=== PATIENT | female | born 1955 | race Caucasian/White ===

== ENCOUNTER → 2018-03-27 | Outpatient (CLI) | payer OTHER, BC ==
[~2018-03-27] MED LIST: EPGI2M; FERROUS SULFATE PO; FLUO20CA20 PO; FLUT0.15 INTNAS; IMD/2 PO; INSU70IN2 SC; LABE100T3 PO; PANT40TA PO; PRAV20TA PO; PREG1CAP70 PO; TORS20TA2 PO; WARF5TAB90 PO
--- NOTE | 2018-03-27 16:41 | DIAGNOSTIC IMAGING REPORT ---
L FOOT MIN 3 VIEWS ROUTINE CLINICAL HISTORY: 62 years-old Female presenting with NON HEALING DIABETIC WOUND. TECHNIQUE: Frontal, oblique, and lateral views of the left foot were obtained. COMPARISON: 08/29/2014. FINDINGS: The site of the reported nonhealing wound is not immediately apparent. Furthermore, osteopenia limits evaluation for osseous erosion or periosteal reaction. Chronic fracture of the base of the second metatarsal with lateral subluxation of the second through fifth metatarsals relative to the first metatarsal. This is consistent with the chronic Lisfranc fracture dislocation. The degree of osteopenia makes assessment for acute fracture difficult. Allowing for this, no gross evidence of acute osseous injury or acute malalignment. Intramedullary nail and interlocking screw fixation across the tibiotalar articulation consistent with arthrodesis. 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 Loss of height of the longitudinal arch as on prior exam. Prominent enthesophyte at the origin of the plantar fascia. Atherosclerosis. IMPRESSION: 1. Allowing for the degree of osteopenia, no radiographic evidence of osteomyelitis. The site of the reported wound is not identified. 2. Interval arthrodesis of the tibiotalar articulation with internal fixation hardware. 3. No displaced fracture allowing for osteopenia. 4. Chronic Lisfranc injury with divergent dislocation. 5. Chronic Charcot foot and pes planus. Electronically signed by: Norris Curtis M.D. 03/27/2018 4:40 PM Dictated Date/Time: 03/27/2018 4:35 PM
== END | disposition home or self-care (01) ==
LOC: C.RAD 16:07
PROVIDERS: ATTEND Emergency Medicine
DX: S91.302A Unspecified open wound, left foot, initial encounter (principal); E11.9 Type 2 diabetes mellitus without complications; X58.XXXA Exposure to other specified factors, initial encounter; M85.80 Other specified disorders of bone density and structure, unspecified site; Z98.1 Arthrodesis status; S93.326A Dislocation of tarsometatarsal joint of unspecified foot, initial encounter; A52.16 Charcot's arthropathy (tabetic)

== ENCOUNTER 2019-05-19 15:35 | Inpatient (IN) ==
[2019-05-19] MEDS ORDERED: LEVOFLOXACIN/D5W 750 MG/150 ML BAG IV STA (16:04)
[2019-05-19] MEDS ORDERED: SODIUM CHLORIDE 0.9% 1000ML 1,000 ML IV ONE (16:04)
[2019-05-19] MEDS ORDERED: PIPERACILL/TAZOBAC CONSULT ACTIVE PRN ×2 (16:04→21:00)
[2019-05-19] MEDS ORDERED: PIPERACILLIN/TAZOBACTAM 4.5 GM/120 ML BAG IV ONE (16:04)
[2019-05-19 16:55] LABS: Basophils # (auto) 0.02 K/uL (0-0.2); Basophils % (auto) 0.2 %; Eosinophils # (auto) 0.09 K/uL (0-0.5); Eosinophils % (auto) 0.7 %; Hematocrit (blood only) 29.3 % (37-47); Hemoglobin 9.1 g/dL (12.0-16.0); Immature Granulocytes # (auto) 0.19 K/uL (0.00-0.02); Immature Granulocytes % (auto) 1.5 %; Lymphocytes # (auto) 1.34 K/uL (1.2-3.4); Lymphocytes % (auto) 10.6 %; Mean Corpuscular Hemoglobin 30.7 pg (25-34); Mean Corpuscular Hgb Conc 31.1 g/dL (32-36); Mean Platelet Volume 10.7 fL (7.4-10.4); Monocytes # (auto) 1.24 K/uL (0.11-0.59); Monocytes % (auto) 9.8 %; Neutrophils # (auto) 9.78 K/uL (1.4-6.5); Neutrophils % (auto) 77.2 %; Nucleated RBC # (auto) 0.03 K/uL (0-0); Nucleated RBC % (auto) 0.2 %; Platelet Count 269 K/uL (130-400); RDW Coefficient of Variation 16.3 % (11.5-14.5); RDW Standard Deviation 57.4 fL (36.4-46.3); Red Blood Count 2.96 M/uL (4.2-5.4); White Blood Count 12.66 K/uL (4.8-10.8)
[2019-05-19] MEDS ORDERED: INSULIN HUMAN REGULAR PER UNIT 10 UNITS in SYRINGE 0 ML IV STA (16:55)
[2019-05-19] MEDS ORDERED: POTASSIUM CHLORIDE 10 MEQ TABCR PO STA (17:06)
[2019-05-19] MEDS ORDERED: NovoLIN-R INSULIN PER UNIT CHARGE ONE (17:12)
[2019-05-19 17:14] LABS: iSTAT Creatinine 6.1 mg/dl (0.6-1.3); iSTAT Hemoglobin 8.5 g/dl (12.0-16.0); iSTAT Ionized Calcium 1.08 mmol/l (1.12-1.32); iSTAT Potassium 3.1 mEq/L (3.3-5.0)
[2019-05-19] MEDS ORDERED: INSULIN REGULAR 250 UNITS in SODIUM CHLORIDE 0.9% 247.5 ML IV SCH (17:15)
[2019-05-19 17:32] LABS: Albumin Globulin Ratio 0.5 (0.9-2); Albumin Level 2.3 gm/dl (3.4-5.0); BUN Creatinine Ratio 4.2 (10-20); Bilirubin,Total 0.2 mg/dl (0.2-1); Creatinine Clr Calc Pharmacy 13.8 ml/min; Est GFR (African American) 8.8; Est GFR (Non-African American) 7.6; Globulin 4.4 gm/dl (2.5-4.0); Total Protein 6.7 gm/dl (6.4-8.2)
[2019-05-19 17:49] LABS: Beta-Hydroxybutyrate 0.67 mg/dl (0.2-2.81)
[2019-05-19 17:54] LABS: Prothrombin Time 37.1 Seconds (9.0-12.0)
[2019-05-19] MEDS ORDERED: POTASSIUM CHLORIDE 20 MEQ TABCR PO STA ×2 (18:21→22:01)
--- NOTE | 2019-05-19 20:41 | History & Physical Report ---
Date of Service May 19, 2019 Assessment & Plan (1) Diabetic foot ulcer associated with type 2 diabetes mellitus: This is a 63-year-old female with uncontrolled IDDM 2, ESRD on HD MWF, diabetic neuropathy, diabetic gastroparesis, Charcot foot secondary to DM, diabetic retinopathy, HTN, HLD, PAF, history of DVT on warfarin, hyperparathyroidism secondary to end-stage renal disease, anemia of chronic disease who presents to [facility] ED at the referral of wound clinic secondary to deterioration of right heel wound and hyperglycemia. Foul smelling R Heel ulceration with necrotic tissue Outpt xray unable to r/o osteomyelitis on 05/12 Deterioration of wound with increasing erythema to RLE Admit to PCU consult infectious disease Start IV Daptomycin and Zosyn wound culture consult wound care Obtain MRI to determine if underlying osteomyelitis- unable to obtain this evening due to patient unable to transfer/sob ESR/CRP in a.m. blood cultures pending (2) Diabetes mellitus, type 2: Uncontrolled type 2 diabetes mellitus with hyperglycemia Blood sugar 589 on admission Pt A&O x 3, corrected Na 138 K low at 3.0 - received 40mg KCL AG 12.0, beta hydroxybutyric acid WNL Initiated on insulin drip in ED Continue insulin drip and will consult glycemic pharmacist for further assistance repeat bmp - replace electrolytes accordingly A1C pending consult breastfeeding educator (3) Atrial fibrillation: Paroxysmal A. fib Rate and rhythm controlled on metoprolol On warfarin for thrombotic control (4) Hypertension: Blood pressure elevated in ED Possibly secondary to pain Patient currently not on any oral antihypertensives order hydralazine prn (5) Hyperlipidemia: Continue statin (6) ESRD (end stage renal disease): HD MWF consult nephrology continue phoslo renal diet, FR 1500ml (7) GERD (gastroesophageal reflux disease): continue PPI (8) Gastroparesis: prn zofran (9) Diabetic peripheral neuropathy: continue lyrica (10) Depression: continue prozac mood stable (11) DVT prophylaxis: on warfarin, currently on hold INR supratherapeutic at 4.0 Daily INR Disposition: Admit to PCU Follow-up: PCP Dr. Dixon upon discharge along with appropriate infectious disease and wound care follow-up Patient was seen and examined in collaboration with Dr. Tomas, please see addendum Starting 05/20/2019 patient will be under the care of Dr. Venegas (12) Anemia in ESRD (end-stage renal disease): History of Present Illness Chief Complaint: Referred to ED from wound clinic due to deterioration of right heel wound. Primary Care Provider: Issa Dixon MD This is a 63-year-old female with uncontrolled IDDM 2, ESRD on HD MWF, diabetic neuropathy, diabetic gastroparesis, Charcot foot secondary to DM, diabetic retinopathy, HTN, HLD, PAF, history of DVT on warfarin, hyperparathyroidism secondary to end-stage renal disease, anemia of chronic disease who presents to [facility] ED at the referral of wound clinic secondary to deterioration of right heel wound and hyperglycemia. is at bedside. She was seen in wound clinic today due to right diabetic foot ulceration. Previously she had been treating with Betadine daily. Recent outpatient x-ray was difficult to rule out early osteomyelitis. Right lower extremity more painful, wound with foul odor and redness extending proximally of the right lower extremity. She was further found to have blood sugar in the 500s. She was referred to ED. She states that she has had wound for approximately 6 weeks and has been worsening. Has been taking ciprofloxacin and clindamycin without for 2 weeks without improvement. Approximately 2 to 4 months ago she had left foot ulceration, but this has since healed. She overall complains of chronic dyspnea on exertion, fatigue, nausea secondary to gastroparesis. Denies fever, chills, sweats, lightheadedness, dizziness, syncope, chest pain, palpitations, emesis, abdominal pain. She produces minimal urine. She is incontinent of stool and has been for years. Over the past month it has been, "oozing out." Appetite has been good. Complains of 2 pound weight gain. Has been compliant with dialysis. Allergies Allergy/AdvReac Type Severity Reaction Status Date / Time Bactrim Allergy Severe ANAPHYLAXIS Verified 06/11/16 08:40 sulfamethoxazole Allergy Severe Anaphylaxis Verified 05/19/19 16:49 trimethoprim Allergy Severe Anaphylaxis Verified 05/19/19 16:49 metformin AdvReac Intermediate Gastrointestinal Verified 05/19/19 16:49 Upset Home Medications Home Medications Medication Instructions Recorded Confirmed Type fluoxetine 20 mg capsule 20 mg PO QAM cap 04/08/18 05/19/19 History fluticasone propionate 50 2 sprays INTNAS QPM gm 04/08/18 05/19/19 History mcg/actuation nasal spray,suspension loperamide 2 mg capsule 4 mg PO DIRECTED PRN cap 04/08/18 05/19/19 History pantoprazole 40 mg tablet,delayed 40 mg PO QAM 04/08/18 05/19/19 History release pravastatin 20 mg tablet 20 mg PO QAM tab 04/08/18 05/19/19 History pregabalin 150 mg capsule 150 mg PO BID 04/08/18 05/19/19 History warfarin 5 mg tablet 2.5 mg PO WK 04/08/18 05/19/19 History calcium acetate 667 mg capsule 1,334 mg PO TIDM cap 05/27/18 05/19/19 History clindamycin HCl 300 mg capsule 300 mg PO TID #90 cap 05/12/19 05/19/19 Rx B complex-vitamin C-folic acid 1 tab PO HS 05/19/19 05/19/19 History [Nephro-Lexa] calcium acetate 667 mg PO DIRECTED 05/19/19 05/19/19 History ciprofloxacin HCl [Cipro] 500 mg PO QAM 05/19/19 05/19/19 History ergocalciferol (vitamin D2) 50,000 unit PO WK 05/19/19 05/19/19 History hydrocodone-acetaminophen 1 tab PO Q6H PRN 05/19/19 05/19/19 History insulin NPH and regular human 26 unit SUBCUT QAM 05/19/19 05/19/19 History [Humulin 70/30 U-100 Insulin] insulin NPH and regular human 36 unit SUBCUT HS 05/19/19 05/19/19 History [Humulin 70/30 U-100 Insulin] metoclopramide HCl 5 mg PO QID PRN 05/19/19 05/19/19 History ondansetron HCl 4 mg PO QID PRN 05/19/19 05/19/19 History warfarin 5 mg PO 6XWK 05/19/19 05/19/19 History Past Med/Surg History Medical History DVT (deep venous thrombosis) (Chronic) x 2. LUE & LLE (both dx years ago - treated - LUE post surgery, reason for DVT in LLE unk) Diverticulosis (Chronic) Diabetic peripheral neuropathy (Acute) Hyperlipidemia Hypertension (Acute) Congestive heart failure Follows w/ dr. Perez Atrial fibrillation dx 2 years ago - on warfarin - follows w/ dr. Perez Neuropathy Depression Glaucoma Diabetes mellitus, type 2 IDDM GERD (gastroesophageal reflux disease) Gastroparesis ESRD (end stage renal disease) (Acute) 2/2 DM; FOLLOWS W/ [facility] Dialysis patient (Acute) M, W, F AV fistula LUE Wound infection (Acute) ACTIVE INFECTION TO LEFT THUMB WOUND; ON ABX; [facility] Charcot's joint of left foot (Acute) Diabetes mellitus with diabetic polyneuropathy (Acute) Charcot's joint of foot in type 2 diabetes mellitus (Chronic) Acquired claw toe of right foot (Acute) Neuropathic ulcer of left heel (Resolved) Acquired claw toe of left foot (Acute) Left midfoot ulcer (Acute) Surgical History H/O carpal tunnel repair (Chronic) History of cholecystectomy (Chronic) H/O hernia repair (Chronic) Hx of appendectomy (Chronic) History of ankle surgery (Acute) History of colonoscopy History of esophagogastroduodenoscopy (EGD) History of bilateral knee replacement S/P arteriovenous (AV) fistula creation History of cervical spinal surgery ROM WNL History of cataract surgery LEFT Family History Other No significant family history Social History Preferred Language: Thai Communication Ability: Effective Cardiovascular Invasive Specialist Required: No Beliefs That Will Affect Care: None Current Living Situation: Spouse Other Information That Helps Us Care for You: No Feels Safe at Home: Yes Safety Concerns: Feels Safe At This Time Smoking Status: Never smoker Second Hand Exposure: No ; Hx Alcohol Use: No Hx Substance Use: No Review of Systems Review of Systems: All systems reviewed & are unremarkable except as noted in HPI & below Physical Exam Physical Exam: Constitutional: Morbidly obese, female, vitals as above, NAD, sitting up in bed, pleasant, conversing easily Head: Normocephalic, Atraumatic Eyes: PERRL, conjunctivae normal, anicteric sclerae ENMT: external ear and nose normal, oropharynx dry mucous membrane Neck: trachea midline, no thyromegaly normal visual inspection Respiratory: normal respiratory effort, lungs clear to auscultation, no wheeze, rales, rhonchi. Normal insp/exp effort, no accessory muscle use Cardiovascular: RRR, no murmur, bilateral lower extremity nonpitting edema right greater than left. Right lower extremity with erythema starting distally to pedal aspect of foot extending proximally to mid pretibial surface. Area warm. Vessels: no JVD or carotid bruit Chest: normal inspection of chest Abdomen: Obese and protuberant abdomen, normal bowel sounds, soft, nontender, no hepatosplenomegaly Musculoskeletal: no cyanosis or clubbing, foul-smelling wound overlying right Achilles with necrotic tissue 7 x 8 cm in size Skin: warm and dry normal turgor Neurologic: PERRL, EOMI, accommodation nl, no face palsy, no dysarthria CN's II-XI intact bilaterally and moves all extremities Psychiatric: A+Ox3, euthymic affect Lymphatic: no cervical or axillary lymphadenopathy : deferred Results & Data Vital Signs (Past 12 Hours) Vital Signs Temp Pulse Pulse Resp BP BP Pulse Ox 05/19/19 18:01 78 13 97 05/19/19 17:59 80 16 184/46 H 96 05/19/19 17:57 86 30 H 93 05/19/19 17:46 70 12 150/54 H 94 05/19/19 17:30 68 15 05/19/19 17:27 69 13 150/54 H 05/19/19 17:15 70 10 L 05/19/19 17:00 70 16 05/19/19 16:45 71 15 05/19/19 16:42 70 24 181/60 H 05/19/19 16:30 70 16 05/19/19 16:28 72 25 H 05/19/19 15:45 36.5 C 73 20 133/51 L 96 Laboratory Results Short CBC 05/19/19 Range/Units 16:40 WBC 12.66 H (4.8-10.8) K/uL Hgb 9.1 L (12.0-16.0) g/dL Hct 29.3 L (37-47) % Plt Count 269 (130-400) K/uL BMP 05/19/19 16:40 Sodium 127 L Potassium 3.0 L Chloride 88 L Carbon Dioxide 27 BUN 23 H Creatinine 5.56 H* Glucose 589 H* Calcium 9.0 Liver Function 05/19/19 Range/Units 16:40 Total Bilirubin 0.2 (0.2-1) mg/dl AST 18 (15-37) U/L ALT 28 (12-78) U/L Alkaline Phosphatase 117 (45-117) U/L Albumin 2.3 L (3.4-5.0) gm/dl Diagnostic Findings outpt xray R foot/ankle 05/12/19 IMPRESSION Vague increased lucency involving the anterior aspect of the Achilles insertion. There appears to be a soft tissue defect overlying this area. It would be difficult to entirely exclude early osteomyelitis here. RLE VDS: IMPRESSION: No sonographic evidence of deep venous thrombosis. Medications Administered Insulin Human Regular 250 (units/ Sodium Chloride) 250 mls @ 4.9 mls/hr IV .Q24H RAMYA; Protocol Stop: 06/18/19 17:14 Last Titration: 05/19/19 20:01 Dose: 5.9 units/hr, 5.9 mls/hr Documented by: [id number] Cosigned by: [id number] Admin: 05/19/19 18:49 Dose: 4.9 units/hr, 4.9 mls/hr Documented by: [id number] Cosigned by: [id number] Discontinued Medications Levofloxacin/Dextrose (Levaquin/D5w) 750 mg in 150 mls @ 100 mls/hr IV NOW STA Stop: 05/19/19 17:33 Last Admin: 05/19/19 18:18 Dose: 100 mls/hr Documented by: [id number] Sodium Chloride (Nss 1000ml) 1,000 mls @ 999 mls/hr IV .Q1H1M ONE Stop: 05/19/19 17:04 Last Admin: 05/19/19 16:53 Dose: 999 mls/hr Documented by: [id number] Piperacillin Sod/Tazobactam Sod (Zosyn) 4.5 gm in 120 mls @ 240 mls/hr IV NOW ONE Stop: 05/19/19 16:33 Last Admin: 05/19/19 17:32 Dose: 240 mls/hr Documented by: [id number] Insulin Human Regular 10 units (/ Syringe) 0.1 mls @ 0 mls/hr IV ONE STA Stop: 05/19/19 16:56 Last Admin: 05/19/19 19:16 Dose: Not Given Documented by: [id number] Insulin Human Regular (Novolin R U-100 Per Unit) Confirm Administered Dose 10 units .ROUTE .STK-MED ONE Stop: 05/19/19 17:13 Last Admin: 05/19/19 17:31 Dose: 10 units Documented by: [id number] Cosigned by: [id number] Potassium Chloride (Klor-Con M10) 40 meq PO NOW STA Stop: 05/19/19 17:07 Last Admin: 05/19/19 17:31 Dose: 40 meq Documented by: [id number] Potassium Chloride (Klor-Con M20) 40 meq PO NOW STA Stop: 05/19/19 18:22 Last Admin: 05/19/19 19:44 Dose: 40 meq Documented by: [id number] Code Status & VTE Plan Code Status Full Code VTE Prophylaxis Plan VTE Prophylaxis will be ordered: Yes Supervising Physician Co-Signing Physician Notes HISTORY: Record reviewed. Patient interviewed and examined. Care coordinated with India Mendez PA-C. Please refer to her documentation for patient's history. Briefly, 63-year-old female with history of atrial fibrillation, CHF, diabetes mellitus, CKD stage V on hemodialysis, and other problems. Recent ulcer involving posterior aspect of right foot/ankle followed by wound clinic. Referred for hospitalization because of worsening wound infection and concern for possible osteomyelitis. EXAM: General- no distress Lungs- clear to auscultation; no respiratory distress Cardiovascular- RRR; no murmur; no gallop; 1+ pretibial edema Abdomen- + bowel sounds, soft, nontender Extremities- no cyanosis; no calf tenderness: Charcot deformity left foot Neuro- alert, oriented Skin- warm & dry; large ulcer right posterior foot / ankle with foul-smelling odor suggestive of Pseudomonas DATA: Hemoglobin 9.1, white count 12,660, platelet count 269,000. INR 4.0. Serum sodium 127, potassium 3.0, chloride 88, CO2 27, anion gap 12, BUN 23, creatinine 5.56, random glucose 589. Other lab studies as noted. ASSESSMENT AND PLAN: Wound involving right posterior foot/ankle with concerns for underlying osteomyelitis. Check blood and wound cultures. IV antibiotic therapy with daptomycin and piperacillin/tazobactam. Consult ID and Wound Care. Hyperglycemia with blood sugars in the 500s. Insulin infusion per protocol. Check hemoglobin A1c. Ongoing diabetes education/support. CKD stage V on hemodialysis. Management per Nephrology. On warfarin for chronic atrial fibrillation and history of VTE. INR = 4.0. Hold warfarin, monitor INR, titrate therapy. Please refer to JOHN Mendez's documentation for discussion of other issues. (1) Diabetic foot ulcer associated with type 2 diabetes mellitus Diabetic foot ulcer location: heel Laterality: left Non-pressure ulcer stage: limited to breakdown of skin Qualified Code(s): E11.621 - Type 2 diabetes mellitus with foot ulcer; L97.421 - Non-pressure chronic ulcer of left heel and midfoot limited to breakdown of skin
--- NOTE | 2019-05-19 20:51 | Ultrasound Report ---
US venous doppler LE RT HISTORY: 63 years-old Female RLE edema acute pain and swelling of the right lower extremity COMPARISON: None available TECHNIQUE: Multiple real-time sonographic images of the right lower extremity deep venous structures were obtained assessing grayscale appearance, color and spectral flow FINDINGS: Normal flow, compressibility, phasicity and augmentation of the right lower extremity deep venous str uctures. Mild subcutaneous edema. IMPRESSION: No sonographic evidence of deep venous thrombosis. The above report was generated using voice recognition software. It may contain grammatical, syntax o r spelling errors. Electronically signed by: Dm Wilkins M.D. 05/19/2019 8:49 PM
[2019-05-19] MEDS ORDERED: ONDANSETRON 4 MG TAB PO PRN (20:53)
[2019-05-19] MEDS ORDERED: ACETAMINOPHEN 325 MG TAB PO PRN (20:53)
[2019-05-19] MEDS ORDERED: CALCIUM ACETATE 667 MG CAP PO PRN (20:53)
[2019-05-19] MEDS ORDERED: HydrALAZINE HCL 20 MG/ML VIAL IV PRN (20:53)
[2019-05-19] MEDS ORDERED: DEXTROSE 50% 50 ML SYRINGE IV PRN (20:53)
[2019-05-19] MEDS ORDERED: GLUCOSE 10 TABS/TUBE PO PRN (20:53)
[2019-05-19] MEDS ORDERED: CONSULT PHARMACY STA (20:53)
[2019-05-19] MEDS ORDERED: GLUCAGON FOR INJ 1 MG VIAL SQ PRN (20:53)
[2019-05-19] MEDS ORDERED: GLUCOSE 40% GEL 15 GM TUBE PO PRN (20:53)
[2019-05-19] MEDS ORDERED: CARBOHYDRATES FOR HYPOGLYCEMIA PO PRN (20:53)
[2019-05-19] MEDS ORDERED: POLYETHYLENE (MIRALAX) 17 GM PACK PO PRN (20:53)
[2019-05-19] MEDS ORDERED: ONDANSETRON INJ 2 MG/ML 2 ML VIAL IV PRN (20:53)
[2019-05-19] MEDS ORDERED: INSULIN ASPART 100 UNITS/ML 3 ML PEN SC SCH (21:00)
[2019-05-19] MEDS ORDERED: PHARMACY GLYCEMIC MGMT CONSULT PRN (21:30)
[2019-05-19] MEDS ORDERED: DAPTOMYCIN CONSULT ACTIVE PRN (21:39)
[2019-05-19] MEDS ORDERED: CALCIUM CARBONATE 500 MG CHEWABLE TAB PO PRN (21:49)
[2019-05-19] MEDS: FLUTICASONE PROPIONATE NA SPR 16 GM BTL SCH (21:54)
[2019-05-19] MEDS: PREGABALIN 150 MG CAP PO SCH (21:54)
[2019-05-19 21:58] LABS: BUN Creatinine Ratio 4.8 (10-20); Calcium 8.9 mg/dl (8.5-10.1); Creatinine Clr Calc Pharmacy 13.6 ml/min; Est GFR (African American) 8.9; Est GFR (Non-African American) 7.7; Magnesium 1.8 mg/dl (1.8-2.4); Potassium 3.3 mmol/L (3.5-5.1)
[2019-05-19 22:16] LABS: Beta-Hydroxybutyrate 0.53 mg/dl (0.2-2.81)
[2019-05-19] MEDS: DAPTOmycin 500 MG in SYRINGE 0 ML IV SCH (22:41)
[2019-05-19] MEDS: INSULIN HUMAN NPH SC SCH (22:43)
--- NOTE | 2019-05-19 23:23 | Emergency Department Note ---
Entered by Yeimy Velasquez acting as a scribe for History of Present Illness General Chief complaint: Hyperglycemia Stated complaint: HYPERGLYCEMIA,OPEN NON HEALING WOUND Time Seen by Provider: 05/19/19 15:54 Source: patient History of Present Illness Onset (ago): hour(s) (this afternoon) Location: head Pain Consistency: + other (episode) Maximum Pain Intensity: 6 Quality: + other (hyperglycemia) Associated symptoms: + other (right heel wound) The patient is a 63 year old female with a history of diabetes that is presenting to the Emergency Room with complaints of an episode of hyperglycemia that occurred this afternoon while the patient was at the wound clinic. The patient reports that she was at the wound clinic for a persistent wound on her right heel when she was found to have a blood glucose of 539 mg/dL. She reports that she is currently taking insulin. She denies taking any Prednisone currently. She notes that she is currently on antibiotics for her wound but denies knowing the names of the medications. The patient reports that the wound clinic would like to schedule an MRI for the wound as the X-ray results were not encouraging. She states that she sprained her right ankle around 1 week ago but denies receiving any treatment for the injury. She notes that she has not had an x-ray of the ankle. The patient reports that she has a healing wound on her left foot. Home Medications Home Medications Medication Instructions Recorded Confirmed Type fluoxetine 20 mg capsule 20 mg PO QAM cap 04/08/18 05/19/19 History fluticasone propionate 50 2 sprays INTNAS QPM gm 04/08/18 05/19/19 History mcg/actuation nasal spray,suspension loperamide 2 mg capsule 4 mg PO DIRECTED PRN cap 04/08/18 05/19/19 History pantoprazole 40 mg tablet,delayed 40 mg PO QAM 04/08/18 05/19/19 History release pravastatin 20 mg tablet 20 mg PO QAM tab 04/08/18 05/19/19 History pregabalin 150 mg capsule 150 mg PO BID 04/08/18 05/19/19 History warfarin 5 mg tablet 2.5 mg PO WK 04/08/18 05/19/19 History calcium acetate 667 mg capsule 1,334 mg PO TIDM cap 05/27/18 05/19/19 History clindamycin HCl 300 mg capsule 300 mg PO TID #90 cap 05/12/19 05/19/19 Rx B complex-vitamin C-folic acid 1 tab PO HS 05/19/19 05/19/19 History [Nephro-Lexa] calcium acetate 667 mg PO DIRECTED 05/19/19 05/19/19 History ciprofloxacin HCl [Cipro] 500 mg PO QAM 05/19/19 05/19/19 History ergocalciferol (vitamin D2) 50,000 unit PO WK 05/19/19 05/19/19 History hydrocodone-acetaminophen 1 tab PO Q6H PRN 05/19/19 05/19/19 History insulin NPH and regular human 26 unit SUBCUT QAM 05/19/19 05/19/19 History [Humulin 70/30 U-100 Insulin] insulin NPH and regular human 36 unit SUBCUT HS 05/19/19 05/19/19 History [Humulin 70/30 U-100 Insulin] metoclopramide HCl 5 mg PO QID PRN 05/19/19 05/19/19 History ondansetron HCl 4 mg PO QID PRN 05/19/19 05/19/19 History warfarin 5 mg PO [id number] 05/19/19 05/19/19 History Allergies Allergy/AdvReac Type Severity Reaction Status Date / Time Bactrim Allergy Severe ANAPHYLAXIS Verified 06/11/16 08:40 sulfamethoxazole Allergy Severe Anaphylaxis Verified 05/19/19 16:49 trimethoprim Allergy Severe Anaphylaxis Verified 05/19/19 16:49 metformin AdvReac Intermediate Gastrointestinal Verified 05/19/19 16:49 Upset Past Med/Surg History Medical History DVT (deep venous thrombosis) (Chronic) x 2. LUE & LLE (both dx years ago - treated - LUE post surgery, reason for DVT in LLE unk) Diverticulosis (Chronic) Diabetic peripheral neuropathy (Acute) Hyperlipidemia Hypertension (Acute) Congestive heart failure Follows w/ dr. Perez Atrial fibrillation dx 2 years ago - on warfarin - follows w/ dr. Perez Neuropathy Depression Glaucoma Diabetes mellitus, type 2 IDDM GERD (gastroesophageal reflux disease) Gastroparesis ESRD (end stage renal disease) (Acute) 2/2 DM; FOLLOWS W/ [facility] Dialysis patient (Acute) M, W, F AV fistula LUE Wound infection (Acute) ACTIVE INFECTION TO LEFT THUMB WOUND; ON ABX; [facility] Charcot's joint of left foot (Acute) Diabetes mellitus with diabetic polyneuropathy (Acute) Charcot's joint of foot in type 2 diabetes mellitus (Chronic) Acquired claw toe of right foot (Acute) Neuropathic ulcer of left heel (Resolved) Acquired claw toe of left foot (Acute) Left midfoot ulcer (Acute) Surgical History H/O carpal tunnel repair (Chronic) History of cholecystectomy (Chronic) H/O hernia repair (Chronic) Hx of appendectomy (Chronic) History of ankle surgery (Acute) History of colonoscopy History of esophagogastroduodenoscopy (EGD) History of bilateral knee replacement S/P arteriovenous (AV) fistula creation History of cervical spinal surgery ROM WNL History of cataract surgery LEFT Family History Other No significant family history Social History Preferred Language: British Communication Ability: Effective Sr Account Executive Required: No Beliefs That Will Affect Care: None Current Living Situation: Spouse Other Information That Helps Us Care for You: No Feels Safe at Home: Yes Safety Concerns: Feels Safe At This Time Smoking Status: Never smoker Second Hand Exposure: No ; Hx Alcohol Use: No Hx Substance Use: No Review of Systems See HPI for pertinent positives & negatives. and A total of 10 systems reviewed and were otherwise negative Physical Exam Vital Signs Vital Signs - 24 hr 05/19/19 15:45 05/19/19 16:01 05/19/19 16:28 Temperature 36.5 C Temperature Source Oral Sepsis Recent Fever Within 48 Hours No Sepsis New/Unexplained Change in Mental Status No Sepsis Action Taken by Nursing No Action Required Pulse Rate 73 72 Pulse Rate [Right Finger] Pulse Rate from SpO2 Sensor Pulse Rhythm Regular Pulse Strength Normal Respiratory Rate 20 25 H Respiratory Effort / Characteristics Non-Labored Spontaneous Respiratory Depth Normal Respiratory Pattern Regular Blood Pressure 133/51 L Blood Pressure [Right Arm] Blood Pressure Mean 78 Blood Pressure Mean [Right Arm] Pulse Oximetry 96 Oxygen Delivery Method Room Air Room Air 05/19/19 16:30 05/19/19 16:42 05/19/19 16:45 Temperature Temperature Source Sepsis Recent Fever Within 48 Hours Sepsis New/Unexplained Change in Mental Status Sepsis Action Taken by Nursing Pulse Rate 70 70 71 Pulse Rate [Right Finger] Pulse Rate from SpO2 Sensor Pulse Rhythm Pulse Strength Respiratory Rate 16 24 15 Respiratory Effort / Characteristics Respiratory Depth Respiratory Pattern Blood Pressure 181/60 H Blood Pressure [Right Arm] Blood Pressure Mean 100 Blood Pressure Mean [Right Arm] Pulse Oximetry Oxygen Delivery Method 05/19/19 17:00 05/19/19 17:15 05/19/19 17:27 Temperature Temperature Source Sepsis Recent Fever Within 48 Hours Sepsis New/Unexplained Change in Mental Status Sepsis Action Taken by Nursing Pulse Rate 70 70 69 Pulse Rate [Right Finger] Pulse Rate from SpO2 Sensor Pulse Rhythm Pulse Strength Respiratory Rate 16 10 L 13 Respiratory Effort / Characteristics Respiratory Depth Respiratory Pattern Blood Pressure 150/54 H Blood Pressure [Right Arm] Blood Pressure Mean 86 Blood Pressure Mean [Right Arm] Pulse Oximetry Oxygen Delivery Method 05/19/19 17:30 05/19/19 17:46 05/19/19 17:57 Temperature Temperature Source Sepsis Recent Fever Within 48 Hours Sepsis New/Unexplained Change in Mental Status Sepsis Action Taken by Nursing Pulse Rate 68 86 Pulse Rate [Right Finger] 70 Pulse Rate from SpO2 Sensor 86 Pulse Rhythm Pulse Strength Respiratory Rate 15 12 30 H Respiratory Effort / Characteristics Respiratory Depth Respiratory Pattern Blood Pressure Blood Pressure [Right Arm] 150/54 H Blood Pressure Mean Blood Pressure Mean [Right Arm] 86 Pulse Oximetry 94 93 Oxygen Delivery Method Room Air 05/19/19 17:59 05/19/19 18:01 Temperature Temperature Source Sepsis Recent Fever Within 48 Hours Sepsis New/Unexplained Change in Mental Status Sepsis Action Taken by Nursing Pulse Rate 80 78 Pulse Rate [Right Finger] Pulse Rate from SpO2 Sensor 81 78 Pulse Rhythm Pulse Strength Respiratory Rate 16 13 Respiratory Effort / Characteristics Respiratory Depth Respiratory Pattern Blood Pressure 184/46 H Blood Pressure [Right Arm] Blood Pressure Mean 92 Blood Pressure Mean [Right Arm] Pulse Oximetry 96 97 Oxygen Delivery Method GENERAL: Awake, alert, well-appearing, in no acute distress HENT: Normocephalic, atraumatic. Oropharynx unremarkable. EYES: Normal conjunctiva. Sclera non-icteric. NECK: Supple. No nuchal rigidity. FROM. No JVD. RESPIRATORY: Clear to auscultation. CARDIAC: Regular rate, normal rhythm. Extremities warm and well perfused. Pulses equal. ABDOMEN: Soft, non-distended. No tenderness to palpation. No rebound or guarding. No masses. RECTAL: Deferred. MUSCULOSKELETAL: Chest examination reveals no tenderness. The back is symmetrical on inspection without obvious abnormality. There is no CVA tenderness to palpation. No joint edema. LOWER EXTREMITIES: Calves are equal size bilaterally and non-tender. Wound to right heel. Walking boot on left foot. NEURO: Normal sensorium. No sensory or motor deficits noted. SKIN: No rash or jaundice noted. Course 1556:The patient was evaluated in room A11B. A complete history and physical examination was performed. 1713: I reevaluated the patient at this time. She informed me that she undergoes dialysis Thursday, Thursday, and Thursday in [place]. She notes that she went to her appointment as scheduled yesterday. 1752: I discussed the patient's case with LILIAN Stovall, who will evaluate the patient for further management and care with Dr. Tomas as the attending physician. 1800: Upon reevaluation, the patient is resting comfortably. I discussed laboratory and radiographic results with the patient. She verbalized agreement of the treatment plan. The patient will be evaluated for further management and care. Consultations Consultation #1: I discussed the patient's case with LILIAN Stovall, who will evaluate the patient for further management and care with Dr. Tomas as the attending physician. Time: 17:52 Administered Medications Calcium Carbonate (Tums) 500 mg PO Q4H PRN PRN Reason: Indigestion Stop: 06/18/19 21:48 Last Admin: 05/19/19 22:41 Dose: 500 mg Documented by: [id number] Fluticasone Propionate (Flonase) 2 sprays NA QPM RAMYA Stop: 06/18/19 20:59 Last Admin: 05/19/19 21:54 Dose: 2 sprays Documented by: [id number] Insulin Human Regular 250 (units/ Sodium Chloride) 250 mls @ 4.9 mls/hr IV .Q24H RAMYA; Protocol Stop: 06/18/19 17:14 Last Titration: 05/19/19 22:51 Dose: 3.8 units/hr, 3.8 mls/hr Documented by: [id number] Cosigned by: [id number] Titration: 05/19/19 21:57 Dose: 4.7 units/hr, 4.7 mls/hr Documented by: [id number] Cosigned by: [id number] Titration: 05/19/19 21:01 Dose: 4.7 units/hr, 4.7 mls/hr Documented by: [id number] Cosigned by: [id number] Titration: 05/19/19 20:01 Dose: 5.9 units/hr, 5.9 mls/hr Documented by: [id number] Cosigned by: [id number] Admin: 05/19/19 18:49 Dose: 4.9 units/hr, 4.9 mls/hr Documented by: [id number] Cosigned by: [id number] Daptomycin 500 mg/ Syringe 10 mls @ 0 mls/min IV Q48H [facility]; Protocol Stop: 05/29/19 21:59 Last Admin: 05/19/19 22:41 Dose: 5 mls/min Documented by: [id number] Insulin Human NPH (Novolin N Nph) 20 units SC BIDM [facility]; Protocol Stop: 06/18/19 22:29 Last Admin: 05/19/19 22:43 Dose: Not Given Documented by: [id number] Pregabalin (Lyrica) 150 mg PO BID [facility] Stop: 06/18/19 20:59 Last Admin: 05/19/19 21:54 Dose: 150 mg Documented by: [id number] Discontinued Medications Levofloxacin/Dextrose (Levaquin/D5w) 750 mg in 150 mls @ 100 mls/hr IV NOW STA Stop: 05/19/19 17:33 Last Infusion: 05/19/19 22:31 Dose: 0 mls/hr Documented by: [id number] Admin: 05/19/19 18:18 Dose: 100 mls/hr Documented by: [id number] Sodium Chloride (Nss 1000ml) 1,000 mls @ 999 mls/hr IV .Q1H1M ONE Stop: 05/19/19 17:04 Last Infusion: 05/19/19 22:31 Dose: 0 mls/hr Documented by: [id number] Admin: 05/19/19 16:53 Dose: 999 mls/hr Documented by: [id number] Piperacillin Sod/Tazobactam Sod (Zosyn) 4.5 gm in 120 mls @ 240 mls/hr IV NOW ONE Stop: 05/19/19 16:33 Last Infusion: 05/19/19 22:31 Dose: 0 mls/hr Documented by: [id number] Admin: 05/19/19 17:32 Dose: 240 mls/hr Documented by: [id number] Insulin Human Regular 10 units (/ Syringe) 0.1 mls @ 0 mls/hr IV ONE STA Stop: 05/19/19 16:56 Last Admin: 05/19/19 19:16 Dose: Not Given Documented by: [id number] Insulin Aspart (Novolog Flexpen) 0 units SC ACHS RAMYA Stop: 06/18/19 20:59 Last Admin: 05/19/19 21:50 Dose: Not Given Documented by: [id number] Insulin Human Regular (Novolin R U-100 Per Unit) Confirm Administered Dose 10 units .ROUTE .STK-MED ONE Stop: 05/19/19 17:13 Last Admin: 05/19/19 17:31 Dose: 10 units Documented by: [id number] Cosigned by: [id number] Potassium Chloride (Klor-Con M10) 40 meq PO NOW STA Stop: 05/19/19 17:07 Last Admin: 05/19/19 17:31 Dose: 40 meq Documented by: [id number] Potassium Chloride (Klor-Con M20) 40 meq PO NOW STA Stop: 05/19/19 18:22 Last Admin: 05/19/19 19:44 Dose: 40 meq Documented by: [id number] Potassium Chloride (Klor-Con M20) 20 meq PO NOW STA Stop: 05/19/19 22:02 Last Admin: 05/19/19 22:43 Dose: 20 meq Documented by: [id number] Medical Decision Making Differential Diagnosis Differential diagnosis: Etiologies such as cellulitis, abscess, MRSA infection, DVT, necrotizing fasciitis, dermatitis, drug eruption, as well as others were entertained. Medical Records Attestation: I reviewed the patient's medical records. Home Medications Current Medication List: was personally reviewed by me Laboratory Data Attestation: I reviewed the patient's lab results. Result diagrams: 05/19/19 16:40 05/19/19 21:14 Lab Results 05/19/19 05/19/19 05/19/19 Range/Units 15:48 16:40 16:40 WBC 12.66 H (4.8-10.8) K/uL RBC 2.96 L (4.2-5.4) M/uL Hgb 9.1 L (12.0-16.0) g/dL POC Hgb (12.0-16.0) g/dl Hct 29.3 L (37-47) % POC Hct (37-47) % MCV 99.0 (80-100) fL MCH 30.7 (25-34) pg MCHC 31.1 L (32-36) g/dL RDW Std Deviation 57.4 H (36.4-46.3) fL RDW Coeff of Dean 16.3 H (11.5-14.5) % Plt Count 269 (130-400) K/uL MPV 10.7 H (7.4-10.4) fL Immature Gran % (Auto) 1.5 % Neut % (Auto) 77.2 % Lymph % (Auto) 10.6 % [place] % (Auto) 9.8 % Eos % (Auto) 0.7 % Baso % (Auto) 0.2 % Immature Gran # (Auto) 0.19 H (0.00-0.02) K/uL Neut # (Auto) 9.78 H (1.4-6.5) K/uL Lymph # (Auto) 1.34 (1.2-3.4) K/uL [place] # (Auto) 1.24 H (0.11-0.59) K/uL Eos # (Auto) 0.09 (0-0.5) K/uL Baso # (Auto) 0.02 (0-0.2) K/uL Absolute Nucleated RBC 0.03 H (0-0) K/uL Nucleated RBC % (auto) 0.2 % PT (9.0-12.0) Seconds INR (0.9-1.1) POC Sodium (135-144) mEq/L Sodium 127 L (136-145) mmol/L POC Potassium (3.3-5.0) mEq/L Potassium 3.0 L (3.5-5.1) mmol/L POC Chloride (101-112) mEq/L Chloride 88 L (98-107) mmol/L Carbon Dioxide 27 (21-32) mmol/L POC Total CO2 (24-31) mEq/l Anion Gap 12.0 H (3-11) POC Anion Gap (16-25) mmol/L POC BUN (7-18) mg/dl BUN 23 H (7-18) mg/dl Creatinine 5.56 H* (0.6-1.2) mg/dl POC Creatinine (0.6-1.3) mg/dl Est Cr Clr Drug Dosing 13.8 ml/min Est GFR ( Amer) 8.8 Est GFR (Non-Af Amer) 7.6 BUN/Creatinine Ratio 4.2 L (10-20) Glucose 589 H* (70-99) mg/dl POC Glucose 539 H* (70-99) POC Glucose (other) (70-99) mg/dl Calcium 9.0 (8.5-10.1) mg/dl POC Ioniz Calcium Tip (1.12-1.32) mmol/l Total Bilirubin 0.2 (0.2-1) mg/dl AST 18 (15-37) U/L ALT 28 (12-78) U/L Alkaline Phosphatase 117 (45-117) U/L Total Protein 6.7 (6.4-8.2) gm/dl Albumin 2.3 L (3.4-5.0) gm/dl Globulin 4.4 H (2.5-4.0) gm/dl Albumin/Globulin Ratio 0.5 L (0.9-2) Lipase 185 (73-393) U/L Beta-Hydroxybutyric Acd 0.67 (0.2-2.81) mg/dl 05/19/19 05/19/19 05/19/19 Range/Units 16:41 16:59 18:00 WBC (4.8-10.8) K/uL RBC (4.2-5.4) M/uL Hgb (12.0-16.0) g/dL POC Hgb 8.5 L (12.0-16.0) g/dl Hct (37-47) % POC Hct 25 L (37-47) % MCV (80-100) fL MCH (25-34) pg MCHC (32-36) g/dL RDW Std Deviation (36.4-46.3) fL RDW Coeff of Dean (11.5-14.5) % Plt Count (130-400) K/uL MPV (7.4-10.4) fL Immature Gran % (Auto) % Neut % (Auto) % Lymph % (Auto) % [place] % (Auto) % Eos % (Auto) % Baso % (Auto) % Immature Gran # (Auto) (0.00-0.02) K/uL Neut # (Auto) (1.4-6.5) K/uL Lymph # (Auto) (1.2-3.4) K/uL [place] # (Auto) (0.11-0.59) K/uL Eos # (Auto) (0-0.5) K/uL Baso # (Auto) (0-0.2) K/uL Absolute Nucleated RBC (0-0) K/uL Nucleated RBC % (auto) % PT 37.1 H (9.0-12.0) Seconds INR 4.0 H (0.9-1.1) POC Sodium 126 L (135-144) mEq/L Sodium (136-145) mmol/L POC Potassium 3.1 L (3.3-5.0) mEq/L Potassium (3.5-5.1) mmol/L POC Chloride 86 L (101-112) mEq/L Chloride (98-107) mmol/L Carbon Dioxide (21-32) mmol/L POC Total CO2 29 (24-31) mEq/l Anion Gap (3-11) POC Anion Gap 15.0 L (16-25) mmol/L POC BUN 25 H (7-18) mg/dl BUN (7-18) mg/dl Creatinine (0.6-1.2) mg/dl POC Creatinine 6.1 H* (0.6-1.3) mg/dl Est Cr Clr Drug Dosing ml/min Est GFR ( Amer) Est GFR (Non-Af Amer) BUN/Creatinine Ratio (10-20) Glucose (70-99) mg/dl POC Glucose 529 H* (70-99) POC Glucose (other) 604 H* (70-99) mg/dl Calcium (8.5-10.1) mg/dl POC Ioniz Calcium Tip 1.08 L (1.12-1.32) mmol/l Total Bilirubin (0.2-1) mg/dl AST (15-37) U/L ALT (12-78) U/L Alkaline Phosphatase (45-117) U/L Total Protein (6.4-8.2) gm/dl Albumin (3.4-5.0) gm/dl Globulin (2.5-4.0) gm/dl Albumin/Globulin Ratio (0.9-2) Lipase (73-393) U/L Beta-Hydroxybutyric Acd (0.2-2.81) mg/dl 05/19/19 Range/Units 18:03 WBC (4.8-10.8) K/uL RBC (4.2-5.4) M/uL Hgb (12.0-16.0) g/dL POC Hgb (12.0-16.0) g/dl Hct (37-47) % POC Hct (37-47) % MCV (80-100) fL MCH (25-34) pg MCHC (32-36) g/dL RDW Std Deviation (36.4-46.3) fL RDW Coeff of Dean (11.5-14.5) % Plt Count (130-400) K/uL MPV (7.4-10.4) fL Immature Gran % (Auto) % Neut % (Auto) % Lymph % (Auto) % [place] % (Auto) % Eos % (Auto) % Baso % (Auto) % Immature Gran # (Auto) (0.00-0.02) K/uL Neut # (Auto) (1.4-6.5) K/uL Lymph # (Auto) (1.2-3.4) K/uL [place] # (Auto) (0.11-0.59) K/uL Eos # (Auto) (0-0.5) K/uL Baso # (Auto) (0-0.2) K/uL Absolute Nucleated RBC (0-0) K/uL Nucleated RBC % (auto) % PT (9.0-12.0) Seconds INR (0.9-1.1) POC Sodium (135-144) mEq/L Sodium (136-145) mmol/L POC Potassium (3.3-5.0) mEq/L Potassium (3.5-5.1) mmol/L POC Chloride (101-112) mEq/L Chloride (98-107) mmol/L Carbon Dioxide (21-32) mmol/L POC Total CO2 (24-31) mEq/l Anion Gap (3-11) POC Anion Gap (16-25) mmol/L POC BUN (7-18) mg/dl BUN (7-18) mg/dl Creatinine (0.6-1.2) mg/dl POC Creatinine (0.6-1.3) mg/dl Est Cr Clr Drug Dosing ml/min Est GFR ( Amer) Est GFR (Non-Af Amer) BUN/Creatinine Ratio (10-20) Glucose (70-99) mg/dl POC Glucose 547 H* (70-99) POC Glucose (other) (70-99) mg/dl Calcium (8.5-10.1) mg/dl POC Ioniz Calcium Tip (1.12-1.32) mmol/l Total Bilirubin (0.2-1) mg/dl AST (15-37) U/L ALT (12-78) U/L Alkaline Phosphatase (45-117) U/L Total Protein (6.4-8.2) gm/dl Albumin (3.4-5.0) gm/dl Globulin (2.5-4.0) gm/dl Albumin/Globulin Ratio (0.9-2) Lipase (73-393) U/L Beta-Hydroxybutyric Acd (0.2-2.81) mg/dl Blood Pressure Blood Pressure Findings: Low blood pressure MDM Narrative This is a 63-year-old female who presents emergency department with a wound to the back of her leg. Patient was sent in by wound clinic. I am concerned that the patient has an elevation in her white blood cell count despite being on antibiotics. In addition patient's blood sugar is grossly elevated. I did place the patient on insulin drip and her potassium was repleted x2 in the emergency department. I did discuss the case with the hospitalist service who agreed to admit the patient. Patient was pancultured and started on antibiotics including Zosyn Levaquin and vancomycin. I did discuss the case with the h ospitalist service who agreed to admit the patient. Impression & Plan Acute hyperglycemia, Pressure ulcer, Hypertension, ESRD (end stage renal disease), Dialysis patient, Wound infection, Cellulitis Critical Care Time I have personally spent greater than 30 minutes of critical care time in the direct management of this patient. This includes bedside care, interpretation of diagnostic studies, and testing, discussion with consultants, patient, and family members, and other required patient management activities. This 30 minutes is in excess of all separately billable procedures. Discharge Plan Visit Data *Final* Discharge Date/Time: 05/19/19 20:12 Chief Complaint: Hyperglycemia Stated Complaint: HYPERGLYCEMIA,OPEN NON HEALING WOUND ED Provider: Shahriar Shin Discharge Problem: Acute hyperglycemia, Pressure ulcer, Hypertension, ESRD (end stage renal disease), Dialysis patient, Wound infection, Cellulitis Patient Disposition: Admitted As Inpatient Discharge Instructions Interventions: ED Discharge Assessment Last Done: 05/19/19 20:12 Discharge Problem: Pressure ulcer Qualifiers: Pressure injury location: unspecified location Pressure injury stage: unspecif ied pressure injury stage Qualified Code(s): L89.90 - Pressure ulcer of uns pecified site, unspecified stage Hypertension Qualifiers: Hypertension type: unspecified Qualified Code(s): I10 - Essential (primary) hypertension Cellulitis Qualifiers: Site of cellulitis: extremity Site of cellulitis of extremity: lower extremity Laterality: right Qualified Code(s): L03.115 - Cellulitis of right lower limb The scribe's documentation has been prepared under my direction and personally reviewed by me in its entirety. I confirm that the note above accurately reflects all work, treatment, procedures, and medical decision making performed by me.
[2019-05-20] MEDS: NEPHROCAPS PO SCH ×2 (01:27→21:06)
[2019-05-20] MEDS: PIPERACILLIN/TAZOBACTAM 4.5 GM in DEXTROSE 5% 100 ML IV SCH ×2 (01:27→14:39)
[2019-05-20 01:50] LABS: BUN Creatinine Ratio 4.8 (10-20); Calcium 8.5 mg/dl (8.5-10.1); Creatinine Clr Calc Pharmacy 12.9 ml/min; Est GFR (African American) 8.4; Est GFR (Non-African American) 7.2; Magnesium 1.8 mg/dl (1.8-2.4); Potassium 3.7 mmol/L (3.5-5.1)
[2019-05-20 06:15] LABS: INR 3.9 (0.9-1.1); Prothrombin Time 36.7 Seconds (9.0-12.0)
[2019-05-20 06:19] LABS: Estimated Average Glucose 255 mg/dl; Hemoglobin A1C 10.5 % (4.5-5.6)
[2019-05-20 06:39] LABS: BUN Creatinine Ratio 4.7 (10-20); C Reactive Protein 15.1 mg/dl (0-0.29); Calcium 8.6 mg/dl (8.5-10.1); Creatinine Clr Calc Pharmacy 12.6 ml/min; Est GFR (African American) 8.1; Magnesium 1.8 mg/dl (1.8-2.4); Potassium 3.7 mmol/L (3.5-5.1)
[2019-05-20] MEDS: INSULIN HUMAN REGULAR SC SCH ×5 (08:17→21:07)
[2019-05-20] MEDS: CALCIUM ACETATE 667 MG CAP PO SCH ×3 (08:17→19:25)
[2019-05-20] MEDS: FLUOXETINE HCL 20 MG CAP PO SCH (08:18)
[2019-05-20] MEDS: PANTOprazole 40 MG TAB PO SCH (08:19)
[2019-05-20] MEDS: PREGABALIN 150 MG CAP PO SCH ×2 (08:28→21:06)
[2019-05-20] MEDS ORDERED: INSULIN HUMAN NPH SC SCH ×2 (08:30→08:45)
[2019-05-20] MEDS ORDERED: LOPERAMIDE HCL 2 MG CAP PO PRN (08:49)
[2019-05-20] MEDS ORDERED: PRAVASTATIN SOD 20 MG TAB PO SCH (09:00)
--- NOTE | 2019-05-20 09:15 | Infectious Disease Consult ---
Date of Consultation May 20, 2019 Assessment & Plan (1) Diabetic foot infection: pt will continue on emperic abx. await culture data, imaging, may need additional debridement. History of Present Illness Attending Physician: Suhail Venegas MD pt admitted from wound center for worsening wound infection and necrosis. Is being followed by Dr. Srivastava, saw yesterday in wound center, sent to ER for IV abx. was previously on clinda and cipro. now on Dapto and Zosyn. afebrile. denies f/c. Doppler negative, MRI pending. wbc 12.6. ESR 86 and CRP 15. Blood cultures pending. Previous culture as outpt 04/28 grew Serritia I to rocephin only and bahena sensitive GBS. She currently denies pain but states she has neurophathy, no f/c. no abd pain, no n/v/d. no cp, sob, cough, gross. Allergies Allergy/AdvReac Type Severity Reaction Status Date / Time Bactrim Allergy Severe ANAPHYLAXIS Verified 06/11/16 08:40 sulfamethoxazole Allergy Severe Anaphylaxis Verified 05/19/19 16:49 trimethoprim Allergy Severe Anaphylaxis Verified 05/19/19 16:49 metformin AdvReac Intermediate Gastrointestinal Verified 05/19/19 16:49 Upset Home Medications Home Medications Medication Instructions Recorded Confirmed Type fluoxetine 20 mg capsule 20 mg PO QAM cap 04/08/18 05/19/19 History fluticasone propionate 50 2 sprays INTNAS QPM gm 04/08/18 05/19/19 History mcg/actuation nasal spray,suspension loperamide 2 mg capsule 4 mg PO DIRECTED PRN cap 04/08/18 05/19/19 History pantoprazole 40 mg tablet,delayed 40 mg PO QAM 04/08/18 05/19/19 History release pravastatin 20 mg tablet 20 mg PO QAM tab 04/08/18 05/19/19 History pregabalin 150 mg capsule 150 mg PO BID 04/08/18 05/19/19 History warfarin 5 mg tablet 2.5 mg PO WK 04/08/18 05/19/19 History calcium acetate 667 mg capsule 1,334 mg PO TIDM cap 05/27/18 05/19/19 History clindamycin HCl 300 mg capsule 300 mg PO TID #90 cap 05/12/19 05/19/19 Rx B complex-vitamin C-folic acid 1 tab PO HS 05/19/19 05/19/19 History [Nephro-Lexa] calcium acetate 667 mg PO DIRECTED 05/19/19 05/19/19 History ciprofloxacin HCl [Cipro] 500 mg PO QAM 05/19/19 05/19/19 History ergocalciferol (vitamin D2) 50,000 unit PO WK 05/19/19 05/19/19 History hydrocodone-acetaminophen 1 tab PO Q6H PRN 05/19/19 05/19/19 History insulin NPH and regular human 26 unit SUBCUT QAM 05/19/19 05/19/19 History [Humulin 70/30 U-100 Insulin] insulin NPH and regular human 36 unit SUBCUT HS 05/19/19 05/19/19 History [Humulin 70/30 U-100 Insulin] metoclopramide HCl 5 mg PO QID PRN 05/19/19 05/19/19 History ondansetron HCl 4 mg PO QID PRN 05/19/19 05/19/19 History warfarin 5 mg PO 6XWK 05/19/19 05/19/19 History Patient History Medical History DVT (deep venous thrombosis) (Chronic) x 2. LUE & LLE (both dx years ago - treated - LUE post surgery, reason for DVT in LLE unk) Diverticulosis (Chronic) Diabetic peripheral neuropathy (Acute) Hyperlipidemia Hypertension (Acute) Congestive heart failure Follows w/ dr. Perez Atrial fibrillation dx 2 years ago - on warfarin - follows w/ dr. Perez Neuropathy Depression Glaucoma Diabetes mellitus, type 2 IDDM GERD (gastroesophageal reflux disease) Gastroparesis ESRD (end stage renal disease) (Acute) 2/2 DM; FOLLOWS W/ [facility] Dialysis patient (Acute) M, W, F AV fistula LUE Wound infection (Acute) ACTIVE INFECTION TO LEFT THUMB WOUND; ON ABX; [facility] Charcot's joint of left foot (Acute) Diabetes mellitus with diabetic polyneuropathy (Acute) Charcot's joint of foot in type 2 diabetes mellitus (Chronic) Acquired claw toe of right foot (Acute) Neuropathic ulcer of left heel (Resolved) Acquired claw toe of left foot (Acute) Left midfoot ulcer (Acute) Surgical History H/O carpal tunnel repair (Chronic) History of cholecystectomy (Chronic) H/O hernia repair (Chronic) Hx of appendectomy (Chronic) History of ankle surgery (Acute) History of colonoscopy History of esophagogastroduodenoscopy (EGD) History of bilateral knee replacement S/P arteriovenous (AV) fistula creation History of cervical spinal surgery ROM WNL History of cataract surgery LEFT Family History Other No significant family history Social History Preferred Language: Haitian Communication Ability: Effective Optometric Technologist Required: No Beliefs That Will Affect Care: None Current Living Situation: Spouse Other Information That Helps Us Care for You: No Feels Safe at Home: Yes Safety Concerns: Feels Safe At This Time Smoking Status: Never smoker Second Hand Exposure: No ; Hx Alcohol Use: No Hx Substance Use: No Review of Systems Review of Systems: All systems reviewed & are unremarkable except as noted in HPI & below Physical Exam Constitutional: WD/WN, vitals as above Eyes: PERRL, conjunctivae normal, anicteric sclerae ENMT: external ear and nose normal, oropharynx normal Neck: normal visual inspection Respiratory: normal respiratory effort, lungs clear to auscultation Cardiovascular: RRR, no murmur, no edema Gastrointestinal (Abdomen): normal bowel sounds, soft, nontender, no hepatosplenomegaly Musculoskeletal: no cyanosis or clubbing, extremities motor strength 5/5 Skin: no rashes, warm and dry + wound (dressing intact, neuropathic, non tender, necrotic) Psychiatric: A+Ox3, euthymic affect Results & Data Vital Signs (Past 12 Hours) Vital Signs Temp Pulse Resp BP Pulse Ox 05/20/19 07:26 37 C 70 16 159/41 H 97 05/20/19 02:49 37.2 C 68 22 133/56 L 91 05/19/19 23:05 37.2 C 71 20 132/50 L 97 PG Care Time/CCT Total # of Minutes Spent Total Time Spent with Patient: Total time spent is greater than 50% in coordination of care (as documented) at patient's floor/unit and/or counseling patient:
[2019-05-20] MEDS ORDERED: HEPARIN SOD (PORCINE) 1000 UNIT/ML 10 ML VIAL IV ONE (09:34)
[2019-05-20] MEDS ORDERED: SODIUM CHLORIDE 0.9% 1000ML 1,000 ML IV PRN (09:34)
[2019-05-20] MEDS ORDERED: EPOETIN ALFA 10,000 UNITS/ML VIAL IV SCH (10:00)
[2019-05-20 11:00] LABS: Creatinine Clr Calc Pharmacy 12.7 ml/min; Est GFR (African American) 8.2; Est GFR (Non-African American) 7.1; Magnesium 1.8 mg/dl (1.8-2.4); Potassium 3.8 mmol/L (3.5-5.1)
--- NOTE | 2019-05-20 11:20 | Pharmacy Report ---
Glycemic Control Consultation - Date of Service May 20, 2019 - Scope Scope: Glycemic Pharmacist consulted by India Mendez on 05/19 for glycemic control and to write orders per [facility] inpatient glycemic control protocol - Objective Weight: 124 kg Accuchecks BSG (last 24hrs): Laboratory Data (last 24hrs): 05/19/19 05/19/19 05/20/19 16:40 21:14 01:06 Potassium 3.0 L 3.3 L 3.7 Carbon Dioxide 27 28 30 Anion Gap 12.0 H 10.0 7.0 Creatinine 5.56 H* 5.50 H* 5.78 H* Est Cr Clr Drug Dosing 13.8 13.6 12.9 Beta-Hydroxybutyric Acd 0.67 0.53 05/20/19 05/20/19 05:48 10:15 Potassium 3.7 3.8 Carbon Dioxide 28 23 Anion Gap 9.0 11.0 Creatinine 5.92 H* 5.88 H* Est Cr Clr Drug Dosing 12.6 12.7 Beta-Hydroxybutyric Acd HbA1c: Hemoglobin A1c 10.5 % (4.5-5.6) H 05/19/19 16:40 - Recent Pertinent Medications Outpatient Anti-diabetic Regimen: * 70/30 inulin 26 units in AM and 36 units HS * A1c = 10.5 % 05/19/19 Risk Factors for Insulin Resistance: * Infection: heal infection * Diet: - Assessment & Plan Assessment & Plan: ASSESSMENT: * 63 year old female with uncontrolled type 2 diabetes, diabetic gastroparesis and retinopathy, htn, hld, PAF, hyperparathyroidism secondary to ESRD on HD, anemia presenting with right heel infection and hyperglycemia * Started insulin drip last evening and continued this AM, overlapped with Lantus this morning will continue to trend BSGs * Insulin drip rate ~1 unit/hr - BSGs <180 x 2 , therefore will transition off drip at this time. Communicated with nurse to cover lunch time BSGs with ACHS order * Will add scale for basal insulin with dinner PLAN FOR INPATIENT GLYCEMIC CONTROL: * Insulin drip - transitioned off 05/20 at lunchtime * Basal insulin * Lantus BID with scale to start with dinner 15 units for BSG less than 110 mg/dl 20 units for BSG 110 or greater * Bolus insulin * NovoLog per scale ACHS or Q6hrs while NPO * Goal Range: Low 110 mg/dL - High 140 mg/dL * Correction Factor: 20 mg/dL/unit * Nutritional / Prandial insulin per carb ratio of 1 unit per 7 grams CHO consumed * Please note that the plan above was derived based on current level of insulin resistance and hospital stress. These recommendations are appropriate for inpatient admission only. Plan of care upon discharge will need to be reassessed to avoid potential outpatient hypo/hyperglycemia. Thank you.
[2019-05-20] MEDS ORDERED: LACTOBACILLUS ACIDOPHILUS (FLORANEX) TAB PO SCH (12:00)
[2019-05-20 13:12] LABS: Hepatitis B Surface Ab Quant 51.57 mIU/mL (>or=10mIU/mL Immune); Hepatitis B Surface Antibody Immune
[2019-05-20 13:23] LABS: Hepatitis B Surface Antigen Neg (Neg)
--- NOTE | 2019-05-20 13:26 | Magnetic Resonance Report ---
MR ankle RT wo con CLINICAL HISTORY: 63 years-old Female presenting with right ankle pain for one month, history of spra in, infected wound on the heel, concern for osteomyelitis. TECHNIQUE: Multisequence, multiplanar MR imaging of the right ankle was performed without the use of intravenous contrast. IV contrast: None. COMPARISON: None. FINDINGS: Localizer images: Unremarkable. Bone marrow: Cystic bone marrow changes in the cuboid at the articulation with the base of the fourth and fifth metatarsals. A lesser degree of cystic change is evident in the cuneiform bones as well as the bases of the first through third metatarsals. Heterogeneity of bone marrow signal along the post erior calcaneus with suspected small osseous erosions. No confluent T1 hypointensity of the bone rajesh ow in the calcaneus to suggest a marrow replacement process. Articular cartilage: Mild diffuse articular cartilage thinning. Syndesmotic ligament: Anterior-inferior and posterior-inferior tibiofibular ligaments intact. Interos seous membrane intact. Lateral ligament complex: Suspected tear of the anterior talofibular ligament. Posterior talofibular ligament intact. Calcaneofibular ligament also intact. Deltoid ligament complex: Ossicle within the deltoid ligament consistent with old avulsion injury. Pr ior tear also suggested by loss of normal striations. Chopart joints: Medial column ligaments intact, including the dorsal talonavicular ligament and sprin g ligament complex (inferior plantar longitudinal band, medial plantar oblique band, and superomedial band). Possible tear of the dorsal calcaneocuboid ligament. Remainder of the lateral column ligament s intact, including the short and long plantar ligaments and bifurcate ligament. Anterior tendons: Tibialis anterior, extensor hallucis longus and extensor digitorum longus tendons i ntact. Lateral tendons: Peroneus longus and brevis tendons intact, however, fluid is noted within the tendon sheaths more so involving the peroneus longus. Medial tendons: Posterior tibialis, flexor digitorum longus and flexor hallucis longus tendons intact . Plantar fascia: Prominent enthesophyte at the origin of the plantar fascia, which demonstrates signif icant thickening more so in the medial bundle. Trace associated bony edema. Achilles tendon: Complete tear of the Achilles tendon. Retracted tendon. Numerous foci of susceptibil ity artifact concerning for gas within the posterior soft tissues extending from the calcaneal wound. Sinus tarsi: Normal signal intensity within the sinus tarsi. Joint effusion: Moderate ankle joint effusion. Muscle: Diffuse muscle edema. Superficial soft tissue: Severe subcutaneous edema diffusely. IMPRESSION: 1. Susceptibility artifact concerning for gas along the posterior soft tissues extending from the ca lcaneal wound and tracking superiorly along the completely torn and retracted Achilles tendon. This i s highly concerning, and necrotizing fasciitis should be excluded clinically. 2. Wound along the posterior calcaneus. Minimal osseous erosion of the subjacent calcaneus without c onvincing evidence of osteomyelitis at this time. 3. Moderate ankle joint effusion. 4. Degenerative changes at the tarsometatarsal articulations. 5. Plantar fasciitis. 6. Additional findings as above. The report will be called/faxed according to standard departmental protocol for a critical finding. Electronically signed by: Norris Curtis M.D. 05/20/2019 1:25 PM
--- NOTE | 2019-05-20 14:52 | Nephrology Consultation ---
Date of Consultation May 20, 2019 Assessment & Plan (1) ESRD (end stage renal disease): Patient is normally dialysed on a MWF schedule. Last HD was Thursday. She is normally a big weight jaison. Will dialyse her today for 4hrs and target UF of 3.5 litres. Daily BMP for electrolyte monitoring. (2) Diabetic foot infection: Patient with chronic wounds but now infected. She is Daptomycin and Zosyn per iD. Renally dose antibiotics for GFR less 25ml/min while on HD (3) Anemia in ESRD (end-stage renal disease): Patient with anemia of renal disease. Will give epogen 10,000 units with HD. (4) Secondary hyperparathyroidism (of renal origin): Patient should be encouraged to take Phoslo 2 tabs tid with meals. Check Phos atleast once weekly. History of Present Illness Reason for Consultation: ESRD and foot infection Requesting Physician: Theo Jang MD Attending Physician: Suhail Venegas MD History of Present Illness This is a 63-year-old female with uncontrolled IDDM 2, ESRD on HD MWF, diabetic neuropathy, diabetic gastroparesis, Charcot foot secondary to DM, diabetic retinopathy, HTN, HLD, PAF, history of DVT on warfarin, hyperparathyroidism secondary to end-stage renal disease, anemia of chronic disease who was admitted on 05/19 from wound clinic with infection in right foot and hyperglycemia. I am seeing her for dialysis support. Last HD was Thursday which was uneventful. She has a left UA AVF. She feels a little better this morning. Leg pain is less. No SOB. She is usually a big fluid jaison and often requires extra HD session. She is Dapto and Zosyn. Allergies Allergy/AdvReac Type Severity Reaction Status Date / Time Bactrim Allergy Severe ANAPHYLAXIS Verified 06/11/16 08:40 sulfamethoxazole Allergy Severe Anaphylaxis Verified 05/19/19 16:49 trimethoprim Allergy Severe Anaphylaxis Verified 05/19/19 16:49 metformin AdvReac Intermediate Gastrointestinal Verified 05/19/19 16:49 Upset Home Medications Home Medications Medication Instructions Recorded Confirmed Type fluoxetine 20 mg capsule 20 mg PO QAM cap 04/08/18 05/19/19 History fluticasone propionate 50 2 sprays INTNAS QPM gm 04/08/18 05/19/19 History mcg/actuation nasal spray,suspension loperamide 2 mg capsule 4 mg PO DIRECTED PRN cap 04/08/18 05/19/19 History pantoprazole 40 mg tablet,delayed 40 mg PO QAM 04/08/18 05/19/19 History release pravastatin 20 mg tablet 20 mg PO QAM tab 04/08/18 05/19/19 History pregabalin 150 mg capsule 150 mg PO BID 04/08/18 05/19/19 History warfarin 5 mg tablet 2.5 mg PO WK 04/08/18 05/19/19 History calcium acetate 667 mg capsule 1,334 mg PO TIDM cap 05/27/18 05/19/19 History clindamycin HCl 300 mg capsule 300 mg PO TID #90 cap 05/12/19 05/19/19 Rx B complex-vitamin C-folic acid 1 tab PO HS 05/19/19 05/19/19 History [Nephro-Lexa] calcium acetate 667 mg PO DIRECTED 05/19/19 05/19/19 History ciprofloxacin HCl [Cipro] 500 mg PO QAM 05/19/19 05/19/19 History ergocalciferol (vitamin D2) 50,000 unit PO WK 05/19/19 05/19/19 History hydrocodone-acetaminophen 1 tab PO Q6H PRN 05/19/19 05/19/19 History insulin NPH and regular human 26 unit SUBCUT QAM 05/19/19 05/19/19 History [Humulin 70/30 U-100 Insulin] insulin NPH and regular human 36 unit SUBCUT HS 05/19/19 05/19/19 History [Humulin 70/30 U-100 Insulin] metoclopramide HCl 5 mg PO QID PRN 05/19/19 05/19/19 History ondansetron HCl 4 mg PO QID PRN 05/19/19 05/19/19 History warfarin 5 mg PO [id number] 05/19/19 05/19/19 History Patient History Medical History DVT (deep venous thrombosis) (Chronic) x 2. LUE & LLE (both dx years ago - treated - LUE post surgery, reason for DVT in LLE unk) Diverticulosis (Chronic) Diabetic peripheral neuropathy (Acute) Hyperlipidemia Hypertension (Acute) Congestive heart failure Follows w/ dr. Perez Atrial fibrillation dx 2 years ago - on warfarin - follows w/ dr. Perez Neuropathy Depression Glaucoma Diabetes mellitus, type 2 IDDM GERD (gastroesophageal reflux disease) Gastroparesis ESRD (end stage renal disease) (Acute) 2/2 DM; FOLLOWS W/ [facility] Dialysis patient (Acute) M, W, F AV fistula LUE Wound infection (Acute) ACTIVE INFECTION TO LEFT THUMB WOUND; ON ABX; [facility] Charcot's joint of left foot (Acute) Diabetes mellitus with diabetic polyneuropathy (Acute) Charcot's joint of foot in type 2 diabetes mellitus (Chronic) Acquired claw toe of right foot (Acute) Neuropathic ulcer of left heel (Resolved) Acquired claw toe of left foot (Acute) Left midfoot ulcer (Acute) Surgical History H/O carpal tunnel repair (Chronic) History of cholecystectomy (Chronic) H/O hernia repair (Chronic) Hx of appendectomy (Chronic) History of ankle surgery (Acute) History of colonoscopy History of esophagogastroduodenoscopy (EGD) History of bilateral knee replacement S/P arteriovenous (AV) fistula creation History of cervical spinal surgery ROM WNL History of cataract surgery LEFT Family History Other No significant family history Social History Preferred Language: Tu[place] Communication Ability: Effective Materials Mgmt Tech Required: No Beliefs That Will Affect Care: None Current Living Situation: Spouse Other Information That Helps Us Care for You: No Feels Safe at Home: Yes Safety Concerns: Feels Safe At This Time Smoking Status: Never smoker Second Hand Exposure: No ; Hx Alcohol Use: No Hx Substance Use: No Review of Systems Review of Systems: All systems reviewed & are unremarkable except as noted in HPI & below Physical Exam Physical Exam: General exam: Appears comfortable, no acute distress HEENT: Pupils are equal and reactive to light Neck: No JVD, neck is supple trachea is midline Respiratory system: Clear breath sounds bilaterally. Gastrointestinal: Abdomen is soft, non distended, non tender, bowel sounds are present CVS: Regular rate and rhythm. No murmurs, rubs or gallops Musculoskeletal: No joint or muscle tenderness Extremities: Right foot and leg with multiple infected wounds. Neuro: Oriented, no tremors, no focal neurological deficits Skin: No rashes Access: Left UA AVF with good bruit Results & Data Vital Signs (Past 12 Hours) Vital Signs Temp Pulse Resp BP Pulse Ox 05/20/19 11:05 36.9 C 67 20 150/54 H 92 05/20/19 07:26 37 C 70 16 159/41 H 97 Laboratory Results Laboratory Results - last 24 hr 05/19/19 05/19/19 05/19/19 15:48 16:40 16:40 WBC 12.66 H RBC 2.96 L Hgb 9.1 L POC Hgb Hct 29.3 L POC Hct MCV 99.0 MCH 30.7 MCHC 31.1 L RDW Std Deviation 57.4 H RDW Coeff of Dean 16.3 H Plt Count 269 MPV 10.7 H Immature Gran % (Auto) 1.5 Neut % (Auto) 77.2 Lymph % (Auto) 10.6 [place] % (Auto) 9.8 Eos % (Auto) 0.7 Baso % (Auto) 0.2 Immature Gran # (Auto) 0.19 H Neut # (Auto) 9.78 H Lymph # (Auto) 1.34 [place] # (Auto) 1.24 H Eos # (Auto) 0.09 Baso # (Auto) 0.02 Absolute Nucleated RBC 0.03 H Nucleated RBC % (auto) 0.2 ESR PT INR VBG pH POC Sodium Sodium 127 L POC Potassium Potassium 3.0 L POC Chloride Chloride 88 L Carbon Dioxide 27 POC Total CO2 Anion Gap 12.0 H POC Anion Gap POC BUN BUN 23 H Creatinine 5.56 H* POC Creatinine Est Cr Clr Drug Dosing 13.8 Est GFR ( Amer) 8.8 Est GFR (Non-Af Amer) 7.6 BUN/Creatinine Ratio 4.2 L Glucose 589 H* POC Glucose 539 H* POC Glucose (other) Estimat Average Glucose Hemoglobin A1c Calcium 9.0 POC Ioniz Calcium Tip Phosphorus Magnesium Total Bilirubin 0.2 AST 18 ALT 28 Alkaline Phosphatase 117 Total Creatine Kinase C-Reactive Protein Total Protein 6.7 Albumin 2.3 L Globulin 4.4 H Albumin/Globulin Ratio 0.5 L Lipase 185 Beta-Hydroxybutyric Acd 0.67 Nasal Screen MRSA (PCR) Hep Bs Antigen Hep Bs Antibody Hep Bs Antibody, Quant Hepatitis C Ab Screen 05/19/19 05/19/19 05/19/19 16:40 16:41 16:59 WBC RBC Hgb POC Hgb 8.5 L Hct POC Hct 25 L MCV MCH MCHC RDW Std Deviation RDW Coeff of Dean Plt Count MPV Immature Gran % (Auto) Neut % (Auto) Lymph % (Auto) [place] % (Auto) Eos % (Auto) Baso % (Auto) Immature Gran # (Auto) Neut # (Auto) Lymph # (Auto) [place] # (Auto) Eos # (Auto) Baso # (Auto) Absolute Nucleated RBC Nucleated RBC % (auto) ESR PT 37.1 H INR 4.0 H VBG pH POC Sodium 126 L Sodium POC Potassium 3.1 L Potassium POC Chloride 86 L Chloride Carbon Dioxide POC Total CO2 29 Anion Gap POC Anion Gap 15.0 L POC BUN 25 H BUN Creatinine POC Creatinine 6.1 H* Est Cr Clr Drug Dosing Est GFR ( Amer) Est GFR (Non-Af Amer) BUN/Creatinine Ratio Glucose POC Glucose POC Glucose (other) 604 H* Estimat Average Glucose 255 Hemoglobin A1c 10.5 H Calcium POC Ioniz Calcium Tip 1.08 L Phosphorus Magnesium Total Bilirubin AST ALT Alkaline Phosphatase Total Creatine Kinase C-Reactive Protein Total Protein Albumin Globulin Albumin/Globulin Ratio Lipase Beta-Hydroxybutyric Acd Nasal Screen MRSA (PCR) Hep Bs Antigen Hep Bs Antibody Hep Bs Antibody, Quant Hepatitis C Ab Screen 05/19/19 05/19/19 05/19/19 18:00 18:03 19:53 WBC RBC Hgb POC Hgb Hct POC Hct MCV MCH MCHC RDW Std Deviation RDW Coeff of Dean Plt Count MPV Immature Gran % (Auto) Neut % (Auto) Lymph % (Auto) [place] % (Auto) Eos % (Auto) Baso % (Auto) Immature Gran # (Auto) Neut # (Auto) Lymph # (Auto) [place] # (Auto) Eos # (Auto) Baso # (Auto) Absolute Nucleated RBC Nucleated RBC % (auto) ESR PT INR VBG pH POC Sodium Sodium POC Potassium Potassium POC Chloride Chloride Carbon Dioxide POC Total CO2 Anion Gap POC Anion Gap POC BUN BUN Creatinine POC Creatinine Est Cr Clr Drug Dosing Est GFR ( Amer) Est GFR (Non-Af Amer) BUN/Creatinine Ratio Glucose POC Glucose 529 H* 547 H* 450 H* POC Glucose (other) Estimat Average Glucose Hemoglobin A1c Calcium POC Ioniz Calcium Tip Phosphorus Magnesium Total Bilirubin AST ALT Alkaline Phosphatase Total Creatine Kinase C-Reactive Protein Total Protein Albumin Globulin Albumin/Globulin Ratio Lipase Beta-Hydroxybutyric Acd Nasal Screen MRSA (PCR) Hep Bs Antigen Hep Bs Antibody Hep Bs Antibody, Quant Hepatitis C Ab Screen 05/19/19 05/19/19 05/19/19 20:50 21:14 21:14 WBC RBC Hgb POC Hgb Hct POC Hct MCV MCH MCHC RDW Std Deviation RDW Coeff of Dean Plt Count MPV Immature Gran % (Auto) Neut % (Auto) Lymph % (Auto) [place] % (Auto) Eos % (Auto) Baso % (Auto) Immature Gran # (Auto) Neut # (Auto) Lymph # (Auto) [place] # (Auto) Eos # (Auto) Baso # (Auto) Absolute Nucleated RBC Nucleated RBC % (auto) ESR PT INR VBG pH 7.33 L POC Sodium Sodium 130 L POC Potassium Potassium 3.3 L POC Chloride Chloride 92 L Carbon Dioxide 28 POC Total CO2 Anion Gap 10.0 POC Anion Gap POC BUN BUN 27 H Creatinine 5.50 H* POC Creatinine Est Cr Clr Drug Dosing 13.6 Est GFR ( Amer) 8.9 Est GFR (Non-Af Amer) 7.7 BUN/Creatinine Ratio 4.8 L Glucose 304 H* POC Glucose 341 H* POC Glucose (other) Estimat Average Glucose Hemoglobin A1c Calcium 8.9 POC Ioniz Calcium Tip Phosphorus Cancelled Magnesium 1.8 Total Bilirubin AST ALT Alkaline Phosphatase Total Creatine Kinase C-Reactive Protein Total Protein Albumin Globulin Albumin/Globulin Ratio Lipase Beta-Hydroxybutyric Acd 0.53 Nasal Screen MRSA (PCR) Hep Bs Antigen Hep Bs Antibody Hep Bs Antibody, Quant Hepatitis C Ab Screen 05/19/19 05/19/19 05/19/19 21:45 22:45 23:55 WBC RBC Hgb POC Hgb Hct POC Hct MCV MCH MCHC RDW Std Deviation RDW Coeff of Dean Plt Count MPV Immature Gran % (Auto) Neut % (Auto) Lymph % (Auto) [place] % (Auto) Eos % (Auto) Baso % (Auto) Immature Gran # (Auto) Neut # (Auto) Lymph # (Auto) [place] # (Auto) Eos # (Auto) Baso # (Auto) Absolute Nucleated RBC Nucleated RBC % (auto) ESR PT INR VBG pH POC Sodium Sodium POC Potassium Potassium POC Chloride Chloride Carbon Dioxide POC Total CO2 Anion Gap POC Anion Gap POC BUN BUN Creatinine POC Creatinine Est Cr Clr Drug Dosing Est GFR ( Amer) Est GFR (Non-Af Amer) BUN/Creatinine Ratio Glucose POC Glucose 315 H* 250 H 226 H POC Glucose (other) Estimat Average Glucose Hemoglobin A1c Calcium POC Ioniz Calcium Tip Phosphorus Magnesium Total Bilirubin AST ALT Alkaline Phosphatase Total Creatine Kinase C-Reactive Protein Total Protein Albumin Globulin Albumin/Globulin Ratio Lipase Beta-Hydroxybutyric Acd Nasal Screen MRSA (PCR) Hep Bs Antigen Hep Bs Antibody Hep Bs Antibody, Quant Hepatitis C Ab Screen 05/20/19 05/20/19 05/20/19 00:48 01:06 01:06 WBC RBC Hgb POC Hgb Hct POC Hct MCV MCH MCHC RDW Std Deviation RDW Coeff of Dean Plt Count MPV Immature Gran % (Auto) Neut % (Auto) Lymph % (Auto) [place] % (Auto) Eos % (Auto) Baso % (Auto) Immature Gran # (Auto) Neut # (Auto) Lymph # (Auto) [place] # (Auto) Eos # (Auto) Baso # (Auto) Absolute Nucleated RBC Nucleated RBC % (auto) ESR PT INR VBG pH 7.35 L POC Sodium Sodium 131 L POC Potassium Potassium 3.7 POC Chloride Chloride 94 L Carbon Dioxide 30 POC Total CO2 Anion Gap 7.0 POC Anion Gap POC BUN BUN 28 H Creatinine 5.78 H* POC Creatinine Est Cr Clr Drug Dosing 12.9 Est GFR ( Amer) 8.4 Est GFR (Non-Af Amer) 7.2 BUN/Creatinine Ratio 4.8 L Glucose 166 H POC Glucose 207 H POC Glucose (other) Estimat Average Glucose Hemoglobin A1c Calcium 8.5 POC Ioniz Calcium Tip Phosphorus Magnesium 1.8 Total Bilirubin AST ALT Alkaline Phosphatase Total Creatine Kinase C-Reactive Protein Total Protein Albumin Globulin Albumin/Globulin Ratio Lipase Beta-Hydroxybutyric Acd Nasal Screen MRSA (PCR) Hep Bs Antigen Hep Bs Antibody Hep Bs Antibody, Quant Hepatitis C Ab Screen 05/20/19 05/20/19 05/20/19 01:45 02:47 03:45 WBC RBC Hgb POC Hgb Hct POC Hct MCV MCH MCHC RDW Std Deviation RDW Coeff of Dean Plt Count MPV Immature Gran % (Auto) Neut % (Auto) Lymph % (Auto) [place] % (Auto) Eos % (Auto) Baso % (Auto) Immature Gran # (Auto) Neut # (Auto) Lymph # (Auto) [place] # (Auto) Eos # (Auto) Baso # (Auto) Absolute Nucleated RBC Nucleated RBC % (auto) ESR PT INR VBG pH POC Sodium Sodium POC Potassium Potassium POC Chloride Chloride Carbon Dioxide POC Total CO2 Anion Gap POC Anion Gap POC BUN BUN Creatinine POC Creatinine Est Cr Clr Drug Dosing Est GFR ( Amer) Est GFR (Non-Af Amer) BUN/Creatinine Ratio Glucose POC Glucose 157 H 146 H 134 H POC Glucose (other) Estimat Average Glucose Hemoglobin A1c Calcium POC Ioniz Calcium Tip Phosphorus Magnesium Total Bilirubin AST ALT Alkaline Phosphatase Total Creatine Kinase C-Reactive Protein Total Protein Albumin Globulin Albumin/Globulin Ratio Lipase Beta-Hydroxybutyric Acd Nasal Screen MRSA (PCR) Hep Bs Antigen Hep Bs Antibody Hep Bs Antibody, Quant Hepatitis C Ab Screen 05/20/19 05/20/19 05/20/19 04:44 05:48 05:48 WBC RBC Hgb POC Hgb Hct POC Hct MCV MCH MCHC RDW Std Deviation RDW Coeff of Dean Plt Count MPV Immature Gran % (Auto) Neut % (Auto) Lymph % (Auto) [place] % (Auto) Eos % (Auto) Baso % (Auto) Immature Gran # (Auto) Neut # (Auto) Lymph # (Auto) [place] # (Auto) Eos # (Auto) Baso # (Auto) Absolute Nucleated RBC Nucleated RBC % (auto) ESR PT 36.7 H INR 3.9 H VBG pH POC Sodium Sodium 132 L POC Potassium Potassium 3.7 POC Chloride Chloride 95 L Carbon Dioxide 28 POC Total CO2 Anion Gap 9.0 POC Anion Gap POC BUN BUN 28 H Creatinine 5.92 H* POC Creatinine Est Cr Clr Drug Dosing 12.6 Est GFR ( Amer) 8.1 Est GFR (Non-Af Amer) 7.0 BUN/Creatinine Ratio 4.7 L Glucose 134 H POC Glucose 139 H POC Glucose (other) Estimat Average Glucose Hemoglobin A1c Calcium 8.6 POC Ioniz Calcium Tip Phosphorus Magnesium 1.8 Total Bilirubin AST ALT Alkaline Phosphatase Total Creatine Kinase 44 C-Reactive Protein 15.10 H Total Protein Albumin Globulin Albumin/Globulin Ratio Lipase Beta-Hydroxybutyric Acd Nasal Screen MRSA (PCR) Hep Bs Antigen Hep Bs Antibody Hep Bs Antibody, Quant Hepatitis C Ab Screen 05/20/19 05/20/19 05/20/19 05:48 05:48 05:48 WBC RBC Hgb POC Hgb Hct POC Hct MCV MCH MCHC RDW Std Deviation RDW Coeff of Dean Plt Count MPV Immature Gran % (Auto) Neut % (Auto) Lymph % (Auto) [place] % (Auto) Eos % (Auto) Baso % (Auto) Immature Gran # (Auto) Neut # (Auto) Lymph # (Auto) [place] # (Auto) Eos # (Auto) Baso # (Auto) Absolute Nucleated RBC Nucleated RBC % (auto) ESR 86 H PT INR VBG pH 7.35 L POC Sodium Sodium POC Potassium Potassium POC Chloride Chloride Carbon Dioxide POC Total CO2 Anion Gap POC Anion Gap POC BUN BUN Creatinine POC Creatinine Est Cr Clr Drug Dosing Est GFR ( Amer) Est GFR (Non-Af Amer) BUN/Creatinine Ratio Glucose POC Glucose POC Glucose (other) Estimat Average Glucose Hemoglobin A1c Calcium POC Ioniz Calcium Tip Phosphorus Magnesium Total Bilirubin AST ALT Alkaline Phosphatase Total Creatine Kinase C-Reactive Protein Total Protein Albumin Globulin Albumin/Globulin Ratio Lipase Beta-Hydroxybutyric Acd Nasal Screen MRSA (PCR) Hep Bs Antigen Hep Bs Antibody Hep Bs Antibody, Quant Hepatitis C Ab Screen Neg 05/20/19 05/20/19 05/20/19 05:48 06:10 06:17 WBC RBC Hgb POC Hgb Hct POC Hct MCV MCH MCHC RDW Std Deviation RDW Coeff of Dean Plt Count MPV Immature Gran % (Auto) Neut % (Auto) Lymph % (Auto) [place] % (Auto) Eos % (Auto) Baso % (Auto) Immature Gran # (Auto) Neut # (Auto) Lymph # (Auto) [place] # (Auto) Eos # (Auto) Baso # (Auto) Absolute Nucleated RBC Nucleated RBC % (auto) ESR PT INR VBG pH POC Sodium Sodium POC Potassium Potassium POC Chloride Chloride Carbon Dioxide POC Total CO2 Anion Gap POC Anion Gap POC BUN BUN Creatinine POC Creatinine Est Cr Clr Drug Dosing Est GFR ( Amer) Est GFR (Non-Af Amer) BUN/Creatinine Ratio Glucose POC Glucose 134 H POC Glucose (other) Estimat Average Glucose Hemoglobin A1c Calcium POC Ioniz Calcium Tip Phosphorus Magnesium Total Bilirubin AST ALT Alkaline Phosphatase Total Creatine Kinase C-Reactive Protein Total Protein Albumin Globulin Albumin/Globulin Ratio Lipase Beta-Hydroxybutyric Acd Nasal Screen MRSA (PCR) Negative Hep Bs Antigen Neg Hep Bs Antibody Immune Hep Bs Antibody, Quant 51.57 Hepatitis C Ab Screen 05/20/19 05/20/19 05/20/19 06:54 07:50 09:07 WBC RBC Hgb POC Hgb Hct POC Hct MCV MCH MCHC RDW Std Deviation RDW Coeff of Dean Plt Count MPV Immature Gran % (Auto) Neut % (Auto) Lymph % (Auto) [place] % (Auto) Eos % (Auto) Baso % (Auto) Immature Gran # (Auto) Neut # (Auto) Lymph # (Auto) [place] # (Auto) Eos # (Auto) Baso # (Auto) Absolute Nucleated RBC Nucleated RBC % (auto) ESR PT INR VBG pH POC Sodium Sodium POC Potassium Potassium POC Chloride Chloride Carbon Dioxide POC Total CO2 Anion Gap POC Anion Gap POC BUN BUN Creatinine POC Creatinine Est Cr Clr Drug Dosing Est GFR ( Amer) Est GFR (Non-Af Amer) BUN/Creatinine Ratio Glucose POC Glucose 127 H 126 H 134 H POC Glucose (other) Estimat Average Glucose Hemoglobin A1c Calcium POC Ioniz Calcium Tip Phosphorus Magnesium Total Bilirubin AST ALT Alkaline Phosphatase Total Creatine Kinase C-Reactive Protein Total Protein Albumin Globulin Albumin/Globulin Ratio Lipase Beta-Hydroxybutyric Acd Nasal Screen MRSA (PCR) Hep Bs Antigen Hep Bs Antibody Hep Bs Antibody, Quant Hepatitis C Ab Screen 05/20/19 05/20/19 05/20/19 10:09 10:13 10:15 WBC RBC Hgb POC Hgb Hct POC Hct MCV MCH MCHC RDW Std Deviation RDW Coeff of Dean Plt Count MPV Immature Gran % (Auto) Neut % (Auto) Lymph % (Auto) [place] % (Auto) Eos % (Auto) Baso % (Auto) Immature Gran # (Auto) Neut # (Auto) Lymph # (Auto) [place] # (Auto) Eos # (Auto) Baso # (Auto) Absolute Nucleated RBC Nucleated RBC % (auto) ESR PT INR VBG pH 7.40 POC Sodium Sodium 130 L POC Potassium Potassium 3.8 POC Chloride Chloride 96 L Carbon Dioxide 23 POC Total CO2 Anion Gap 11.0 POC Anion Gap POC BUN BUN 29 H Creatinine 5.88 H* POC Creatinine Est Cr Clr Drug Dosing 12.7 Est GFR ( Amer) 8.2 Est GFR (Non-Af Amer) 7.1 BUN/Creatinine Ratio 5.0 L Glucose 160 H POC Glucose 170 H POC Glucose (other) Estimat Average Glucose Hemoglobin A1c Calcium 9.0 POC Ioniz Calcium Tip Phosphorus Magnesium 1.8 Total Bilirubin AST ALT Alkaline Phosphatase Total Creatine Kinase C-Reactive Protein Total Protein Albumin Globulin Albumin/Globulin Ratio Lipase Beta-Hydroxybutyric Acd Nasal Screen MRSA (PCR) Hep Bs Antigen Hep Bs Antibody Hep Bs Antibody, Quant Hepatitis C Ab Screen 05/20/19 05/20/19 05/20/19 11:06 12:12 13:50 WBC RBC Hgb POC Hgb Hct POC Hct MCV MCH MCHC RDW Std Deviation RDW Coeff of Dean Plt Count MPV Immature Gran % (Auto) Neut % (Auto) Lymph % (Auto) [place] % (Auto) Eos % (Auto) Baso % (Auto) Immature Gran # (Auto) Neut # (Auto) Lymph # (Auto) [place] # (Auto) Eos # (Auto) Baso # (Auto) Absolute Nucleated RBC Nucleated RBC % (auto) ESR PT INR VBG pH POC Sodium Sodium 131 L POC Potassium Potassium 3.9 POC Chloride Chloride 95 L Carbon Dioxide 28 POC Total CO2 Anion Gap 8.0 POC Anion Gap POC BUN BUN 31 H Creatinine 6.58 H* D POC Creatinine Est Cr Clr Drug Dosing 11.3 Est GFR ( Amer) 7.2 Est GFR (Non-Af Amer) 6.2 BUN/Creatinine Ratio 4.7 L Glucose 167 H POC Glucose 165 H 161 H POC Glucose (other) Estimat Average Glucose Hemoglobin A1c Calcium 8.9 POC Ioniz Calcium Tip Phosphorus Magnesium 1.8 Total Bilirubin AST ALT Alkaline Phosphatase Total Creatine Kinase C-Reactive Protein Total Protein Albumin Globulin Albumin/Globulin Ratio Lipase Beta-Hydroxybutyric Acd Nasal Screen MRSA (PCR) Hep Bs Antigen Hep Bs Antibody Hep Bs Antibody, Quant Hepatitis C Ab Screen 05/20/19 13:50 WBC RBC Hgb POC Hgb Hct POC Hct MCV MCH MCHC RDW Std Deviation RDW Coeff of Dean Plt Count MPV Immature Gran % (Auto) Neut % (Auto) Lymph % (Auto) [place] % (Auto) Eos % (Auto) Baso % (Auto) Immature Gran # (Auto) Neut # (Auto) Lymph # (Auto) [place] # (Auto) Eos # (Auto) Baso # (Auto) Absolute Nucleated RBC Nucleated RBC % (auto) ESR PT INR VBG pH 7.37 POC Sodium Sodium POC Potassium Potassium POC Chloride Chloride Carbon Dioxide POC Total CO2 Anion Gap POC Anion Gap POC BUN BUN Creatinine POC Creatinine Est Cr Clr Drug Dosing Est GFR ( Amer) Est GFR (Non-Af Amer) BUN/Creatinine Ratio Glucose POC Glucose POC Glucose (other) Estimat Average Glucose Hemoglobin A1c Calcium POC Ioniz Calcium Tip Phosphorus Magnesium Total Bilirubin AST ALT Alkaline Phosphatase Total Creatine Kinase C-Reactive Protein Total Protein Albumin Globulin Albumin/Globulin Ratio Lipase Beta-Hydroxybutyric Acd Nasal Screen MRSA (PCR) Hep Bs Antigen Hep Bs Antibody Hep Bs Antibody, Quant Hepatitis C Ab Screen
[2019-05-20 14:54] LABS: BUN Creatinine Ratio 4.7 (10-20); Calcium 8.9 mg/dl (8.5-10.1); Creatinine Clr Calc Pharmacy 11.3 ml/min; Est GFR (African American) 7.2; Est GFR (Non-African American) 6.2; Magnesium 1.8 mg/dl (1.8-2.4); Potassium 3.9 mmol/L (3.5-5.1)
[2019-05-20] MEDS: INSULIN HUMAN NPH SC SCH ×2 (15:15→21:04)
[2019-05-20] MEDS ORDERED: INSULIN HUMAN REGULAR SC SCH (16:30)
--- NOTE | 2019-05-20 16:49 | Hospitalist Progress Note ---
Date of Service May 20, 2019 Assessment & Plan (1) Diabetic foot ulcer associated with type 2 diabetes mellitus: Patient is a 63 yr female with H/O uncontrolled DM 2, ESRD on HD MWF, diabetic neuropathy, diabetic gastroparesis, Charcot foot secondary to DM, diabetic retinopathy, HTN, HLD, PAF, history of DVT on warfarin, hyperparathyroidism secondary to end-stage renal disease, anemia of chronic disease who presents to [facility] on referral from wound clinic secondary to deterioration of right heel wound and hyperglycemia. Right diabetic foot infection/Ulceration with Necrosis --Ankle MRI:Susceptibility artifact concerning for gas along the posterior soft tissues extending from the calcaneal wound and tracking superiorly along the completely torn and retracted Achilles tendon. This is highly concerning, and necrotizing fasciitis should be excluded clinically. Wound along the posterior calcaneus. Minimal osseous erosion of the subjacent calcaneus without convincing evidence of osteomyelitis at this time. Moderate ankle joint effusion. Degenerative changes at the tarsometatarsal articulations. Plantar fasciitis. --Venous Doppler:No sonographic evidence of deep venous thrombosis. --Blood Cx:pending --Continue Zosyn, daptomycin Day #2 --Needs debridement --Consulted Orthopedics --Continue wound Care --Appreciate ID Input --Repeat CRP in AM (2) Diabetes mellitus, type 2: Uncontrolled type 2 diabetes mellitus with hyperglycemia Hypokalemia Hb A1C:10.5 IV insulin drip >>> transition to SQ Appreciate glycemic pharmacist recommendations tobacco prevention health educator Monitor BGs (3) Atrial fibrillation: H/O Paroxysmal A. fib Currently in sinus Not on any rate/Rhythm control meds INR supratherapeutic Hold warfarin for now (4) Hypertension: BP relatively low Initially elevated on presentation Patient currently not on any oral antihypertensives Hydralazine prn (5) Hyperlipidemia: Hold statin while on Daptomycin (6) ESRD (end stage renal disease): HD MWF Appreciate Nephrology help continue phoslo renal diet, FR 1500ml (7) GERD (gastroesophageal reflux disease): continue PPI (8) Gastroparesis: zofran PRN (9) Diabetic peripheral neuropathy: continue lyrica (10) Depression: continue prozac mood stable (11) DVT prophylaxis: INR Supratherapeutic Hold warfarin for now Disposition: To be determined Follow-up: PCP Dr. Dixon upon discharge along with appropriate infectious disease and wound care follow-up (12) Anemia in ESRD (end-stage renal disease): Subjective Patient is seen and examined at bedside Reports chronic diarrhea, nausea which she attributes to gastroparesis Denies any right leg wound pain Also denies any chest pain, shortness of breath, dizziness, abdominal pain Offers no other complaints Review of Systems Review of Systems: All systems reviewed & are unremarkable except as noted in HPI & below Physical Exam Physical Exam: Physical Exam: Vitals signs as noted above General Appearance:Obese, no apparent distress Head: normocephalic, Atraumatic Eyes: normal inspection, EOMI Neck: supple, Trachea midline Respiratory/Chest: Normal breath sounds, CTA Cardiovascular: S1, S2, No murmur Abdomen/GI:Soft, Non tender, Bowel sounds present Extremities/Musculoskelatal:normal inspection, Pretibial edema, left Charcot foot, right ankle, foot ulcer-necrosis, foul-smelling Neurologic/Psych:AAOX3, grossly no focal neurological deficits Skin: normal color, warm Results & Data Vital Signs (Past 12 Hours) Vital Signs Temp Pulse Pulse Pulse Resp BP BP 05/20/19 16:00 78 86/36 L 05/20/19 15:40 71 107/76 05/20/19 15:20 72 165/52 H 05/20/19 15:09 36.6 C 71 05/20/19 11:05 36.9 C 67 20 150/54 H 05/20/19 07:26 37 C 70 16 159/41 H Pulse Ox 05/20/19 16:00 05/20/19 15:40 05/20/19 15:20 05/20/19 15:09 05/20/19 11:05 92 05/20/19 07:26 97 Laboratory Results Short CBC 05/19/19 Range/Units 16:40 WBC 12.66 H (4.8-10.8) K/uL Hgb 9.1 L (12.0-16.0) g/dL Hct 29.3 L (37-47) % Plt Count 269 (130-400) K/uL BMP 05/19/19 05/19/19 05/20/19 16:40 21:14 01:06 Sodium 127 L 130 L 131 L Potassium 3.0 L 3.3 L 3.7 Chloride 88 L 92 L 94 L Carbon Dioxide 27 28 30 BUN 23 H 27 H 28 H Creatinine 5.56 H* 5.50 H* 5.78 H* Glucose 589 H* 304 H* 166 H Calcium 9.0 8.9 8.5 05/20/19 05/20/19 05/20/19 05:48 10:15 13:50 Sodium 132 L 130 L 131 L Potassium 3.7 3.8 3.9 Chloride 95 L 96 L 95 L Carbon Dioxide 28 23 28 BUN 28 H 29 H 31 H Creatinine 5.92 H* 5.88 H* 6.58 H* D Glucose 134 H 160 H 167 H Calcium 8.6 9.0 8.9 Cardiac Enzymes 05/20/19 Range/Units 05:48 Total Creatine Kinase 44 (26-192) U/L Liver Function 05/19/19 Range/Units 16:40 Total Bilirubin 0.2 (0.2-1) mg/dl AST 18 (15-37) U/L ALT 28 (12-78) U/L Alkaline Phosphatase 117 (45-117) U/L Albumin 2.3 L (3.4-5.0) gm/dl (1) Diabetic foot ulcer associated with type 2 diabetes mellitus Diabetic foot ulcer location: heel Laterality: left Non-pressure ulcer stage: limited to breakdown of skin Qualified Code(s): E11.621 - Type 2 diabetes mellitus with foot ulcer; L97.421 - Non-pressure chronic ulcer of left heel and midfoot limited to breakdown of skin (2) Hypertension Hypertension type: unspecified Qualified Code(s): I10 - Essential (primary) hypertension
[2019-05-20] MEDS: HEPARIN SOD (PORCINE) 1000 UNIT/ML 10 ML VIAL IV SCH (17:25)
[2019-05-20 20:52] LABS: BUN Creatinine Ratio 3.8 (10-20); Calcium 9.6 mg/dl (8.5-10.1); Est GFR (African American) 16.2; Est GFR (Non-African American) 13.9; Magnesium 1.9 mg/dl (1.8-2.4); Potassium 4.1 mmol/L (3.5-5.1)
[2019-05-20] MEDS: HYDROCODONE/ACETAMOPHEN 5/325MG TAB PO PRN (21:05)
[2019-05-20] MEDS: FLUTICASONE PROPIONATE NA SPR 16 GM BTL SCH (21:05)
[2019-05-20] MEDS: LOPERAMIDE HCL 2 MG CAP PO PRN (21:06)
[2019-05-21] MEDS: INSULIN HUMAN REGULAR SC SCH ×6 (00:39→20:37)
[2019-05-21] MEDS: PIPERACILLIN/TAZOBACTAM 4.5 GM in DEXTROSE 5% 100 ML IV SCH ×2 (00:40→13:02)
[2019-05-21 07:31] LABS: Hematocrit (blood only) 29.9 % (37-47); Hemoglobin 9.7 g/dL (12.0-16.0); Mean Corpuscular Volume 97.7 fL (80-100); Red Blood Count 3.06 M/uL (4.2-5.4); White Blood Count 12.34 K/uL (4.8-10.8)
[2019-05-21 07:32] LABS: Mean Corpuscular Hemoglobin 31.7 pg (25-34); Mean Corpuscular Hgb Conc 32.4 g/dL (32-36); Mean Platelet Volume 10.3 fL (7.4-10.4); Nucleated RBC # (auto) 0.06 K/uL (0-0); Nucleated RBC % (auto) 0.4 %; Platelet Count 258 K/uL (130-400); RDW Coefficient of Variation 16.2 % (11.5-14.5); RDW Standard Deviation 56.6 fL (36.4-46.3)
[2019-05-21 07:45] LABS: INR 2.7 (0.9-1.1); Prothrombin Time 25.6 Seconds (9.0-12.0)
[2019-05-21 08:23] LABS: C Reactive Protein 17.8 mg/dl (0-0.29); Creatinine Clr Calc Pharmacy 16.2 ml/min; Est GFR (African American) 11.3; Est GFR (Non-African American) 9.7
[2019-05-21] MEDS: PANTOprazole 40 MG TAB PO SCH (08:48)
[2019-05-21] MEDS: CALCIUM ACETATE 667 MG CAP PO SCH ×3 (08:48→17:36)
[2019-05-21] MEDS: PREGABALIN 150 MG CAP PO SCH ×2 (08:49→20:34)
[2019-05-21] MEDS: FLUOXETINE HCL 20 MG CAP PO SCH (08:49)
[2019-05-21] MEDS: HYDROCODONE/ACETAMOPHEN 5/325MG TAB PO PRN ×2 (08:49→14:27)
[2019-05-21] MEDS: LOPERAMIDE HCL 2 MG CAP PO PRN (08:49)
[2019-05-21] MEDS: INSULIN HUMAN NPH SC SCH ×2 (08:50→17:37)
--- NOTE | 2019-05-21 08:51 | History and Physical Report ---
DATE OF ADMISSION: 05/19/2019 REASON FOR CONSULTATION: Achilles tendon rupture and diabetic foot ulcer. HISTORY OF PRESENT ILLNESS: I am meeting Melita for the first time here in the hospital setting. She is up in room 211. She is a diabetic. She is morbidly obese. She has significant neuropathy, Charcot disease and retinopathy. Evidently a few days ago, she was up walking and without feeling anything, had ruptured her Achilles tendon. In the interim, she has a complete skin breakdown on the posterior aspect of her Achilles tendon that spans from her os calcis almost up to the tendon-muscle junction. The skin is completely eroded and moderately infected. PAST MEDICAL HISTORY: Has been described above including some other issues of heart disease, end-stage renal disease, Charcot disease of her feet leading to a significant deterioration and deformity. LISTED ALLERGIES: SEVERAL, TO BACTRIM, SULFA AND METFORMIN. MEDICATIONS: On her chart. I held off on dictating these, it is listed more than 20 medications. PAST SURGICAL HISTORY: Includes carpal tunnel surgery, cholecystectomy, hernia repair, appendectomy, ankle surgery, bilateral knee replacements, cervical spine surgery, cataract surgery. PHYSICAL EXAMINATION: GENERAL: She is alert, oriented. VITAL SIGNS: She is afebrile. PSYCHIATRIC: She is depressed appropriately so. HEENT: Examination is essentially normal. RESPIRATORY: She has no respiratory effort in her breathing. She seems to breathe appropriately. CARDIAC: Normal rate and rhythm. ABDOMEN: Soft, nontender. MUSCULOSKELETAL: She has Charcot disease on her left foot with severe diabetic foot ulcerations and evidence of poor circulation and poor pulses. Same is on the right foot with asensate extremity from the knee down, large skin slough, large ulceration open to air. IMPRESSION: A 63-year-old female with severe impairment and multiple medical problems. Specific to my consultation, she has severe Charcot disease, skin ulcerations, torn Achilles tendon, asensate foot, peripheral neuropathy and vascular ischemia. PLAN: We will do all we can for dressing changes to her lower extremities to keep pressure off the wounds. Antibiotics are certainly appropriate, although I do not know if she is getting much delivery locally to the area. Out of completeness, I put a consult in for Dr. Stanley. I do not know if she will be a good candidate for any type of vascular graft procedures, probably not, but I did put in a consult for that. Nothing heroically needs to be done over the weekend. I also informed the patient that if she needs an amputation, which is possible, that will be done probably early next week maybe during this hospital stay. I will continue to follow. As far as the Achilles tendon repair, that is not even an issue at this point in time. It is a nonsurgical problem and would be treated nonsurgically. The wound is a top priority and again she may go on to an amputation.
[2019-05-21] MEDS ORDERED: ARTIFICIAL TEARS OP PRN ×2 (08:54→09:01)
[2019-05-21] MEDS ORDERED: MoRPHine SULFATE 2 MG/ML CARP IV PRN (13:24)
--- NOTE | 2019-05-21 14:20 | Hospitalist Progress Note ---
Date of Service May 21, 2019 Assessment & Plan (1) Diabetic foot ulcer associated with type 2 diabetes mellitus: Patient is a 63 yr female with H/O uncontrolled DM 2, ESRD on HD MWF, diabetic neuropathy, diabetic gastroparesis, Charcot foot secondary to DM, diabetic retinopathy, HTN, HLD, PAF, history of DVT on warfarin, hyperparathyroidism secondary to end-stage renal disease, anemia of chronic disease who presents to [facility] on referral from wound clinic secondary to deterioration of right heel wound and hyperglycemia. Right diabetic foot infection/Ulceration with Necrosis --Ankle MRI:Susceptibility artifact concerning for gas along the posterior soft tissues extending from the calcaneal wound and tracking superiorly along the completely torn and retracted Achilles tendon. This is highly concerning, and necrotizing fasciitis should be excluded clinically. Wound along the posterior calcaneus. Minimal osseous erosion of the subjacent calcaneus without convincing evidence of osteomyelitis at this time. Moderate ankle joint effusion. Degenerative changes at the tarsometatarsal articulations. Plantar fasciitis. --Venous Doppler:No sonographic evidence of deep venous thrombosis. --Blood Cx: No growth to date --Continue Zosyn, daptomycin Day #3 --Needs amputation/debridement --Appreciate Orthopedics Input --Vascular surgery, plastic surgery consulted --Continue wound Care --Appreciate ID Input --Pain control --Persistent leukocytosis, elevated CRP (2) Diabetes mellitus, type 2: Uncontrolled type 2 diabetes mellitus with hyperglycemia Hypokalemia Hb A1C:10.5 IV insulin drip >>> transitioned to SQ Appreciate glycemic pharmacist recommendations informatics educator Monitor BGs (3) Atrial fibrillation: H/O Paroxysmal A. fib Currently in sinus Not on any rate/Rhythm control meds INR supratherapeutic >> now therapeutic Hold warfarin for now as planned for surgery (4) Hypertension: BP stable Patient currently not on any oral antihypertensives Hydralazine prn (5) Hyperlipidemia: Hold statin while on Daptomycin (6) ESRD (end stage renal disease): HD MWF Appreciate Nephrology help continue phoslo renal diet, FR 1500ml (7) GERD (gastroesophageal reflux disease): continue PPI (8) Gastroparesis: zofran PRN (9) Diabetic peripheral neuropathy: continue lyrica (10) Depression: continue prozac mood stable (11) DVT prophylaxis: INR therapeutic Hold warfarin for now as planned for surgery Disposition: To be determined Follow-up: PCP Dr. Dixon upon discharge along with appropriate infectious disease and wound care follow-up (12) Anemia in ESRD (end-stage renal disease): Subjective Patient is seen and examined at bedside Complains of right foot pain Chronic diarrhea, nausea unchanged Denies any chest pain, shortness of breath, dizziness, abdominal pain Offers no other complaints Review of Systems Review of Systems: All systems reviewed & are unremarkable except as noted in HPI & below Physical Exam Physical Exam: Physical Exam: Vitals signs as noted above General Appearance:Obese, no apparent distress Head: normocephalic, Atraumatic Eyes: normal inspection, EOMI Neck: supple, Trachea midline Respiratory/Chest: Normal breath sounds, CTA Cardiovascular: S1, S2, No murmur Abdomen/GI:Soft, Non tender, Bowel sounds present Extremities/Musculoskelatal:normal inspection, Pretibial edema, left Charcot foot, right ankle, foot ulcer-necrosis, foul-smelling Neurologic/Psych:AAOX3, grossly no focal neurological deficits Skin: normal color, warm Results & Data Vital Signs (Past 12 Hours) Vital Signs Temp Pulse Resp BP Pulse Ox 05/21/19 11:05 37.2 C 70 8 L 138/56 L 95 05/21/19 07:45 36.8 C 70 14 126/44 L 95 05/21/19 03:21 37.4 C 79 18 131/50 L 95 Laboratory Results Short CBC 05/21/19 Range/Units 07:10 WBC 12.34 H (4.8-10.8) K/uL Hgb 9.7 L (12.0-16.0) g/dL Hct 29.9 L (37-47) % Plt Count 258 (130-400) K/uL BMP 05/20/19 05/20/19 05/21/19 13:50 19:50 07:10 Sodium 131 L 131 L Potassium 3.9 4.1 Chloride 95 L 92 L Carbon Dioxide 28 31 BUN 31 H 13 D Creatinine 6.58 H* D 3.36 H D 4.52 H* D Glucose 167 H 151 H Calcium 8.9 9.6 (1) Diabetic foot ulcer associated with type 2 diabetes mellitus Diabetic foot ulcer location: heel Laterality: left Non-pressure ulcer stage: limited to breakdown of skin Qualified Code(s): E11.621 - Type 2 diab etes mellitus with foot ulcer; L97.421 - Non-pressure chronic ulcer of left heel and midfoot limited to breakdown of skin (2) Hypertension Hypertension type: unspecified Qualified Code(s): I10 - Essential (primary) hypertension
[2019-05-21] MEDS: OXYCODONE HCL 10 MG TABCR (OXYCONTIN) PO SCH ×2 (15:24→20:34)
--- NOTE | 2019-05-21 16:49 | Surgery Consultation ---
Date of Consultation May 21, 2019 Assessment & Plan (1) Pressure ulcer: Findings reviewed with the patient. With her permission, I performed sharp debridement of the eschar, nonviable soft tissue and tendon of the right heel using a scissor and forceps. We discussed the finding of tendon exposure and rupture, exposed bone, uncontrolled diabetes, peripheral neuropathy and her other health conditions. Options include BKA, which would provide quickest recovery, or attempts at salvage including washout, VAC placement and likely referral for free flap coverage. Given lack of any viable tissue and exposure of bone and tendon, uncontrolled diabetes and poor nutritional status she would not be a candidate for VAC/skin grafting. Due to diabetic changes in the foot and her chronic medical conditions she would most likely not be a candidate for a free flap. She will consider over the weekend but feels she will proceed with BKA. Present on Admission?: Yes (2) Charcot's joint of foot in type 2 diabetes mellitus: (3) Diabetes mellitus with diabetic polyneuropathy: (4) ESRD (end stage renal disease): (5) Dialysis patient: (6) Atrial fibrillation: (7) Congestive heart failure: (8) Cellulitis: (9) Diabetic foot infection: History of Present Illness Attending Physician: Suhail Venegas MD History of Present Illness 63-year-old female with uncontrolled IDDM 2, ESRD on HD MWF, diabetic neuropathy, diabetic gastroparesis, Charcot foot secondary to DM, diabetic retinopathy, HTN, HLD, PAF, history of DVT on warfarin, hyperparathyroidism secondary to end-stage renal disease HD MWF, anemia of chronic disease who presents to [facility] ED at the referral of wound clinic secondary to deterioration of right heel wound and hyperglycemia. Patient states she was sitting in a desk chair a few weeks ago when it gave out under her and she fell to the hardwood floor, striking her heel and unable to rise until her returned home to help. She reports a one week history of a "sprain" of the foot after feeling a pop in her heel while walking. She has been followed by the wound care center as an outpatient regarding a left lower extremity wound which has healed, and has been followed at the [facility] regarding the right heel for about 3-4 weeks. Eschar is being treated with betadine, but has deteriorated recently, and MRI showed findings concerning for necrotizing faciitis so she was referred for admission. Seen by Dr. Reynoso earlier today who feels she may need an amputation and would like my input on wound care/reconstruction vs amputation. Patient states she knew as soon as the injury occurred "she was in trouble". Minimal to no plantar surface sensation per patient report. Allergies Allergy/AdvReac Type Severity Reaction Status Date / Time Bactrim Allergy Severe ANAPHYLAXIS Verified 06/11/16 08:40 sulfamethoxazole Allergy Severe Anaphylaxis Verified 05/19/19 16:49 trimethoprim Allergy Severe Anaphylaxis Verified 05/19/19 16:49 metformin AdvReac Intermediate Gastrointestinal Verified 05/19/19 16:49 Upset Home Medications Home Medications Medication Instructions Recorded Confirmed Type fluoxetine 20 mg capsule 20 mg PO QAM cap 04/08/18 05/19/19 History fluticasone propionate 50 2 sprays INTNAS QPM gm 04/08/18 05/19/19 History mcg/actuation nasal spray,suspension loperamide 2 mg capsule 4 mg PO DIRECTED PRN cap 04/08/18 05/19/19 History pantoprazole 40 mg tablet,delayed 40 mg PO QAM 04/08/18 05/19/19 History release pravastatin 20 mg tablet 20 mg PO QAM tab 04/08/18 05/19/19 History pregabalin 150 mg capsule 150 mg PO BID 04/08/18 05/19/19 History warfarin 5 mg tablet 2.5 mg PO WK 04/08/18 05/19/19 History calcium acetate 667 mg capsule 1,334 mg PO TIDM cap 05/27/18 05/19/19 History clindamycin HCl 300 mg capsule 300 mg PO TID #90 cap 05/12/19 05/19/19 Rx B complex-vitamin C-folic acid 1 tab PO HS 05/19/19 05/19/19 History [Nephro-Lexa] calcium acetate 667 mg PO DIRECTED 05/19/19 05/19/19 History ciprofloxacin HCl [Cipro] 500 mg PO QAM 05/19/19 05/19/19 History ergocalciferol (vitamin D2) 50,000 unit PO WK 05/19/19 05/19/19 History hydrocodone-acetaminophen 1 tab PO Q6H PRN 05/19/19 05/19/19 History insulin NPH and regular human 26 unit SUBCUT QAM 05/19/19 05/19/19 History [Humulin 70/30 U-100 Insulin] insulin NPH and regular human 36 unit SUBCUT HS 05/19/19 05/19/19 History [Humulin 70/30 U-100 Insulin] metoclopramide HCl 5 mg PO QID PRN 05/19/19 05/19/19 History ondansetron HCl 4 mg PO QID PRN 05/19/19 05/19/19 History warfarin 5 mg PO 6XWK 05/19/19 05/19/19 History Patient History Medical History DVT (deep venous thrombosis) (Chronic) x 2. LUE & LLE (both dx years ago - treated - LUE post surgery, reason for DVT in LLE unk) Diverticulosis (Chronic) Diabetic peripheral neuropathy (Acute) Hyperlipidemia Hypertension (Acute) Congestive heart failure Follows w/ dr. Perez Atrial fibrillation dx 2 years ago - on warfarin - follows w/ dr. Perez Neuropathy Depression Glaucoma Diabetes mellitus, type 2 IDDM GERD (gastroesophageal reflux disease) Gastroparesis ESRD (end stage renal disease) (Acute) 2/2 DM; FOLLOWS W/ [facility] Dialysis patient (Acute) M, W, F AV fistula LUE Wound infection (Acute) ACTIVE INFECTION TO LEFT THUMB WOUND; ON ABX; [facility] Charcot's joint of left foot (Acute) Diabetes mellitus with diabetic polyneuropathy (Acute) Charcot's joint of foot in type 2 diabetes mellitus (Chronic) Acquired claw toe of right foot (Acute) Neuropathic ulcer of left heel (Resolved) Acquired claw toe of left foot (Acute) Left midfoot ulcer (Acute) Surgical History H/O carpal tunnel repair (Chronic) History of cholecystectomy (Chronic) H/O hernia repair (Chronic) Hx of appendectomy (Chronic) History of ankle surgery (Acute) History of colonoscopy History of esophagogastroduodenoscopy (EGD) History of bilateral knee replacement S/P arteriovenous (AV) fistula creation History of cervical spinal surgery ROM WNL History of cataract surgery LEFT Family History Other No significant family history Social History Preferred Language: Upper Sorbian Communication Ability: Effective 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 Required: No Beliefs That Will Affect Care: None Current Living Situation: Spouse Other Information That Helps Us Care for You: No Feels Safe at Home: Yes Safety Concerns: Feels Safe At This Time Smoking Status: Never smoker Second Hand Exposure: No ; Hx Alcohol Use: No Hx Substance Use: No Review of Systems Constitutional: as per Subjective / HPI Integumentary: as per Subjective / HPI Physical Exam Constitutional: WD/WN, vitals as above Cardiovascular: Vessels: normal peripheral pulses (palpable dp pulse) Skin: no rashes, warm and dry + wound (right posterior lower leg, right anterior ankle) right posterior ankle wound about 10x8 cm extending from os calcis proximal to mid posterior calf with thick black eschar, surrounding erythema. Achilles tendon completely detached and retracted, bone visible in wound bed. No apparent viable soft tissue after wound debrided at bedside. Tissue is necrotic and malodorous. anterior right ankle wound about 2x2 cm, with surrounding violaceous tissue Psychiatric: Orientation: alert and oriented x 3 Mood: + depressed mood Results & Data Vital Signs (Past 12 Hours) Vital Signs Temp Pulse Resp BP Pulse Ox 05/21/19 15:52 99.0 F 68 16 165/68 H 96 05/21/19 11:05 99.0 F 70 8 L 138/56 L 95 05/21/19 07:45 98.2 F 70 14 126/44 L 95 Laboratory Results Laboratory Tests 05/19/19 05/20/19 05/21/19 16:40 05:48 07:10 WBC Hgb Plt Count ESR 86 H INR 2.7 H Hemoglobin A1c 10.5 H 05/21/19 07:10 WBC 12.34 H Hgb 9.7 L Plt Count 258 ESR INR Hemoglobin A1c Albumin 2.3 Surface Wound Culture Final 05/01/19-956 Organism 1 Serratia marcescens Quantity Many Sens Sensitivities to Follow Organism 2 Group B Beta Strep Quantity Many Sens Sensitivities to Follow S marcesc Grp.B Strp RX M.I.C. RX M.I.C. --- --------- --- --------- Amikacin S <=16 Ampicillin S 0.12 Azithromycin S <=0.25 Cefepime S <=4 S <=0.25 Cefotaxime S <=2 S <=0.25 Ceftriaxone I 2 S <=0.25 Chloramphenicol S 2 Ciprofloxacin S <=1 Clindamycin S <=0.06 Ertapenem S <=1 Erythromycin S <=0.06 Gentamicin S <=4 Imipenem S <=1 Levofloxacin S <=2 Penicillin S 0.06 Tobramycin S <=4 Trimeth/Sulfa S <=2/38 Pip/Tazo S <=16 Vancomycin S 0.5 Diagnostic Findings CLINICAL HISTORY: 63 years-old Female presenting with right ankle pain for one month, history of sprain, infected wound on the heel, concern for osteomyelitis. TECHNIQUE: Multisequence, multiplanar MR imaging of the right ankle was performed without the use of intravenous contrast. IV contrast: None. COMPARISON: None. FINDINGS: Localizer images: Unremarkable. Bone marrow: Cystic bone marrow changes in the cuboid at the articulation with the base of the fourth and fifth metatarsals. A lesser degree of cystic change is evident in the cuneiform bones as well as the bases of the first through third metatarsals. Heterogeneity of bone marrow signal along the posterior calcaneus with suspected small osseous erosions. No confluent T1 hypointensity of the bone marrow in the calcaneus to suggest a marrow replacement process. Articular cartilage: Mild diffuse articular cartilage thinning. Syndesmotic ligament: Anterior-inferior and posterior-inferior tibiofibular ligaments intact. Interosseous membrane intact. Lateral ligament complex: Suspected tear of the anterior talofibular ligament. Posterior talofibular ligament intact. Calcaneofibular ligament also intact. Deltoid ligament complex: Ossicle within the deltoid ligament consistent with old avulsion injury. Prior tear also suggested by loss of normal striations. Chopart joints: Medial column ligaments intact, including the dorsal talonavic ular ligament and spring ligament complex (inferior plantar longitudinal band, medial plantar oblique band, and superomedial band). Possible tear of the dorsal calcaneocuboid ligament. Remainder of the lateral column ligaments intact, including the short and long plantar ligaments and bifurcate ligament. Anterior tendons: Tibialis anterior, extensor hallucis longus and extensor digitorum longus tendons intact. Lateral tendons: Peroneus longus and brevis tendons intact, however, fluid is noted within the tendon sheaths more so involving the peroneus longus. Medial tendons: Posterior tibialis, flexor digitorum longus and flexor hallucis longus tendons intact. Plantar fascia: Prominent enthesophyte at the origin of the plantar fascia, which demonstrates significant thickening more so in the medial bundle. Trace associated bony edema. Achilles tendon: Complete tear of the Achilles tendon. Retracted tendon. Numerous foci of susceptibility artifact concerning for gas within the posterior soft tissues extending from the calcaneal wound. Sinus tarsi: Normal signal intensity within the sinus tarsi. Joint effusion: Moderate ankle joint effusion. Muscle: Diffuse muscle edema. Superficial soft tissue: Severe subcutaneous edema diffusely. IMPRESSION: 1. Susceptibility artifact concerning for gas along the posterior soft tissues extending from the calcaneal wound and tracking superiorly along the completely torn and retracted Achilles tendon. This is highly concerning, and necrotizing fasciitis should be excluded clinically. 2. Wound along the posterior calcaneus. Minimal osseous erosion of the subjacent calcaneus without convincing evidence of osteomyelitis at this time. 3. Moderate ankle joint effusion. 4. Degenerative changes at the tarsometatarsal articulations. 5. Plantar fasciitis. 6. Additional findings as above. PG Care Time/CCT Total # of Minutes Spent Total Time Spent with Patient: Total time spent is greater than 50% in coordination of care (as documented) at patient's floor/unit and/or counseling patient: (1) Pressure ulcer Pressure injury location: heel Pressure injury stage: unspecified pressure injury stage (2) Cellulitis Laterality: right Site of cellulitis: extremity Site of cellulitis of extremity: lower extremity Qualified Code(s): L03.115 - Cellulitis of right lower limb
[2019-05-21] MEDS: NEPHROCAPS PO SCH (20:34)
[2019-05-21] MEDS: FLUTICASONE PROPIONATE NA SPR 16 GM BTL SCH (20:34)
[2019-05-21] MEDS: DAPTOmycin 500 MG in SYRINGE 0 ML IV SCH (20:35)
[2019-05-22] MEDS: PIPERACILLIN/TAZOBACTAM 4.5 GM in DEXTROSE 5% 100 ML IV SCH ×2 (00:11→13:19)
[2019-05-22] MEDS: HYDROCODONE/ACETAMOPHEN 5/325MG TAB PO PRN ×3 (00:12→17:57)
[2019-05-22 06:30] LABS: Hematocrit (blood only) 29.5 % (37-47); Hemoglobin 9.3 g/dL (12.0-16.0); Mean Corpuscular Hemoglobin 30.9 pg (25-34); Mean Corpuscular Hgb Conc 31.5 g/dL (32-36); Mean Platelet Volume 10.1 fL (7.4-10.4); Platelet Count 276 K/uL (130-400); RDW Coefficient of Variation 16.2 % (11.5-14.5); RDW Standard Deviation 57.1 fL (36.4-46.3); Red Blood Count 3.01 M/uL (4.2-5.4); White Blood Count 14.46 K/uL (4.8-10.8)
[2019-05-22 06:47] LABS: INR 2.3 (0.9-1.1)
[2019-05-22 07:29] LABS: BUN Creatinine Ratio 5.4 (10-20); Calcium 9.2 mg/dl (8.5-10.1); Creatinine Clr Calc Pharmacy 11.4 ml/min; Est GFR (African American) 7.3; Est GFR (Non-African American) 6.3; Potassium 3.7 mmol/L (3.5-5.1)
[2019-05-22] MEDS: OXYCODONE HCL 10 MG TABCR (OXYCONTIN) PO SCH ×2 (08:10→21:24)
[2019-05-22] MEDS: CALCIUM ACETATE 667 MG CAP PO SCH ×3 (08:11→18:02)
[2019-05-22] MEDS: PANTOprazole 40 MG TAB PO SCH (08:11)
[2019-05-22] MEDS: INSULIN HUMAN NPH SC SCH ×2 (08:11→17:57)
[2019-05-22] MEDS: FLUOXETINE HCL 20 MG CAP PO SCH (08:11)
[2019-05-22] MEDS: INSULIN HUMAN REGULAR SC SCH ×5 (08:15→21:27)
[2019-05-22] MEDS: PREGABALIN 150 MG CAP PO SCH ×2 (08:30→21:24)
--- NOTE | 2019-05-22 09:48 | Pharmacy Report ---
Pharmacy Glycemic Short Note 2 - Date of Service May 22, 2019 - Glycemic Short BSG Results (Last 24 hours): 05/21/19 05/21/19 05/21/19 11:12 16:07 20:11 Glucose POC Glucose 220 H 245 H 255 H 05/22/19 05/22/19 06:10 07:36 Glucose 220 H POC Glucose 231 H ASSESSMENT: 05/22 * Patient received 75 units of insulin yesterday, of which 40 were basal insulin * Fasting BSG still elevated at 220 mg/dL - will increase basal ~25% today with 25 BIDM * Will tighten CF/CR this AM 05/21 * 63 year old female with uncontrolled type 2 diabetes, diabetic gastroparesis and retinopathy, htn, hld, PAF, hyperparathyroidism secondary to ESRD on HD, anemia presenting with right heel infection and hyperglycemia * Started insulin drip last evening and continued this AM, overlapped with Lantus this morning will continue to trend BSGs * Insulin drip rate ~1 unit/hr - BSGs <180 x 2 , therefore will transition off drip at this time. Communicated with nurse to cover lunch time BSGs with ACHS order * Will add scale for basal insulin with dinner PLAN FOR INPATIENT GLYCEMIC CONTROL: * Insulin drip - transitioned off 05/20 at lunchtime * Basal insulin * Lantus BID with scale 20 units for BSG less than 110 mg/dl 25 units for BSG 110 or greater * Bolus insulin - tighten * NovoLog per scale ACHS or Q6hrs while NPO * Goal Range: Low 110 mg/dL - High 140 mg/dL * Correction Factor: 12 mg/dL/unit * Nutritional / Prandial insulin per carb ratio of 1 unit per 5 grams CHO consumed * Please note that the plan above was derived based on current level of insulin resistance and hospital stress. These recommendations are appropriate for inpatient admission only. Plan of care upon discharge will need to be reassessed to avoid potential outpatient hypo/hyperglycemia.
--- NOTE | 2019-05-22 10:10 | CT Scan Report ---
CT head/brain wo con CLINICAL HISTORY: Bilateral hand numbness. Patient on Coumadin. COMPARISON STUDY: No previous studies for comparison. TECHNIQUE: Axial CT of the brain is performed from the vertex to the skull base. IV contrast was not administered for this examination. A dose lowering technique was utilized adhering to the principles of ALARA. CT DOSE: FINDINGS: No intra or extra-axial mass lesions are visualized. There is no CT evidence of acute cortical infarc tion. There is no evidence of midline shift. There is no acute hemorrhage. No calvarial fractures ar e visualized. There are minor white matter hypodensities likely on a small vessel basis. There is no evidence of pathologic ventricular dilatation. There is no evidence of acute sinusitis IMPRESSION: No acute intracranial findings Electronically signed by: Maxime Carr M.D. 05/22/2019 10:09 AM
--- NOTE | 2019-05-22 10:13 | CT Scan Report ---
CT soft tissue neck wo con CT DOSE: 1384.04 mGy.cm CLINICAL HISTORY: Neck swelling. Patient on Coumadin. And numbness. TECHNIQUE: Helical images were acquired in transverse plane. No intravenous contrast was administered . A dose lowering technique was utilized adhering to the principles of ALARA. COMPARISON STUDY: None. FINDINGS: The visualized portions lung apices reveal mild atelectatic changes. No thyroid abnormalities are visualized. No salivary masses are visualized on this noncontrast examination. No mucosal space masses are visualized on this noncontrast study. There is no pathologic adenopathy. There are no findings to indicate soft tissue hemorrhage. There are no fluid collections to indicate an abscess. There is no evidence of airway compromise. The epiglottis appears normal. The retropharyngeal soft ti ssues are unremarkable. There are postsurgical changes present within the cervical spine at the C5-7 level. IMPRESSION: 1. Examination limited by the lack of intravenous contrast 2. No pathologic masses identified 3. No evidence of hemorrhage 4. No evidence of pathologic adenopathy 5. Postsurgical changes within the cervical spine. Electronically signed by: Maxime Carr M.D. 05/22/2019 10:12 AM
--- NOTE | 2019-05-22 13:18 | Hospitalist Progress Note ---
Date of Service May 22, 2019 Assessment & Plan (1) Diabetic foot ulcer associated with type 2 diabetes mellitus: Patient is a 63 yr female with H/O uncontrolled DM 2, ESRD on HD MWF, diabetic neuropathy, diabetic gastroparesis, Charcot foot secondary to DM, diabetic retinopathy, HTN, HLD, PAF, history of DVT on warfarin, hyperparathyroidism secondary to end-stage renal disease, anemia of chronic disease who presents to [facility] on referral from wound clinic secondary to deterioration of right heel wound and hyperglycemia. Right diabetic foot infection/Ulceration with Necrosis --Ankle MRI:Susceptibility artifact concerning for gas along the posterior soft tissues extending from the calcaneal wound and tracking superiorly along the completely torn and retracted Achilles tendon. This is highly concerning, and necrotizing fasciitis should be excluded clinically. Wound along the posterior calcaneus. Minimal osseous erosion of the subjacent calcaneus without convincing evidence of osteomyelitis at this time. Moderate ankle joint effusion. Degenerative changes at the tarsometatarsal articulations. Plantar fasciitis. --Venous Doppler:No sonographic evidence of deep venous thrombosis. --Blood Cx: No growth to date --S/P Debridement on 05/21/19 --Continue Zosyn, daptomycin Day #4 --Needs amputation R BKA --Appreciate Orthopedics, Plastic Surgery Input --Vascular surgery consulted as well --Continue wound Care --Appreciate ID Input --Pain control --Persistent leukocytosis --Continue current medications Chronic hyponatremia Hypochloremia Likely dilutional Fluid restriction to 1200 mL/day Monitor electrolytes (2) Diabetes mellitus, type 2: Uncontrolled type 2 diabetes mellitus with hyperglycemia Hypokalemia Hb A1C:10.5 IV insulin drip >>> transitioned to SQ Appreciate glycemic pharmacist recommendations clinical systems educator Monitor BGs (3) Atrial fibrillation: H/O Paroxysmal A. fib Currently in sinus Not on any rate/Rhythm control meds INR supratherapeutic >> now therapeutic Hold warfarin for now as planned for surgery INR:2.3 today (4) Hypertension: BP slightly elevated today Likely secondary to pain Patient currently not on any oral antihypertensives Hydralazine PRN (5) Hyperlipidemia: Hold statin while on Daptomycin (6) ESRD (end stage renal disease): HD MWF ans Sat per Patient Appreciate Nephrology help continue phoslo Renal diet, FR 1200ml Dialysis as per Nephrology (7) GERD (gastroesophageal reflux disease): continue PPI (8) Gastroparesis: zofran PRN (9) Diabetic peripheral neuropathy: continue lyrica (10) Depression: continue prozac mood stable (11) DVT prophylaxis: INR therapeutic Hold warfarin for now as planned for surgery Disposition: To be determined Follow-up: PCP Dr. Dixon upon discharge along with appropriate infectious disease and wound care follow-up (12) Anemia in ESRD (end-stage renal disease): Subjective Patient is seen and examined at bedside Patient complains of bilateral hand numbness, tingling Also complains of right foot pain Office no other complaints Has Chronic diarrhea, nausea Denies any chest pain, shortness of breath, dizziness, abdominal pain Discussed with nephrology for possible dialysis today Review of Systems Review of Systems: All systems reviewed & are unremarkable except as noted in HPI & below Physical Exam Physical Exam: Physical Exam: Vitals signs as noted above General Appearance:Obese, no apparent distress Head: normocephalic, Atraumatic Eyes: normal inspection, EOMI Neck: supple, Trachea midline Respiratory/Chest: Normal breath sounds, CTA Cardiovascular: S1, S2, No murmur Abdomen/GI:Soft, Non tender, Bowel sounds present Extremities/Musculoskelatal:normal inspection, Pretibial edema, left Charcot foot, R LE in dressing Neurologic/Psych:AAOX3, grossly no focal neurological deficits Skin: normal color, warm Results & Data Vital Signs (Past 12 Hours) Vital Signs Temp Pulse Pulse Pulse Resp BP Pulse Ox 05/22/19 11:23 37.4 C 67 67 18 156/68 H 95 05/22/19 07:06 36.8 C 74 18 120/43 L 93 05/22/19 04:00 37.2 C 69 18 131/48 L 93 Laboratory Results Short CBC 05/22/19 Range/Units 06:10 WBC 14.46 H (4.8-10.8) K/uL Hgb 9.3 L (12.0-16.0) g/dL Hct 29.5 L (37-47) % Plt Count 276 (130-400) K/uL BMP 05/22/19 06:10 Sodium 128 L Potassium 3.7 Chloride 90 L Carbon Dioxide 28 BUN 35 H D Creatinine 6.47 H* D Glucose 220 H Calcium 9.2 (1) Diabetic foot ulcer associated with type 2 diabetes mellitus Diabetic foot ulcer location: heel Laterality: left Non-pressure ulcer stage: limited to breakdown of skin Qualified Code(s): E11.621 - Type 2 diabetes mellitus with foot ulcer; L97.421 - Non-pressure chronic ulcer of left heel and midfoot limited to breakdown of skin (2) Hypertension Hypertension type: unspecified Qualified Code(s): I10 - Essential (primary) hypertension
[2019-05-22] MEDS: NEPHROCAPS PO SCH (21:24)
[2019-05-22] MEDS: FLUTICASONE PROPIONATE NA SPR 16 GM BTL SCH (21:24)
[2019-05-23] MEDS: PIPERACILLIN/TAZOBACTAM 4.5 GM in DEXTROSE 5% 100 ML IV SCH ×3 (00:28→18:53)
[2019-05-23] MEDS: HYDROCODONE/ACETAMOPHEN 5/325MG TAB PO PRN ×3 (00:28→18:53)
[2019-05-23] MEDS: INSULIN HUMAN REGULAR SC SCH ×6 (00:31→21:34)
[2019-05-23] MEDS: FLUOXETINE HCL 20 MG CAP PO SCH (08:18)
[2019-05-23] MEDS: PREGABALIN 150 MG CAP PO SCH ×2 (08:18→20:34)
[2019-05-23] MEDS: OXYCODONE HCL 10 MG TABCR (OXYCONTIN) PO SCH ×2 (08:18→20:34)
[2019-05-23] MEDS: PANTOprazole 40 MG TAB PO SCH (08:19)
[2019-05-23] MEDS: CALCIUM ACETATE 667 MG CAP PO SCH ×3 (08:19→18:49)
[2019-05-23 08:21] LABS: Basophils # (auto) 0.02 K/uL (0-0.2); Basophils % (auto) 0.1 %; Eosinophils # (auto) 0.15 K/uL (0-0.5); Eosinophils % (auto) 1.1 %; Hematocrit (blood only) 29.4 % (37-47); Hemoglobin 9.4 g/dL (12.0-16.0); Immature Granulocytes # (auto) 0.19 K/uL (0.00-0.02); Immature Granulocytes % (auto) 1.4 %; Lymphocytes % (auto) 11.7 %; Mean Corpuscular Hemoglobin 31.1 pg (25-34); Mean Corpuscular Volume 97.4 fL (80-100); Mean Platelet Volume 10.4 fL (7.4-10.4); Monocytes # (auto) 1.18 K/uL (0.11-0.59); Monocytes % (auto) 8.6 %; Neutrophils # (auto) 10.56 K/uL (1.4-6.5); Neutrophils % (auto) 77.1 %; Platelet Count 277 K/uL (130-400); RDW Coefficient of Variation 16.3 % (11.5-14.5); Red Blood Count 3.02 M/uL (4.2-5.4)
[2019-05-23] MEDS: INSULIN HUMAN NPH SC SCH (08:23)
[2019-05-23 08:31] LABS: INR 2.1 (0.9-1.1); Prothrombin Time 20.7 Seconds (9.0-12.0)
[2019-05-23 09:02] LABS: BUN Creatinine Ratio 5.8 (10-20); Calcium 9.3 mg/dl (8.5-10.1); Creatinine Clr Calc Pharmacy 8.8 ml/min; Est GFR (African American) 5.4; Est GFR (Non-African American) 4.6; Magnesium 2.1 mg/dl (1.8-2.4); Phosphorus 4.6 mg/dl (2.5-4.9); Potassium 3.6 mmol/L (3.5-5.1)
[2019-05-23] MEDS ORDERED: SODIUM CHLORIDE 0.9% 1000ML 1,000 ML IV PRN (09:04)
--- NOTE | 2019-05-23 09:21 | Surgery Progress Note ---
Date of Service May 23, 2019 Assessment & Plan (1) Diabetic foot infection: Right posterior foot with gangrenous changes, requiring at least debridement and likely amputation. Wound cultures pending. Will discuss with orthopedics. (2) Diabetic peripheral neuropathy: (3) Diabetes mellitus, type 2: (4) ESRD (end stage renal disease): Subjective Melita is seen today in follow-up. Reports pain in the right foot, otherwise feeling okay. Review of Systems Integumentary: as per Subjective / HPI Physical Exam Constitutional: WD/WN, vitals as above Cardiovascular: Vessels: normal peripheral pulses (palpable dp pulse) Skin: no rashes, warm and dry + wound (right posterior lower leg, right anterior ankle) right posterior ankle wound about 10x8 cm extending from os calcis proximal to mid posterior calf with thick black eschar, surrounding erythema. Achilles tendon completely detached and retracted, bone visible in wound bed. Extensive soft tissue necrosis with surrounding cellulitis. No crepitus, no lymphatic streaking. anterior right ankle wound about 2x2 cm, with surrounding violaceous tissue Psychiatric: Orientation: alert and oriented x 3 Mood: + depressed mood Results & Data Vital Signs (Past 12 Hours) Vital Signs Temp Pulse Pulse Resp BP Pulse Ox 05/23/19 07:25 98.2 F 67 12 139/78 96 05/23/19 03:18 98.1 F 57 L 17 95/43 L 98 05/23/19 00:00 84 05/22/19 23:21 98.2 F 64 18 137/54 L 97 Laboratory Tests 05/19/19 05/22/19 05/23/19 16:40 06:10 08:05 WBC Hgb INR 2.1 H Albumin 2.3 L Prealbumin 13.8 L 05/23/19 08:05 WBC 13.70 H Hgb 9.4 L INR Albumin Prealbumin Gram Stain Final 05/22/19-1823 Gram Stain Result Rare WBCs Seen Rare Gram Positive Bacilli PG Care Time/CCT Total # of Minutes Spent Total Time Spent with Patient: Total time spent is greater than 50% in coordination of care (as documented) at patient's floor/unit and/or counseling patient:
[2019-05-23] MEDS ORDERED: HEPARIN SOD (PORCINE) 1000 UNIT/ML 10 ML VIAL IV SCH (10:00)
[2019-05-23] MEDS ORDERED: EPOETIN ALFA 10,000 UNITS/ML VIAL IV SCH (10:00)
--- NOTE | 2019-05-23 10:13 | Infectious Disease Progress Nt ---
Date of Service May 23, 2019 Assessment & Plan (1) Diabetic foot infection: pt will continue on emperic abx. await culture data. considering bka, this would be curative. will await decision. Subjective pt remains afebrile. on dapto and zosyn, tolerating well. wbc 14. pt had imaging of foot, noted gas in tissue and concern for necrotizing fasciitis. had plastics eval and debridement, wound culture pending. blood cultures negative to date. surgery discussed with patient, suggested BKA, she is considering this. Results & Data Vital Signs (Past 12 Hours) Vital Signs Temp Pulse Pulse Resp BP Pulse Ox 05/23/19 07:25 36.8 C 67 12 139/78 96 05/23/19 03:18 36.7 C 57 L 17 95/43 L 98 05/23/19 00:00 84 05/22/19 23:21 36.8 C 64 18 137/54 L 97 Laboratory Results Microbiology 05/22/19 11:41 Foot Gram Stain - Final 05/19/19 16:40 Blood Aerobic Blood Culture - Preliminary No growth in Aerobic bottle after 48 hours. 05/19/19 16:40 Blood Anaerobic Blood Culture - Final 05/19/19 16:25 Blood Aerobic Blood Culture - Preliminary No growth in Aerobic bottle after 48 hours. 05/19/19 16:25 Blood Anaerobic Blood Culture - Preliminary No growth in Anaerobic bottle after 48 hours. PG Care Time/CCT Total # of Minutes Spent Total Time Spent with Patient: Total time spent is greater than 50% in coordination of care (as documented) at patient's floor/unit and/or counseling patient:
--- NOTE | 2019-05-23 11:57 | Vascular Medicine Consultation ---
Date of Consultation May 23, 2019 Assessment & Plan (1) Diabetic foot infection: 2. Type 2 DM 3. Peripheral neuropathy 4. Charcot arthropathy 5. PAD 6. End-stage renal disease on dialysis 7. Paroxysmal atrial fibrillation on anticoagulation 8. History of VTE 9. Chronic diastolic heart failure Patient with extensive heel/ankle wound/infection extending to bone with tendon exposure and rupture. Reviewed prior vascular imaging which showed only modest tibial disease with normal toe pressures on the right. Has repeat arterial duplex pending. At this point though low suspicion for high-grade arterial disease for which revascularization would significantly change prognosis/m anagement. No indication for further invasive testing at this time. Arterial perfusion adequate for BKA wound healing. Thank you for allowing us to participate in the care of this patient. Please contact with any questions. History of Present Illness Attending Physician: Suhail Venegas MD History of Present Illness Ms. Shoemaker is a 63 year-old female seen today in the setting of right lower extremity wound and suspected PAD. Patient previously seen by me at the wound care center in the setting of left lower extremity ulceration. Prior medical history remarkable for long-standing insulin dependent diabetes complicated by peripheral neuropathy, and ESRD on HD via LUE fistua, Charcot arthropathy. She also has atrial fibrillation and prior VTE on coumadin, chronic diastolic heart failure, hypertension and hyperlipidemia followed by [facility] in [place]. Non- smoker. No other significant vascular disease history. Patient has had multiple prior ulcerations of her left lower extremity requiring various off-loading strategies. She returned to the wound clinic on 01/11/2019 in the setting of LT heel ulceration present for approximately 2 weeks. Post standard wound care, Jahaira and antibiotics for MSSA and group B strep with wound improvement and eventual healing. In April patient had a fall while she was sitting in a chair and developed a right heel ulceration. Wound has continued to progress despite wound care. Was referred to [facility] on 05/19 with foul-smelling wound, hyperglycemia. Now on broad-spectrum empiric antibiotics. Has been evaluated by orthopedics and plastic surgery. Has necrotic wound with visible ruptured tendon, bone and BKA being considered. Recent vascular testing: LE arterial duplex 01/2019: RT MEENA 1.28, LT 1.0; TBI RT 0.6, LT 0.39. ~50% stenosis in dist RT CYNDI otherwise <49% disease. Allergies Allergy/AdvReac Type Severity Reaction Status Date / Time Bactrim Allergy Severe ANAPHYLAXIS Verified 06/11/16 08:40 sulfamethoxazole Allergy Severe Anaphylaxis Verified 05/19/19 16:49 trimethoprim Allergy Severe Anaphylaxis Verified 05/19/19 16:49 metformin AdvReac Intermediate Gastrointestinal Verified 05/19/19 16:49 Upset Home Medications Home Medications Medication Instructions Recorded Confirmed Type fluoxetine 20 mg capsule 20 mg PO QAM cap 04/08/18 05/19/19 History fluticasone propionate 50 2 sprays INTNAS QPM gm 04/08/18 05/19/19 History mcg/actuation nasal spray,suspension loperamide 2 mg capsule 4 mg PO DIRECTED PRN cap 04/08/18 05/19/19 History pantoprazole 40 mg tablet,delayed 40 mg PO QAM 04/08/18 05/19/19 History release pravastatin 20 mg tablet 20 mg PO QAM tab 04/08/18 05/19/19 History pregabalin 150 mg capsule 150 mg PO BID 04/08/18 05/19/19 History warfarin 5 mg tablet 2.5 mg PO WK 04/08/18 05/19/19 History calcium acetate 667 mg capsule 1,334 mg PO TIDM cap 05/27/18 05/19/19 History clindamycin HCl 300 mg capsule 300 mg PO TID #90 cap 05/12/19 05/19/19 Rx B complex-vitamin C-folic acid 1 tab PO HS 05/19/19 05/19/19 History [Nephro-Lexa] calcium acetate 667 mg PO DIRECTED 05/19/19 05/19/19 History ciprofloxacin HCl [Cipro] 500 mg PO QAM 05/19/19 05/19/19 History ergocalciferol (vitamin D2) 50,000 unit PO WK 05/19/19 05/19/19 History hydrocodone-acetaminophen 1 tab PO Q6H PRN 05/19/19 05/19/19 History insulin NPH and regular human 26 unit SUBCUT QAM 05/19/19 05/19/19 History [Humulin 70/30 U-100 Insulin] insulin NPH and regular human 36 unit SUBCUT HS 05/19/19 05/19/19 History [Humulin 70/30 U-100 Insulin] metoclopramide HCl 5 mg PO QID PRN 05/19/19 05/19/19 History ondansetron HCl 4 mg PO QID PRN 05/19/19 05/19/19 History warfarin 5 mg PO [id number] 05/19/19 05/19/19 History Patient History Medical History DVT (deep venous thrombosis) (Chronic) x 2. LUE & LLE (both dx years ago - treated - LUE post surgery, reason for DVT in LLE unk) Diverticulosis (Chronic) Diabetic peripheral neuropathy (Acute) Hyperlipidemia Hypertension (Acute) Congestive heart failure Follows w/ dr. Perez Atrial fibrillation dx 2 years ago - on warfarin - follows w/ dr. Perez Neuropathy Depression Glaucoma Diabetes mellitus, type 2 IDDM GERD (gastroesophageal reflux disease) Gastroparesis ESRD (end stage renal disease) (Acute) 2/2 DM; FOLLOWS W/ [facility] Dialysis patient (Acute) M, W, F AV fistula LUE Wound infection (Acute) ACTIVE INFECTION TO LEFT THUMB WOUND; ON ABX; [facility] Charcot's joint of left foot (Acute) Diabetes mellitus with diabetic polyneuropathy (Acute) Charcot's joint of foot in type 2 diabetes mellitus (Chronic) Acquired claw toe of right foot (Acute) Neuropathic ulcer of left heel (Resolved) Acquired claw toe of left foot (Acute) Left midfoot ulcer (Acute) Surgical History H/O carpal tunnel repair (Chronic) History of cholecystectomy (Chronic) H/O hernia repair (Chronic) Hx of appendectomy (Chronic) History of ankle surgery (Acute) History of colonoscopy History of esophagogastroduodenoscopy (EGD) History of bilateral knee replacement S/P arteriovenous (AV) fistula creation History of cervical spinal surgery ROM WNL History of cataract surgery LEFT Family History Other No significant family history Social History Preferred Language: Lao Communication Ability: Effective Outbound Telemarketing Representative Required: No Beliefs That Will Affect Care: None Current Living Situation: Spouse Other Information That Helps Us Care for You: No Feels Safe at Home: Yes Safety Concerns: Feels Safe At This Time Smoking Status: Never smoker Second Hand Exposure: No ; Hx Alcohol Use: No Hx Substance Use: No Review of Systems Review of Systems: All systems reviewed & are unremarkable except as noted in HPI & below Physical Exam Physical Exam: General: Comfortable, no acute distress Eyes: Sclerae anicteric, extraocular movements intact HENT: Oropharynx clear mucous membranes moist Neck: Normal carotid upstrokes, no bruits. No JVD. Lungs: Clear to auscultation bilaterally, no rhonchi or wheezes Cardiac: Regular rate and rhythm, no murmurs, rubs or gallops. Abdomen: Soft, nontender, nondistended, positive bowel sounds. Neuro: Nonfocal Psych: Alert orient x3, normal affect and mood Extremities/Vascular: -- 2+ radial bilaterally -- 2+ femoral bilaterally -- 1+ popliteal bilaterally -- diminished DP/PT pulses bilaterally, sluggish cap refill -- RT ulcer dressed - wound images reviewed - black eschar/necrotic tissue involving plantar aspect of foot > 6 cm. Skin breakdown necrosis on anterior aspect of ankle Results & Data Vital Signs (Past 12 Hours) Vital Signs Temp Pulse Pulse Resp BP Pulse Ox 05/23/19 11:10 98.1 F 69 16 138/43 L 95 05/23/19 07:25 98.2 F 67 12 139/78 96 05/23/19 03:18 98.1 F 57 L 17 95/43 L 98 05/23/19 00:00 84 Diagnostic Findings Ankle MRI- 1. Susceptibility artifact concerning for gas along the posterior soft tissues extending from the calcaneal wound and tracking superiorly along the completely torn and retracted Achilles tendon. This is highly concerning, and necrotizing fasciitis should be excluded clinically. 2. Wound along the posterior calcaneus. Minimal osseous erosion of the subjacent calcaneus without convincing evidence of osteomyelitis at this time. 3. Moderate ankle joint effusion. 4. Degenerative changes at the tarsometatarsal articulations. PG Care Time/CCT Total # of Minutes Spent Total Time Spent with Patient: Total time spent is greater than 50% in coordination of care (as documented) at patient's floor/unit and/or counseling patient:
[2019-05-23] MEDS: HEPARIN SOD (PORCINE) 1000 UNIT/ML 10 ML VIAL IV SCH (13:41)
--- NOTE | 2019-05-23 15:02 | Pharmacy Report ---
Pharmacy Glycemic Short Note 2 - Date of Service May 23, 2019 - Glycemic Short BSG Results (Last 24 hours): 05/22/19 05/22/19 05/23/19 16:06 20:08 00:25 Glucose POC Glucose 230 H 254 H 207 H 05/23/19 05/23/19 05/23/19 04:41 07:24 08:05 Glucose 139 H POC Glucose 153 H 124 H 05/23/19 11:12 Glucose POC Glucose 145 H ASSESSMENT: 05/23 * Patient received 114 units of insulin yesterday, of which 50 were basal insulin * Fasting BSG this AM w/in range at 139 mg/dL - will continue with Lantus 25 this am and adjust scale for tonight * Continue same CF/CR * Patient to get HD today 05/22 * Patient received 75 units of insulin yesterday, of which 40 were basal insulin * Fasting BSG still elevated at 220 mg/dL - will increase basal ~25% today with 25 BIDM * Will tighten CF/CR this AM 05/21 * 63 year old female with uncontrolled type 2 diabetes, diabetic gastroparesis and retinopathy, htn, hld, PAF, hyperparathyroidism secondary to ESRD on HD, anemia presenting with right heel infection and hyperglycemia * Started insulin drip last evening and continued this AM, overlapped with Lantus this morning will continue to trend BSGs * Insulin drip rate ~1 unit/hr - BSGs <180 x 2 , therefore will transition off drip at this time. Communicated with nurse to cover lunch time BSGs with ACHS order * Will add scale for basal insulin with dinner PLAN FOR INPATIENT GLYCEMIC CONTROL: * Insulin drip - transitioned off 05/20 at lunchtime * Basal insulin * Lantus BID with scale 20 units for BSG less than 160 mg/dl 25 units for BSG 160 or greater * Bolus insulin - tighten * NovoLog per scale ACHS or Q6hrs while NPO * Goal Range: Low 110 mg/dL - High 140 mg/dL * Correction Factor: 10 mg/dL/unit * Nutritional / Prandial insulin per carb ratio of 1 unit per 4 grams CHO consumed * Please note that the plan above was derived based on current level of insulin resistance and hospital stress. These recommendations are appropriate for inpatient admission only. Plan of care upon discharge will need to be reassessed to avoid potential outpatient hypo/hyperglycemia.
--- NOTE | 2019-05-23 18:13 | Nephrology Progress Note ---
Date of Service May 23, 2019 Assessment & Plan (1) ESRD (end stage renal disease): Patient is normally dialysed on a MWF schedule. Last HD was Thursday. She is normally a big weight jaison. Will dialyse her today for 4hrs and target UF of 4 litres. Daily BMP for electrolyte monitoring. (2) Diabetic foot infection: Patient with chronic wounds but now infected. She is Daptomycin and Zosyn per iD. Renally dose antibiotics for GFR less 25ml/min while on HD (3) Anemia in ESRD (end-stage renal disease): Patient with anemia of renal disease. Will give epogen 10,000 units with HD. (4) Secondary hyperparathyroidism (of renal origin): Patient should be encouraged to take Phoslo 2 tabs tid with meals. Check Phos atleast once weekly. Subjective ESRD patient seen in f/u during morning rounds. No SOB. Has chronic wounds in the feet. She is a big jaison Review of Systems Review of Systems: All systems reviewed & are unremarkable except as noted in HPI & below Physical Exam Physical Exam: General exam: Appears comfortable, no acute distress HEENT: Pupils are equal and reactive to light Neck: No JVD, neck is supple trachea is midline Respiratory system: Clear breath sounds bilaterally. Gastrointestinal: Abdomen is soft, non distended, non tender, bowel sounds are present CVS: Regular rate and rhythm. No murmurs, rubs or gallops Musculoskeletal: No joint or muscle tenderness Extremities: Dong wounds on the feet Neuro: Oriented, no tremors, no focal neurological deficits Skin: No rashes Access: AVF Results & Data Vital Signs (Past 12 Hours) Vital Signs Temp Pulse Pulse Pulse Pulse Resp BP 05/23/19 17:15 36.9 C 87 05/23/19 16:20 85 106/66 05/23/19 16:00 86 130/64 05/23/19 15:39 83 98/83 L 05/23/19 15:22 36.6 C 78 78 12 122/60 05/23/19 15:00 78 108/60 05/23/19 14:40 81 94/59 L 05/23/19 14:20 75 107/61 05/23/19 14:12 69 105/57 L 05/23/19 13:58 76 127/55 L 05/23/19 13:43 75 86/47 L 05/23/19 13:20 76 118/58 L 05/23/19 13:12 109 H 206/187 H 05/23/19 13:00 75 204/165 H 05/23/19 12:42 68 178/54 H 05/23/19 12:15 36.8 C 70 05/23/19 11:10 36.7 C 69 16 05/23/19 07:25 36.8 C 67 12 BP Pulse Ox 05/23/19 17:15 124/70 05/23/19 16:20 05/23/19 16:00 05/23/19 15:39 05/23/19 15:22 122/60 95 05/23/19 15:00 05/23/19 14:40 05/23/19 14:20 05/23/19 14:12 05/23/19 13:58 05/23/19 13:43 05/23/19 13:20 05/23/19 13:12 05/23/19 13:00 05/23/19 12:42 05/23/19 12:15 05/23/19 11:10 138/43 L 95 05/23/19 07:25 139/78 96 Laboratory Results Laboratory Results - last 24 hr 05/22/19 05/23/19 05/23/19 20:08 00:25 04:41 WBC RBC Hgb Hct MCV MCH MCHC RDW Std Deviation RDW Coeff of Dean Plt Count MPV Immature Gran % (Auto) Neut % (Auto) Lymph % (Auto) Willacy % (Auto) Eos % (Auto) Baso % (Auto) Immature Gran # (Auto) Neut # (Auto) Lymph # (Auto) Willacy # (Auto) Eos # (Auto) Baso # (Auto) PT INR Sodium Potassium Chloride Carbon Dioxide Anion Gap BUN Creatinine Est Cr Clr Drug Dosing Est GFR ( Amer) Est GFR (Non-Af Amer) BUN/Creatinine Ratio Glucose POC Glucose 254 H 207 H 153 H Calcium Phosphorus Magnesium 05/23/19 05/23/19 05/23/19 07:24 08:05 08:05 WBC RBC Hgb Hct MCV MCH MCHC RDW Std Deviation RDW Coeff of Dean Plt Count MPV Immature Gran % (Auto) Neut % (Auto) Lymph % (Auto) Willacy % (Auto) Eos % (Auto) Baso % (Auto) Immature Gran # (Auto) Neut # (Auto) Lymph # (Auto) Willacy # (Auto) Eos # (Auto) Baso # (Auto) PT 20.7 H INR 2.1 H Sodium 129 L Potassium 3.6 Chloride 92 L Carbon Dioxide 27 Anion Gap 10.0 BUN 49 H Creatinine 8.34 H* D Est Cr Clr Drug Dosing 8.8 Est GFR ( Amer) 5.4 Est GFR (Non-Af Amer) 4.6 BUN/Creatinine Ratio 5.8 L Glucose 139 H POC Glucose 124 H Calcium 9.3 Phosphorus 4.6 Magnesium 2.1 05/23/19 05/23/19 05/23/19 08:05 11:12 16:25 WBC 13.70 H RBC 3.02 L Hgb 9.4 L Hct 29.4 L MCV 97.4 MCH 31.1 MCHC 32.0 RDW Std Deviation 57.0 H RDW Coeff of Dean 16.3 H Plt Count 277 MPV 10.4 Immature Gran % (Auto) 1.4 Neut % (Auto) 77.1 Lymph % (Auto) 11.7 Willacy % (Auto) 8.6 Eos % (Auto) 1.1 Baso % (Auto) 0.1 Immature Gran # (Auto) 0.19 H Neut # (Auto) 10.56 H Lymph # (Auto) 1.60 Willacy # (Auto) 1.18 H Eos # (Auto) 0.15 Baso # (Auto) 0.02 PT INR Sodium Potassium Chloride Carbon Dioxide Anion Gap BUN Creatinine Est Cr Clr Drug Dosing Est GFR ( Amer) Est GFR (Non-Af Amer) BUN/Creatinine Ratio Glucose POC Glucose 145 H 112 H Calcium Phosphorus Magnesium
--- NOTE | 2019-05-23 18:20 | Ultrasound Report ---
US arterial duplex LE RT CLINICAL HISTORY: 63 years-old Female presenting with nonhealing right lower extremity wound. TECHNIQUE: Real-time grayscale and color and spectral Doppler ultrasound imaging of the right lower e xtremity arteries was performed. Measurements calculated based on NASCET criteria. COMPARISON: None. FINDINGS: RIGHT: Common femoral artery: Patent. Triphasic waveforms. Peak systolic velocity (PSV) 127 cm/s. Deep femoral artery: Patent. Triphasic waveforms. PSV 103 cm/s. Superficial femoral artery: Patent. Triphasic waveforms. PSV 98-119 cm/s. Popliteal artery: Patent. Triphasic waveforms. PSV 87-109 cm/s. Anterior tibial artery: Atherosclerosis. Triphasic waveforms. PSV 52-91 cm/s. Posterior tibial artery: Atherosclerosis. Triphasic waveforms. PSV 119 cm/s. Peroneal artery: Atherosclerosis. Triphasic waveforms. PSV 70-74 cm/s. Dorsalis pedis: Patent. Triphasic waveforms. PSV 41 cm/s. ANKLE/BRACHIAL INDEX (MEENA): Not performed due to limited restriction Brachial: Right: mmHg. Left: mmHg. Ankle (posterior tibial): Right: mmHg. Left: mmHg. Ankle (dorsalis pedis): Right: mmHg. Left: mmHg. Ankle/brachial index: Right: , Left: . Reference ranges: Normal Ankle/Brachial Index (MEENA) 1.0-1.4; 0.91-0.99 borderline; < or = 0.9 abnormal (0.7-0.89 mild, 0.51-0.69 moderate, < or = 0.5 severe peripheral arterial disease). Normal Toe/Brachial Index (TBI) > or = 0.6; < 0.6 abnormal (0.34-0.59 mild, 0.12-0.34 moderate, < or = 0.11 severe peripheral arterial disease). IMPRESSION: 1. No hemodynamically significant stenosis in the right lower extremity. 2. Ankle-brachial indices not performed. Electronically signed by: Norris Curtis M.D. 05/23/2019 6:18 PM
[2019-05-23] MEDS ORDERED: INSULIN HUMAN NPH SC ONE (18:45)
--- NOTE | 2019-05-23 20:03 | Hospitalist Progress Note ---
Date of Service May 23, 2019 Assessment & Plan (1) Diabetic foot ulcer associated with type 2 diabetes mellitus: Patient is a 63 yr female with H/O uncontrolled DM 2, ESRD on HD MWF, diabetic neuropathy, diabetic gastroparesis, Charcot foot secondary to DM, diabetic retinopathy, HTN, HLD, PAF, history of DVT on warfarin, hyperparathyroidism secondary to end-stage renal disease, anemia of chronic disease who presents to [facility] on referral from wound clinic secondary to deterioration of right heel wound and hyperglycemia. Right diabetic foot infection/Ulceration with Necrosis --Ankle MRI:Susceptibility artifact concerning for gas along the posterior soft tissues extending from the calcaneal wound and tracking superiorly along the completely torn and retracted Achilles tendon. This is highly concerning, and necrotizing fasciitis should be excluded clinically. Wound along the posterior calcaneus. Minimal osseous erosion of the subjacent calcaneus without convincing evidence of osteomyelitis at this time. Moderate ankle joint effusion. Degenerative changes at the tarsometatarsal articulations. Plantar fasciitis. --Venous Doppler:No sonographic evidence of deep venous thrombosis. --Arterial Dopplers: No hemodynamically significant stenosis in the right lower extremity. Ankle brachial indicis not performed. --Blood Cx: No growth to date --Wound Cx: Coagulase negative staph --S/P Debridement on 05/21/19 --Continue Zosyn, daptomycin Day #5 --Needs amputation R BKA --Appreciate Orthopedics, Plastic Surgery, ID and Vacular Surgery Input --Continue wound Care --Pain control --Surgery as per Ortho Chronic hyponatremia Hypochloremia Likely dilutional Fluid restriction to 1200 mL/day Monitor electrolytes (2) Diabetes mellitus, type 2: Uncontrolled type 2 diabetes mellitus with hyperglycemia Hypokalemia Hb A1C:10.5 IV insulin drip >>> transitioned to SQ Appreciate glycemic pharmacist recommendations clinical nurse educator Monitor BGs (3) Atrial fibrillation: H/O Paroxysmal A. fib Currently in sinus Not on any rate/Rhythm control meds INR supratherapeutic >> now therapeutic Hold warfarin for now as planned for surgery INR:2.1 today (4) Hypertension: BP improved after dialysis Patient currently not on any oral antihypertensives Hydralazine PRN (5) Hyperlipidemia: Hold statin while on Daptomycin (6) ESRD (end stage renal disease): HD MWF ans Sat per Patient Appreciate Nephrology help continue phoslo Renal diet, FR 1200ml Dialysis as per Nephrology (7) GERD (gastroesophageal reflux disease): continue PPI (8) Gastroparesis: zofran PRN (9) Diabetic peripheral neuropathy: continue lyrica (10) Depression: continue prozac mood stable (11) DVT prophylaxis: INR therapeutic Hold warfarin for now as planned for surgery Disposition: To be determined Follow-up: PCP Dr. Dixon upon discharge along with appropriate infectious disease and wound care follow-up (12) Anemia in ESRD (end-stage renal disease): Subjective Patient is seen and examined at bedside Persistent B/L hand numbness Had dialysis today Has right foot pain Office no other complaints Has Chronic diarrhea, nausea Denies any chest pain, shortness of breath, dizziness, abdominal pain Review of Systems Review of Systems: All systems reviewed & are unremarkable except as noted in HPI & below Physical Exam Physical Exam: Physical Exam: Vitals signs as noted above General Appearance:Obese, no apparent distress Head: normocephalic, Atraumatic Eyes: normal inspection, EOMI Neck: supple, Trachea midline Respiratory/Chest: Normal breath sounds, CTA Cardiovascular: S1, S2, No murmur Abdomen/GI:Soft, Non tender, Bowel sounds present Extremities/Musculoskelatal:normal inspection, Pretibial edema, left Charcot foot, R LE in dressing Neurologic/Psych:AAOX3, grossly no focal neurological deficits Skin: normal color, warm Results & Data Vital Signs (Past 12 Hours) Vital Signs Temp Pulse Pulse Pulse Pulse Resp BP 05/23/19 19:19 37.8 C H 85 12 05/23/19 17:15 36.9 C 87 05/23/19 16:20 85 106/66 05/23/19 16:00 86 130/64 05/23/19 15:39 83 98/83 L 05/23/19 15:22 36.6 C 78 78 12 122/60 05/23/19 15:00 78 108/60 05/23/19 14:40 81 94/59 L 05/23/19 14:20 75 107/61 05/23/19 14:12 69 105/57 L 05/23/19 13:58 76 127/55 L 05/23/19 13:43 75 86/47 L 05/23/19 13:20 76 118/58 L 05/23/19 13:12 109 H 206/187 H 05/23/19 13:00 75 204/165 H 05/23/19 12:42 68 178/54 H 05/23/19 12:15 36.8 C 70 05/23/19 11:10 36.7 C 69 16 BP Pulse Ox 05/23/19 19:19 132/53 L 92 05/23/19 17:15 124/70 05/23/19 16:20 05/23/19 16:00 05/23/19 15:39 05/23/19 15:22 122/60 95 05/23/19 15:00 05/23/19 14:40 05/23/19 14:20 05/23/19 14:12 05/23/19 13:58 05/23/19 13:43 05/23/19 13:20 05/23/19 13:12 05/23/19 13:00 05/23/19 12:42 05/23/19 12:15 05/23/19 11:10 138/43 L 95 Laboratory Results Short CBC 05/23/19 Range/Units 08:05 WBC 13.70 H (4.8-10.8) K/uL Hgb 9.4 L (12.0-16.0) g/dL Hct 29.4 L (37-47) % Plt Count 277 (130-400) K/uL BMP 05/23/19 08:05 Sodium 129 L Potassium 3.6 Chloride 92 L Carbon Dioxide 27 BUN 49 H Creatinine 8.34 H* D Glucose 139 H Calcium 9.3 (1) Diabetic foot ulcer associated with type 2 diabetes mellitus Diabetic foot ulcer location: heel Laterality: left Non-pressure ulcer stage: limited to breakdown of skin Qualified Code(s): E11.621 - Type 2 diabetes mellitus with foot ulcer; L97.421 - Non-pressure chronic ulcer of left heel and midfoot limited to breakdown of skin (2) Hypertension Hypertension type: unspecified Qualified Code(s): I10 - Essential (primary) hypertension
[2019-05-23] MEDS: LOPERAMIDE HCL 2 MG CAP PO PRN (20:33)
[2019-05-23] MEDS: NEPHROCAPS PO SCH (20:34)
[2019-05-23] MEDS: DAPTOmycin 500 MG in SYRINGE 0 ML IV SCH (20:34)
[2019-05-23] MEDS: FLUTICASONE PROPIONATE NA SPR 16 GM BTL SCH (20:35)
[2019-05-24] MEDS: PIPERACILLIN/TAZOBACTAM 4.5 GM in DEXTROSE 5% 100 ML IV SCH ×2 (01:25→13:06)
[2019-05-24] MEDS ORDERED: INSULIN HUMAN REGULAR SC SCH (02:00)
[2019-05-24 07:02] LABS: Hematocrit (blood only) 29.1 % (37-47); Hemoglobin 9.1 g/dL (12.0-16.0); Mean Corpuscular Hemoglobin 30.8 pg (25-34); Mean Corpuscular Hgb Conc 31.3 g/dL (32-36); Mean Corpuscular Volume 98.6 fL (80-100); Mean Platelet Volume 10.4 fL (7.4-10.4); Nucleated RBC # (auto) 0.08 K/uL (0-0); Nucleated RBC % (auto) 0.6 %; Platelet Count 298 K/uL (130-400); RDW Coefficient of Variation 16.4 % (11.5-14.5); RDW Standard Deviation 58.1 fL (36.4-46.3); Red Blood Count 2.95 M/uL (4.2-5.4); White Blood Count 12.36 K/uL (4.8-10.8)
[2019-05-24 07:21] LABS: INR 1.9 (0.9-1.1); Prothrombin Time 18.7 Seconds (9.0-12.0)
[2019-05-24] MEDS: CALCIUM ACETATE 667 MG CAP PO SCH ×3 (07:43→17:10)
[2019-05-24] MEDS: INSULIN HUMAN REGULAR SC SCH ×4 (07:46→20:52)
[2019-05-24 07:47] LABS: BUN Creatinine Ratio 4.7 (10-20); Calcium 9.1 mg/dl (8.5-10.1); Creatinine Clr Calc Pharmacy 13.5 ml/min; Est GFR (African American) 9.2; Est GFR (Non-African American) 7.9; Potassium 3.8 mmol/L (3.5-5.1)
[2019-05-24] MEDS: OXYCODONE HCL 10 MG TABCR (OXYCONTIN) PO SCH ×2 (08:02→20:51)
[2019-05-24] MEDS: PANTOprazole 40 MG TAB PO SCH (08:02)
[2019-05-24] MEDS: FLUOXETINE HCL 20 MG CAP PO SCH (08:02)
[2019-05-24] MEDS: PREGABALIN 150 MG CAP PO SCH ×2 (08:02→20:51)
[2019-05-24] MEDS: INSULIN HUMAN NPH SC SCH ×3 (08:41→20:00)
--- NOTE | 2019-05-24 09:50 | Nephrology Progress Note ---
Date of Service May 24, 2019 Assessment & Plan (1) ESRD (end stage renal disease): Patient is normally dialysed on a MWF schedule. She tolerated dialysis well yesterday for 4 hours and net UF of 4 L. Electrolytes are stable with no signs of volume overload. Next dialysis will be tomorrow for 4 hours to get UF 4 L. (2) Diabetic foot infection: Patient with necrotic right heel. Right below-knee amputation has been suggested. Patient is agreeable to BKA but is not yet in agreement. would like to meet with the infectious disease doctor. She is Daptomycin and Zosyn per iD. Renally dose antibiotics for GFR less 25ml/min while on HD (3) Anemia in ESRD (end-stage renal disease): Patient with anemia of renal disease. Will continue Epogen 10,000 units with HD. (4) Secondary hyperparathyroidism (of renal origin): Patient should be encouraged to take Phoslo 2 tabs tid with meals. Check Phos atleast once weekly. Subjective ESRD patient seen in follow-up. She had dialysis yesterday with net UF of 4 L. She tolerated dialysis well. No shortness of breath this morning. She complains of pain in the right heel. She continues antibiotics. She is agreeable to below-knee amputation of the right leg but waiting for her to consent. would like to meet with the infectious disease doctor or surgeon. Review of Systems Review of Systems: All systems reviewed & are unremarkable except as noted in HPI & below Physical Exam Physical Exam: General exam: Appears comfortable, no acute distress HEENT: Pupils are equal and reactive to light Neck: No JVD, neck is supple trachea is midline Respiratory system: Clear breath sounds bilaterally. Gastrointestinal: Abdomen is soft, non distended, non tender, bowel sounds are present CVS: Regular rate and rhythm. No murmurs, rubs or gallops Musculoskeletal: No joint or muscle tenderness Extremities: Right heel is necrotic and tender Neuro: Oriented, no tremors, no focal neurological deficits Skin: No rashes Access: Left upper arm AV fistula with good bruit Results & Data Vital Signs (Past 12 Hours) Vital Signs Temp Pulse Resp BP Pulse Ox 05/24/19 07:19 37.1 C 56 L 14 102/34 L 98 05/24/19 04:00 36.8 C 67 18 118/40 L 100 05/24/19 00:00 37.1 C 70 18 138/58 L 97 Laboratory Results Laboratory Results - last 24 hr 05/23/19 05/23/19 05/23/19 11:12 16:25 20:55 WBC RBC Hgb Hct MCV MCH MCHC RDW Std Deviation RDW Coeff of Dean Plt Count MPV Absolute Nucleated RBC Nucleated RBC % (auto) PT INR Sodium Potassium Chloride Carbon Dioxide Anion Gap BUN Creatinine Est Cr Clr Drug Dosing Est GFR ( Amer) Est GFR (Non-Af Amer) BUN/Creatinine Ratio Glucose POC Glucose 145 H 112 H 166 H Calcium Blood Type Antibody Screen 05/24/19 05/24/19 05/24/19 01:06 06:49 06:49 WBC RBC Hgb Hct MCV MCH MCHC RDW Std Deviation RDW Coeff of Dean Plt Count MPV Absolute Nucleated RBC Nucleated RBC % (auto) PT 18.7 H INR 1.9 H Sodium 133 L Potassium 3.8 Chloride 95 L Carbon Dioxide 28 Anion Gap 10.0 BUN 25 H Creatinine 5.37 H* D Est Cr Clr Drug Dosing 13.5 Est GFR ( Amer) 9.2 Est GFR (Non-Af Amer) 7.9 BUN/Creatinine Ratio 4.7 L Glucose 149 H POC Glucose 154 H Calcium 9.1 Blood Type Antibody Screen 05/24/19 05/24/19 05/24/19 06:49 07:17 08:59 WBC 12.36 H RBC 2.95 L Hgb 9.1 L Hct 29.1 L MCV 98.6 MCH 30.8 MCHC 31.3 L RDW Std Deviation 58.1 H RDW Coeff of Dean 16.4 H Plt Count 298 MPV 10.4 Absolute Nucleated RBC 0.08 H Nucleated RBC % (auto) 0.6 PT INR Sodium Potassium Chloride Carbon Dioxide Anion Gap BUN Creatinine Est Cr Clr Drug Dosing Est GFR ( Amer) Est GFR (Non-Af Amer) BUN/Creatinine Ratio Glucose POC Glucose 140 H Calcium Blood Type Pending Antibody Screen Pending
[2019-05-24] MEDS ORDERED: PHYTONADIONE 5 MG TAB PO STA (11:53)
[2019-05-24] MEDS: HYDROCODONE/ACETAMOPHEN 5/325MG TAB PO PRN (12:16)
[2019-05-24] MEDS: HEPARIN SOD 5,000 UNIT/0.5 ML VIAL SQ SCH ×2 (14:02→20:51)
[2019-05-24] MEDS: LOPERAMIDE HCL 2 MG CAP PO PRN (14:06)
--- NOTE | 2019-05-24 14:11 | Consultation Report ---
DATE OF CONSULTATION: 05/24/2019 CHIEF COMPLAINT: Followup of right heel wound. HISTORY OF PRESENT ILLNESS: The patient is a 63-year-old female, long-term diabetic with multiple medical comorbidities who is well known to me from previous bilateral knee replacements 13 years ago. Her knees have done pretty well. Despite this, her diabetic disease has progressed along with multiple other medical issues. She did have a left ankle fusion done by Dr. Mcgee for Charcot arthropathy 4 years ago and had some problems with wound healing but just recently healed up. Over the past several weeks she has developed a rupture of Achilles tendon with a full thickness soft tissue skin loss dorsal over the Achilles. She was admitted with a foul smelling wound. She has been on antibiotics and wound care. We are consulted for evaluation. She saw Dr. Reynoso earlier over the weekend and then is referred to me for definitive treatment. She has been seen by the plastic surgeon as well as vascular surgeons, which have recommended below knee amputation. She has had trouble dealing with this a bit, both her and more specifically her in accepting this. OBJECTIVE: VITAL SIGNS: Temperature is 36.9. Vital signs stable. GENERAL: Shows a pleasant, middle-aged female. She looks to be in relatively good health in appearance considering her multiple comorbidities. EXTREMITIES: Examination of the right foot and ankle reveal a very large full thickness wound over her Achilles tendon with exposed tendon which is necrotic and torn. There is some mild surrounding cellulitis, but no signs of ascending disease. She can slightly flex and extend her toes. She does have a full thickness skin wound over the anterior aspect of her ankle as well. She has decreased sensation throughout. She does have a fairly brisk refill. LABORATORY DATA: Hemoglobin today is 9.1. Hematocrit 29.1. White cell count 12.36. Recent sed rate was 86. ASSESSMENT: A 63-year-old female with multiple medical comorbidities most related to her diabetes and end-stage renal disease with a right full thickness Achilles wound with a ruptured Achilles tendon with some surrounding cellulitis and obvious purulence and foul smelling wound. This is something that is not going to ever heal. Definitive treatment is below knee amputation. Certainly it can be just with chronic wound care and suppressive antibiotics, but will never heal. The concern is that with an infection in his leg it could travel to her knee which could result in a knee infection which would create even bigger problems. Clear by recommendation would be a below knee amputation. PLAN: I had a long discussion with the patient today. We actually talked to her by phone as well. He is having trouble accepting this. I did tell him with confidence that she will never heal this wound and putting any further surgery off is just really not a good use of her time but certainly that is up to them. We are going to plan on doing a below knee amputation tomorrow if they consent. If not, we will just continue routine wound care and suppressive antibiotics. The risks and benefits of the amputation were explained to the patient and include but not limited to DVT, PE, , infection, neurological injury, vascular injury, bleeding problems, failure of the wound to heal, persistent pain, etc. The patient understands. We will wait for the final decision, but informed consent was obtained assuming that they will proceed with above. We will keep her n.p.o. We will type and screen her. It is very possible she might need some blood.
--- NOTE | 2019-05-24 14:25 | Anesthesiology Consultation ---
Date of Service May 24, 2019 Assessment & Plan Chart Review Chart Review: Acceptable Risk for Surgery Consults Requested none History Surgery Operation Date: 05/25/19 10:15 Proposed Procedures p Right Below Knee Amputation - Blake Medina MD Height/Weight Height: 5 ft 3 in Weight: 118.9 kg Allergies Allergy/AdvReac Type Severity Reaction Status Date / Time Bactrim Allergy Severe ANAPHYLAXIS Verified 06/11/16 08:40 sulfamethoxazole Allergy Severe Anaphylaxis Verified 05/19/19 16:49 trimethoprim Allergy Severe Anaphylaxis Verified 05/19/19 16:49 metformin AdvReac Intermediate Gastrointestinal Verified 05/19/19 16:49 Upset Medications Home Medications Medication Instructions Recorded Confirmed Last Taken fluoxetine 20 mg capsule 20 mg PO QAM cap 04/08/18 05/19/19 05/19/19 fluticasone propionate 50 2 sprays INTNAS QPM gm 04/08/18 05/19/19 05/18/19 mcg/actuation nasal spray,suspension loperamide 2 mg capsule 4 mg PO DIRECTED PRN cap 04/08/18 05/19/19 12/28/18 pantoprazole 40 mg tablet,delayed 40 mg PO QAM 04/08/18 05/19/19 05/19/19 release pravastatin 20 mg tablet 20 mg PO QAM tab 04/08/18 05/19/19 05/19/19 pregabalin 150 mg capsule 150 mg PO BID 04/08/18 05/19/19 05/19/19 AM DOSE warfarin 5 mg tablet 2.5 mg PO WK 04/08/18 05/19/19 05/15/19 calcium acetate 667 mg capsule 1,334 mg PO TIDM cap 05/27/18 05/19/19 05/19/19 06:00 clindamycin HCl 300 mg capsule 300 mg PO TID #90 cap 05/12/19 05/19/19 05/19/19 06:00 B complex-vitamin C-folic acid 1 tab PO HS 05/19/19 05/19/19 Unknown [Nephro-Lexa] calcium acetate 667 mg PO DIRECTED 05/19/19 05/19/19 Unknown ciprofloxacin HCl [Cipro] 500 mg PO QAM 05/19/19 05/19/19 05/19/19 06:00 ergocalciferol (vitamin D2) 50,000 unit PO WK 05/19/19 05/19/19 Unknown hydrocodone-acetaminophen 1 tab PO Q6H PRN 05/19/19 05/19/19 Unknown insulin NPH and regular human 26 unit SUBCUT QAM 05/19/19 05/19/19 05/19/19 [Humulin 70/30 U-100 Insulin] insulin NPH and regular human 36 unit SUBCUT HS 05/19/19 05/19/19 05/18/19 [Humulin 70/30 U-100 Insulin] metoclopramide HCl 5 mg PO QID PRN 05/19/19 05/19/19 Unknown ondansetron HCl 4 mg PO QID PRN 05/19/19 05/19/19 Unknown warfarin 5 mg PO [id number] 05/19/19 05/19/19 05/18/19 Active Medications Generic Name Dose Route Start Last Admin Trade Name Freq PRN Reason Stop Dose Admin Hydrocodone Bitart/Acetaminophen 1 tab 05/19/19 21:40 05/24/19 12:16 [place] 5/325 PO 06/02/19 21:39 1 tab Q6H PRN Administration Pain Calcium Acetate 1,334 mg 05/20/19 08:00 05/24/19 12:16 Phoslo PO 06/19/19 07:59 1,334 mg TIDM RAMYA Administration Calcium Carbonate 500 mg 05/19/19 21:49 05/19/19 22:41 Tums PO 06/18/19 21:48 500 mg Q4H PRN Administration Indigestion Fluoxetine HCl 20 mg 05/20/19 09:00 05/24/19 08:02 Prozac PO 06/19/19 08:59 20 mg QAM RAMYA Administration Fluticasone Propionate 2 sprays 05/19/19 21:00 05/23/19 20:35 Flonase NA 06/18/19 20:59 2 sprays QPM RAMYA Administration Heparin Sodium (Porcine) 5,000 units 05/24/19 14:00 05/24/19 14:02 Heparin Sodium (Porcine) SQ 06/23/19 13:59 5,000 units Q8 RAMYA Administration Daptomycin 500 mg/ Syringe 10 mls @ 0 mls/min 05/19/19 22:00 05/23/19 20:34 IV 05/29/19 21:59 1 mls/min Q48H RAMYA Administration Protocol Piperacillin Sod/Tazobactam 120 mls @ 30 mls/hr 05/20/19 01:00 05/24/19 13:06 Sod 4.5 gm/ Dextrose IV 05/30/19 00:59 30 mls/hr Q12H RAMYA Administration Protocol Insulin Human NPH 20 units 05/24/19 08:00 05/24/19 08:41 Novolin N Nph SC 06/23/19 07:59 20 units BIDM RAMYA Administration Protocol Insulin Human Regular 0 units 05/20/19 12:30 05/24/19 12:21 Novolin R SC 06/19/19 12:29 18 units ACHS RAMYA Administration Protocol Loperamide HCl 8 mg 05/20/19 11:25 05/24/19 14:06 Imodium PO 06/19/19 11:24 8 mg BID PRN Administration chronic diarrhea Ondansetron HCl 4 mg 05/19/19 20:53 05/20/19 08:18 Zofran Tab PO 06/18/19 20:52 4 mg QID PRN Administration Nausea Oxycodone HCl 10 mg 05/21/19 14:05 05/24/19 08:02 Oxycontin PO 06/04/19 14:04 10 mg BID RAMYA Administration Pantoprazole Sodium 40 mg 05/20/19 09:00 05/24/19 08:02 Protonix PO 06/19/19 08:59 40 mg QAM RAMYA Administration Polyethylene Glycol 17 gm 05/19/19 20:53 05/22/19 18:00 Miralax Powder Packet PO 06/18/19 20:52 17 gm DAILY PRN Administration Constipation Pravastatin Sodium 20 mg 05/20/19 09:00 05/20/19 08:19 Pravachol PO 06/19/19 08:59 20 mg QAM RAMYA Administration Pregabalin 150 mg 05/19/19 21:00 05/24/19 08:02 Lyrica PO 06/18/19 20:59 150 mg BID RAMYA Administration Vitamin B Complex/Folic Acid 1 cap 05/19/19 21:30 05/23/19 20:34 Nephrocaps PO 06/18/19 21:29 1 cap HS RAMYA Administration Past Medical History Medical History DVT (deep venous thrombosis) (Chronic) x 2. LUE & LLE (both dx years ago - treated - LUE post surgery, reason for DVT in LLE unk) Diverticulosis (Chronic) Diabetic peripheral neuropathy (Acute) Hyperlipidemia Hypertension (Acute) Congestive heart failure Follows w/ dr. Perez Atrial fibrillation dx 2 years ago - on warfarin - follows w/ dr. Perez Neuropathy Depression Glaucoma Diabetes mellitus, type 2 IDDM GERD (gastroesophageal reflux disease) Gastroparesis ESRD (end stage renal disease) (Acute) 2/2 DM; FOLLOWS W/ [facility] Dialysis patient (Acute) M, W, F AV fistula LUE Wound infection (Acute) ACTIVE INFECTION TO LEFT THUMB WOUND; ON ABX; [facility] Charcot's joint of left foot (Acute) Diabetes mellitus with diabetic polyneuropathy (Acute) Charcot's joint of foot in type 2 diabetes mellitus (Chronic) Acquired claw toe of left foot (Acute) Acquired claw toe of right foot (Acute) Left midfoot ulcer (Acute) Neuropathic ulcer of left heel (Resolved) Past Family History Family History Other No significant family history Past Surgical History Surgical History H/O carpal tunnel repair (Chronic) History of cholecystectomy (Chronic) H/O hernia repair (Chronic) Hx of appendectomy (Chronic) History of ankle surgery (Acute) History of colonoscopy History of esophagogastroduodenoscopy (EGD) History of bilateral knee replacement S/P arteriovenous (AV) fistula creation History of cervical spinal surgery ROM WNL History of cataract surgery LEFT Social History Smoking Status: Never smoker Hx Alcohol Use: No Hx Substance Use: No substance use type: does not use Physical Exam Vital Signs Last Vital Signs Temp 36.9 C 05/24/19 11:16 Pulse 63 05/24/19 11:16 Resp 12 05/24/19 11:16 BP 127/40 L 05/24/19 11:16 Pulse Ox 94 05/24/19 11:16 Testing Laboratory Results 05/24/19 06:49 05/24/19 06:49 PT 18.7 Seconds (9.0-12.0) H 05/24/19 06:49 INR 1.9 (0.9-1.1) H 05/24/19 06:49 Hemoglobin A1c 10.5 % (4.5-5.6) H 05/19/19 16:40 Blood Type A Positive 05/24/19 08:59 Antibody Screen NEGATIVE 05/24/19 08:59 05/22/19 11:41 Gram Stain - Final Foot Wound Culture - Final Coag negative Staphylococcus 05/19/19 16:40 Aerobic Blood Culture - Preliminary Blood No growth in Aerobic bottle after 48 hours. Anaerobic Blood Culture - Final 05/19/19 16:25 Aerobic Blood Culture - Preliminary Blood No growth in Aerobic bottle after 48 hours. Anaerobic Blood Culture - Preliminary No growth in Anaerobic bottle after 48 hours. 05/24/19 05/24/19 11:11 07:17 POC Glucose 201 H 140 H
--- NOTE | 2019-05-24 16:22 | Hospitalist Progress Note ---
Date of Service May 24, 2019 Assessment & Plan (1) Diabetic foot ulcer associated with type 2 diabetes mellitus: Patient is a 63 yr female with H/O uncontrolled DM 2, ESRD on HD MWF, diabetic neuropathy, diabetic gastroparesis, Charcot foot secondary to DM, diabetic retinopathy, HTN, HLD, PAF, history of DVT on warfarin, hyperparathyroidism secondary to end-stage renal disease, anemia of chronic disease who presents to [facility] on referral from wound clinic secondary to deterioration of right heel wound and hyperglycemia. Right diabetic foot infection/Ulceration with Necrosis --Ankle MRI:Susceptibility artifact concerning for gas along the posterior soft tissues extending from the calcaneal wound and tracking superiorly along the completely torn and retracted Achilles tendon. This is highly concerning, and necrotizing fasciitis should be excluded clinically. Wound along the posterior calcaneus. Minimal osseous erosion of the subjacent calcaneus without convincing evidence of osteomyelitis at this time. Moderate ankle joint effusion. Degenerative changes at the tarsometatarsal articulations. Plantar fasciitis. --Venous Doppler:No sonographic evidence of deep venous thrombosis. --Arterial Dopplers: No hemodynamically significant stenosis in the right lower extremity. Ankle brachial indicis not performed. --Blood Cx: No growth to date --Wound Cx: Coagulase negative staph --S/P Debridement on 05/21/19 --Continue Zosyn, daptomycin Day #6 --Needs amputation R BKA --Appreciate Orthopedics, Plastic Surgery, ID and Vacular Surgery Input --Continue wound Care --Pain control --Surgery as per Ortho if patient agrees to proceed with BKA --Patient plans to discuss with her prior to making decision regarding BKA Chronic hyponatremia Hypochloremia Likely dilutional Fluid restriction to 1200 mL/day Monitor electrolytes Sodium levels 133 today (2) Diabetes mellitus, type 2: Uncontrolled type 2 diabetes mellitus with hyperglycemia Hypokalemia Hb A1C:10.5 IV insulin drip >>> transitioned to SQ Appreciate glycemic pharmacist recommendations paraeducator Monitor BGs (3) Atrial fibrillation: H/O Paroxysmal A. fib Currently in sinus Not on any rate/Rhythm control meds INR supratherapeutic on presentation Hold warfarin for now as planned for surgery INR:1.9 today Heparin SQ for now while holding off coumadin (4) Hypertension: BP improved after dialysis Patient currently not on any oral antihypertensives Hydralazine PRN (5) Hyperlipidemia: Hold statin while on Daptomycin (6) ESRD (end stage renal disease): HD MWF ans Sat per Patient Appreciate Nephrology help continue phoslo Renal diet, FR 1200ml Dialysis as per Nephrology (7) GERD (gastroesophageal reflux disease): continue PPI (8) Gastroparesis: zofran PRN (9) Diabetic peripheral neuropathy: continue lyrica (10) Depression: continue prozac mood stable (11) DVT prophylaxis: Heparin SQ for now Hold warfarin for now as planned for surgery Disposition: To be determined Follow-up: PCP Dr. Dixon upon discharge along with appropriate infectious disease and wound care follow-up (12) Anemia in ESRD (end-stage renal disease): Subjective Patient is seen and examined at bedside States B/L hand numbness/Tingling improved today Volume status improved after dialysis yesterday Patient yet to make decision regarding BKA Right foot pain is controlled Offers no other complaints Has Chronic diarrhea, nausea--unchanged Denies any chest pain, shortness of breath, dizziness, abdominal pain Review of Systems Review of Systems: All systems reviewed & are unremarkable except as noted in HPI & below Physical Exam Physical Exam: Physical Exam: Vitals signs as noted above General Appearance:Obese, no apparent distress Head: normocephalic, Atraumatic Eyes: normal inspection, EOMI Neck: supple, Trachea midline Respiratory/Chest: Normal breath sounds, CTA Cardiovascular: S1, S2, No murmur Abdomen/GI:Soft, Non tender, Bowel sounds present Extremities/Musculoskelatal:normal inspection, Pretibial edema, left Charcot foot, R LE in dressing Neurologic/Psych:AAOX3, grossly no focal neurological deficits Skin: normal color, warm Results & Data Vital Signs (Past 12 Hours) Vital Signs Temp Pulse Pulse Resp BP Pulse Ox 05/24/19 15:03 36.8 C 65 15 129/24 L 98 05/24/19 14:49 62 05/24/19 11:16 36.9 C 63 12 127/40 L 94 05/24/19 07:19 37.1 C 56 L 14 102/34 L 98 Laboratory Results Short CBC 05/24/19 Range/Units 06:49 WBC 12.36 H (4.8-10.8) K/uL Hgb 9.1 L (12.0-16.0) g/dL Hct 29.1 L (37-47) % Plt Count 298 (130-400) K/uL BMP 05/24/19 06:49 Sodium 133 L Potassium 3.8 Chloride 95 L Carbon Dioxide 28 BUN 25 H Creatinine 5.37 H* D Glucose 149 H Calcium 9.1 (1) Diabetic foot ulcer associated with type 2 diabetes mellitus Diabetic foot ulcer location: heel Laterality: left Non-pressure ulcer stage: limited to breakdown of skin Qualified Code(s): E11.621 - Type 2 diabetes mellitus with foot ulcer; L97.421 - Non-pressure chronic ulcer of left heel and midfoot limited to breakdown of skin (2) Hypertension Hypertension type: unspecified Qualified Code(s): I10 - Essential (primary) hypertension
[2019-05-24] MEDS: FLUTICASONE PROPIONATE NA SPR 16 GM BTL SCH (20:51)
[2019-05-24] MEDS: NEPHROCAPS PO SCH (20:51)
[2019-05-24 21:21] LABS: INR 1.5 (0.9-1.1); Prothrombin Time 14.5 Seconds (9.0-12.0)
[2019-05-25] MEDS: PIPERACILLIN/TAZOBACTAM 4.5 GM in DEXTROSE 5% 100 ML IV SCH ×2 (00:27→13:42)
[2019-05-25] MEDS: HYDROCODONE/ACETAMOPHEN 5/325MG TAB PO PRN (00:37)
[2019-05-25 06:09] LABS: Hematocrit (blood only) 29.1 % (37-47); Hemoglobin 9.1 g/dL (12.0-16.0); Mean Corpuscular Hemoglobin 30.5 pg (25-34); Mean Corpuscular Hgb Conc 31.3 g/dL (32-36); Mean Corpuscular Volume 97.7 fL (80-100); Mean Platelet Volume 9.9 fL (7.4-10.4); Nucleated RBC # (auto) 0.05 K/uL (0-0); Nucleated RBC % (auto) 0.4 %; Platelet Count 275 K/uL (130-400); RDW Coefficient of Variation 16.5 % (11.5-14.5); RDW Standard Deviation 57.9 fL (36.4-46.3); Red Blood Count 2.98 M/uL (4.2-5.4); White Blood Count 10.54 K/uL (4.8-10.8)
[2019-05-25] MEDS ORDERED: Nursing to Pharmacy Communication ONE (06:21)
[2019-05-25 06:25] LABS: INR 1.3 (0.9-1.1)
[2019-05-25] MEDS: INSULIN HUMAN REGULAR SC SCH ×4 (06:27→20:54)
[2019-05-25 06:53] LABS: BUN Creatinine Ratio 5.3 (10-20); Calcium 9.3 mg/dl (8.5-10.1); Est GFR (African American) 6.3; Est GFR (Non-African American) 5.4; Potassium 3.4 mmol/L (3.5-5.1)
[2019-05-25] MEDS ORDERED: SODIUM CHLORIDE 0.9% 1000ML 1,000 ML IV PRN (07:00)
[2019-05-25] MEDS ORDERED: EPOETIN ALFA 10,000 UNITS/ML VIAL IV SCH (07:00)
[2019-05-25] MEDS ORDERED: HEPARIN SOD (PORCINE) 1000 UNIT/ML 10 ML VIAL IV SCH (07:00)
[2019-05-25] MEDS ORDERED: HEPARIN SOD (PORCINE) 1000 UNIT/ML 10 ML VIAL IV ONE (07:00)
[2019-05-25] MEDS ORDERED: INSULIN HUMAN NPH SC SCH ×2 (08:00)
[2019-05-25] MEDS ORDERED: ACETAMINOPHEN 325 MG TAB PO PRN (08:18)
--- NOTE | 2019-05-25 09:00 | Hospitalist Progress Note ---
Date of Service May 25, 2019 Assessment & Plan (1) Diabetic foot ulcer associated with type 2 diabetes mellitus: Patient is a 63 yr female with H/O uncontrolled DM 2, ESRD on HD MWF, diabetic neuropathy, diabetic gastroparesis, Charcot foot secondary to DM, diabetic retinopathy, HTN, HLD, PAF, history of DVT on warfarin, hyperparathyroidism secondary to end-stage renal disease, anemia of chronic disease who presents to [facility] on referral from wound clinic secondary to deterioration of right heel wound and hyperglycemia. Right diabetic foot infection/Ulceration with Necrosis -Ankle MRI:Susceptibility artifact concerning for gas along the posterior soft tissues extending from the calcaneal wound and tracking superiorly along the completely torn and retracted Achilles tendon. Wound along the posterior calcaneus. Minimal osseous erosion of the subjacent calcaneus without convincing evidence of osteomyelitis at this time. Moderate ankle joint effusion. Degenerative changes at the tarsometatarsal articulations. Plantar fasciitis. -Venous Doppler:No sonographic evidence of deep venous thrombosis. -Arterial Dopplers: No hemodynamically significant stenosis in the right lower extremity -Blood Cx: No growth to date -Wound Cx: Coagulase negative staph -S/P Debridement on 05/21/19 -Continue Zosyn, daptomycin -awaiting Right Below Knee Amputation -Continue wound Care -Pain control Diarrhea -05/24/19 negative C.difficile test -monitor (2) Diabetes mellitus, type 2: -Uncontrolled type 2 diabetes mellitus with hyperglycemia -HbA1c 10.5 -was on IV insulin drip on earlier on this admission -currently on subcutaneous insulin (3) Atrial fibrillation: -history of Paroxysmal Atrial fibrillation -Currently in sinus and rate is controlled -off coumadin while awaiting right below knee amputation -Heparin SQ for now while holding off coumadin (4) Hypertension: -blood pressure improved with dialysis on this hospitalization -Hydralazine PRN (5) Hyperlipidemia: -Hold statin while on Daptomycin (6) ESRD (end stage renal disease): -ESRD with dependence on hemodialysis -dialysis schedule is very Thursday/Thursday/Thursday -will need dialysis on 05/25/19 -on Renal diet, Fluid restriction to 1200ml (7) Anemia in ESRD (end-stage renal disease): -hemoglobin is stable above 9 Chronic hyponatremia Hypochloremia -partly due to dialysis fluid shifts -Sodium levels 133 and serum chloride 95 today -on fluid restriction (8) Diabetic peripheral neuropathy: -continue lyrica (9) Gastroparesis: -zofran PRN (10) GERD (gastroesophageal reflux disease): -continue PPI (11) Depression: -continue prozac (12) DVT prophylaxis: -Heparin SQ for now Hold warfarin for now as planned for surgery Patient's Primary Care Provider as outpatient is Dr. Dixon Subjective Patient seen and examined at the bedside. She is currently NPO while awaiting orthopedics for right below knee amputation. Patient denies chest pain. No shortness of breath. breathing on room air. Feet are in waffle boots with right foot in dressing. no headache. no dizziness. no vomiting. when asked about bowel movements, she reports she has had issues with diarrhea Physical Exam Constitutional: comfortable Eyes: PERRL, conjunctivae normal, anicteric sclerae EOM intact bilaterally ENMT: external ear and nose normal, oropharynx normal Neck: normal visual inspection Respiratory: normal respiratory effort, lungs clear to auscultation Cardiovascular: Rate/Rhythm: regular rhythm and + bradycardic Gastrointestinal (Abdomen): normal bowel sounds, soft, nontender, no hepatosplenomegaly Musculoskeletal: Head/Neck/Chest: normocephalic and head atraumatic Feet are in waffle boots with right foot in dressing Neurologic: PERRL, EOMI, accommodation nl, no face palsy, no dysarthria Psychiatric: A+Ox3, euthymic affect Results & Data Vital Signs (Past 12 Hours) Vital Signs Temp Pulse Pulse Pulse Resp BP Pulse Ox 05/25/19 07:04 37.1 C 62 26 H 127/31 L 94 05/25/19 04:49 36.9 C 63 21 114/36 L 93 05/25/19 04:02 60 05/25/19 00:23 37.2 C 64 18 121/39 L 92 (1) Diabetic foot ulcer associated with type 2 diabetes mellitus Diabetic foot ulcer location: heel Laterality: left Non-pressure ulcer stage: limited to breakdown of skin Qualified Code(s): E11.621 - Type 2 diabetes mellitus with foot ulcer; L97.421 - Non-pressure chronic ulcer of left heel and midfoot limited to breakdown of skin (2) Hypertension Hypertension type: unspecified Qualified Code(s): I10 - Essential (primary) hypertension
[2019-05-25] MEDS: CALCIUM ACETATE 667 MG CAP PO SCH ×3 (09:02→17:48)
[2019-05-25] MEDS: PANTOprazole 40 MG TAB PO SCH (09:02)
[2019-05-25] MEDS: FLUOXETINE HCL 20 MG CAP PO SCH (09:02)
[2019-05-25] MEDS: OXYCODONE HCL 10 MG TABCR (OXYCONTIN) PO SCH ×2 (09:02→20:51)
[2019-05-25] MEDS: PREGABALIN 150 MG CAP PO SCH ×2 (09:02→20:51)
[2019-05-25] MEDS ORDERED: MIDAZOLAM HCL 1 MG/ML 2ML VIAL ONE (10:00)
[2019-05-25] MEDS ORDERED: fentaNYL citrate 100 MCG/2 ML VIAL ONE (10:00)
[2019-05-25] MEDS ORDERED: PROPOFOL IV EMULSION 10 MG/ML 20 ML VIAL IV ONE (10:02)
[2019-05-25] MEDS ORDERED: ONDANSETRON INJ 2 MG/ML 2 ML VIAL ONE (10:02)
[2019-05-25] MEDS ORDERED: LIDOCAINE HCL 2% 2 ML VIAL/AMP(20MG/ML) INFIL ONE (10:02)
[2019-05-25] MEDS ORDERED: ATROPINE SULFATE 0.1 MG/ML 10ML SYR IV PRN (10:19)
[2019-05-25] MEDS ORDERED: HYDROmorphone INJ 2 MG/ML SYR/VIAL IV PRN (10:19)
[2019-05-25] MEDS ORDERED: METOCLOPRAMIDE HCL INJ 5 MG/ML 2 ML VIAL IV PRN ×2 (10:19→13:29)
[2019-05-25] MEDS ORDERED: PROMETHAZINE HCL 12.5 MG in SODIUM CHLORIDE 0.9% 50 ML IV PRN (10:19)
[2019-05-25] MEDS ORDERED: ePHEDrine sulfate 50 MG/ML AMP IV PRN (10:19)
[2019-05-25] MEDS ORDERED: ONDANSETRON INJ 2 MG/ML 2 ML VIAL IV PRN (10:19)
[2019-05-25] MEDS ORDERED: fentaNYL citrate 100 MCG/2 ML VIAL IV PRN (10:19)
--- NOTE | 2019-05-25 10:22 | History & Physical Bridge Note ---
Date of Service May 25, 2019 History & Physical Bridge Note I have examined the patient, reviewed the History & Physical and in the interval since the performance of the History & Physical I have noted the following changes of clinical significance: no changes noted
[2019-05-25] MEDS ORDERED: BUPIVACAINE/EPINEPHRINE 0.5% MPF 1:200,000 30 ML VIAL ONE (10:27)
[2019-05-25] MEDS ORDERED: CEFAZOLIN 250 MG/ML 1 GM VIAL ONE (10:56)
[2019-05-25] MEDS ORDERED: CISATRACURIUM BESYLATE IV SOLN 2 MG/ML 10 ML VIAL IV ONE (10:56)
[2019-05-25] MEDS ORDERED: BACITRACIN INJ 50,000 UNIT VIAL ONE (10:59)
--- NOTE | 2019-05-25 11:00 | Progress Note ---
DATE: 05/25/2019 SUBJECTIVE: A 63-year-old female diabetic with multiple medical comorbidities with a right infected open ankle wound and Achilles tendon rupture. She has decided to proceed with a below knee amputation. No new complaints. Pain is reasonably well controlled currently. She gets pretty significant neuropathy. OBJECTIVE: VITAL SIGNS: Temperature 36.7. Vital signs stable. EXTREMITIES: Physical examination of right leg reveals very foul smelling odor and wound to the posterior aspect of her leg and Achilles. There is some mild surrounding cellulitis. There is gross purulence in the wound. Decreased sensation. She seems to have pretty good blood flow distally. LABORATORY DATA: Her INR this morning is 1.3. Hemoglobin is 9.1. ASSESSMENT: A 63-year-old female with end-stage renal disease, severe diabetic neuropathy and long-term diabetes with a right lower extremity wound infected, likely polymicrobial with uncovered Achilles tendon and necrotic Achilles. The likelihood of this wound healing is essentially nonexistent. I am concerned with her underlying knee replacement allowing a persistent open wound which is infected and may lead to progression of infection of her leg. PLAN: We discussed treatment once again. She has decided to proceed with below knee amputation. The risks and benefits of this procedure were explained. We will proceed with that today.
[2019-05-25] MEDS ORDERED: CEFAZOLIN 2000MG 2,000 MG/15 ML SYR IV ONE (11:23)
[2019-05-25] MEDS ORDERED: ePHEDrine sulfate 50 MG/ML SYR ONE (11:23)
--- NOTE | 2019-05-25 12:13 | Post Operative Brief Note ---
PG Immediate Post Op with CF Date of Surgery May 25, 2019 Pre & Post Diagnosis Operation Date: 05/25/19 10:15 Pre-Op Diagnosis: Right Infected open heel wound + Achilles rupture Post-Op Diagnosis: Right Infection open heel wound + Achilles rupture I identified the patient and participated in the time-out.: Yes Procedure Operation Date: 05/25/19 10:15 Actual Procedures p Right Below Knee Amputation(Right) - Blake Medina MD Surgeon Blake Medina MD Piecer Up Súal, [facility] Estimated Blood Loss 50 Findings Consistent with Post-Op Diagnosis Fluids 200 cc Specimens Specimen Description: A. Right foot. Anesthesia Type General Complications none Disposition Accompanied Patient To Recovery: No Disposition: Recovery Room
--- NOTE | 2019-05-25 12:40 | Operative Report ---
Post Operative Report Pre & Post Diagnosis Operation Date: 05/25/19 10:15 Pre-Op Diagnosis: Right infected open heel wound with Achilles tendon rupture Post-Op Diagnosis: Right invected open heel wound with Achilles tendon rupture. I identified the patient and participated in the time-out.: Yes Procedure Operation Date: 05/25/19 10:15 Actual Procedures p Right Below Knee Amputation(Right) - Blake Medina MD Surgeon Blake Medina MD Manager Orange Saúl, [place] Estimated Blood Loss 50 Findings Consistent with Post-Op Diagnosis Large open posterior Achilles tendon wound with exposure of the Achilles tendon, gross purulent infection, with a chronic Achilles tendon rupture. Surrounding cellulitis. Fluids 200 cc Specimens Right leg sent for pathology. Drains None Complications none Disposition Accompanied Patient To Recovery: No Disposition: Recovery Room Indications 63-year-old female with a long-term diabetes poorly controlled with end-stage renal disease along with many other multiple comorbidities who has had a right heel wound for several weeks. She was treated wound clinic but that things continue to progress. She had a Exposed Achilles tendon with a chronic Achilles tendon rupture beneath this. The tendon was obviously thoroughly infected and she had a foul-smelling purulent wound. The treatment option were explained and the patient elected proceed with a below-knee amputation which was suggested. Description of Procedure Patient was taken to the operating room identified and placed on the operating table supine position. All contact areas were appropriately padded. A general anesthetic was employed by anesthesia team. IV antibiotics were provided.She was getting preoperative scheduled antibiotics and we did give her an additional 2 g of Ancef preoperatively. A right thigh tourniquet was then placed. The right lower extremity was then scrubbed with Hibiclens and then prepped with ChloraPrep and draped in the usual sterile fashion. The right leg was elevated and exsanguinated use of an Esmarch. The tourniquet was placed at 350 mmHg. A fishmouth incision was made over the mid aspect of the leg. This was made such that the bone cut was 14 cm below the medial tibial plateau. I developed anterior and posterior flaps of about 7 cm in length. Sharp dissection was carried through subcutaneous tissue directly down to the bone and the muscle compartments. I elevated the full-thickness flap off the anterior aspect of the tibia anteriorly. The posterior will be cut through the deep posterior compartment. I then resected the anterior compartment musculature about 1/2 cm distal to the proposed tibial cut. I exposed the fibula. I then transected the tibia and the fibula was then transected about a centimeter and half more proximally. I did identify the anterior tibial artery and vein and suture ligated this x3. The deep peroneal nerve was identified, traction was applied, it was cut and allowed to retract. I then cut the posterior compartment musculature about a centimeter distal to the saw cut and allowed to muscle to retract. The posterior tibial artery and vein were suture ligated and then, cauterized. The tibial nerve was identified, traction was applied, and was cut sharply and allowed to retract. I then cut the remainder of the posterior compartment distally and remove the leg and this was sent for pathology. The wound was then irrigated extensively. Coagulation and a suture ligation was used to address any bleeding points. The tourniquet was then let down for tourniquet time 30 minutes. Hemostasis assured with electrocautery. I then used the amputation knife to thin out the superficial posterior compartment to allow closure. Once this was complete closure was begun. The fascia posteriorly was then sewn to the anterior fascia with 0 Vicryl suture in a [id number] fashion. The skin was then closed with a combination of 2- 0 and 3-0 nylon suture in simple fashion. Leg was then cleaned and dried a sterile dressing with Xeroform 4 x 4's ABD pad, Kerlix wrap, sterile cast padding, Jimmy bandage were applied. The patient was then brought out of general anesthesia and transferred to the recovery room in stable condition. Patient tolerated procedure well and there were no complications. I attest to the content of the Intraoperative Record and any orders documented therein. Any exceptions are noted below.
--- NOTE | 2019-05-25 12:47 | Anesthesiology Progress Note ---
Date of Service May 25, 2019 Anesthesia Post Procedure Vital Signs Vital Signs: Temp Pulse Pulse Pulse Pulse Resp BP 05/25/19 12:45 71 16 132/56 L 05/25/19 12:35 72 16 137/56 L 05/25/19 12:25 76 16 121/61 05/25/19 12:16 36.7 C 75 16 147/54 H 05/25/19 10:10 36.7 C 67 18 188/48 H 05/25/19 09:00 62 05/25/19 07:04 37.1 C 62 26 H 127/31 L 05/25/19 04:49 36.9 C 63 21 114/36 L 05/25/19 04:02 60 05/25/19 00:23 37.2 C 64 18 121/39 L 05/24/19 20:15 36.9 C 61 16 117/55 L 05/24/19 19:16 70 05/24/19 15:03 36.8 C 65 15 129/24 L 05/24/19 14:49 62 Pulse Ox 05/25/19 12:45 100 05/25/19 12:35 100 05/25/19 12:25 100 05/25/19 12:16 100 05/25/19 10:10 05/25/19 09:00 05/25/19 07:04 94 05/25/19 04:49 93 05/25/19 04:02 05/25/19 00:23 92 05/24/19 20:15 96 05/24/19 19:16 05/24/19 15:03 98 05/24/19 14:49 Pain Intensity Right Posterior Foot: Pain Intensity: 6 Transfer of Care Handoff Completed per policy Notes Mental Status: alert / awake / arousable and participated in evaluation Patient Amnestic to Procedure: Yes Nausea / Vomiting: adequately controlled Pain: adequately controlled Airway Patency, RR, SpO2: stable & adequate BP & HR: stable & adequate Hydration State: stable & adequate Anesthetic Complications: no major complications apparent
[2019-05-25] MEDS ORDERED: PHARMACY GLYCEMIC MGMT CONSULT STA (13:29)
[2019-05-25] MEDS ORDERED: NALOXONE HCL 0.4 MG/1 ML VIAL/CARP IV PRN (13:29)
[2019-05-25] MEDS ORDERED: MAGNESIUM HYDROXIDE SUSP 30 ML UDC PO PRN (13:29)
[2019-05-25] MEDS ORDERED: bisacodyL 10 MG SUPP PR PRN (13:29)
[2019-05-25] MEDS: HYDROmorphone INJ 0.5 MG/0.5 ML SYR IV PRN (13:42)
[2019-05-25] MEDS: SODIUM CHLORIDE 0.9% 1000ML 1,000 ML IV SCH ×2 (13:42→21:48)
--- NOTE | 2019-05-25 14:02 | Infectious Disease Progress Nt ---
Date of Service May 25, 2019 Assessment & Plan (1) Diabetic foot infection: pt will continue on emperic abx. for bka, this will be curative. can stop abx 24 hours post op. Subjective pt for bka, remains on abx. afebrile. wbc 10, blood cultures negative and final. wound culture DIRECTOR SURGICAL only. Results & Data Vital Signs (Past 12 Hours) Vital Signs Temp Pulse Pulse Pulse Pulse Resp BP 05/25/19 13:55 36.8 C 68 20 104/61 05/25/19 12:53 36.5 C 05/25/19 12:45 71 16 132/56 L 05/25/19 12:35 72 16 137/56 L 05/25/19 12:25 76 16 121/61 05/25/19 12:16 36.7 C 75 16 147/54 H 05/25/19 10:10 36.7 C 67 18 188/48 H 05/25/19 09:00 62 05/25/19 07:04 37.1 C 62 26 H 127/31 L 05/25/19 04:49 36.9 C 63 21 114/36 L 05/25/19 04:02 60 Pulse Ox 05/25/19 13:55 2 L 05/25/19 12:53 05/25/19 12:45 100 05/25/19 12:35 100 05/25/19 12:25 100 05/25/19 12:16 100 05/25/19 10:10 05/25/19 09:00 05/25/19 07:04 94 05/25/19 04:49 93 05/25/19 04:02 Laboratory Results Microbiology 05/19/19 16:25 Blood Aerobic Blood Culture - Final No growth in Aerobic bottle after 5 days. 05/19/19 16:25 Blood Anaerobic Blood Culture - Final No growth in Anaerobic bottle after 5 days. 05/19/19 16:40 Blood Aerobic Blood Culture - Final No growth in Aerobic bottle after 5 days. 05/19/19 16:40 Blood Anaerobic Blood Culture - Final 05/22/19 11:41 Foot Gram Stain - Final 05/22/19 11:41 Foot Wound Culture - Final Coag negative Staphylococcus PG Care Time/CCT Total # of Minutes Spent Total Time Spent with Patient: Total time spent is greater than 50% in coordination of care (as documented) at patient's floor/unit and/or counseling patient:
--- NOTE | 2019-05-25 14:31 | Pharmacy Report ---
Pharmacy Glycemic Short Note 2 - Date of Service May 25, 2019 - Glycemic Short BSG Results (Last 24 hours): 05/24/19 05/24/19 05/25/19 16:27 20:22 05:43 Glucose 123 H POC Glucose 259 H 219 H 05/25/19 05/25/19 06:15 12:22 Glucose POC Glucose 120 H 159 H ASSESSMENT: 05/25 * Patient received 102 units of insulin yesterd, 40 of which were basl insulin * Fasting this morning within goal range, NPH was split evenly BIDM, NPH dose this morning was decreased for NPO status as patient went to OR for BKA today, diet reordered with lunch * Yesterday prandial BSGs were elevated in the 200s- slightly tightened carb ratio this morning, also will increase scale for PM NPH dose 05/23 * Patient received 114 units of insulin yesterday, of which 50 were basal insulin * Fasting BSG this AM w/in range at 139 mg/dL - will continue with Lantus 25 this am and adjust scale for tonight * Continue same CF/CR * Patient to get HD today 05/22 * Patient received 75 units of insulin yesterday, of which 40 were basal insulin * Fasting BSG still elevated at 220 mg/dL - will increase basal ~25% today with 25 BIDM * Will tighten CF/CR this AM 05/21 * 63 year old female with uncontrolled type 2 diabetes, diabetic gastroparesis and retinopathy, htn, hld, PAF, hyperparathyroidism secondary to ESRD on HD, anemia presenting with right heel infection and hyperglycemia * Started insulin drip last evening and continued this AM, overlapped with Lantu s this morning will continue to trend BSGs * Insulin drip rate ~1 unit/hr - BSGs <180 x 2 , therefore will transition off drip at this time. Communicated with nurse to cover lunch time BSGs with ACHS order * Will add scale for basal insulin with dinner PLAN FOR INPATIENT GLYCEMIC CONTROL: * Insulin drip - transitioned off 05/20 at lunchtime * Basal insulin * Lantus BID with scale 20 units for BSG less than 200 mg/dl 25 units for BSG 200 or greater * Bolus insulin - tighten * NovoLog per scale ACHS or Q6hrs while NPO * Goal Range: Low 110 mg/dL - High 140 mg/dL * Correction Factor: 10 mg/dL/unit * Nutritional / Prandial insulin per carb ratio of 1 unit per 3.5 grams CHO consumed * Please note that the plan above was derived based on current level of insulin resistance and hospital stress. These recommendations are appropriate for inpatient admission only. Plan of care upon discharge will need to be reassessed to avoid potential outpatient hypo/hyperglycemia.
[2019-05-25] MEDS ORDERED: WARFARIN SOD 10 MG TAB PO ONE (16:00)
[2019-05-25] MEDS: FERROUS GLUCONATE 324 MG TAB PO SCH (17:46)
[2019-05-25] MEDS: INSULIN HUMAN NPH SC SCH (17:47)
[2019-05-25] MEDS: ASCORBIC ACID 500 MG TAB PO SCH (17:48)
--- NOTE | 2019-05-25 18:29 | Nephrology Progress Note ---
Date of Service May 25, 2019 Assessment & Plan (1) ESRD (end stage renal disease): Patient is normally dialysed on a MWF schedule. She is tolerating dialysis well today target UF of 2 L. Electrolytes are stable with no signs of volume overload. Next dialysis will be thursday. (2) Diabetic foot infection: Patient s/p BKA today (3) Anemia in ESRD (end-stage renal disease): Patient with anemia of renal disease. Will continue Epogen 10,000 units with HD. (4) Secondary hyperparathyroidism (of renal origin): Patient should be encouraged to take Phoslo 2 tabs tid with meals. Check Phos atleast once weekly. Subjective Patient seen and examined on dialysis. She has no SOB. She had right BKA this morning. Her pain is controlled. Review of Systems Review of Systems: All systems reviewed & are unremarkable except as noted in HPI & below Physical Exam Physical Exam: General exam: Appears comfortable, no acute distress HEENT: Pupils are equal and reactive to light Neck: No JVD, neck is supple trachea is midline Respiratory system: Clear breath sounds bilaterally. Gastrointestinal: Abdomen is soft, non distended, non tender, bowel sounds are present CVS: Regular rate and rhythm. No murmurs, rubs or gallops Musculoskeletal: No joint or muscle tenderness Extremities: right BKA Neuro: Oriented, no tremors, no focal neurological deficits Skin: No rashes Access: AVF Results & Data Vital Signs (Past 12 Hours) Vital Signs Temp Pulse Pulse Pulse Pulse Resp BP 05/25/19 16:05 36.7 C 69 18 110/40 L 05/25/19 14:30 36.7 C 68 05/25/19 13:55 36.8 C 68 20 104/61 05/25/19 12:53 36.5 C 05/25/19 12:45 71 16 132/56 L 05/25/19 12:35 72 16 137/56 L 05/25/19 12:25 76 16 121/61 05/25/19 12:16 36.7 C 75 16 147/54 H 05/25/19 10:10 36.7 C 67 18 188/48 H 05/25/19 09:00 62 05/25/19 07:04 37.1 C 62 26 H 127/31 L Pulse Ox 05/25/19 16:05 96 05/25/19 14:30 05/25/19 13:55 2 L 05/25/19 12:53 05/25/19 12:45 100 05/25/19 12:35 100 05/25/19 12:25 100 05/25/19 12:16 100 05/25/19 10:10 05/25/19 09:00 05/25/19 07:04 94 Laboratory Results Laboratory Results - last 24 hr 05/24/19 05/24/19 05/25/19 20:22 20:58 05:43 WBC RBC Hgb Hct MCV MCH MCHC RDW Std Deviation RDW Coeff of Dean Plt Count MPV Absolute Nucleated RBC Nucleated RBC % (auto) PT 14.5 H 13.0 H INR 1.5 H 1.3 H Sodium Potassium Chloride Carbon Dioxide Anion Gap BUN Creatinine Est Cr Clr Drug Dosing Est GFR ( Amer) Est GFR (Non-Af Amer) BUN/Creatinine Ratio Glucose POC Glucose 219 H Calcium Total Creatine Kinase 05/25/19 05/25/19 05/25/19 05:43 05:43 05:43 WBC 10.54 RBC 2.98 L Hgb 9.1 L Hct 29.1 L MCV 97.7 MCH 30.5 MCHC 31.3 L RDW Std Deviation 57.9 H RDW Coeff of Dean 16.5 H Plt Count 275 MPV 9.9 Absolute Nucleated RBC 0.05 H Nucleated RBC % (auto) 0.4 PT INR Sodium 133 L Potassium 3.4 L Chloride 95 L Carbon Dioxide 27 Anion Gap 11.0 BUN 39 H D Creatinine 7.33 H* D Est Cr Clr Drug Dosing 10.0 Est GFR ( Amer) 6.3 Est GFR (Non-Af Amer) 5.4 BUN/Creatinine Ratio 5.3 L Glucose 123 H POC Glucose Calcium 9.3 Total Creatine Kinase 48 05/25/19 05/25/19 05/25/19 06:15 12:22 16:25 WBC RBC Hgb Hct MCV MCH MCHC RDW Std Deviation RDW Coeff of Dean Plt Count MPV Absolute Nucleated RBC Nucleated RBC % (auto) PT INR Sodium Potassium Chloride Carbon Dioxide Anion Gap BUN Creatinine Est Cr Clr Drug Dosing Est GFR ( Amer) Est GFR (Non-Af Amer) BUN/Creatinine Ratio Glucose POC Glucose 120 H 159 H 174 H Calcium Total Creatine Kinase
[2019-05-25] MEDS: FLUTICASONE PROPIONATE NA SPR 16 GM BTL SCH (20:51)
[2019-05-25] MEDS: DOCUSATE SODIUM 100 MG CAP PO SCH (20:52)
[2019-05-25] MEDS: SENNA 8.6 MG TAB PO SCH (20:52)
[2019-05-25] MEDS: NEPHROCAPS PO SCH (20:52)
[2019-05-25] MEDS: DAPTOmycin 500 MG in SYRINGE 0 ML IV SCH (21:47)
[2019-05-26] MEDS: HYDROCODONE/ACETAMOPHEN 5/325MG TAB PO PRN (01:06)
[2019-05-26] MEDS: HYDROmorphone INJ 0.5 MG/0.5 ML SYR IV PRN ×3 (04:21→17:26)
[2019-05-26 06:29] LABS: INR 1.1 (0.9-1.1); Prothrombin Time 11.5 Seconds (9.0-12.0)
[2019-05-26] MEDS: DOCUSATE SODIUM 100 MG CAP PO SCH ×2 (07:32→20:17)
--- NOTE | 2019-05-26 07:39 | Progress Note ---
DATE: 05/26/2019 SUBJECTIVE: A 63-year-old female diabetic postop day 1 from a right below-knee amputation for severe lower extremity infection. She is doing pretty well. She reports some "twinges" of pain and that is about it. No chest pain or shortness of breath. Not feeling dizzy or lightheaded. OBJECTIVE: VITAL SIGNS: Temperature 37.7. Vital signs stable. GENERAL: Physical examination shows a pleasant, middle-aged female. She is lying in bed, looks pretty comfortable. EXTREMITIES: Examination of the right leg reveals the dressing to be clean, dry and intact. No signs of problems. LABORATORY DATA: Labs are pending. INR is 1.1 this morning. ASSESSMENT: A 63-year-old female postop day 1 from a right below-knee amputation for chronic open wound and infection. She is doing pretty well. Her pain seems to be controlled. Labs are still pending. INR is 1.1. PLAN: 1. DVT prophylaxis including thigh-high TEDs, SCDs, and she can be back on her Coumadin. We will allow the medicine service to manage this. She can be gradually increased back on her anticoagulation. She can be started on some subQ heparin if necessary 24 hours postoperative until her INR is more therapeutic. I would recommend low doses of heparin and nothing therapeutic for risk of bleeding. 2. PT/OT. Mobilize as tolerated. 3. Wound care. We are going to leave this bandage on for 2 weeks. 4. Antibiotic management. She just needs 24 hours of postoperative antibiotic management from the orthopedic standpoint and then her antibiotics can be discontinued. Any further antibiotics are as per the medicine service. 5. Disposition: She is orthopedically okay for discharge any time medically stable. I need to see her back 2 weeks out from surgery date. Any questions can be directed to me at [phone].
[2019-05-26 07:41] LABS: Basophils # (auto) 0.05 K/uL (0-0.2); Basophils % (auto) 0.4 %; Eosinophils % (auto) 0.9 %; Hematocrit (blood only) 26.2 % (37-47); Hemoglobin 8.2 g/dL (12.0-16.0); Immature Granulocytes # (auto) 0.23 K/uL (0.00-0.02); Lymphocytes # (auto) 1.51 K/uL (1.2-3.4); Lymphocytes % (auto) 13.2 %; Mean Corpuscular Hemoglobin 30.7 pg (25-34); Mean Corpuscular Volume 98.1 fL (80-100); Mean Platelet Volume 10.1 fL (7.4-10.4); Monocytes # (auto) 1.37 K/uL (0.11-0.59); Neutrophils # (auto) 8.18 K/uL (1.4-6.5); Neutrophils % (auto) 71.5 %; Nucleated RBC # (auto) 0.04 K/uL (0-0); Nucleated RBC % (auto) 0.3 %; Platelet Count 267 K/uL (130-400); RDW Coefficient of Variation 16.4 % (11.5-14.5); RDW Standard Deviation 56.9 fL (36.4-46.3); Red Blood Count 2.67 M/uL (4.2-5.4); White Blood Count 11.44 K/uL (4.8-10.8)
[2019-05-26 07:45] LABS: Mean Corpuscular Hgb Conc 31.3 g/dL (32-36)
[2019-05-26 08:09] LABS: BUN Creatinine Ratio 5.1 (10-20); Calcium 8.2 mg/dl (8.5-10.1); Creatinine Clr Calc Pharmacy 11.7 ml/min; Est GFR (African American) 7.6; Est GFR (Non-African American) 6.6; Potassium 3.9 mmol/L (3.5-5.1)
--- NOTE | 2019-05-26 08:21 | Anesthesiology Progress Note ---
Date of Service May 26, 2019 Anesthesia Post Procedure Vital Signs Vital Signs: Temp Pulse Pulse Pulse Pulse Resp BP 05/26/19 04:00 37.7 C H 73 22 05/26/19 01:20 75 05/25/19 23:31 38 C H 79 20 05/25/19 20:12 36.9 C 60 05/25/19 19:53 36.9 C 78 20 05/25/19 17:50 72 90/40 L 05/25/19 17:40 72 76/37 L 05/25/19 17:20 60 99/48 L 05/25/19 17:00 66 107/37 L 05/25/19 16:40 72 109/45 L 05/25/19 16:20 70 110/42 L 05/25/19 16:05 36.7 C 69 18 05/25/19 16:00 78 113/52 L 05/25/19 15:40 68 110/40 L 05/25/19 15:20 68 106/36 L 05/25/19 15:00 72 124/38 L 05/25/19 14:37 68 124/40 L 05/25/19 14:30 36.7 C 68 05/25/19 13:55 36.8 C 68 20 05/25/19 12:53 36.5 C 05/25/19 12:45 71 16 05/25/19 12:35 72 16 05/25/19 12:25 76 16 05/25/19 12:16 36.7 C 75 16 05/25/19 10:10 36.7 C 67 18 05/25/19 09:00 62 BP Pulse Ox 05/26/19 04:00 116/39 L 99 05/26/19 01:20 05/25/19 23:31 118/37 L 100 05/25/19 20:12 146/58 H 05/25/19 19:53 149/65 H 96 05/25/19 17:50 05/25/19 17:40 05/25/19 17:20 05/25/19 17:00 05/25/19 16:40 05/25/19 16:20 05/25/19 16:05 110/40 L 96 05/25/19 16:00 05/25/19 15:40 05/25/19 15:20 05/25/19 15:00 05/25/19 14:37 05/25/19 14:30 05/25/19 13:55 104/61 2 L 05/25/19 12:53 05/25/19 12:45 132/56 L 100 05/25/19 12:35 137/56 L 100 05/25/19 12:25 121/61 100 05/25/19 12:16 147/54 H 100 05/25/19 10:10 188/48 H 05/25/19 09:00 Pain Intensity Right Posterior Foot: Pain Intensity: 8 Notes Mental Status: alert / awake / arousable and participated in evaluation Patient Amnestic to Procedure: Yes Nausea / Vomiting: adequately controlled Pain: adequately controlled Airway Patency, RR, SpO2: stable & adequate BP & HR: stable & adequate Hydration State: stable & adequate Anesthetic Complications: no major complications apparent and Pt Satisfied with anesthetic care
[2019-05-26] MEDS: INSULIN HUMAN REGULAR SC SCH ×4 (09:20→21:40)
[2019-05-26] MEDS: CALCIUM ACETATE 667 MG CAP PO SCH ×3 (09:26→17:17)
[2019-05-26] MEDS: FERROUS GLUCONATE 324 MG TAB PO SCH ×2 (09:27→17:17)
[2019-05-26] MEDS: ASCORBIC ACID 500 MG TAB PO SCH ×2 (09:27→17:18)
[2019-05-26] MEDS: MULTIVITAMIN TAB PO SCH (09:28)
[2019-05-26] MEDS: PREGABALIN 150 MG CAP PO SCH ×2 (09:29→20:16)
[2019-05-26] MEDS: OXYCODONE HCL 10 MG TABCR (OXYCONTIN) PO SCH ×2 (09:29→20:16)
[2019-05-26] MEDS: FLUOXETINE HCL 20 MG CAP PO SCH (09:29)
[2019-05-26] MEDS: PANTOprazole 40 MG TAB PO SCH (09:30)
[2019-05-26] MEDS: PIPERACILLIN/TAZOBACTAM 4.5 GM in DEXTROSE 5% 100 ML IV SCH ×2 (09:31→21:45)
[2019-05-26] MEDS: INSULIN HUMAN NPH SC SCH ×2 (09:33→17:20)
--- NOTE | 2019-05-26 10:52 | Nephrology Progress Note ---
Date of Service May 26, 2019 Assessment & Plan (1) ESRD (end stage renal disease): Patient is normally dialysed on a MWF schedule. She tolerated dialysis well yesterday. Electrolytes are stable with no signs of volume overload. Next dialysis will be Thursday. (2) Diabetic foot infection: Patient s/p BKA 05/25. Pain control per primary team. (3) Anemia in ESRD (end-stage renal disease): Patient with anemia of renal disease. Will continue Epogen 10,000 units with HD. (4) Secondary hyperparathyroidism (of renal origin): Patient should be encouraged to take Phoslo 2 tabs tid with meals. Check Phos atleast once weekly. Subjective Seen in f/u for ESRD. S/p right BKA on 05/25. Tolerated HD well yesterday. No SOB today. She has pain in the right stump Review of Systems Review of Systems: All systems reviewed & are unremarkable except as noted in HPI & below Physical Exam Physical Exam: General exam: Appears comfortable, no acute distress HEENT: Pupils are equal and reactive to light Neck: No JVD, neck is supple trachea is midline Respiratory system: Clear breath sounds bilaterally. Gastrointestinal: Abdomen is soft, non distended, non tender, bowel sounds are present CVS: Regular rate and rhythm. No murmurs, rubs or gallops Musculoskeletal: No joint or muscle tenderness Extremities: right BKA. Neuro: Oriented, no tremors, no focal neurological deficits Skin: No rashes Access: AVF Results & Data Vital Signs (Past 12 Hours) Vital Signs Temp Pulse Pulse Resp BP Pulse Ox 05/26/19 04:00 37.7 C H 73 22 116/39 L 99 05/26/19 01:20 75 05/25/19 23:31 38 C H 79 20 118/37 L 100 Laboratory Results Laboratory Results - last 24 hr 05/25/19 05/25/19 05/25/19 12:22 16:25 20:16 WBC RBC Hgb Hct MCV MCH MCHC RDW Std Deviation RDW Coeff of Dean Plt Count MPV Immature Gran % (Auto) Neut % (Auto) Lymph % (Auto) [place] % (Auto) Eos % (Auto) Baso % (Auto) Immature Gran # (Auto) Neut # (Auto) Lymph # (Auto) [place] # (Auto) Eos # (Auto) Baso # (Auto) Absolute Nucleated RBC Nucleated RBC % (auto) PT INR Sodium Potassium Chloride Carbon Dioxide Anion Gap BUN Creatinine Est Cr Clr Drug Dosing Est GFR ( Amer) Est GFR (Non-Af Amer) BUN/Creatinine Ratio Glucose POC Glucose 159 H 174 H 161 H Calcium 05/26/19 05/26/19 05/26/19 06:09 06:09 06:09 WBC 11.44 H RBC 2.67 L Hgb 8.2 L Hct 26.2 L MCV 98.1 MCH 30.7 MCHC 31.3 L RDW Std Deviation 56.9 H RDW Coeff of Dean 16.4 H Plt Count 267 MPV 10.1 Immature Gran % (Auto) 2.0 Neut % (Auto) 71.5 Lymph % (Auto) 13.2 [place] % (Auto) 12.0 Eos % (Auto) 0.9 Baso % (Auto) 0.4 Immature Gran # (Auto) 0.23 H Neut # (Auto) 8.18 H Lymph # (Auto) 1.51 [place] # (Auto) 1.37 H Eos # (Auto) 0.10 Baso # (Auto) 0.05 Absolute Nucleated RBC 0.04 H Nucleated RBC % (auto) 0.3 PT 11.5 INR 1.1 Sodium 130 L Potassium 3.9 Chloride 96 L Carbon Dioxide 24 Anion Gap 10.0 BUN 32 H Creatinine 6.27 H* D Est Cr Clr Drug Dosing 11.7 Est GFR ( Amer) 7.6 Est GFR (Non-Af Amer) 6.6 BUN/Creatinine Ratio 5.1 L Glucose 216 H POC Glucose Calcium 8.2 L 05/26/19 07:33 WBC RBC Hgb Hct MCV MCH MCHC RDW Std Deviation RDW Coeff of Dean Plt Count MPV Immature Gran % (Auto) Neut % (Auto) Lymph % (Auto) [place] % (Auto) Eos % (Auto) Baso % (Auto) Immature Gran # (Auto) Neut # (Auto) Lymph # (Auto) [place] # (Auto) Eos # (Auto) Baso # (Auto) Absolute Nucleated RBC Nucleated RBC % (auto) PT INR Sodium Potassium Chloride Carbon Dioxide Anion Gap BUN Creatinine Est Cr Clr Drug Dosing Est GFR ( Amer) Est GFR (Non-Af Amer) BUN/Creatinine Ratio Glucose POC Glucose 223 H Calcium
--- NOTE | 2019-05-26 10:56 | Pharmacy Report ---
Pharmacy Glycemic Short Note 2 - Date of Service May 26, 2019 - Glycemic Short BSG Results (Last 24 hours): 05/25/19 05/25/19 05/25/19 12:22 16:25 20:16 Glucose POC Glucose 159 H 174 H 161 H 05/26/19 05/26/19 06:09 07:33 Glucose 216 H POC Glucose 223 H ASSESSMENT: 05/25 * Patient received 41 units of insulin yesterday - decreased TDD d/t NPO status. Pt typically requires 60-100 units/day when full PO * AM fasting BSG slightly high this morning d/t reduced insulin doses given yesterday for NPO. No changes needed to regimen since insulin should re- equilibrate with repeated dosing. PLAN FOR INPATIENT GLYCEMIC CONTROL: No changes needed at this time * Basal insulin * NPH BID with scale 20 units for BSG less than 200 mg/dl 25 units for BSG 200 or greater * Bolus insulin - * NovoLog per scale ACHS or Q6hrs while NPO * Goal Range: Low 110 mg/dL - High 140 mg/dL * Correction Factor: 10 mg/dL/unit * Nutritional / Prandial insulin per carb ratio of 1 unit per 3.5 grams CHO consumed * Please note that the plan above was derived based on current level of insulin resistance and hospital stress. These recommendations are appropriate for inpatient admission only. Plan of care upon discharge will need to be reassessed to avoid potential outpatient hypo/hyperglycemia.
[2019-05-26] MEDS: ONDANSETRON INJ 2 MG/ML 2 ML VIAL IV PRN (11:01)
--- NOTE | 2019-05-26 11:48 | Hospitalist Progress Note ---
Date of Service May 26, 2019 Assessment & Plan (1) Diabetic foot ulcer associated with type 2 diabetes mellitus: Patient is a 63 yr female with H/O uncontrolled DM 2, ESRD on HD MWF, diabetic neuropathy, diabetic gastroparesis, Charcot foot secondary to DM, diabetic retinopathy, HTN, HLD, PAF, history of DVT on warfarin, hyperparathyroidism secondary to end-stage renal disease, anemia of chronic disease who presents to [facility] on referral from wound clinic secondary to deterioration of right heel wound and hyperglycemia. Right diabetic foot infection/Ulceration with Necrosis -Ankle MRI:Susceptibility artifact concerning for gas along the posterior soft tissues extending from the calcaneal wound and tracking superiorly along the completely torn and retracted Achilles tendon. Wound along the posterior calcaneus. Minimal osseous erosion of the subjacent calcaneus without convincing evidence of osteomyelitis at this time. Moderate ankle joint effusion. Degenerative changes at the tarsometatarsal articulations. Plantar fasciitis. -Venous Doppler:No sonographic evidence of deep venous thrombosis. -Arterial Dopplers: No hemodynamically significant stenosis in the right lower extremity -Blood Cx: No growth to date -Wound Cx: Coagulase negative staph -S/P Debridement on 05/21/19 -has been on Zosyn and daptomycin on this admission -Continue wound Care -Pain control -s/p right below knee amputation on 05/25/19; T max 38 F post-op on 05/25/19 have reviewed surgical recommendations but given that there is still serosanguineous drainage from surgical incision sites to the dressings, would continue broad spectrum IV antibiotics for now of Zosyn and Daptomycin Diarrhea -05/24/19 negative C.difficile test -can give loperamide prn for diarrhea (2) Diabetes mellitus, type 2: -Uncontrolled type 2 diabetes mellitus with hyperglycemia -HbA1c 10.5 -was on IV insulin drip on earlier on this admission -currently on subcutaneous insulin (3) Atrial fibrillation: -history of Paroxysmal Atrial fibrillation -Currently in sinus and rate is controlled -patient off coumadin prior to right below knee amputation on 05/25/19 -patient received 10 mg coumadin on 05/25/19 after surgery -daily coumadin to be resumed on 05/26/19 -can be started on some subcutanous by late evening of 05/26/19 which would be around 24 hours postoperative verusis 05/27/19 day time until her INR is therapeutic from coumadin (4) Hypertension: -blood pressure improved with dialysis on this hospitalization -Hydralazine PRN (5) Hyperlipidemia: -Hold statin while on Daptomycin (6) ESRD (end stage renal disease): -ESRD with dependence on hemodialysis -dialysis schedule is every Thursday/Thursday/Thursday -next dialysis session 05/27/19 -on Renal diet, Fluid restriction to 1200ml (7) Anemia in ESRD (end-stage renal disease): -hemoglobin is stable above 9 Chronic hyponatremia Hypochloremia -partly due to dialysis fluid shifts -Sodium levels 130 and serum chloride 96 today -on fluid restriction (8) Diabetic peripheral neuropathy: -continue lyrica (9) Gastroparesis: -zofran PRN (10) GERD (gastroesophageal reflux disease): -continue PPI (11) Depression: -continue prozac (12) DVT prophylaxis: -patient received 10 mg coumadin on 05/25/19 after surgery -daily coumadin to be resumed on 05/26/19 -can be started on some subcutanous by late evening of 05/26/19 which would be around 24 hours postoperative verusis 05/27/19 day time until her INR is therapeutic from coumadin Patient's Primary Care Provider as outpatient is Dr. Dixon Subjective s/ p right below knee amputation on 05/25/19; T max 38 F post-op on 05/25/19 patient received 10 mg coumadin on 05/25/19 and informed that daily coumadin being resumed no chest pain. breathing on room air. generally comfortable while sitting in the wheelchair. reports diarrhea that is chronic. she soiled some of the top part of the right knee wound dressing have reviewed surgical recommendations but given that there is still serosanguineous drainage from surgical incision sites to the dressings, would continue broad spectrum IV antibiotics for now of Zosyn and Daptomycin patient agrees for further antibiotics. patient agrees to be transferred of telemetry Physical Exam Constitutional: comfortable Eyes: PERRL, conjunctivae normal, anicteric sclerae EOM intact bilaterally ENMT: external ear and nose normal, oropharynx normal Neck: normal visual inspection Respiratory: normal respiratory effort, lungs clear to auscultation Cardiovascular: Rate/Rhythm: regular rhythm and + bradycardic Gastrointestinal (Abdomen): normal bowel sounds, soft, nontender, no hepatosplenomegaly Musculoskeletal: Head/Neck/Chest: normocephalic and head atraumatic Knee: + knee abnormal to inspection (right below knee amputation) there is still serosanguineous drainage from surgical incision sites to the dressings of the right below knee amputation Neurologic: PERRL, EOMI, accommodation nl, no face palsy, no dysarthria Psychiatric: A+Ox3, euthymic affect Results & Data Vital Signs (Past 12 Hours) Vital Signs Temp Pulse Pulse Pulse Resp BP Pulse Ox 05/26/19 11:16 37.6 C H 83 18 128/44 L 91 05/26/19 04:00 37.7 C H 73 22 116/39 L 99 05/26/19 01:20 75 (1) Diabetic foot ulcer associated with type 2 diabetes mellitus Diabetic foot ulcer location: heel Laterality: left Non-pressure ulcer stage: limited to breakdown of skin Qualified Code(s): E11.621 - Type 2 diabetes mellitus with foot ulcer; L97.421 - Non-pressure chronic ulcer of left heel and midfoot limited to breakdown of skin (2) Hypertension Hypertension type: unspecified Qualified Code(s): I10 - Essential (primary) hypertension
[2019-05-26] MEDS ORDERED: LOPERAMIDE HCL 2 MG CAP PO STA (13:10)
[2019-05-26] MEDS: WARFARIN SOD 5 MG TAB PO SCH (17:16)
[2019-05-26] MEDS: LOPERAMIDE HCL 2 MG CAP PO PRN (17:18)
[2019-05-26] MEDS: NEPHROCAPS PO SCH (20:16)
[2019-05-26] MEDS: SENNA 8.6 MG TAB PO SCH (20:17)
[2019-05-26] MEDS: FLUTICASONE PROPIONATE NA SPR 16 GM BTL SCH (21:38)
[2019-05-27] MEDS: LOPERAMIDE HCL 2 MG CAP PO PRN ×2 (06:26→17:32)
[2019-05-27] MEDS: HYDROmorphone INJ 0.5 MG/0.5 ML SYR IV PRN ×4 (07:30→23:47)
--- NOTE | 2019-05-27 08:17 | Hospitalist Progress Note ---
Date of Service May 27, 2019 Assessment & Plan (1) Diabetic foot ulcer associated with type 2 diabetes mellitus: Patient is a 63 yr female with H/O uncontrolled DM 2, ESRD on HD MWF, diabetic neuropathy, diabetic gastroparesis, Charcot foot secondary to DM, diabetic retinopathy, HTN, HLD, PAF, history of DVT on warfarin, hyperparathyroidism secondary to end-stage renal disease, anemia of chronic disease who presents to [facility] on referral from wound clinic secondary to deterioration of right heel wound and hyperglycemia. Right diabetic foot infection/Ulceration with Necrosis s/p right below knee amputation on this admission -Ankle MRI:Susceptibility artifact concerning for gas along the posterior soft tissues extending from the calcaneal wound and tracking superiorly along the completely torn and retracted Achilles tendon. Wound along the posterior calcaneus. Minimal osseous erosion of the subjacent calcaneus without convincing evidence of osteomyelitis at this time. Moderate ankle joint effusion. Degenerative changes at the tarsometatarsal articulations. Plantar fasciitis. -Venous Doppler:No sonographic evidence of deep venous thrombosis. -Arterial Dopplers: No hemodynamically significant stenosis in the right lower extremity -Blood Cx: No growth to date -Wound Cx: Coagulase negative staph -S/P Debridement on 05/21/19 -has been on Zosyn and daptomycin on this admission -Continue wound Care -Pain control medications -s/p right below knee amputation on 05/25/19; T max 38 F post-op on 05/25/19; reviewed surgical recommendations but given that there is still serosanguineous drainage from surgical incision sites to the dressings, was continued broad spectrum IV antibiotics for now of Zosyn and Daptomycin -05/26/19 recent normal body temperatures. continue Zosyn for now and stop the daptomycin Diarrhea, chronic -05/24/19 negative C.difficile test -loperamide prn for diarrhea -stop the fluid restriction (2) Diabetes mellitus, type 2: -Uncontrolled type 2 diabetes mellitus with hyperglycemia -HbA1c 10.5 -was on IV insulin drip on earlier on this admission -currently on subcutaneous insulin (3) Atrial fibrillation: -history of Paroxysmal Atrial fibrillation -Currently in sinus and rate is controlled -patient off coumadin prior to right below knee amputation on 05/25/19 -patient received 10 mg coumadin on 05/25/19 after surgery -daily coumadin resumed on 05/26/19 -started subcutaneous heparin on 05/27/19 day time until INR is therapeutic from coumadin (4) Hypertension: -blood pressure improved with dialysis on this hospitalization (5) Hyperlipidemia: -Hold statin while on Daptomycin (6) ESRD (end stage renal disease): -ESRD with dependence on hemodialysis -dialysis schedule is every Thursday/Thursday/Thursday -next dialysis session 05/27/19 -on Renal diet (7) Anemia in ESRD (end-stage renal disease): -hemoglobin is stable above 9 Chronic hyponatremia Hypochloremia -partly due to dialysis fluid shifts and chronic diarrhea -Sodium levels 130 and serum chloride 96 on most recent previous day labs (8) Diabetic peripheral neuropathy: -continue lyrica (9) Gastroparesis: -zofran PRN (10) GERD (gastroesophageal reflux disease): -continue PPI (11) Depression: -continue prozac (12) DVT prophylaxis: -patient received 10 mg coumadin on 05/25/19 after surgery -daily coumadin resumed on 05/26/19 -start subcutaneous heparin on 05/27/19 day time until INR is therapeutic from coumadin Patient's Primary Care Provider as outpatient is Dr. Dixon Subjective Patient seen and examined this AM. She is awaiting to go to dialysis. She reported making diarrhea bowel movement during physical exam by physician. Patient denies abdominal pain. No chest pain. No shortness of breath. breathing on room air. she reports some discomfort of shooting pains of below knee amputation but appears to be tolerating the discomfort. She is not in acute distress Physical Exam Constitutional: comfortable Eyes: PERRL, conjunctivae normal, anicteric sclerae EOM intact bilaterally ENMT: external ear and nose normal, oropharynx normal Neck: normal visual inspection Respiratory: normal respiratory effort, lungs clear to auscultation Cardiovascular: Rate/Rhythm: regular rhythm and + bradycardic Gastrointestinal (Abdomen): normal bowel sounds, soft, nontender, no hepatosplenomegaly Musculoskeletal: Head/Neck/Chest: normocephalic and head atraumatic Knee: + knee abnormal to inspection (right below knee amputation) right below knee amputation in dressing Neurologic: PERRL, EOMI, accommodation nl, no face palsy, no dysarthria Psychiatric: A+Ox3, euthymic affect Results & Data Vital Signs (Past 12 Hours) Vital Signs Temp Pulse Resp BP Pulse Ox 05/27/19 07:24 37.1 C 70 18 124/68 90 05/26/19 23:08 37.1 C 70 18 111/64 90 (1) Diabetic foot ulcer associated with type 2 diabetes mellitus Diabetic foot ulcer location: heel Laterality: left Non-pressure ulcer stage: limited to breakdown of skin Qualified Code(s): E11.621 - Type 2 diabetes mellitus with foot ulcer; L97.421 - Non-pressure chronic ulcer of left heel and midfoot limited to breakdown of skin (2) Hypertension Hypertension type: unspecified Qualified Code(s): I10 - Essential (primary) hypertension
--- NOTE | 2019-05-27 08:38 | Pharmacy Report ---
Pharmacy Glycemic Short Note 2 - Date of Service May 27, 2019 - Glycemic Short BSG Results (Last 24 hours): 05/26/19 05/26/19 05/26/19 11:14 17:10 20:38 POC Glucose 250 H 263 H 249 H 05/27/19 08:18 POC Glucose 181 H ASSESSMENT: 05/27 * Blood sugars above goal over last 24 hours, despite increase in NPH with full PO intake. * Blood sugars ranging from 181-263mg/dl, fasting 181mg/dl. * CF and CR already at tight parameters, will try increasing NPH at this time, given with meals, for better glycemic control. 05/26 * Patient received 41 units of insulin yesterday - decreased TDD d/t NPO status. Pt typically requires 60-100 units/day when full PO * AM fasting BSG slightly high this morning d/t reduced insulin doses given yesterday for NPO. No changes needed to regimen since insulin should re-equilibrate with repeated dosing. PLAN FOR INPATIENT GLYCEMIC CONTROL: * Basal insulin - INCREASE * NPH BID with meals with scale 25 units for BSG less than 180 mg/dl 30 units for BSG 180 or greater * Bolus insulin - no change * NovoLog per scale ACHS or Q6hrs while NPO * Goal Range: Low 110 mg/dL - High 140 mg/dL * Correction Factor: 10 mg/dL/unit * Nutritional / Prandial insulin per carb ratio of 1 unit per 3.5 grams CHO consumed * Please note that the plan above was derived based on current level of insulin resistance and hospital stress. These recommendations are appropriate for inpatient admission only. Plan of care upon discharge will need to be reassessed to avoid potential outpatient hypo/hyperglycemia.
[2019-05-27] MEDS: INSULIN HUMAN REGULAR SC SCH ×4 (08:59→21:49)
[2019-05-27] MEDS: INSULIN HUMAN NPH SC SCH ×2 (09:00→17:22)
[2019-05-27] MEDS: PREGABALIN 150 MG CAP PO SCH ×2 (09:05→21:58)
[2019-05-27] MEDS: OXYCODONE HCL 10 MG TABCR (OXYCONTIN) PO SCH ×2 (09:05→21:58)
[2019-05-27] MEDS: PANTOprazole 40 MG TAB PO SCH (09:05)
[2019-05-27] MEDS: FERROUS GLUCONATE 324 MG TAB PO SCH ×2 (09:05→17:25)
[2019-05-27] MEDS: MULTIVITAMIN TAB PO SCH (09:05)
[2019-05-27] MEDS: CALCIUM ACETATE 667 MG CAP PO SCH ×3 (09:05→17:25)
[2019-05-27] MEDS: ASCORBIC ACID 500 MG TAB PO SCH ×2 (09:06→17:25)
[2019-05-27] MEDS: FLUOXETINE HCL 20 MG CAP PO SCH (09:06)
[2019-05-27] MEDS: DOCUSATE SODIUM 100 MG CAP PO SCH ×2 (09:07→21:52)
[2019-05-27] MEDS ORDERED: HEPARIN SOD (PORCINE) 1000 UNIT/ML 10 ML VIAL IV ONE (09:10)
[2019-05-27] MEDS ORDERED: IRON SUCROSE 200 MG in SYRINGE 0 ML IV ONE (09:10)
[2019-05-27] MEDS ORDERED: SODIUM CHLORIDE 0.9% 1000ML 1,000 ML IV PRN (09:10)
[2019-05-27] MEDS ORDERED: EPOETIN ALFA 10,000 UNITS/ML VIAL IV ONE (09:10)
[2019-05-27] MEDS: HEPARIN SOD 5,000 UNIT/0.5 ML VIAL SQ SCH ×2 (09:43→21:50)
[2019-05-27] MEDS: PIPERACILLIN/TAZOBACTAM 4.5 GM in DEXTROSE 5% 100 ML IV SCH ×2 (09:43→21:58)
[2019-05-27 14:59] LABS: Basophils # (auto) 0.06 K/uL (0-0.2); Basophils % (auto) 0.3 %; Eosinophils # (auto) 0.11 K/uL (0-0.5); Eosinophils % (auto) 0.6 %; Hematocrit (blood only) 27.6 % (37-47); Hemoglobin 9.1 g/dL (12.0-16.0); Immature Granulocytes # (auto) 0.62 K/uL (0.00-0.02); Immature Granulocytes % (auto) 3.5 %; Lymphocytes # (auto) 2.05 K/uL (1.2-3.4); Lymphocytes % (auto) 11.4 %; Mean Corpuscular Hemoglobin 31.6 pg (25-34); Mean Corpuscular Volume 95.8 fL (80-100); Mean Platelet Volume 9.5 fL (7.4-10.4); Monocytes # (auto) 1.78 K/uL (0.11-0.59); Monocytes % (auto) 9.9 %; Neutrophils % (auto) 74.3 %; Platelet Count 322 K/uL (130-400); RDW Coefficient of Variation 16.7 % (11.5-14.5); RDW Standard Deviation 57.5 fL (36.4-46.3); Red Blood Count 2.88 M/uL (4.2-5.4); White Blood Count 17.92 K/uL (4.8-10.8)
[2019-05-27 15:11] LABS: INR 1.1 (0.9-1.1); Prothrombin Time 11.4 Seconds (9.0-12.0)
[2019-05-27 15:26] LABS: Albumin Globulin Ratio 0.4 (0.9-2); Albumin Level 2.1 gm/dl (3.4-5.0); Bilirubin,Total 0.3 mg/dl (0.2-1); Calcium 9.1 mg/dl (8.5-10.1); Creatinine Clr Calc Pharmacy 29.1 ml/min; Est GFR (African American) 22.8; Est GFR (Non-African American) 19.6; Globulin 5.6 gm/dl (2.5-4.0); Potassium 3.3 mmol/L (3.5-5.1); Total Protein 7.7 gm/dl (6.4-8.2)
[2019-05-27] MEDS: WARFARIN SOD 5 MG TAB PO SCH (17:26)
--- NOTE | 2019-05-27 17:47 | Nephrology Progress Note ---
Date of Service May 27, 2019 Assessment & Plan (1) ESRD (end stage renal disease): Patient is normally dialysed on a MWF schedule. She tolerated dialysis well today. Next dialysis will be Thursday. (2) Diabetic foot infection: Patient s/p BKA 05/25. Pain control per primary team. (3) Anemia in ESRD (end-stage renal disease): Patient with anemia of renal disease. Will continue Epogen 10,000 units with HD. (4) Secondary hyperparathyroidism (of renal origin): Patient should be encouraged to take Phoslo 2 tabs tid with meals. Check Phos atleast once weekly. Subjective ESRD patient seen and examined while on dialysis. No SOB. Has bahena in the right stump. Review of Systems Review of Systems: All systems reviewed & are unremarkable except as noted in HPI & below Physical Exam Physical Exam: General exam: Appears comfortable, no acute distress HEENT: Pupils are equal and reactive to light Neck: No JVD, neck is supple trachea is midline Respiratory system: Clear breath sounds bilaterally. Gastrointestinal: Abdomen is soft, non distended, non tender, bowel sounds are present CVS: Regular rate and rhythm. No murmurs, rubs or gallops Musculoskeletal: No joint or muscle tenderness Extremities: right BKA Neuro: Oriented, no tremors, no focal neurological deficits Skin: No rashes AVF: good bruit Results & Data Vital Signs (Past 12 Hours) Vital Signs Temp Pulse Pulse Resp BP BP Pulse Ox 05/27/19 15:28 37.0 C 70 16 115/59 L 90 05/27/19 14:20 89 131/61 05/27/19 14:00 87 121/64 05/27/19 13:40 87 130/61 05/27/19 13:20 84 116/61 05/27/19 13:00 83 126/60 05/27/19 12:40 83 132/50 L 05/27/19 12:20 81 113/55 L 05/27/19 12:00 69 117/56 L 05/27/19 11:40 79 122/56 L 05/27/19 11:20 82 127/53 L 05/27/19 11:00 75 118/50 L 05/27/19 10:40 37.1 C 05/27/19 07:24 37.1 C 70 18 124/68 90 Laboratory Results Laboratory Results - last 24 hr 05/26/19 05/27/19 05/27/19 20:38 08:18 14:50 WBC RBC Hgb Hct MCV MCH MCHC RDW Std Deviation RDW Coeff of Dean Plt Count MPV Immature Gran % (Auto) Neut % (Auto) Lymph % (Auto) [place] % (Auto) Eos % (Auto) Baso % (Auto) Immature Gran # (Auto) Neut # (Auto) Lymph # (Auto) [place] # (Auto) Eos # (Auto) Baso # (Auto) PT INR Sodium 132 L Potassium 3.3 L D Chloride 99 Carbon Dioxide 27 Anion Gap 6.0 BUN 10 D Creatinine 2.53 H D Est Cr Clr Drug Dosing 29.1 Est GFR ( Amer) 22.8 Est GFR (Non-Af Amer) 19.6 BUN/Creatinine Ratio 4.0 L Glucose 113 H POC Glucose 249 H 181 H Calcium 9.1 Total Bilirubin 0.3 AST 44 H ALT 18 Alkaline Phosphatase 99 Total Creatine Kinase 330 H Total Protein 7.7 Albumin 2.1 L Globulin 5.6 H Albumin/Globulin Ratio 0.4 L 05/27/19 05/27/19 05/27/19 14:50 14:50 15:07 WBC 17.92 H RBC 2.88 L Hgb 9.1 L Hct 27.6 L MCV 95.8 MCH 31.6 MCHC 33.0 RDW Std Deviation 57.5 H RDW Coeff of Dean 16.7 H Plt Count 322 MPV 9.5 Immature Gran % (Auto) 3.5 Neut % (Auto) 74.3 Lymph % (Auto) 11.4 [place] % (Auto) 9.9 Eos % (Auto) 0.6 Baso % (Auto) 0.3 Immature Gran # (Auto) 0.62 H Neut # (Auto) 13.30 H Lymph # (Auto) 2.05 [place] # (Auto) 1.78 H Eos # (Auto) 0.11 Baso # (Auto) 0.06 PT 11.4 INR 1.1 Sodium Potassium Chloride Carbon Dioxide Anion Gap BUN Creatinine Est Cr Clr Drug Dosing Est GFR ( Amer) Est GFR (Non-Af Amer) BUN/Creatinine Ratio Glucose POC Glucose 110 H Calcium Total Bilirubin AST ALT Alkaline Phosphatase Total Creatine Kinase Total Protein Albumin Globulin Albumin/Globulin Ratio
[2019-05-27] MEDS: FLUTICASONE PROPIONATE NA SPR 16 GM BTL SCH (21:52)
[2019-05-27] MEDS: SENNA 8.6 MG TAB PO SCH (21:52)
[2019-05-27] MEDS: NEPHROCAPS PO SCH (21:54)
[2019-05-28] MEDS ORDERED: INSULIN HUMAN REGULAR SC SCH
[2019-05-28] MEDS: HYDROmorphone INJ 0.5 MG/0.5 ML SYR IV PRN (06:02)
[2019-05-28] MEDS: PREGABALIN 150 MG CAP PO SCH ×2 (09:13→20:21)
[2019-05-28] MEDS: OXYCODONE HCL 10 MG TABCR (OXYCONTIN) PO SCH ×2 (09:13→20:07)
[2019-05-28] MEDS: FLUOXETINE HCL 20 MG CAP PO SCH (09:14)
[2019-05-28] MEDS: CALCIUM ACETATE 667 MG CAP PO SCH ×3 (09:14→18:26)
[2019-05-28] MEDS: PANTOprazole 40 MG TAB PO SCH (09:15)
[2019-05-28] MEDS: MULTIVITAMIN TAB PO SCH (09:15)
[2019-05-28] MEDS: FERROUS GLUCONATE 324 MG TAB PO SCH ×2 (09:16→18:26)
[2019-05-28] MEDS: ASCORBIC ACID 500 MG TAB PO SCH ×2 (09:16→18:27)
[2019-05-28] MEDS: DOCUSATE SODIUM 100 MG CAP PO SCH ×2 (09:17→20:07)
[2019-05-28] MEDS: HEPARIN SOD 5,000 UNIT/0.5 ML VIAL SQ SCH ×2 (09:23→20:13)
[2019-05-28] MEDS: INSULIN HUMAN NPH SC SCH ×2 (09:24→18:31)
[2019-05-28] MEDS: INSULIN HUMAN REGULAR SC SCH ×4 (09:25→20:13)
[2019-05-28] MEDS: LOPERAMIDE HCL 2 MG CAP PO PRN ×2 (09:32→18:40)
--- NOTE | 2019-05-28 10:07 | Progress Note ---
DATE: 05/28/2019 SUBJECTIVE: A 63-year-old female diabetic with multiple medical comorbidities postop day #3 from right below knee amputation for infection and osteomyelitis. She is doing okay. She says her pain is controlled except for some occasional twinges here and there. No other complaints. OBJECTIVE: VITAL SIGNS: Temperature 37.1. Vital signs stable. GENERAL: Reveals a pleasant, middle-aged female. She is sitting up in bed and just about ready to eat breakfast. EXTREMITIES: Examination of the right leg reveals the wound to be well approximated. Some moderate swelling. No real significant drainage today. Just diffuse tenderness to palpation. LABORATORY DATA: Pending. ASSESSMENT: A 63-year-old female postop day #3 from a right below knee amputation for infection. Orthopedically, she is doing well. Wound looks to be stable. She does not need antibiotics from the orthopedic standpoint. PLAN: 1. DVT prophylaxis including thigh-high TEDs, SCDs, and she is back on her anticoagulation. 2. PT/OT. Just needs instructions on mobilization. 3. Medical management as per the medicine service. 4. Antibiotic management. From the orthopedic standpoint, she does not need further antibiotics at this time. 5. Wound care. We will just continue just routine wound care once a day. We will get a Tubigrip/stockinette over her stump and then wrap with an Jimmy bandage. 6. Followup visits. I need to see her back 2 weeks out from her surgery date. Any orthopedic questions can be directed to me at [phone].
[2019-05-28] MEDS: PIPERACILLIN/TAZOBACTAM 4.5 GM in DEXTROSE 5% 100 ML IV SCH (10:23)
--- NOTE | 2019-05-28 11:05 | Hospitalist Progress Note ---
Date of Service May 28, 2019 Assessment & Plan (1) Diabetic foot ulcer associated with type 2 diabetes mellitus: Patient is a 63 yr female with H/O uncontrolled DM 2, ESRD on HD MWF, diabetic neuropathy, diabetic gastroparesis, Charcot foot secondary to DM, diabetic retinopathy, HTN, HLD, PAF, history of DVT on warfarin, hyperparathyroidism secondary to end-stage renal disease, anemia of chronic disease who presents to [facility] on referral from wound clinic secondary to deterioration of right heel wound and hyperglycemia. Right diabetic foot infection/Ulceration with Necrosis s/p right below knee amputation on this admission -Ankle MRI:Susceptibility artifact concerning for gas along the posterior soft tissues extending from the calcaneal wound and tracking superiorly along the completely torn and retracted Achilles tendon. Wound along the posterior calcaneus. Minimal osseous erosion of the subjacent calcaneus without convincing evidence of osteomyelitis at this time. Moderate ankle joint effusion. Degenerative changes at the tarsometatarsal articulations. Plantar fasciitis. -Venous Doppler:No sonographic evidence of deep venous thrombosis. -Arterial Dopplers: No hemodynamically significant stenosis in the right lower extremity -Blood Cx: No growth to date -Wound Cx: Coagulase negative staph -S/P Debridement on 05/21/19 -had been on Zosyn and daptomycin on this admission -Continue wound Care -Pain control medications -s/p right below knee amputation on 05/25/19; T max 38 F post-op on 05/25/19; reviewed surgical recommendations but given that there is still serosanguineous drainage from surgical incision sites to the dressings, was continued broad spectrum IV antibiotics for now of Zosyn and Daptomycin -05/26/19 recent normal body temperatures. continue Zosyn for now and stopped the daptomycin -05/27/19 to 05/28/19: have been on Zosyn. orthopedics recommend to stop Zosyn. Zosyn stopped on 05/28/19 and to monitor off antibiotics Diarrhea, chronic -05/24/19 negative C.difficile test -loperamide prn for diarrhea -stop the fluid restriction -repeat C.difficile test on 05/28/19 with stool culture (2) Diabetes mellitus, type 2: -Uncontrolled type 2 diabetes mellitus with hyperglycemia -HbA1c 10.5 -was on IV insulin drip on earlier on this admission -currently on subcutaneous insulin and managed by pharmacy glycemic consult (3) Atrial fibrillation: -history of Paroxysmal Atrial fibrillation -Currently in sinus and rate is controlled -patient off coumadin prior to right below knee amputation on 05/25/19 -patient received 10 mg coumadin on 05/25/19 after surgery -daily coumadin resumed on 05/26/19 -started subcutaneous heparin on 05/27/19 day time until INR is therapeutic from coumadin, trend INR levels (4) Hypertension: -blood pressure improved with dialysis on this hospitalization (5) Hyperlipidemia: -Hold statin while on Daptomycin (6) ESRD (end stage renal disease): -ESRD with dependence on hemodialysis -dialysis schedule is every Thursday/Thursday/Thursday -on Renal diet (7) Anemia in ESRD (end-stage renal disease): -hemoglobin is stable above 9 Chronic hyponatremia Hypochloremia -partly due to dialysis fluid shifts and chronic diarrhea -Sodium levels 132 and serum chloride 99 on most recent 05/27/19 labs (8) Diabetic peripheral neuropathy: -continue lyrica (9) Gastroparesis: -zofran PRN (10) GERD (gastroesophageal reflux disease): -continue PPI (11) Depression: -continue prozac (12) DVT prophylaxis: -patient received 10 mg coumadin on 05/25/19 after surgery -daily coumadin resumed on 05/26/19 -start subcutaneous heparin on 05/27/19 day time until INR is therapeutic from coumadin, trend INR levels Patient's Primary Care Provider as outpatient is Dr. Dixon Subjective Patient seen and examined at bedside. right below knee amputation in dressing. As per her nurse the wound healing is not completely healed. Patient denies acute pain. Breathing on room air. no distress. she had dialysis yesterday. no dizziness. no lightheadedness. no vomiting. no abdomen pain. loose stool sample to be sent for testing Physical Exam Constitutional: comfortable Eyes: PERRL, conjunctivae normal, anicteric sclerae EOM intact bilaterally ENMT: external ear and nose normal, oropharynx normal Neck: normal visual inspection Respiratory: normal respiratory effort, lungs clear to auscultation Cardiovascular: Rate/Rhythm: regular rate and regular rhythm Gastrointestinal (Abdomen): normal bowel sounds, soft, nontender, no hepatosplenomegaly Musculoskeletal: Head/Neck/Chest: normocephalic and head atraumatic Knee: + knee abnormal to inspection (right below knee amputation) Neurologic: PERRL, EOMI, accommodation nl, no face palsy, no dysarthria Psychiatric: A+Ox3, euthymic affect Results & Data Vital Signs (Past 12 Hours) Vital Signs Temp Pulse Resp BP Pulse Ox 05/28/19 07:51 37.1 C 78 22 118/67 90 05/27/19 23:44 37.2 C 78 18 146/70 H 90 (1) Diabetic foot ulcer associated with type 2 diabetes mellitus Diabetic foot ulcer location: heel Laterality: left Non-pressure ulcer stage: limited to breakdown of skin Qualified Code(s): E11.621 - Type 2 diabetes mellitus with foot ulcer; L97.421 - Non-pressure chronic ulcer of left heel and midfoot limited to breakdown of skin (2) Hypertension Hypertension type: unspecified Qualified Code(s): I10 - Essential (primary) hypertension
[2019-05-28 11:35] LABS: Basophils # (auto) 0.07 K/uL (0-0.2); Basophils % (auto) 0.5 %; Eosinophils # (auto) 0.19 K/uL (0-0.5); Eosinophils % (auto) 1.4 %; Hematocrit (blood only) 23.9 % (37-47); Hemoglobin 7.3 g/dL (12.0-16.0); Immature Granulocytes # (auto) 0.58 K/uL (0.00-0.02); Immature Granulocytes % (auto) 4.3 %; Lymphocytes # (auto) 1.74 K/uL (1.2-3.4); Lymphocytes % (auto) 12.8 %; Mean Corpuscular Hemoglobin 30.3 pg (25-34); Mean Corpuscular Volume 99.2 fL (80-100); Mean Platelet Volume 9.5 fL (7.4-10.4); Monocytes # (auto) 1.19 K/uL (0.11-0.59); Monocytes % (auto) 8.8 %; Neutrophils # (auto) 9.78 K/uL (1.4-6.5); Neutrophils % (auto) 72.2 %; Nucleated RBC # (auto) 0.05 K/uL (0-0); Nucleated RBC % (auto) 0.3 %; Platelet Count 260 K/uL (130-400); RDW Coefficient of Variation 17.1 % (11.5-14.5); Red Blood Count 2.41 M/uL (4.2-5.4); White Blood Count 13.55 K/uL (4.8-10.8)
[2019-05-28 11:37] LABS: Mean Corpuscular Hgb Conc 30.5 g/dL (32-36)
[2019-05-28 11:48] LABS: INR 1.3 (0.9-1.1); Prothrombin Time 13.1 Seconds (9.0-12.0)
[2019-05-28 12:47] LABS: Polychromasia 1+
[2019-05-28 13:07] LABS: Basophils # (auto) 0.05 K/uL (0-0.2); Basophils % (auto) 0.4 %; Eosinophils # (auto) 0.19 K/uL (0-0.5); Eosinophils % (auto) 1.4 %; Hematocrit (blood only) 24.6 % (37-47); Hemoglobin 7.7 g/dL (12.0-16.0); Immature Granulocytes % (auto) 4.3 %; Lymphocytes # (auto) 1.89 K/uL (1.2-3.4); Lymphocytes % (auto) 13.5 %; Mean Corpuscular Hemoglobin 30.9 pg (25-34); Mean Corpuscular Volume 98.8 fL (80-100); Mean Platelet Volume 9.6 fL (7.4-10.4); Monocytes # (auto) 1.18 K/uL (0.11-0.59); Monocytes % (auto) 8.5 %; Neutrophils # (auto) 10.04 K/uL (1.4-6.5); Neutrophils % (auto) 71.9 %; Nucleated RBC # (auto) 0.06 K/uL (0-0); Nucleated RBC % (auto) 0.4 %; Platelet Count 287 K/uL (130-400); RDW Coefficient of Variation 16.9 % (11.5-14.5); RDW Standard Deviation 59.9 fL (36.4-46.3); Red Blood Count 2.49 M/uL (4.2-5.4); White Blood Count 13.95 K/uL (4.8-10.8)
[2019-05-28 13:09] LABS: Mean Corpuscular Hgb Conc 31.3 g/dL (32-36)
[2019-05-28 13:31] LABS: Polychromasia 1+
[2019-05-28] MEDS: WARFARIN SOD 5 MG TAB PO SCH (18:25)
[2019-05-28] MEDS: FLUTICASONE PROPIONATE NA SPR 16 GM BTL SCH (20:07)
[2019-05-28] MEDS: SENNA 8.6 MG TAB PO SCH (20:07)
[2019-05-28] MEDS: NEPHROCAPS PO SCH (20:08)
[2019-05-29 06:31] LABS: INR 1.4 (0.9-1.1); Prothrombin Time 13.7 Seconds (9.0-12.0)
--- NOTE | 2019-05-29 09:08 | Progress Note ---
DATE: 05/29/2019 SUBJECTIVE: A 63-year-old female now postop day #4 from right leg below knee amputation for chronic infection and Achilles wound. She is doing pretty well. Pain seems to be getting a little bit better daily. No real complaints of pain today. No chest pain or shortness of breath. Not feeling dizzy or lightheaded. OBJECTIVE: VITAL SIGNS: Temperature is 37.0. Vital signs stable. GENERAL: Today shows a pleasant, middle-aged female. She is lying in bed, looks pretty comfortable. EXTREMITIES: Examination of the right leg reveals the dressing to be clean, dry and intact. No signs of any significant drainage. She is neurologically stable. LABORATORY DATA: Hemoglobin was 7.7, hematocrit 24.6. ASSESSMENT: A 63-year-old female postop day #4 from right leg below knee amputation for chronic infection and chronic wound. She seems to be doing pretty well. Medically she seems stable. Hemoglobin was a bit low, but asymptomatic. Her wound looks good. PLAN: At this point, we are just going to leave this bandage on for now. I will check her tomorrow. Continue pain control as per the primary care service. She is back on her normal anticoagulation. Any orthopedic questions can be directed to me at [phone]. She is okay for discharge any time medically stable.
[2019-05-29] MEDS: FERROUS GLUCONATE 324 MG TAB PO SCH ×2 (09:14→18:30)
[2019-05-29] MEDS: CALCIUM ACETATE 667 MG CAP PO SCH ×3 (09:15→18:30)
[2019-05-29] MEDS: PREGABALIN 150 MG CAP PO SCH ×2 (09:15→21:43)
[2019-05-29] MEDS: ASCORBIC ACID 500 MG TAB PO SCH ×2 (09:15→18:31)
[2019-05-29] MEDS: DOCUSATE SODIUM 100 MG CAP PO SCH ×2 (09:15→21:35)
[2019-05-29] MEDS: MULTIVITAMIN TAB PO SCH (09:16)
[2019-05-29] MEDS: PANTOprazole 40 MG TAB PO SCH (09:16)
[2019-05-29] MEDS: OXYCODONE HCL 10 MG TABCR (OXYCONTIN) PO SCH ×2 (09:16→21:43)
[2019-05-29] MEDS: FLUOXETINE HCL 20 MG CAP PO SCH (09:17)
[2019-05-29] MEDS: HEPARIN SOD 5,000 UNIT/0.5 ML VIAL SQ SCH ×2 (09:22→21:45)
[2019-05-29] MEDS: INSULIN HUMAN REGULAR SC SCH ×4 (09:24→21:44)
[2019-05-29] MEDS: INSULIN HUMAN NPH SC SCH ×2 (09:25→18:34)
[2019-05-29] MEDS: HYDROmorphone INJ 0.5 MG/0.5 ML SYR IV PRN ×2 (11:02→19:57)
[2019-05-29] MEDS: LOPERAMIDE HCL 2 MG CAP PO PRN (11:08)
[2019-05-29] MEDS ORDERED: SODIUM CHLORIDE 0.9% 250 ML IV PRN ×2 (13:08→13:10)
--- NOTE | 2019-05-29 13:33 | Hospitalist Progress Note ---
Date of Service May 29, 2019 Assessment & Plan (1) Diabetic foot ulcer associated with type 2 diabetes mellitus: Patient is a 63 yr female with H/O uncontrolled DM 2, ESRD on HD MWF, diabetic neuropathy, diabetic gastroparesis, Charcot foot secondary to DM, diabetic retinopathy, HTN, HLD, PAF, history of DVT on warfarin, hyperparathyroidism secondary to end-stage renal disease, anemia of chronic disease who presents to [facility] on referral from wound clinic secondary to deterioration of right heel wound and hyperglycemia. Right diabetic foot infection/Ulceration with Necrosis s/p right below knee amputation on this admission -Ankle MRI:Susceptibility artifact concerning for gas along the posterior soft tissues extending from the calcaneal wound and tracking superiorly along the completely torn and retracted Achilles tendon. Wound along the posterior calcaneus. Minimal osseous erosion of the subjacent calcaneus without convincing evidence of osteomyelitis at this time. Moderate ankle joint effusion. Degenerative changes at the tarsometatarsal articulations. Plantar fasciitis. -Venous Doppler:No sonographic evidence of deep venous thrombosis. -Arterial Dopplers: No hemodynamically significant stenosis in the right lower extremity -Blood Cx: No growth to date -Wound Cx: Coagulase negative staph -S/P Debridement on 05/21/19 -had been on Zosyn and daptomycin on this admission -Continue wound Care -Pain control medications -s/p right below knee amputation on 05/25/19; T max 38 F post-op on 05/25/19; reviewed surgical recommendations but given that there is still serosanguineous drainage from surgical incision sites to the dressings, was continued broad spectrum IV antibiotics on Zosyn and Daptomycin -05/26/19 recent normal body temperatures. continue Zosyn for now and stopped the daptomycin -05/27/19 to 05/28/19: have been on Zosyn. orthopedics recommend to stop Zosyn. Zosyn stopped on 05/28/19 and to monitor off antibiotics Diarrhea, chronic -05/24/19 negative C.difficile test -loperamide prn for diarrhea -stop the fluid restriction -repeat C.difficile test on 05/28/19 with stool culture are negative (2) Diabetes mellitus, type 2: -Uncontrolled type 2 diabetes mellitus with hyperglycemia -HbA1c 10.5 -was on IV insulin drip on earlier on this admission -currently on subcutaneous insulin and managed by pharmacy glycemic consult (3) Atrial fibrillation: -history of Paroxysmal Atrial fibrillation -Currently in sinus and rate is controlled -patient off coumadin prior to right below knee amputation on 05/25/19 -patient received 10 mg coumadin on 05/25/19 after surgery -daily coumadin resumed on 05/26/19 -started subcutaneous heparin on 05/27/19 day time until INR is therapeutic from coumadin, trend INR levels (4) Hypertension: -blood pressure improved with dialysis on this hospitalization (5) Hyperlipidemia: -Hold statin while on Daptomycin (6) ESRD (end stage renal disease): -ESRD with dependence on hemodialysis -dialysis schedule is every Thursday/Thursday/Thursday -on Renal diet (7) Anemia in ESRD (end-stage renal disease): -hemoglobin decreased to the 7s based on 05/28/19 labs -no acute need to transfuse immediately but given that patient's hemoglobin has been under 8 and patient will get dialysis on 05/30/19, patient agreed for 1 unit of PRBC with dialysis to raise blood counts Chronic hyponatremia Hypochloremia -partly due to dialysis fluid shifts and chronic diarrhea -Sodium levels 132 and serum chloride 99 on most recent 05/27/19 labs (8) Diabetic peripheral neuropathy: -continue lyrica (9) Gastroparesis: -zofran PRN (10) GERD (gastroesophageal reflux disease): -continue PPI (11) Depression: -continue prozac (12) DVT prophylaxis: -patient received 10 mg coumadin on 05/25/19 after surgery -daily coumadin resumed on 05/26/19 -start subcutaneous heparin on 05/27/19 day time until INR is therapeutic from coumadin, trend INR levels Patient's Primary Care Provider as outpatient is Dr. Dixon Subjective -hemoglobin decreased to the 7s based on 05/28/19 labs -no acute need to transfuse immediately but given that patient's hemoglobin has been under 8 and patient will get dialysis on 05/30/19, patient agreed for 1 unit of PRBC with dialysis to raise blood counts patient denies acute pain. breathing on room air. no chest pain. no abdominal pain. right knee amputation in dressing Physical Exam Constitutional: comfortable Eyes: PERRL, conjunctivae normal, anicteric sclerae EOM intact bilaterally ENMT: external ear and nose normal, oropharynx normal Neck: normal visual inspection Respiratory: normal respiratory effort, lungs clear to auscultation Cardiovascular: Rate/Rhythm: regular rate and regular rhythm Gastrointestinal (Abdomen): normal bowel sounds, soft, nontender, no hepatosplenomegaly Musculoskeletal: Head/Neck/Chest: normocephalic and head atraumatic Knee: + knee abnormal to inspection (right below knee amputation in dressing) Neurologic: PERRL, EOMI, accommodation nl, no face palsy, no dysarthria Psychiatric: A+Ox3, euthymic affect Results & Data Vital Signs (Past 12 Hours) Vital Signs Temp Pulse Resp BP Pulse Ox 05/29/19 07:36 37.0 C 73 16 102/61 92 (1) Diabetic foot ulcer associated with type 2 diabetes mellitus Diabetic foot ulcer location: heel Laterality: left Non-pressure ulcer stage: limited to breakdown of skin Qualified Code(s): E11.621 - Type 2 diabetes mellitus with foot ulcer; L97.421 - Non-pressure chronic ulcer of left heel and midfoot limited to breakdown of skin (2) Hypertension Hypertension type: unspecified Qualified Code(s): I10 - Essential (primary) hypertension
[2019-05-29] MEDS ORDERED: MICONAZOLE NITRATE POWDER 43 GM EXT PRN (15:02)
[2019-05-29] MEDS: WARFARIN SOD 5 MG TAB PO SCH (18:29)
[2019-05-29] MEDS: SENNA 8.6 MG TAB PO SCH (21:35)
[2019-05-29] MEDS: FLUTICASONE PROPIONATE NA SPR 16 GM BTL SCH (21:44)
[2019-05-29] MEDS: NEPHROCAPS PO SCH (21:47)
[2019-05-30 05:37] LABS: INR 1.4 (0.9-1.1); Prothrombin Time 14.2 Seconds (9.0-12.0)
[2019-05-30] MEDS: HYDROmorphone INJ 0.5 MG/0.5 ML SYR IV PRN (07:38)
[2019-05-30] MEDS: ONDANSETRON INJ 2 MG/ML 2 ML VIAL IV PRN ×2 (07:38→20:45)
--- NOTE | 2019-05-30 07:52 | Hospitalist Progress Note ---
Date of Service May 30, 2019 Assessment & Plan (1) Diabetic foot ulcer associated with type 2 diabetes mellitus: Patient is a 63 yr female with H/O uncontrolled DM 2, ESRD on HD MWF, diabetic neuropathy, diabetic gastroparesis, Charcot foot secondary to DM, diabetic retinopathy, HTN, HLD, PAF, history of DVT on warfarin, hyperparathyroidism secondary to end-stage renal disease, anemia of chronic disease who presents to [facility] on referral from wound clinic secondary to deterioration of right heel wound and hyperglycemia. Right diabetic foot infection/Ulceration with Necrosis s/p right below knee amputation on this admission -Ankle MRI:Susceptibility artifact concerning for gas along the posterior soft tissues extending from the calcaneal wound and tracking superiorly along the completely torn and retracted Achilles tendon. Wound along the posterior calcaneus. Minimal osseous erosion of the subjacent calcaneus without convincing evidence of osteomyelitis at this time. Moderate ankle joint effusion. Degenerative changes at the tarsometatarsal articulations. Plantar fasciitis. -Venous Doppler:No sonographic evidence of deep venous thrombosis. -Arterial Dopplers: No hemodynamically significant stenosis in the right lower extremity -Blood Cx: No growth to date -Wound Cx: Coagulase negative staph -S/P Debridement on 05/21/19 -had been on Zosyn and daptomycin on this admission -Continue wound Care -Pain control medications -s/p right below knee amputation on 05/25/19; T max 38 F post-op on 05/25/19; reviewed surgical recommendations but given that there is still serosanguineous drainage from surgical incision sites to the dressings, was continued broad spectrum IV antibiotics on Zosyn and Daptomycin -05/26/19 recent normal body temperatures. continue Zosyn for now and stopped the daptomycin -05/27/19 to 05/28/19: have been on Zosyn. orthopedics recommend to stop Zosyn. Zosyn stopped on 05/28/19 and monitor off antibiotics Diarrhea, chronic -05/24/19 negative C.difficile test -loperamide prn for diarrhea -stop the fluid restriction -repeat C.difficile test on 05/28/19 with stool culture are negative (2) Diabetes mellitus, type 2: -Uncontrolled type 2 diabetes mellitus with hyperglycemia -HbA1c 10.5 -was on IV insulin drip on earlier on this admission -currently on subcutaneous insulin and managed by pharmacy glycemic consult (3) Atrial fibrillation: -history of Paroxysmal Atrial fibrillation -Currently in sinus and rate is controlled -patient off coumadin prior to right below knee amputation on 05/25/19 -patient received 10 mg coumadin on 05/25/19 after surgery -daily coumadin resumed on 05/26/19 -started subcutaneous heparin on 05/27/19 day time until INR is therapeutic from coumadin daily -05/30/19: INR has remained subtherapeutic at 1.4 despite coumadin 5 mg daily, increase coumadin to 6 mg daily (4) Hypertension: -blood pressure improved with dialysis sessions on this hospitalization (5) Hyperlipidemia: -statin was stopped during this hospital stay because of daptomycin use -check creatinine kinase (6) ESRD (end stage renal disease): -ESRD with dependence on hemodialysis -dialysis schedule is every Thursday/Thursday/Thursday -on Renal diet (7) Anemia in ESRD (end-stage renal disease): -hemoglobin decreased to the 7s based on 05/28/19 labs -no acute need to transfuse immediately but given that patient's hemoglobin has been under 8 and patient will get dialysis on 05/30/19, patient agreed for 1 unit of PRBC with dialysis to raise blood counts Chronic hyponatremia Hypochloremia -partly due to dialysis fluid shifts and chronic diarrhea -Sodium levels 132 and serum chloride 99 on most recent 05/27/19 labs (8) Diabetic peripheral neuropathy: -continue lyrica (9) Gastroparesis: -zofran PRN (10) GERD (gastroesophageal reflux disease): -continue PPI (11) Depression: -continue prozac (12) DVT prophylaxis: -patient received 10 mg coumadin on 05/25/19 after surgery -daily coumadin resumed on 05/26/19 -start subcutaneous heparin on 05/27/19 day time until INR is therapeutic from coumadin, trend INR levels -05/30/19: INR has remained subtherapeutic at 1.4 despite coumadin 5 mg daily, increase coumadin to 6 mg daily Patient's Primary Care Provider as outpatient is Dr. Dixon Subjective No distress. No acute pain. Patient awaiting dialysis session during which patient will get 1 unit or PRBC. Patient agrees to the plans. no dizziness. no lightheadedness. no abdominal pain. no vomiting. no chest pain. breathing on room air Physical Exam Constitutional: comfortable Eyes: PERRL, conjunctivae normal, anicteric sclerae EOM intact bilaterally ENMT: external ear and nose normal, oropharynx normal Neck: normal visual inspection Respiratory: normal respiratory effort, lungs clear to auscultation Cardiovascular: Rate/Rhythm: regular rate and regular rhythm Gastrointestinal (Abdomen): normal bowel sounds, soft, nontender, no hepatosplenomegaly Musculoskeletal: Head/Neck/Chest: normocephalic and head atraumatic Knee: + knee abnormal to inspection (right below knee amputation in dressing) Neurologic: PERRL, EOMI, accommodation nl, no face palsy, no dysarthria Psychiatric: A+Ox3, euthymic affect Results & Data Vital Signs (Past 12 Hours) Vital Signs Temp Pulse Resp BP Pulse Ox 05/30/19 07:37 37.1 C 69 16 113/67 96 05/29/19 23:45 97 05/29/19 23:40 37.1 C 54 L 16 112/67 86 L (1) Diabetic foot ulcer associated with type 2 diabetes mellitus Diabetic foot ulcer location: heel Laterality: left Non-pressure ulcer st age: limited to breakdown of skin Qualified Code(s): E11.621 - Type 2 diabetes mellitus with foot ulcer; L97.421 - Non-pressure chronic ulcer of left heel and midfoot limited to breakdown of skin (2) Hypertension Hypertension type: unspecified Qualified Code(s): I10 - Essential (primary) hypertension
[2019-05-30] MEDS: OXYCODONE HCL 10 MG TABCR (OXYCONTIN) PO SCH ×2 (08:17→21:20)
[2019-05-30] MEDS: PREGABALIN 150 MG CAP PO SCH ×2 (08:17→21:20)
[2019-05-30] MEDS: ASCORBIC ACID 500 MG TAB PO SCH ×2 (08:18→17:04)
[2019-05-30] MEDS: CALCIUM ACETATE 667 MG CAP PO SCH ×3 (08:18→17:04)
[2019-05-30] MEDS: PANTOprazole 40 MG TAB PO SCH (08:18)
[2019-05-30] MEDS: MULTIVITAMIN TAB PO SCH (08:18)
[2019-05-30] MEDS: HEPARIN SOD 5,000 UNIT/0.5 ML VIAL SQ SCH ×2 (08:19→21:29)
[2019-05-30] MEDS: DOCUSATE SODIUM 100 MG CAP PO SCH ×2 (08:19→21:24)
[2019-05-30] MEDS: FERROUS GLUCONATE 324 MG TAB PO SCH ×2 (08:20→17:02)
[2019-05-30 08:26] LABS: Hematocrit (blood only) 23.9 % (37-47); Hemoglobin 7.4 g/dL (12.0-16.0); Mean Corpuscular Hemoglobin 30.5 pg (25-34); Mean Corpuscular Volume 98.4 fL (80-100); Mean Platelet Volume 10.2 fL (7.4-10.4); Nucleated RBC # (auto) 0.09 K/uL (0-0); Nucleated RBC % (auto) 0.7 %; Platelet Count 317 K/uL (130-400); RDW Coefficient of Variation 16.8 % (11.5-14.5); RDW Standard Deviation 58.6 fL (36.4-46.3); Red Blood Count 2.43 M/uL (4.2-5.4); White Blood Count 12.49 K/uL (4.8-10.8)
[2019-05-30] MEDS: INSULIN HUMAN NPH SC SCH ×2 (08:35→18:38)
[2019-05-30] MEDS: INSULIN HUMAN REGULAR SC SCH ×4 (08:37→21:28)
[2019-05-30 08:39] LABS: Albumin Globulin Ratio 0.4 (0.9-2); Albumin Level 1.7 gm/dl (3.4-5.0); BUN Creatinine Ratio 4.5 (10-20); Bilirubin,Total 0.3 mg/dl (0.2-1); Calcium 9.2 mg/dl (8.5-10.1); Creatinine Clr Calc Pharmacy 7.6 ml/min; Est GFR (African American) 4.6; Globulin 4.8 gm/dl (2.5-4.0); Potassium 3.4 mmol/L (3.5-5.1); Total Protein 6.5 gm/dl (6.4-8.2)
[2019-05-30] MEDS: FLUOXETINE HCL 20 MG CAP PO SCH (08:40)
[2019-05-30 09:01] LABS: Basophils # (auto) 0.09 K/uL (0-0.2); Basophils % (auto) 0.7 %; Eosinophils # (auto) 0.22 K/uL (0-0.5); Eosinophils % (auto) 1.8 %; Immature Granulocytes # (auto) 0.86 K/uL (0.00-0.02); Immature Granulocytes % (auto) 6.9 %; Lymphocytes # (auto) 2.02 K/uL (1.2-3.4); Lymphocytes % (auto) 16.2 %; Monocytes # (auto) 1.57 K/uL (0.11-0.59); Monocytes % (auto) 12.6 %; Neutrophils # (auto) 7.73 K/uL (1.4-6.5); Neutrophils % (auto) 61.8 %; Polychromasia 1+
--- NOTE | 2019-05-30 09:10 | Progress Note ---
DATE: 05/30/2019 SUBJECTIVE: A 63-year-old female postop day 5 from a right below-knee amputation for chronic infection. She seems to be doing well. Pain seems to be getting better. No complaints today. OBJECTIVE: VITAL SIGNS: Temperature 37.1. Vital signs stable. EXTREMITIES: Physical examination of the right leg reveals just a little bit of drainage in her dressing. I removed the dressing today and her wound is well approximated. There is just a little of darkish discoloration to the anterior flap edges, just at the very edges. Everything else looks good. No cellulitis. No significant drainage. ASSESSMENT: A 63-year-old female postoperative day 5 from a right below-knee amputation for infection. She seems to be doing better daily. Pain is controlled. Wound is stable. PLAN: I re-dressed her wound today. We will continue medical management. She is orthopedically okay for discharge at any time when medically stable. I need to see her back 2 weeks out from surgery date. Any orthopedic questions can be directed to me at [phone].
[2019-05-30] MEDS ORDERED: EPOETIN ALFA 20,000 UNITS in SYRINGE 0 ML IV SCH (09:30)
--- NOTE | 2019-05-30 09:54 | Pharmacy Report ---
Pharmacy Glycemic Short Note 2 - Date of Service May 30, 2019 - Glycemic Short BSG Results (Last 24 hours): 05/29/19 05/29/19 05/29/19 12:20 17:22 20:47 Glucose POC Glucose 169 H 156 H 181 H 05/30/19 05/30/19 04:43 08:20 Glucose 107 H POC Glucose 126 H ASSESSMENT: 05/30 * Melita's BSGs remain stable on NPH 25-30 units BID + Regular insulin with CF 10, CR 3.5. TDD ranging from 85-105 units. * She has received 55 units of basal for the past 3 days with fasting of 126 mg/dL this AM * She is scheduled for dialysis today PLAN FOR INPATIENT GLYCEMIC CONTROL: * Basal insulin - no change NPH BID with meals with scale 25 units for BSG less than 180 mg/dl 30 units for BSG 180 or greater * Bolus insulin - no change * NovoLog per scale ACHS or Q6hrs while NPO * Goal Range: Low 110 mg/dL - High 140 mg/dL * Correction Factor: 10 mg/dL/unit * Nutritional / Prandial insulin per carb ratio of 1 unit per 3.5 grams CHO consumed Discharge Recommendations: * Patient admits to missing insulin doses at home but inpatient requirements certainly warrant an increase in outpatient regimen * Est TDD at least 80 units/day * Recommend: * Increase Humulin 70/30 55 units with breakfast, 25 units with dinner * Continue outpatient f/u with [facility] in [place]
[2019-05-30] MEDS ORDERED: EPOETIN ALFA 20,000 UNITS/ML VIAL SQ SCH (10:00)
[2019-05-30] MEDS ORDERED: IRON SUCROSE 100 MG in SYRINGE 0 ML IV SCH ×2 (10:00→12:30)
[2019-05-30 14:36] LABS: Hematocrit (blood only) 29.2 % (37-47); Hemoglobin 9.3 g/dL (12.0-16.0); Mean Corpuscular Hemoglobin 30.7 pg (25-34); Mean Corpuscular Hgb Conc 31.8 g/dL (32-36); Mean Corpuscular Volume 96.4 fL (80-100); Mean Platelet Volume 9.7 fL (7.4-10.4); Nucleated RBC # (auto) 0.17 K/uL (0-0); Nucleated RBC % (auto) 1.4 %; Platelet Count 297 K/uL (130-400); RDW Coefficient of Variation 17.5 % (11.5-14.5); RDW Standard Deviation 59.7 fL (36.4-46.3); Red Blood Count 3.03 M/uL (4.2-5.4); White Blood Count 11.97 K/uL (4.8-10.8)
[2019-05-30 14:56] LABS: BUN Creatinine Ratio 3.6 (10-20); Calcium 9.2 mg/dl (8.5-10.1); Creatinine Clr Calc Pharmacy 19.6 ml/min; Est GFR (African American) 14.6; Est GFR (Non-African American) 12.6; Potassium 3.5 mmol/L (3.5-5.1)
[2019-05-30 15:01] LABS: Albumin Globulin Ratio 0.4 (0.9-2); Bilirubin,Total 0.5 mg/dl (0.2-1); Globulin 5.3 gm/dl (2.5-4.0); Total Protein 7.3 gm/dl (6.4-8.2)
[2019-05-30 15:10] LABS: Basophils # (auto) 0.08 K/uL (0-0.2); Basophils % (auto) 0.7 %; Eosinophils # (auto) 0.16 K/uL (0-0.5); Eosinophils % (auto) 1.3 %; Immature Granulocytes # (auto) 0.66 K/uL (0.00-0.02); Immature Granulocytes % (auto) 5.5 %; Lymphocytes # (auto) 1.24 K/uL (1.2-3.4); Lymphocytes % (auto) 10.4 %; Monocytes # (auto) 1.18 K/uL (0.11-0.59); Monocytes % (auto) 9.9 %; Neutrophils # (auto) 8.65 K/uL (1.4-6.5); Neutrophils % (auto) 72.2 %; Rouleaux 1+
[2019-05-30] MEDS: WARFARIN SOD 6 MG TAB PO SCH (17:03)
[2019-05-30] MEDS ORDERED: NALOXONE HCL 0.4 MG/1 ML VIAL/CARP IV STA ×2 (20:29→22:05)
--- NOTE | 2019-05-30 20:42 | Hospitalist Progress Note ---
Date of Service May 30, 2019 Subjective Made aware by RN of worsening lethargy/drowsiness. Mentation improved after Narcan administration as per RN. Fever spike. No cough symptoms. Usual diarrhea symptoms. AP Encephalopathy likely secondary to medications Appropriate to hold [id number] OxyContin, Lyrica for sedation/confusion Fever spike, persistent white count elevation, elevated procalcitonin Possible persistent sepsis Recent BKA for diabetic foot infection Rule out bacteremia Blood cultures, IV Daptomycin, Zosyn for now Update ID service of developments in a.m. Results & Data Vital Signs (Past 12 Hours) Vital Signs Temp Pulse Pulse Resp BP BP Pulse Ox 05/30/19 20:35 38.0 C H 75 16 127/72 92 05/30/19 15:53 36.5 C 78 18 123/69 97 05/30/19 13:53 36.9 C 80 150/60 H 05/30/19 13:20 79 130/72 05/30/19 13:00 75 106/65 05/30/19 12:40 75 144/66 H 05/30/19 12:20 65 145/65 H 05/30/19 12:00 69 133/61 05/30/19 11:40 68 120/62 05/30/19 11:35 36.6 C 68 16 128/90 05/30/19 11:20 63 148/98 H 05/30/19 11:10 36.6 C 68 16 121/50 L 05/30/19 11:00 61 135/54 L 05/30/19 10:53 36.6 C 63 16 103/42 L 05/30/19 10:40 67 124/53 L 05/30/19 10:22 36.1 C L 66 16 121/52 L 05/30/19 10:20 66 121/51 L 05/30/19 10:00 65 118/47 L 05/30/19 09:40 66 127/47 L 05/30/19 09:33 68 112/48 L 05/30/19 09:22 37.1 C 69
[2019-05-30] MEDS ORDERED: ACETAMINOPHEN 65 ML IV ONE (21:00)
[2019-05-30] MEDS: SENNA 8.6 MG TAB PO SCH (21:21)
[2019-05-30] MEDS: FLUTICASONE PROPIONATE NA SPR 16 GM BTL SCH (21:23)
[2019-05-30] MEDS: NEPHROCAPS PO SCH (21:25)
[2019-05-30 21:28] LABS: INR 1.5 (0.9-1.1); Prothrombin Time 15.4 Seconds (9.0-12.0)
[2019-05-30 21:52] LABS: BUN Creatinine Ratio 3.6 (10-20); Calcium 9.4 mg/dl (8.5-10.1); Creatinine Clr Calc Pharmacy 15.7 ml/min; Est GFR (African American) 11.1; Est GFR (Non-African American) 9.6; Potassium 3.3 mmol/L (3.5-5.1)
--- NOTE | 2019-05-30 22:01 | XRay Report ---
SINGLE VIEW CHEST CLINICAL HISTORY: Fever. FINDINGS: An AP, portable, upright chest radiograph is compared to study dated 05/06/2016. The examina tion is degraded by portable technique and patient rotation. The heart is top normal for projection . The pulmonary vasculature is noncongested. The mitral annulus is densely calcified. There are low l moa volumes with elevation right hemidiaphragm and bibasilar atelectasis. No airspace consolidation o r large pleural effusion is identified. No pneumothorax is seen. The skeletal structures are osteopen ic. The bony thorax is grossly intact. Arthritic change is noted in the shoulders. Fusion hardware is seen in the lower cervical spine. IMPRESSION: Low lung volumes with no acute cardiopulmonary abnormality identified. Electronically signed by: Emir Rosas M.D. 05/30/2019 10:00 PM
[2019-05-30] MEDS ORDERED: PIPERACILL/TAZOBAC CONSULT ACTIVE PRN (22:24)
[2019-05-30] MEDS ORDERED: SODIUM CHLORIDE 0.9% 500 ML IV ONE (22:26)
[2019-05-30] MEDS ORDERED: DAPTOmycin 475 MG in SYRINGE 0 ML IV SCH (23:00)
[2019-05-30] MEDS ORDERED: PIPERACILLIN/TAZOBACTAM 4.5 GM/120 ML BAG IV ONE (23:00)
[2019-05-30] MEDS: POTASSIUM CHLORIDE / WTR 10 MEQ/100 ML PLCT IV SCH (23:14)
--- NOTE | 2019-05-30 23:37 | Nephrology Progress Note ---
Date of Service May 30, 2019 Assessment & Plan (1) ESRD (end stage renal disease): Patient is normally dialysed on a MWF schedule. She tolerated dialysis well today. Next dialysis will be Thursday. ordered 1.5L FR for her given issues w/ vol OL (2) Diabetic foot infection: Patient s/p BKA 05/25. Pain control per primary team. (3) Anemia in ESRD (end-stage renal disease): Patient with anemia of renal disease. got pRBC today; before this brit iron studies >> getting venofer load adn upped epo to 20K units today (4) Secondary hyperparathyroidism (of renal origin): cont Phoslo 2 tabs tid with meals. Check Phos atleast once weekly> last phos 2.0 on 05/27 > will recheck level w/ labs in am Subjective seen on rounds this evening > no sob, edema controlled today; had uneventful dialysis today, anuric Review of Systems Review of Systems: All systems reviewed & are unremarkable except as noted in HPI & below Physical Exam Constitutional: well developed and well nourished on RA, NAD, obese Eyes: EOM intact bilaterally ENMT: Ears: no external ear abnormality Nose: no external nose abnormality Mouth: + dry oral mucous membranes Neck: no nuchal rigidity Respiratory: normal respiratory effort Auscultation: + diminished lung sounds Cardiovascular: RRR, no murmur, no edema Gastrointestinal (Abdomen): Inspection/Auscultation: normal bowel sounds Percussion/Palpation: abdomen soft; abdomen nontender Musculoskeletal: Extremities: strength 5/5 throughout s/p R BKA Skin: no rashes, warm and dry Neurologic: carballo, fluent speech, no tremor Results & Data Vital Signs (Past 12 Hours) Vital Signs Temp Pulse Pulse Resp BP BP Pulse Ox 05/30/19 20:35 38.0 C H 75 16 127/72 92 05/30/19 15:53 36.5 C 78 18 123/69 97 05/30/19 13:53 36.9 C 80 150/60 H 05/30/19 13:20 79 130/72 05/30/19 13:00 75 106/65 05/30/19 12:40 75 144/66 H 05/30/19 12:20 65 145/65 H 05/30/19 12:00 69 133/61 05/30/19 11:40 68 120/62 05/30/19 11:35 36.6 C 68 16 128/90 Laboratory Results 05/30/19 14:28 05/30/19 20:51
[2019-05-31] MEDS: POTASSIUM CHLORIDE / WTR 10 MEQ/100 ML PLCT IV SCH (00:16)
[2019-05-31] MEDS: ONDANSETRON INJ 2 MG/ML 2 ML VIAL IV PRN (04:29)
[2019-05-31 07:08] LABS: BUN Creatinine Ratio 4.1 (10-20); Calcium 8.8 mg/dl (8.5-10.1); Creatinine Clr Calc Pharmacy 14.1 ml/min; Est GFR (African American) 9.8; Est GFR (Non-African American) 8.4; Potassium 3.6 mmol/L (3.5-5.1)
[2019-05-31] MEDS: PIPERACILLIN/TAZOBACTAM 4.5 GM in DEXTROSE 5% 100 ML IV SCH ×2 (07:47→20:38)
[2019-05-31] MEDS: ASCORBIC ACID 500 MG TAB PO SCH ×2 (08:51→16:32)
[2019-05-31] MEDS: CALCIUM ACETATE 667 MG CAP PO SCH ×3 (08:52→16:28)
[2019-05-31] MEDS: PREGABALIN 150 MG CAP PO SCH ×2 (08:52→20:38)
[2019-05-31] MEDS: FERROUS GLUCONATE 324 MG TAB PO SCH ×2 (08:52→16:31)
[2019-05-31] MEDS: PANTOprazole 40 MG TAB PO SCH (08:53)
[2019-05-31] MEDS: MULTIVITAMIN TAB PO SCH (08:53)
[2019-05-31] MEDS: FLUOXETINE HCL 20 MG CAP PO SCH (08:54)
[2019-05-31] MEDS: DOCUSATE SODIUM 100 MG CAP PO SCH ×3 (08:55→20:41)
[2019-05-31] MEDS: INSULIN HUMAN REGULAR SC SCH ×4 (08:58→22:00)
[2019-05-31] MEDS ORDERED: DAPTOMYCIN CONSULT ACTIVE PRN (09:00)
[2019-05-31] MEDS: INSULIN HUMAN NPH SC SCH ×2 (09:01→18:22)
[2019-05-31] MEDS: HEPARIN SOD 5,000 UNIT/0.5 ML VIAL SQ SCH ×2 (09:03→21:59)
--- NOTE | 2019-05-31 10:33 | Pharmacy Report ---
Pharmacy Glycemic Short Note 2 - Date of Service May 31, 2019 - Glycemic Short BSG Results (Last 24 hours): 05/30/19 05/30/19 05/30/19 12:09 14:28 17:16 Glucose 170 H POC Glucose 125 H 239 H 05/30/19 05/30/19 05/31/19 20:51 21:09 05:10 Glucose 242 H 152 H POC Glucose 241 H Outpatient regimen: * Humulin 70/30 26 units qAM, 36 units qPM ASSESSMENT: 05/31 * Melita's BSGs spiked last evening, but I suspect this was due to PO intake during/after dialysis that was not covered and/or worsening infection. She spiked a fever and WBC was up so daptomycin and Zosyn were restarted. * She continues to require 55-60 units of basal insulin * Most postprandial BSGs have been stable 05/30 * Caity BSGs remain stable on NPH 25-30 units BID + Regular insulin with CF 10, CR 3.5. TDD ranging from 85-105 units. * She has received 55 units of basal for the past 3 days with fasting of 126 mg/dL this AM * She is scheduled for dialysis today PLAN FOR INPATIENT GLYCEMIC CONTROL: * Basal insulin - no change, continue with scaled dose to account for fluctuations in BSGs * NPH BID with meals per scale: 25 units for BSG less than 140 mg/dl 30 units for BSG 140 or greater * Bolus insulin - no change * NovoLog per scale ACHS or Q6hrs while NPO * Goal Range: Low 110 mg/dL - High 140 mg/dL * Correction Factor: 10 mg/dL/unit * Nutritional / Prandial insulin per carb ratio of 1 unit per 3.5 grams CHO consumed Discharge Recommendations: * Patient admits to missing insulin doses at home but inpatient requirements certainly warrant an increase in outpatient regimen * Est TDD at least 80 units/day * Recommend: * Increase Humulin 70/30 55 units with breakfast, 25 units with dinner * Continue outpatient f/u with [facility] clinic in [place]
--- NOTE | 2019-05-31 14:20 | Hospitalist Progress Note ---
Date of Service May 31, 2019 Assessment & Plan (1) Diabetic foot ulcer associated with type 2 diabetes mellitus: Patient is a 63 yr female with H/O uncontrolled DM 2, ESRD on HD MWF, diabetic neuropathy, diabetic gastroparesis, Charcot foot secondary to DM, diabetic retinopathy, HTN, HLD, PAF, history of DVT on warfarin, hyperparathyroidism secondary to end-stage renal disease, anemia of chronic disease who presents to [facility] on referral from wound clinic secondary to deterioration of right heel wound and hyperglycemia. Right diabetic foot infection/Ulceration with Necrosis s/p right below knee amputation on this admission -Ankle MRI:Susceptibility artifact concerning for gas along the posterior soft tissues extending from the calcaneal wound and tracking superiorly along the completely torn and retracted Achilles tendon. Wound along the posterior calcaneus. Minimal osseous erosion of the subjacent calcaneus without convincing evidence of osteomyelitis at this time. Moderate ankle joint effusion. Degenerative changes at the tarsometatarsal articulations. Plantar fasciitis. -Venous Doppler:No sonographic evidence of deep venous thrombosis. -Arterial Dopplers: No hemodynamically significant stenosis in the right lower extremity -Blood Cx: No growth to date -Wound Cx: Coagulase negative staph -S/P Debridement on 05/21/19 -had been on Zosyn and daptomycin on this admission -Continue wound Care -Pain control medications -s/p right below knee amputation on 05/25/19; T max 38 F post-op on 05/25/19; reviewed surgical recommendations but given that there is still serosanguineous drainage from surgical incision sites to the dressings, was continued broad spectrum IV antibiotics on Zosyn and Daptomycin -05/26/19 recent normal body temperatures. continue Zosyn for now and stopped the daptomycin -05/27/19 to 05/28/19: have been on Zosyn. orthopedics recommend to stop Zosyn. Zosyn stopped on 05/28/19 and monitor off antibiotics -After dialysis on 05/30/19, patient had lethargy/drowsiness. Night time hospitalist physician commented of fever spike but recorded temperature of mildly elevated body temperature of 38 degrees celsius (100.4F). Blood cultures were drawn and patient was restarted on broad spectrum antibiotics of Zosyn and daptomycin. Narcan was given which correlated with improved mentation and scheduled narcotic pain medications were stopped. -05/31/19, do not suspect that the 100.4 temperature suggestive of infection, but given that IV antibiotics were restarted and blood cultures from 05/30/19 would continue IV Zosyn only until blood cultures return. would hold off further daptomycin for now Diarrhea, chronic -05/24/19 negative C.difficile test -loperamide prn for diarrhea -stop the fluid restriction -repeat C.difficile test on 05/28/19 with stool culture are negative (2) Diabetes mellitus, type 2: -Uncontrolled type 2 diabetes mellitus with hyperglycemia -HbA1c 10.5 -was on IV insulin drip on earlier on this admission -currently on subcutaneous insulin and managed by pharmacy glycemic consult (3) Atrial fibrillation: -history of Paroxysmal Atrial fibrillation -Currently in sinus and rate is controlled -patient off coumadin prior to right below knee amputation on 05/25/19 -patient received 10 mg coumadin on 05/25/19 after surgery -daily coumadin resumed on 05/26/19 -started subcutaneous heparin on 05/27/19 day time until INR is therapeutic from coumadin daily -05/30/19: INR has remained subtherapeutic at 1.4 despite coumadin 5 mg daily, increase coumadin to 6 mg daily -check INR with dialysis session planned for Thursday06/01/19 (4) Hypertension: -blood pressure improved with dialysis sessions on this hospitalization (5) Hyperlipidemia: -statin was stopped during this hospital stay because of daptomycin use (6) ESRD (end stage renal disease): -ESRD with dependence on hemodialysis -dialysis schedule is every Thursday/Thursday/Thursday -on Renal diet -dialysis session planned for Thursday06/01/19 (7) Anemia in ESRD (end-stage renal disease): -hemoglobin decreased to the 7s based on 05/28/19 labs -1 unit PRBC given with dialysis on 05/30/19 and hemoglobin above 9 Chronic hyponatremia Hypochloremia -partly due to dialysis fluid shifts and chronic diarrhea -Sodium levels 133 and serum chloride 96 on most recent 05/30/19 labs (8) Diabetic peripheral neuropathy: -continue lyrica (9) Gastroparesis: -zofran PRN (10) GERD (gastroesophageal reflux disease): -continue PPI (11) Depression: -continue prozac (12) DVT prophylaxis: -patient received 10 mg coumadin on 05/25/19 after surgery -daily coumadin resumed on 05/26/19 -started subcutaneous heparin on 05/27/19 day time until INR is therapeutic from coumadin daily -05/30/19: INR has remained subtherapeutic at 1.4 despite coumadin 5 mg daily, increase coumadin to 6 mg daily -check INR with dialysis session planned for Thursday06/01/19 Patient's Primary Care Provider as outpatient is Dr. Dixon Subjective After dialysis on 05/30/19, patient had lethargy/drowsiness. Night time hospitalist physician commented of fever spike but recorded temperature of mildly elevated body temperature of 38 degrees celsius (100.4F). Blood cultures were drawn and patient was restarted on broad spectrum antibiotics of Zosyn and daptomycin. Narcan was given which correlated with improved mentation and scheduled narcotic pain medications were stopped. patient seen and examined today. she does not recall what happened yesterday evening during dialysis. current mental status is baseline. no chest pain. no abdominal pain. no acute discomforts. continues to have chronic diarrhea. Physical Exam Constitutional: comfortable Eyes: PERRL, conjunctivae normal, anicteric sclerae EOM intact bilaterally ENMT: external ear and nose normal, oropharynx normal Neck: normal visual inspection Respiratory: normal respiratory effort, lungs clear to auscultation Cardiovascular: Rate/Rhythm: regular rate and regular rhythm Gastrointestinal (Abdomen): normal bowel sounds, soft, nontender, no hepatosplenomegaly Musculoskeletal: Head/Neck/Chest: normocephalic and head atraumatic Knee: + knee abnormal to inspection (right below knee amputation in dressing) Neurologic: PERRL, EOMI, accommodation nl, no face palsy, no dysarthria Psychiatric: A+Ox3, euthymic affect Results & Data Vital Signs (Past 12 Hours) Vital Signs Temp Pulse Resp BP Pulse Ox 05/31/19 07:29 37.0 C 65 16 114/65 94 (1) Diabetic foot ulcer associated with type 2 diabetes mellitus Diabetic foot ulcer location: heel Laterality: left Non-pressure ulcer stage: limited to breakdown of skin Qualified Code(s): E11.621 - Type 2 diabetes mellitus with foot ulcer; L97.421 - Non-pressure chronic ulcer of left heel and midfoot limited to breakdown of skin (2) Hypertension Hypertension type: unspecified Qualified Code(s): I10 - Essential (primary) hypertension
[2019-05-31] MEDS: LOPERAMIDE HCL 2 MG CAP PO PRN (16:28)
[2019-05-31] MEDS: WARFARIN SOD 6 MG TAB PO SCH (16:30)
--- NOTE | 2019-05-31 20:14 | Progress Note ---
DATE: 05/31/2019 SUBJECTIVE: A 63-year-old female with multiple medical comorbidities, now 1 week out from a right below knee amputation for chronic infection and open wound. She is doing okay. Really does not have that much pain. She has been surprised by that. No chest pain or shortness of breath. Not feeling dizzy or lightheaded. OBJECTIVE: VITAL SIGNS: Temperature 36.9. Vital signs stable. GENERAL: This is a pleasant, middle-aged female. She is lying in bed, looks pretty comfortable. EXTREMITIES: Examination of the right leg reveals the wound to be well approximated. There is a little bit of venous congestion at the edges of the flap, particularly anterior. No signs of breakdown. Fairly minimal drainage. Fairly mild swelling. LABORATORY DATA: No new labs today. ASSESSMENT: A 63-year-old female with multiple comorbidities, now a week out from a right below knee amputation for chronic infection and open wound. She seems to be doing okay. The wound itself looks okay, but there are some areas that are bit concerning with his venous congestion and I do not think there is much we can do other than just observe this for now. PLAN: We will continue routine wound care. We will use compression wrap to try and limit swelling. I need to see her back somewhere between 2 and 3 weeks out from her surgery date. The patient is orthopedically okay for discharge any time. We can just leave her bandage in place for now. I will see her back in a week or two. Any orthopedic questions, can be directed to me at [phone].
[2019-05-31] MEDS: FLUTICASONE PROPIONATE NA SPR 16 GM BTL SCH (20:38)
[2019-05-31] MEDS: NEPHROCAPS PO SCH (20:39)
[2019-05-31] MEDS: SENNA 8.6 MG TAB PO SCH (20:41)
[2019-06-01] MEDS ORDERED: EPOETIN ALFA 10,000 UNITS/ML VIAL IV ONE (08:10)
[2019-06-01] MEDS ORDERED: IRON SUCROSE 50 MG in SYRINGE 0 ML IV ONE (08:10)
[2019-06-01] MEDS ORDERED: SODIUM CHLORIDE 0.9% 1000ML 1,000 ML IV PRN (08:10)
[2019-06-01] MEDS: FERROUS GLUCONATE 324 MG TAB PO SCH ×2 (08:29→18:09)
[2019-06-01] MEDS: CALCIUM ACETATE 667 MG CAP PO SCH ×3 (08:30→18:09)
[2019-06-01] MEDS: DOCUSATE SODIUM 100 MG CAP PO SCH ×2 (08:31→22:08)
[2019-06-01] MEDS: ASCORBIC ACID 500 MG TAB PO SCH ×2 (08:31→18:09)
[2019-06-01] MEDS: FLUOXETINE HCL 20 MG CAP PO SCH (08:32)
[2019-06-01] MEDS: MULTIVITAMIN TAB PO SCH (08:32)
[2019-06-01] MEDS: PANTOprazole 40 MG TAB PO SCH (08:32)
[2019-06-01] MEDS: INSULIN HUMAN REGULAR SC SCH ×4 (09:27→21:24)
[2019-06-01] MEDS: INSULIN HUMAN NPH SC SCH ×2 (09:28→18:09)
[2019-06-01] MEDS: HEPARIN SOD 5,000 UNIT/0.5 ML VIAL SQ SCH ×2 (09:29→21:23)
[2019-06-01] MEDS: EPOETIN ALFA 14,000 UNITS in SYRINGE 0 ML IV SCH ×2 (11:02→13:47)
--- NOTE | 2019-06-01 11:18 | Pharmacy Report ---
Pharmacy Glycemic Short Note 2 - Date of Service June 01, 2019 - Glycemic Short BSG Results (Last 24 hours): 05/31/19 05/31/19 05/31/19 08:15 12:09 17:10 POC Glucose 157 H 175 H 194 H 05/31/19 06/01/19 21:28 08:00 POC Glucose 231 H 148 H Outpatient regimen: * Humulin 70/30 26 units qAM, 36 units qPM ASSESSMENT: 06/01 * Pt has received 99 units of insulin over the past 24hrs * 60 units of basal * 39 units of bolus * BSGs ranging 157-231 mg/dl * ESRD/HD complicates glycemic control and contributes to glycemic variability. Acceptable BSGs over the past 24hrs based on co-morbidities. No changes needed at this time. 05/31 * Melita's BSGs spiked last evening, but I suspect this was due to PO intake during/after dialysis that was not covered and/or worsening infection. She spiked a fever and WBC was up so daptomycin and Zosyn were restarted. * She continues to require 55-60 units of basal insulin * Most postprandial BSGs have been stable 05/30 * Melita's BSGs remain stable on NPH 25-30 units BID + Regular insulin with CF 10, CR 3.5. TDD ranging from 85-105 units. * She has received 55 units of basal for the past 3 days with fasting of 126 mg/dL this AM * She is scheduled for dialysis today PLAN FOR INPATIENT GLYCEMIC CONTROL: * Basal insulin - no change, continue with scaled dose to account for fluctuations in BSGs * NPH BID with meals per scale: 25 units for BSG less than 140 mg/dl 30 units for BSG 140 or greater * Bolus insulin - no change * NovoLog per scale ACHS or Q6hrs while NPO * Goal Range: Low 110 mg/dL - High 140 mg/dL * Correction Factor: 10 mg/dL/unit * Nutritional / Prandial insulin per carb ratio of 1 unit per 3.5 grams CHO consumed Discharge Recommendations: * Patient admits to missing insulin doses at home but inpatient requirements certainly warrant an increase in outpatient regimen * Est TDD at least 80 units/day * Recommend: * Increase Humulin 70/30 55 units with breakfast, 25 units with dinner * Continue outpatient f/u with [facility] clinic in [place]
--- NOTE | 2019-06-01 12:07 | Progress Note ---
DATE: 06/01/2019 SUBJECTIVE: This is a 63-year-old female status post a right below knee amputation for a chronic open wound and chronic infection. She is doing okay. She is currently getting hemodialysis. She has had a little bit more leg pain today. No other complaints. OBJECTIVE: VITAL SIGNS: Temperature 37.2. Vital signs stable. GENERAL: Reveals a pleasant, middle-aged female. She is sitting up in bed, looks reasonably comfortable. She is currently undergoing dialysis. EXTREMITIES: Examination of the right leg reveals the dressing to be clean, dry and intact. No signs of drainage. Not much swelling. ASSESSMENT: A 63-year-old female postop day #7 from a right below knee amputation for chronic infection. She is doing pretty well. Seems to be stable. Wound seems stable. PLAN: 1. DVT prophylaxis including thigh-high TEDs, SCDs, and she is back on her Coumadin. 2. PT/OT. Just needs instructions and further assistance with mobilization and transfers. 3. Medical management as per the medicine physicians. 4. Disposition: She is orthopedically okay for discharge any time medically stable. I need to see her back some between a week and 2 weeks. Any orthopedic questions can be directed to me at [phone]. As long as her dressing is clean and dry, it can be left in place. If it gets soaked or wet, it should be changed.
[2019-06-01] MEDS: ONDANSETRON INJ 2 MG/ML 2 ML VIAL IV PRN ×2 (13:35→22:56)
[2019-06-01] MEDS: LOPERAMIDE HCL 2 MG CAP PO PRN ×2 (13:41→22:56)
[2019-06-01] MEDS: PIPERACILLIN/TAZOBACTAM 4.5 GM in DEXTROSE 5% 100 ML IV SCH ×2 (13:42→19:23)
[2019-06-01] MEDS ORDERED: DAPTOmycin 475 MG in SYRINGE 0 ML IV SCH (14:00)
[2019-06-01] MEDS: PREGABALIN 150 MG CAP PO SCH ×3 (14:12→21:20)
[2019-06-01 14:21] LABS: Hematocrit (blood only) 33.1 % (37-47); Hemoglobin 10.6 g/dL (12.0-16.0); Mean Corpuscular Volume 96.8 fL (80-100); Mean Platelet Volume 10.2 fL (7.4-10.4); Nucleated RBC # (auto) 0.13 K/uL (0-0); Nucleated RBC % (auto) 0.9 %; Platelet Count 377 K/uL (130-400); RDW Coefficient of Variation 17.6 % (11.5-14.5); RDW Standard Deviation 61.4 fL (36.4-46.3); Red Blood Count 3.42 M/uL (4.2-5.4); White Blood Count 14.04 K/uL (4.8-10.8)
[2019-06-01 14:50] LABS: Basophils # (auto) 0.08 K/uL (0-0.2); Basophils % (auto) 0.6 %; Eosinophils # (auto) 0.21 K/uL (0-0.5); Eosinophils % (auto) 1.5 %; Immature Granulocytes # (auto) 0.76 K/uL (0.00-0.02); Immature Granulocytes % (auto) 5.4 %; Lymphocytes # (auto) 1.59 K/uL (1.2-3.4); Lymphocytes % (auto) 11.3 %; Monocytes # (auto) 1.12 K/uL (0.11-0.59); Neutrophils # (auto) 10.28 K/uL (1.4-6.5); Neutrophils % (auto) 73.2 %; Polychromasia 1+; Rouleaux 1+
[2019-06-01 15:12] LABS: BUN Creatinine Ratio 4.1 (10-20); Bilirubin,Total 0.3 mg/dl (0.2-1); Creatinine Clr Calc Pharmacy 22.9 ml/min; Est GFR (African American) 17.5; Est GFR (Non-African American) 15.1; Potassium 3.6 mmol/L (3.5-5.1); Total Protein 8.7 gm/dl (6.4-8.2)
[2019-06-01 15:14] LABS: INR 2.1 (0.9-1.1); Prothrombin Time 20.6 Seconds (9.0-12.0)
[2019-06-01 15:36] LABS: Albumin Level 2.2 gm/dl (3.4-5.0)
[2019-06-01 15:37] LABS: Globulin 6.5 gm/dl (2.5-4.0)
[2019-06-01 15:38] LABS: Albumin Globulin Ratio 0.3 (0.9-2)
[2019-06-01] MEDS: WARFARIN SOD 6 MG TAB PO SCH (18:05)
--- NOTE | 2019-06-01 18:30 | Hospitalist Progress Note ---
Date of Service June 01, 2019 Assessment & Plan (1) Diabetic foot ulcer associated with type 2 diabetes mellitus: Patient is a 63 yr female with H/O uncontrolled DM 2, ESRD on HD MWF, diabetic neuropathy, diabetic gastroparesis, Charcot foot secondary to DM, diabetic retinopathy, HTN, HLD, PAF, history of DVT on warfarin, hyperparathyroidism secondary to end-stage renal disease, anemia of chronic disease who presents to [facility] on referral from wound clinic secondary to deterioration of right heel wound and hyperglycemia. Right diabetic foot infection/Ulceration with Necrosis S/P Right BKA -Ankle MRI:Susceptibility artifact concerning for gas along the posterior soft tissues extending from the calcaneal wound and tracking superiorly along the completely torn and retracted Achilles tendon. Wound along the posterior calcaneus. Minimal osseous erosion of the subjacent calcaneus without convincing evidence of osteomyelitis at this time. Moderate ankle joint effusion. Degenerative changes at the tarsometatarsal articulations. Plantar fasciitis. -Venous Doppler:No sonographic evidence of deep venous thrombosis. -Arterial Dopplers: No hemodynamically significant stenosis in the right lower extremity -Blood Cx: No growth to date -Wound Cx: Coagulase negative staph -S/P Debridement on 05/21/19 -S/P BKA on 05/25/19 -Was on Zosyn and daptomycin>>> Transitioned to Zosyn -Continue wound Care -Pain control -Appreciate Orthopedics Input -Repeat Blood Cx:Negative for 24 hrs -Ideally can discontinue antibiotics given source of infection addressed with amputation -Persistent leukocytosis -Recheck lactate, procalcitonin in AM Diarrhea, chronic 05/24/19 negative C.difficile test loperamide prn for diarrhea Repeat C.difficile test on 05/28/19 with stool culture are negative (2) Diabetes mellitus, type 2: Uncontrolled type 2 diabetes mellitus with hyperglycemia HbA1c 10.5 Was on IV insulin drip on earlier on this admission Continue SQ Insulin Appreciate pharmacy glycemic consult help (3) Atrial fibrillation: H/O Paroxysmal Atrial fibrillation Bradycardia intermittently In sinus, rate is controlled Continue Coumadin for anticoagulation Monitor INR:2.1 (4) Hypertension: Blood pressure stable Continue current medications (5) Hyperlipidemia: statin was held during this hospital stay because of daptomycin use (6) ESRD (end stage renal disease): -ESRD with dependence on hemodialysis -dialysis schedule is every Thursday/Thursday/Thursday -on Renal diet -Appreciate nephrology input (7) Anemia in ESRD (end-stage renal disease): Anemia of chronic kidney disease Postop anemia S/P 1 unit PRBCs Monitor CBC Chronic hyponatremia Hypochloremia Partly due to dialysis fluid shifts and chronic diarrhea Monitor electrolytes (8) Diabetic peripheral neuropathy: continue lyrica (9) Gastroparesis: zofran PRN (10) GERD (gastroesophageal reflux disease): continue PPI (11) Depression: continue prozac (12) DVT prophylaxis: On coumadin INR therapeutic Code Status Full Code Disposition Needs Rehab placement Patient's Primary Care Provider as outpatient is Dr. Dixon Subjective Patient is seen and examined at bedside Complains of right lower extremity pain at site of surgery Had hemodialysis today Denies any chest pain, shortness of breath, nausea, dizziness, abdominal pain Offers no other complaints Review of Systems Review of Systems: All systems reviewed & are unremarkable except as noted in HPI & below Physical Exam Physical Exam: Physical Exam: Vitals signs as noted above General Appearance:Obese, no apparent distress Head: normocephalic, Atraumatic Eyes: normal inspection, EOMI Neck: supple, Trachea midline Respiratory/Chest: Normal breath sounds, CTA Cardiovascular: S1, S2, No murmur Abdomen/GI:Soft, Non tender, Bowel sounds present Extremities/Musculoskelatal:normal inspection, Pretibial edema, left Charcot foot, RLE S/P BKA in dressing Neurologic/Psych:AAOX3, grossly no focal neurological deficits Skin: normal color, warm Results & Data Vital Signs (Past 12 Hours) Vital Signs Temp Pulse Pulse Resp BP BP Pulse Ox 06/01/19 15:10 37.2 C 68 17 141/75 H 94 06/01/19 13:19 36.9 C 81 81 163/72 H 163/72 H 06/01/19 13:00 50 L 147/59 H 06/01/19 12:40 50 L 124/90 06/01/19 12:20 71 113/66 06/01/19 12:00 69 109/57 L 06/01/19 11:40 70 117/63 06/01/19 11:20 54 L 92/65 L 06/01/19 11:00 61 112/58 L 06/01/19 10:40 50 L 105/43 L 06/01/19 10:20 60 119/50 L 06/01/19 10:00 87 100/57 L 06/01/19 09:40 87 101/60 06/01/19 09:20 84 99/58 L 06/01/19 09:11 37.2 C 87 87 121/59 L 06/01/19 07:17 36.8 C 66 18 112/65 94 Laboratory Results Short CBC 06/01/19 Range/Units 14:02 WBC 14.04 H (4.8-10.8) K/uL Hgb 10.6 L (12.0-16.0) g/dL Hct 33.1 L (37-47) % Plt Count 377 (130-400) K/uL BMP 06/01/19 14:02 Sodium 130 L Potassium 3.6 Chloride 94 L Carbon Dioxide 26 BUN 13 Creatinine 3.14 H D Glucose 133 H Calcium 10.0 Liver Function 06/01/19 Range/Units 14:02 Total Bilirubin 0.3 (0.2-1) mg/dl AST 27 (15-37) U/L ALT 14 (12-78) U/L Alkaline Phosphatase 112 (45-117) U/L Albumin 2.2 L (3.4-5.0) gm/dl (1) Diabetic foot ulcer associated with type 2 diabetes mellitus Diabetic foot ulcer location: heel Laterality: left Non-pressure ulcer stage: limited to breakdown of skin Qualified Code(s): E11.621 - Type 2 diabetes mellitus with foot ulcer; L97.421 - Non-pressure chronic ulcer of left heel and midfoot limited to breakdown of skin (2) Hypertension Hypertension type: unspecified Qualified Code(s): I10 - Essential (primary) hypertension
--- NOTE | 2019-06-01 19:23 | Dialysis Progress Note ---
Date of Service June 01, 2019 Assessment & Plan (1) ESRD (end stage renal disease): Patient is normally dialysed on a MWF schedule. She tolerated dialysis well today w/ 3,250 mL off. Next dialysis will be Thursday. ordered 1.5L FR for her given issues w/ vol OL (2) Diabetic foot infection: Patient s/p BKA 05/25. Pain control per primary team. (3) Anemia in ESRD (end-stage renal disease): Patient with anemia of renal disease. got pRBC 05/30; before this brit iron studies >> getting venofer load 50mg and epo 14K units today (4) Secondary hyperparathyroidism (of renal origin): cont Phoslo 2 tabs tid with meals. Check Phos atleast once weekly> last phos 3.0 on 05/31 ; slightly elevated Ca levels noted; may need to change binder but observe for now Subjective seen on HD on rounds today at 1020 approx; pt c/o pain R knee-stump; no rigors; no chills, not confused today; no sob, no palpitations; feels edema controlled; no n/v Review of Systems Review of Systems: All systems reviewed & are unremarkable except as noted in HPI & below Physical Exam Constitutional: well developed and well nourished on RA nad Eyes: EOM intact bilaterally ENMT: Ears: no external ear abnormality Nose: no external nose abnormality Mouth: + dry oral mucous membranes Neck: no nuchal rigidity Respiratory: normal respiratory effort Auscultation: + diminished lung sounds Cardiovascular: RRR, no murmur, no edema Gastrointestinal (Abdomen): Inspection/Auscultation: normal bowel sounds Percussion/Palpation: abdomen soft; abdomen nontender Musculoskeletal: Extremities: strength 5/5 throughout s/p R BKA Skin: no rashes, warm and dry Neurologic: carballo, fluent speech, no tremor Results & Data Vital Signs (Past 12 Hours) Vital Signs Temp Pulse Pulse Resp BP BP Pulse Ox 06/01/19 15:10 37.2 C 68 17 141/75 H 94 06/01/19 13:19 36.9 C 81 81 163/72 H 163/72 H 06/01/19 13:00 50 L 147/59 H 06/01/19 12:40 50 L 124/90 06/01/19 12:20 71 113/66 06/01/19 12:00 69 109/57 L 06/01/19 11:40 70 117/63 06/01/19 11:20 54 L 92/65 L 06/01/19 11:00 61 112/58 L 06/01/19 10:40 50 L 105/43 L 06/01/19 10:20 60 119/50 L 06/01/19 10:00 87 100/57 L 06/01/19 09:40 87 101/60 06/01/19 09:20 84 99/58 L 06/01/19 09:11 37.2 C 87 87 121/59 L Laboratory Results 06/01/19 14:02 06/01/19 14:02
[2019-06-01] MEDS: SENNA 8.6 MG TAB PO SCH (21:21)
[2019-06-01] MEDS: NEPHROCAPS PO SCH (21:21)
[2019-06-01] MEDS: FLUTICASONE PROPIONATE NA SPR 16 GM BTL SCH (21:30)
[2019-06-02] MEDS ORDERED: DAPTOmycin 475 MG in SYRINGE 0 ML IV SCH (01:00)
[2019-06-02 05:28] LABS: Hematocrit (blood only) 28.9 % (37-47); Hemoglobin 8.8 g/dL (12.0-16.0); Mean Corpuscular Hemoglobin 29.9 pg (25-34); Mean Corpuscular Hgb Conc 30.4 g/dL (32-36); Mean Corpuscular Volume 98.3 fL (80-100); Mean Platelet Volume 9.5 fL (7.4-10.4); Nucleated RBC # (auto) 0.28 K/uL (0-0); Platelet Count 306 K/uL (130-400); RDW Coefficient of Variation 17.6 % (11.5-14.5); RDW Standard Deviation 62.2 fL (36.4-46.3); Red Blood Count 2.94 M/uL (4.2-5.4); White Blood Count 13.91 K/uL (4.8-10.8)
[2019-06-02 05:59] LABS: INR 2.2 (0.9-1.1); Prothrombin Time 21.3 Seconds (9.0-12.0)
[2019-06-02 06:17] LABS: BUN Creatinine Ratio 4.6 (10-20); Calcium 9.3 mg/dl (8.5-10.1); Creatinine Clr Calc Pharmacy 15.5 ml/min; Est GFR (Non-African American) 9.5; Potassium 3.5 mmol/L (3.5-5.1)
[2019-06-02] MEDS: LOPERAMIDE HCL 2 MG CAP PO PRN ×2 (08:08→14:17)
[2019-06-02] MEDS: ONDANSETRON INJ 2 MG/ML 2 ML VIAL IV PRN (08:09)
[2019-06-02] MEDS: PIPERACILLIN/TAZOBACTAM 4.5 GM in DEXTROSE 5% 100 ML IV SCH (08:30)
[2019-06-02] MEDS: DOCUSATE SODIUM 100 MG CAP PO SCH (08:35)
[2019-06-02] MEDS: MULTIVITAMIN TAB PO SCH (08:36)
[2019-06-02] MEDS: FERROUS GLUCONATE 324 MG TAB PO SCH (08:36)
[2019-06-02] MEDS: CALCIUM ACETATE 667 MG CAP PO SCH ×2 (08:36→13:14)
[2019-06-02] MEDS: ASCORBIC ACID 500 MG TAB PO SCH (08:37)
[2019-06-02] MEDS: FLUOXETINE HCL 20 MG CAP PO SCH (08:37)
[2019-06-02] MEDS: PANTOprazole 40 MG TAB PO SCH (08:37)
[2019-06-02] MEDS: PREGABALIN 150 MG CAP PO SCH (08:44)
[2019-06-02] MEDS: HEPARIN SOD 5,000 UNIT/0.5 ML VIAL SQ SCH (09:23)
[2019-06-02] MEDS: INSULIN HUMAN NPH SC SCH (09:25)
[2019-06-02] MEDS: INSULIN HUMAN REGULAR SC SCH ×2 (09:27→13:13)
--- NOTE | 2019-06-02 13:38 | Hospitalist Progress Note ---
Date of Service June 02, 2019 Assessment & Plan (1) Diabetic foot ulcer associated with type 2 diabetes mellitus: Patient is a 63 yr female with H/O uncontrolled DM 2, ESRD on HD MWF, diabetic neuropathy, diabetic gastroparesis, Charcot foot secondary to DM, diabetic retinopathy, HTN, HLD, PAF, history of DVT on warfarin, hyperparathyroidism secondary to end-stage renal disease, anemia of chronic disease who presents to [facility] on referral from wound clinic secondary to deterioration of right heel wound and hyperglycemia. Right diabetic foot infection/Ulceration with Necrosis S/P Right BKA -Ankle MRI:Susceptibility artifact concerning for gas along the posterior soft tissues extending from the calcaneal wound and tracking superiorly along the completely torn and retracted Achilles tendon. Wound along the posterior calcaneus. Minimal osseous erosion of the subjacent calcaneus without convincing evidence of osteomyelitis at this time. Moderate ankle joint effusion. Degenerative changes at the tarsometatarsal articulations. Plantar fasciitis. -Venous Doppler:No sonographic evidence of deep venous thrombosis. -Arterial Dopplers: No hemodynamically significant stenosis in the right lower extremity -Blood Cx: No growth to date -Wound Cx: Coagulase negative staph -S/P Debridement on 05/21/19 -S/P BKA on 05/25/19 -Was on Zosyn and daptomycin>>> Transitioned to Zosyn Procalcitonin level still elevated, discussed with Dr. Conde today, plan to be transition to Augmentin upon discharge for 1 week duration -Continue wound Care -Pain control -Appreciate Orthopedics Input -Repeat Blood Cx:Negative for 48 hrs -leukocytosis trending down -Normal lactate levels -Patient currently not requiring any pain medications to control her pain. -Needs follow up with Surgery upon discharge Diarrhea, chronic 05/24/19 negative C.difficile test loperamide prn for diarrhea Repeat C.difficile test on 05/28/19 with stool culture are negative (2) Diabetes mellitus, type 2: Uncontrolled type 2 diabetes mellitus with hyperglycemia HbA1c 10.5 Was on IV insulin drip on earlier on this admission Continue SQ Insulin Appreciate pharmacy glycemic consult help (3) Atrial fibrillation: H/O Paroxysmal Atrial fibrillation Bradycardia intermittently In sinus, rate is controlled Continue Coumadin for anticoagulation Monitor INR:2.2 (4) Hypertension: Blood pressure stable Continue current medications (5) Hyperlipidemia: statin was held during this hospital stay because of daptomycin use (6) ESRD (end stage renal disease): -ESRD with dependence on hemodialysis -dialysis schedule is every Thursday/Thursday/Thursday -on Renal diet -Appreciate nephrology input (7) Anemia in ESRD (end-stage renal disease): Anemia of chronic kidney disease Postop anemia S/P 1 unit PRBCs Monitor CBC Chronic hyponatremia Hypochloremia Partly due to dialysis fluid shifts and chronic diarrhea Monitor electrolytes (8) Diabetic peripheral neuropathy: continue lyrica (9) Gastroparesis: zofran PRN (10) GERD (gastroesophageal reflux disease): continue PPI (11) Depression: continue prozac (12) DVT prophylaxis: On coumadin INR therapeutic Code Status Full Code Disposition Plan to discharge to Rehab facility today Patient's Primary Care Provider as outpatient is Dr. Dixon Subjective Patient is seen and examined at bedside Feels lot better today Minimal right lower extremity pain at site of surgery No new complaints Denies any chest pain, shortness of breath, nausea, dizziness, abdominal pain Plan to be discharged to Rehab facility today Review of Systems Review of Systems: All systems reviewed & are unremarkable except as noted in HPI & below Physical Exam Physical Exam: Physical Exam: Vitals signs as noted above General Appearance:Obese, no apparent distress Head: normocephalic, Atraumatic Eyes: normal inspection, EOMI Neck: supple, Trachea midline Respiratory/Chest: Normal breath sounds, CTA Cardiovascular: S1, S2, No murmur Abdomen/GI:Soft, Non tender, Bowel sounds present Extremities/Musculoskelatal:normal inspection, Pretibial edema, left Charcot foot, RLE S/P BKA in dressing Neurologic/Psych:AAOX3, grossly no focal neurological deficits Skin: normal color, warm Results & Data Vital Signs (Past 12 Hours) Vital Signs Temp Pulse Resp BP Pulse Ox 06/02/19 13:25 36.7 C 65 18 139/76 95 06/02/19 07:52 36.7 C 65 18 139/76 95 Laboratory Results Short CBC 06/01/19 06/02/19 Range/Units 14:02 05:17 WBC 14.04 H 13.91 H (4.8-10.8) K/uL Hgb 10.6 L 8.8 L (12.0-16.0) g/dL Hct 33.1 L 28.9 L (37-47) % Plt Count 377 306 (130-400) K/uL BMP 06/01/19 06/02/19 14:02 05:17 Sodium 130 L 132 L Potassium 3.6 3.5 Chloride 94 L 94 L Carbon Dioxide 26 28 BUN 13 22 H D Creatinine 3.14 H D 4.62 H* D Glucose 133 H 154 H Calcium 10.0 9.3 Liver Function 06/01/19 Range/Units 14:02 Total Bilirubin 0.3 (0.2-1) mg/dl AST 27 (15-37) U/L ALT 14 (12-78) U/L Alkaline Phosphatase 112 (45-117) U/L Albumin 2.2 L (3.4-5.0) gm/dl (1) Diabetic foot ulcer associated with type 2 diabetes mellitus Diabetic foot ulcer location: heel Laterality: left Non-pressure ulcer stage : limited to breakdown of skin Qualified Code(s): E11.621 - Type 2 diabetes mellitus with foot ulcer; L97.421 - Non-pressure chronic ulcer of left heel and midfoot limited to breakdown of skin (2) Hypertension Hypertension type: unspecified Qualified Code(s): I10 - Essential (primary) hypertension
--- NOTE | 2019-06-02 13:48 | Discharge Summary ---
Date of Service June 02, 2019 Admission HPI Per Admitting Provider This is a 63-year-old female with uncontrolled IDDM 2, ESRD on HD MWF, diabetic neuropathy, diabetic gastroparesis, Charcot foot secondary to DM, diabetic retinopathy, HTN, HLD, PAF, history of DVT on warfarin, hyperparathyroidism secondary to end-stage renal disease, anemia of chronic disease who presents to [facility] ED at the referral of wound clinic secondary to deterioration of right heel wound and hyperglycemia. is at bedside. She was seen in wound clinic today due to right diabetic foot ulceration. Previously she had been treating with Betadine daily. Recent outpatient x-ray was difficult to rule out early osteomyelitis. Right lower extremity more painful, wound with foul odor and redness extending proximally of the right lower extremity. She was further found to have blood sugar in the 500s. She was referred to ED. She states that she has had wound for approximately 6 weeks and has been worsening. Has been taking ciprofloxacin and clindamycin without for 2 weeks without improvement. Approximately 2 to 4 months ago she had left foot ulceration, but this has since healed. She overall complains of chronic dyspnea on exertion, fatigue, nausea secondary to gastroparesis. Denies fever, chills, sweats, lightheadedness, dizziness, syncope, chest pain, palpitations, emesis, abdominal pain. She produces minimal urine. She is incontinent of stool and has been for years. Over the past month it has been, "oozing out." Appetite has been good. Complains of 2 pound weight gain. Has been compliant with dialysis. Admission Exam Per Admitting Provider Constitutional: Morbidly obese, female, vitals as above, NAD, sitting up in bed, pleasant, conversing easily Head: Normocephalic, Atraumatic Eyes: PERRL, conjunctivae normal, anicteric sclerae ENMT: external ear and nose normal, oropharynx dry mucous membrane Neck: trachea midline, no thyromegaly normal visual inspection Respiratory: normal respiratory effort, lungs clear to auscultation, no wheeze, rales, rhonchi. Normal insp/exp effort, no accessory muscle use Cardiovascular: RRR, no murmur, bilateral lower extremity nonpitting edema right greater than left. Right lower extremity with erythema starting distally to pedal aspect of foot extending proximally to mid pretibial surface. Area warm. Vessels: no JVD or carotid bruit Chest: normal inspection of chest Abdomen: Obese and protuberant abdomen, normal bowel sounds, soft, nontender, no hepatosplenomegaly Musculoskeletal: no cyanosis or clubbing, foul-smelling wound overlying right Achilles with necrotic tissue 7 x 8 cm in size Skin: warm and dry normal turgor Neurologic: PERRL, EOMI, accommodation nl, no face palsy, no dysarthria CN's II-XI intact bilaterally and moves all extremities Psychiatric: A+Ox3, euthymic affect Lymphatic: no cervical or axillary lymphadenopathy : deferred Principal Diagnosis Right diabetic foot infection/Ulceration with Necrosis S/P Right BKA Chronic diarrhea ESRD with dependence on hemodialysis Chronic hyponatremia Paroxysmal Atrial fibrillation Discharge Data Allergies Allergy/AdvReac Type Severity Reaction Status Date / Time Bactrim Allergy Severe ANAPHYLAXIS Verified 06/11/16 08:40 sulfamethoxazole Allergy Severe Anaphylaxis Verified 05/19/19 16:49 trimethoprim Allergy Severe Anaphylaxis Verified 05/19/19 16:49 metformin AdvReac Intermediate Gastrointestinal Verified 05/19/19 16:49 Upset Consultations 05/19/19 17:52 ED Decision to Admit Stat 05/19/19 20:53 Consult Case Management - Discharge Planning Routine Consult Infectious Diseases Routine Consult Nephrology Routine 05/20/19 13:39 Consult Orthopedic Surgery Routine 05/21/19 08:31 Consult Plastic Surgery Routine 05/23/19 08:38 Consult Vascular Surgery Routine 05/25/19 13:29 Consult Case Management - Discharge Planning Routine Procedures Performed Operation Date: 05/25/19 10:15 Actual Procedures p Right Below Knee Amputation(Right) - Blake Medina MD Ankle MRI:Susceptibility artifact concerning for gas along the posterior soft tissues extending from the calcaneal wound and tracking superiorly along the completely torn and retracted Achilles tendon. Wound along the posterior calcaneus. Minimal osseous erosion of the subjacent calcaneus without convincing evidence of osteomyelitis at this time. Moderate ankle joint effusion. Degenerative changes at the tarsometatarsal articulations. Plantar fasciitis. -Venous Doppler:No sonographic evidence of deep venous thrombosis. -Arterial Dopplers: No hemodynamically significant stenosis in the right lower extremity CT head: No acute intracranial findings Neck CT: 1. Examination limited by the lack of intravenous contrast 2. No pathologic masses identified 3. No evidence of hemorrhage 4. No evidence of pathologic adenopathy 5. Postsurgical changes within the cervical spine. Ordered Studies 05/19/19 19:16 US venous doppler LE RT Urgent 05/20/19 22:48 MR ankle RT wo con Routine 05/22/19 09:17 CT head/brain wo con Routine CT soft tissue neck wo con Routine 05/23/19 11:13 US arterial duplex LE RT Urgent Hospital Course (1) Diabetic foot ulcer associated with type 2 diabetes mellitus: Patient is a 63 yr female with H/O uncontrolled DM 2, ESRD on HD MWF, diabetic neuropathy, diabetic gastroparesis, Charcot foot secondary to DM, diabetic retinopathy, HTN, HLD, PAF, history of DVT on warfarin, hyperparathyroidism secondary to end-stage renal disease, anemia of chronic disease who presents to [facility] on referral from wound clinic secondary to deterioration of right heel wound and hyperglycemia. Right diabetic foot infection/Ulceration with Necrosis S/P Right BKA -Ankle MRI:Susceptibility artifact concerning for gas along the posterior soft tissues extending from the calcaneal wound and tracking superiorly along the completely torn and retracted Achilles tendon. Wound along the posterior calcaneus. Minimal osseous erosion of the subjacent calcaneus without convincing evidence of osteomyelitis at this time. Moderate ankle joint effusion. Degenerative changes at the tarsometatarsal articulations. Plantar fasciitis. -Venous Doppler:No sonographic evidence of deep venous thrombosis. -Arterial Dopplers: No hemodynamically significant stenosis in the right lower extremity -Blood Cx: No growth to date -Wound Cx: Coagulase negative staph -S/P Debridement on 05/21/19 -S/P BKA on 05/25/19 -Was on Zosyn and daptomycin>>> Transitioned to Zosyn Procalcitonin level still elevated, discussed with Dr. Conde today, plan to be transition to Augmentin upon discharge for 1 week duration -Continue wound Care -Pain control -Appreciate Orthopedics Input -Repeat Blood Cx:Negative for 48 hrs -leukocytosis trending down -Normal lactate levels -Patient currently not requiring any pain medications to control her pain. -Needs follow up with Surgery upon discharge Diarrhea, chronic 05/24/19 negative C.difficile test loperamide prn for diarrhea Repeat C.difficile test on 05/28/19 with stool culture are negative (2) Diabetes mellitus, type 2: Uncontrolled type 2 diabetes mellitus with hyperglycemia HbA1c 10.5 Was on IV insulin drip on earlier on this admission Continue SQ Insulin Appreciate pharmacy glycemic consult help (3) Atrial fibrillation: H/O Paroxysmal Atrial fibrillation Bradycardia intermittently In sinus, rate is controlled Continue Coumadin for anticoagulation Monitor INR:2.2 (4) Hypertension: Blood pressure stable Continue current medications (5) Hyperlipidemia: statin was held during this hospital stay because of daptomycin use (6) ESRD (end stage renal disease): -ESRD with dependence on hemodialysis -dialysis schedule is every Thursday/Thursday/Thursday -on Renal diet -Appreciate nephrology input (7) Anemia in ESRD (end-stage renal disease): Anemia of chronic kidney disease Postop anemia S/P 1 unit PRBCs Monitor CBC Chronic hyponatremia Hypochloremia Partly due to dialysis fluid shifts and chronic diarrhea Monitor electrolytes (8) Diabetic peripheral neuropathy: continue lyrica (9) Gastroparesis: zofran PRN (10) GERD (gastroesophageal reflux disease): continue PPI (11) Depression: continue prozac (12) DVT prophylaxis: On coumadin INR therapeutic Code Status Full Code Disposition Plan to discharge to Rehab facility today Patient's Primary Care Provider as outpatient is Dr. Dixon Total Time Total Time Spent Total Time Spent (In Minutes): 45 minutes Total Time Includes: Examination of the Patient, Discharge Planning, Medication Reconciliation, Communication With Other Providers and Other Discharge Plan Discharge Items Patient Disposition: Transfer Inpatient Rehab Fac Reason For Visit: R HEEL WOUND, CONCERN FOR OM Discharge Diagnosis: Right diabetic foot infection/Ulceration with Necrosis S/P Right BKA Chronic diarrhea ESRD with dependence on hemodialysis Chronic hyponatremia Paroxysmal Atrial fibrillation Activity: Per Instructions section Exercise/Sports: Gradually increase as tolerated Non-emergency contact: Primary Care Provider and Surgeon Call non-emergency contact if: you have any medication questions, your symptoms worsen, your pain is not controlled, your pain is worsening, your pain is unusual for you, your pain is concerning for you, you have a fever, your wound has increased redness, your wound has increased drainage and your wound pain has increased Follow-up/Referrals: Blake Medina MD [Physician] - (Schedule Orthopedic Follow-up 2-3 weeks from surgery date. Call [phone] for appointment.) Issa Dixon MD [Primary Care Provider] - Diet: Carb Consistent or DM2 and Dialysis Renal Addtl Attending Provider Instructions: Follow-up with your primary care physician Dr. Dixon in 1 week after being discharged from rehab facility Follow-up with your surgeon Dr. Blake Medina in 1-2 weeks as advised Complete the antibiotic-Augmentin course as prescribed Seek immediate medical attention if your symptoms reoccur or worsen 06/07/2019 10:00 AM Provider Claim Adjuster 1 [facility] Department Cardiac Studies, [facility] Pending Studies at Discharge: No Stand-Alone Forms: My [facility] Skilled Items Patient informed of condition?: Yes DNR: No Discharge Level of Care: Acute rehab Communicable Disease: No Discharge Prognosis: Improving Lines: None Urinary Catheter: Yes Medications and DC Order Prescriptions: New ascorbic acid (vitamin C) [Vitamin C] 500 mg Tablet 500 mg PO BIDM 30 Days Qty: 60 RF: 0 ferrous gluconate 324 mg (38 mg iron) Tablet 324 mg PO BIDM 30 Days Qty: 60 RF: 0 amoxicillin-pot clavulanate [Augmentin] 500-125 mg tablet 1 tab PO DAILY Qty: 7 RF: 0 Continued fluoxetine 20 mg capsule 20 mg PO QAM RF: 0 fluticasone propionate 50 mcg/actuation spray,suspension 2 sprays INTNAS QPM RF: 0 loperamide 2 mg capsule 4 mg PO DIRECTED PRN (Reason: Diarrhea) RF: 0 pantoprazole [Protonix] 40 mg tablet,delayed release (DR/EC) 40 mg PO QAM RF: 0 pregabalin [Lyrica] 150 mg capsule 150 mg PO BID RF: 0 warfarin [Coumadin] 5 mg tablet 2.5 mg PO WK RF: 0 pravastatin [Pravachol] 20 mg tablet 20 mg PO QAM RF: 0 calcium acetate 667 mg capsule 1,334 mg PO TIDM RF: 0 Humulin 70/30 U-100 Insulin 100 unit/mL (70-30) suspension 26 unit subcut QAM RF: 0 Humulin 70/30 U-100 Insulin 100 unit/mL (70-30) suspension 36 unit subcut HS RF: 0 warfarin 5 mg tablet 5 mg PO 6XWK RF: 0 calcium acetate 667 mg capsule 667 mg PO DIRECTED RF: 0 ondansetron HCl 4 mg Tablet 4 mg PO QID PRN (Reason: Nausea) RF: 0 metoclopramide HCl 5 mg tablet 5 mg PO QID PRN (Reason: Nausea) RF: 0 Nephro-Lexa 0.8 mg Tablet 1 tab PO HS RF: 0 ergocalciferol (vitamin D2) 50,000 unit Capsule 50,000 unit PO WK RF: 0 Discontinued clindamycin HCl 300 mg capsule 300 mg PO TID Qty: 90 RF: 1 ciprofloxacin HCl [Cipro] 500 mg tablet 500 mg PO QAM RF: 0 hydrocodone-acetaminophen 5-325 mg Tablet 1 tab PO Q6H PRN (Reason: Pain) RF: 0 Discharge Orders: Discharge Order (Routine); Ordered 06/02/19 Ordered By: Suhail Venegas Admission Data Admit Date/Time: 05/19/19 18:48 Attending Provider: Suhail Venegsa Admit Provider: Trent Tomas Primary Care Provider: Issa Dixon Other Providers: [facility] ; Blake Medina ; Trent Tomas ; Francoise Conde ; Francisca Tim ; João Patterson ; Leonor Swanson ; Triny Chambers Japheth E. ; Trent Reynoso ; Fransico Sherwood ; Yeimy Serrano ; Dave Fishman Other Interventions: Discharge Summary Assessment (RN) Last Done: 06/02/19 13:25 DC Date/Time DO NOT enter until pt leaves facility: 06/02/19 15:45
--- NOTE | 2019-06-02 15:54 | Progress Note ---
DATE: 06/02/2019 SUBJECTIVE: A 63-year-old female now 8 days out from right below knee amputation for chronic infection. She is doing well. No significant pain today. She is anxious she is getting out of here and going to rehab today. No new complaints. OBJECTIVE: VITAL SIGNS: Temperature 36.7. Vital signs stable. PHYSICAL EXAMINATION: GENERAL: Shows a pleasant, middle-aged female. She is sitting up in bed, looks pretty comfortable. EXTREMITIES: Examination of the right leg reveals the dressing to be clean, dry and intact. No drainage. LABORATORY DATA: Hemoglobin 8.8. Hematocrit 28.9. Her INR is 2.2. ASSESSMENT: 63-year-old female 8 days out from a right below knee amputation for chronic infection and open wound. She is doing pretty well. PLAN: At this point, she just needs routine wound management from our standpoint. We want to disturb this wound as little as possible and just let it heal. I will need to see her back in about 1-2 weeks for possible suture removal. Otherwise, she just needs continued medical management. Any orthopedic questions can be directed to me at [phone].
[2019-06-02] MEDS ORDERED: WARFARIN SOD 6 MG TAB PO SCH (16:00)
[2019-06-03] MEDS ORDERED: DAPTOmycin 700 MG in SYRINGE 0 ML IV SCH (14:00)
== END 2019-06-02 15:45 | DRG 617 ==
LOC: ED 15:35 → 2E 18:48 → SUATTDRO 18:48 → 2E 20:12 → 3N 05-26 12:53

== ENCOUNTER 2019-07-12 14:12 | Inpatient (IN) ==
[2019-07-12 16:00] LABS: Basophils # (auto) 0.03 K/uL (0-0.2); Basophils % (auto) 0.1 %; Eosinophils # (auto) 0.05 K/uL (0-0.5); Eosinophils % (auto) 0.2 %; Hematocrit (blood only) 35.7 % (37-47); Hemoglobin 10.9 g/dL (12.0-16.0); Immature Granulocytes # (auto) 0.71 K/uL (0.00-0.02); Immature Granulocytes % (auto) 3.4 %; Lymphocytes # (auto) 1.61 K/uL (1.2-3.4); Lymphocytes % (auto) 7.6 %; Mean Corpuscular Hemoglobin 29.2 pg (25-34); Mean Corpuscular Hgb Conc 30.5 g/dL (32-36); Mean Corpuscular Volume 95.7 fL (80-100); Mean Platelet Volume 9.6 fL (7.4-10.4); Monocytes # (auto) 1.08 K/uL (0.11-0.59); Monocytes % (auto) 5.1 %; Neutrophils # (auto) 17.68 K/uL (1.4-6.5); Neutrophils % (auto) 83.6 %; Platelet Count 398 K/uL (130-400); RDW Coefficient of Variation 16.6 % (11.5-14.5); RDW Standard Deviation 58.6 fL (36.4-46.3); Red Blood Count 3.73 M/uL (4.2-5.4); White Blood Count 21.16 K/uL (4.8-10.8)
[2019-07-12 16:14] LABS: Albumin Level 2.4 gm/dl (3.4-5.0); BUN Creatinine Ratio 9.1 (10-20); Calcium 10.1 mg/dl (8.5-10.1); Creatinine Clr Calc Pharmacy 15.9 ml/min; Est GFR (African American) 11.8; Est GFR (Non-African American) 10.2; Potassium 3.6 mmol/L (3.5-5.1)
[2019-07-12 16:17] LABS: Albumin Globulin Ratio 0.5 (0.9-2); Bilirubin,Total 0.4 mg/dl (0.2-1); Globulin 4.9 gm/dl (2.5-4.0); Total Protein 7.3 gm/dl (6.4-8.2)
[2019-07-12 16:22] LABS: INR 1.6 (0.9-1.1); Partial Thromboplastin Ratio 1.6; Partial Thromboplastin Time 44.7 Seconds (21.0-31.0); Prothrombin Time 16.2 Seconds (9.0-12.0)
[2019-07-12] MEDS ORDERED: CONSULT PHARMACY STA (16:51)
[2019-07-12] MEDS ORDERED: GLUCAGON FOR INJ 1 MG VIAL SQ PRN (17:11)
[2019-07-12] MEDS ORDERED: CARBOHYDRATES FOR HYPOGLYCEMIA PO PRN (17:11)
[2019-07-12] MEDS ORDERED: DEXTROSE 50% 50 ML SYRINGE IV PRN (17:11)
[2019-07-12] MEDS ORDERED: GLUCOSE 40% GEL 15 GM TUBE PO PRN (17:11)
[2019-07-12] MEDS ORDERED: GLUCOSE 10 TABS/TUBE PO PRN (17:11)
[2019-07-12] MEDS ORDERED: ERTAPENEM CONSULT ACTIVE PRN (17:16)
[2019-07-12] MEDS ORDERED: DAPTOMYCIN CONSULT ACTIVE PRN (17:16)
--- NOTE | 2019-07-12 17:17 | History & Physical Report ---
Date of Service July 12, 2019 Assessment & Plan (1) Sacral wound: Pt is 64 y/o F with PMH uncontrolled insulin dependent DM II, ESRD on HD MWF, diabetic neuropathy, diabetic gastroparesis, diabetic retinopathy, HTN, HLD, atrial fibrillation on Coumadin, history of DVT, hyperparathyroidism secondary to end-stage renal disease, anemia of chronic disease presented to hospital as direct admission from wound clinic for worsening sacral wound. Patient on ertapenem currently for sacral wound. 06/22/19 buttock wound culture + Klebsiella, Serratia marcescens, bacteroides uniformis Pt c/o pain to buttocks region, c/o nausea without vomiting yesterday. Denies fever/chills Pt afebrile, P:81, R: 20, BP: 161/71, 93% on RA WBC: 21, Lactate: 1.1 -Wound culture pending -Blood cultures pending -Obtain CT pelvis with contrast to rule out abscess, osteomyelitis -Ertapenem on HD days, daptomycin, renally dosed -N.p.o. midnight -Wound care consult -ID consult -CBC, BMP, ESR in a.m. (2) Below-knee amputation of right lower extremity: History of diabetic foot ulcer s/p right BKA 05/25/[address] Mednia Incision site currently with [facility] Patient was to have follow-up appointment with Dr. Medina on 07/14/2019 -Consult Ortho for wound assessment (3) Diabetes mellitus, type 2: A1c 10.5 on 05/19/2019 History difficult to control BSG in past hospitalization -Hold home insulin -Basal bolus insulin per protocol -Glycemic pharmacy consult to assist in BSG management (4) Atrial fibrillation: On Coumadin Currently rate controlled INR: 1.6 -Hold Coumadin, dose SQ heparin in case of surgical procedure (5) ESRD (end stage renal disease): HD on MWF Last HD on 07/11/2019 -Renal diet, 1200 mL fluid restriction -Continue nephro vitamins, Phoslo -Nephrology consult (6) Hypertension: Not on medications -Monitor BP (7) Chronic anemia: H/H: 10.9/35. Hgb baseline ~9 -Monitor H&H (8) Gastroparesis: -Continue Zofran as needed (9) Depression: -Continue Prozac (10) Neuropathy: -Continue Lyrica DVT Prophylaxis -Heparin SQ for now, Holding Coumadin in case of procedure DNR/DNI as per discussion with pt Follows with Dr Dixon for routine care Pt was seen and care coordinated with Dr Tomas. See addendum History of Present Illness Chief Complaint: Sacral wound Primary Care Provider: Issa Dixon MD Pt is 64 y/o F with PMH uncontrolled insulin dependent DM II, ESRD on HD MWF, diabetic neuropathy, diabetic gastroparesis, diabetic retinopathy, HTN, HLD, atrial fibrillation on Coumadin, history of DVT, hyperparathyroidism secondary t o end-stage renal disease, anemia of chronic disease presented to hospital as direct admission from wound clinic for worsening sacral wound. Pt c/o pain to buttocks region. Pt states that yesterday started with some nausea. No vomiting. Denies any known fever or chills. Pt has been following with wound clinic for sacral wound. Was seen at wound clinic today and found to have worsening sacral wound with reported pocket of purulent discharge. 06/22/19 buttock wound culture + Klebsiella, Serratia marcescens, bacteroides uniformis. Pt currently on ertapenem on dialysis days. Recent admission 05/19/19-06/02/19 for right diabetic foot infection s/p right BKA. Patient reports has had slow wound healing of right leg stump. Denies any noted discharge or bleeding from area. Reports has follow-up with orthopedics- Dr. Medina on 07/14/2019. Today had 2 soft BM's. Patient reports left foot with several pressure points however denies any open areas at this time. Reports had HD yesterday. Does not make any urine. Denies diaphoresis, melena, hematochezia, KINCAID, dizziness, syncope, vision changes, neck pain, CP, SOB, orthopnea, palpitations, cough, sore throat, choking, otalgia, rhinorrhea, abdominal pain, paresthesias, weakness, extremity edema, rashes or other skin problems. Allergies Allergy/AdvReac Type Severity Reaction Status Date / Time Bactrim Allergy Severe ANAPHYLAXIS Verified 06/11/16 08:40 sulfamethoxazole Allergy Severe Anaphylaxis Verified 06/27/19 13:24 trimethoprim Allergy Severe Anaphylaxis Verified 06/27/19 13:24 metformin AdvReac Intermediate Gastrointestinal Verified 06/27/19 13:24 Upset Home Medications Home Medications Medication Instructions Recorded Confirmed Type fluoxetine 20 mg capsule 20 mg PO QAM cap 04/08/18 07/12/19 History fluticasone propionate 50 2 sprays INTNAS QPM gm 04/08/18 07/12/19 History mcg/actuation nasal spray,suspension loperamide 2 mg capsule 4 mg PO DIRECTED PRN cap 04/08/18 07/12/19 History pantoprazole 40 mg tablet,delayed 40 mg PO QAM 04/08/18 07/12/19 History release pravastatin 20 mg tablet 20 mg PO QAM tab 04/08/18 07/12/19 History pregabalin 150 mg capsule 150 mg PO BID 04/08/18 07/12/19 History warfarin 5 mg tablet 2.5 mg PO WK 04/08/18 07/12/19 History Humulin 70/30 U-100 Insulin 30 unit SUBCUT QAM 05/19/19 07/12/19 History Humulin 70/30 U-100 Insulin 36 unit SUBCUT HS 05/19/19 07/12/19 History Nephro-Lexa 1 tab PO HS 05/19/19 07/12/19 History calcium acetate 667 mg PO TIDM 05/19/19 07/12/19 History ergocalciferol (vitamin D2) 50,000 unit PO WK 05/19/19 07/12/19 History ondansetron HCl 4 mg PO QID PRN 05/19/19 07/12/19 History warfarin 5 mg PO 6XWK 05/19/19 07/12/19 History B complex with C 20-folic acid 1 1 cap PO .COMPLEX 06/22/19 07/12/19 History mg capsule ertapenem 1 gram solution for 500 mg IV DAILY ea 06/29/19 07/12/19 History injection cyclosporine [Restasis] 1 drp OPHTHALMIC (EYE) DAILY 07/12/19 07/12/19 History Past Med/Surg History Medical History (Updated 07/12/19 @ 18:03 by Brina Valentine PA-C) Acquired claw toe of left foot (Acute) Acquired claw toe of right foot (Acute) Atrial fibrillation dx 2 years ago - on warfarin - follows w/ dr. Perez AV fistula LUE Charcot's joint of foot in type 2 diabetes mellitus (Chronic) Charcot's joint of left foot (Acute) Chronic anemia Congestive heart failure Follows w/ dr. Chris Montgomery Diabetes mellitus with diabetic polyneuropathy (Acute) Diabetes mellitus, type 2 IDDM Diabetic peripheral neuropathy (Acute) Dialysis patient (Acute) M, W, F Diverticulosis (Chronic) DVT (deep venous thrombosis) (Chronic) x 2. LUE & LLE (both dx years ago - treated - LUE post surgery, reason for DVT in LLE unk) ESRD (end stage renal disease) (Acute) 2/2 DM; FOLLOWS W/ [facility] Gastroparesis GERD (gastroesophageal reflux disease) Glaucoma Hyperlipidemia Hypertension (Acute) Left midfoot ulcer (Acute) Neuropathic ulcer of left heel (Resolved) Neuropathy Stage III pressure ulcer of left buttock Wound infection (Acute) ACTIVE INFECTION TO LEFT THUMB WOUND; ON ABX; [facility] Surgical History H/O carpal tunnel repair (Chronic) H/O hernia repair (Chronic) History of ankle surgery (Acute) History of bilateral knee replacement History of cataract surgery LEFT History of cervical spinal surgery ROM WNL History of cholecystectomy (Chronic) History of colonoscopy History of esophagogastroduodenoscopy (EGD) Hx of appendectomy (Chronic) S/P arteriovenous (AV) fistula creation Family History Other Breast cancer Diabetes Hypertension Stroke Social History Preferred Language: [place] Communication Ability: Effective 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 Beliefs That Will Affect Care: None Current Living Situation: Spouse Other Information That Helps Us Care for You: No Feels Safe at Home: Yes Safety Concerns: Feels Safe At This Time Smoking Status: Never smoker Second Hand Exposure: No ; Hx Alcohol Use: No Hx Substance Use: No Review of Systems Review of Systems: All systems reviewed & are unremarkable except as noted in HPI & below Physical Exam Physical Exam: General: no acute distress, obese Head: normocephalic, atraumatic Eyes: PERRL, EOM's intact, conjunctiva non-injected, anicteric ENT: normal inspection external ears, nose, mucous membranes moist Neck: supple, trachea midline Lungs: clear, no respiratory distress, no wheezing/rhonchi/rales CV: irregularly irregular, rate 82, no murmur, no pretibial edema Abd: normal BS, protuberant, soft, non-tender Ext: no cyanosis, no calf tenderness to left leg; RLE: +BKA, stump with incision with steri strips in place with eschar, no active discharge no significant surrounding erythema left foot: +non open pressure wound to medial aspect 1st metatarsal head and mid foot, and lateral aspect 5th metatarsal head and calcaneus L arm +fistula with palpable thrill Neuro: A&O x 3, no focal deficits noted, normal affect Skin: warm, dry; Sacrum with erythema, left buttock with pressure ulcer, distal gluteal cleft with deep ulcer Results & Data Vital Signs (Past 12 Hours) Vital Signs Temp Pulse Resp BP Pulse Ox 07/12/19 15:33 37.1 C 81 20 161/71 H 93 Laboratory Results Short CBC 07/12/19 Range/Units 15:32 WBC 21.16 H (4.8-10.8) K/uL Hgb 10.9 L (12.0-16.0) g/dL Hct 35.7 L (37-47) % Plt Count 398 (130-400) K/uL BMP 07/12/19 15:32 Sodium 134 L Potassium 3.6 Chloride 97 L Carbon Dioxide 29 BUN 40 H Creatinine 4.32 H Glucose 102 H Calcium 10.1 Liver Function 07/12/19 Range/Units 15:32 Total Bilirubin 0.4 (0.2-1) mg/dl AST 15 (15-37) U/L ALT 15 (12-78) U/L Alkaline Phosphatase 101 (45-117) U/L Albumin 2.4 L (3.4-5.0) gm/dl ECG Rate (beats per minute): 84 Rhythm: atrial fibrillation Supervising Physician Co-Signing Physician Notes HISTORY: Record reviewed. Patient interviewed and examined. Care coordinated with Brina Valentine PA-C. Please refer to her documentation for complete history. Briefly, 64-year-old female with history of atrial fibrillation, diabetes fawn beck, CKD stage V on hemodialysis, and other problems. Admitted with worsening sacral decubitus ulcer. No fever. EXAM: General- no distress Lungs- clear to auscultation; no respiratory distress Cardiovascular- RRR; no murmur; no gallop; no JVD; trace pretibial edema LLE Abdomen- + bowel sounds, soft, nontender Extremities- no cyanosis; s/p right BKA Neuro- alert, oriented Skin- warm & dry; sacral decubitus ulcer, ~ 3 cm, at least stage III DATA: Hemoglobin 10.9, white count 21,160, platelet count 398,000. PT 16.2, INR 1.6. Potassium 3.6, BUN 40, creatinine 4.32, random glucose 102. Other lab studies as noted. ASSESSMENT AND PLAN: Sacral decubitus ulcer, at least stage III. Wound culture from 06/22/2019 grew Klebsiella pneumoniae (ESBL), Serratia marcescens, Bacterioides uniformis. IV antibiotic therapy with daptomycin and ertapenem. Check CT of pelvis to assess for abscess and/or osteomyelitis. Consult wound Care Team and ID. CKD 5 on hemodialysis. Consult Nephrology. Please refer to JOHN Valentine's documentation for discussion of other issues. (1) Hypertension Hypertension type: unspecified Qualified Code(s): I10 - Essential (primary) hypertension
[2019-07-12] MEDS ORDERED: PHARMACY GLYCEMIC MGMT CONSULT PRN (17:28)
[2019-07-12] MEDS ORDERED: IOVERSOL 100ml IV PRN (18:16)
--- NOTE | 2019-07-12 18:41 | CT Scan Report ---
CT pelvis w/IV con only HISTORY: 64 years-old Female sacral ulcer, r/o abscess/osteo COMPARISON: None available TECHNIQUE: Multiple axial CT images of the pelvis were obtained following the intravenous ministratio n of 90 mL Optiray 320 IV contrast. A dose lowering technique was used consistent with the principals of DISHA. FINDINGS: Mixed plaque of the abdominal aorta and femoral arteries. No aneurysm. Unremarkable IVC and iliac vei ns. There is no adenopathy identified. Unremarkable appearance of the uterus, urinary bladder and adn exa. No bowel obstruction or bowel wall thickening. Minimal colonic diverticulosis without acute dive rticulitis. Appendix not visualized. Small fat filled periumbilical hernia, diastases 2.0 cm. Large s acral decubitus ulcer is noted measuring over 7 cm in length. Trace amount of fluid with debris/air i s noted within the ulcer which extends into the left ischiorectal fossa and left perineal tissues as well as partially extending into the left gluteus elmo muscle inferiorly. No drainable fluid colle ction. Demineralized appearance of the bones. Severe multilevel facet arthrosis. Degenerative changes of the pelvis and spine. No bony erosion identified to suggest acute osteomyelitis at this time. The ulcer does however extend to the level of the inferior sacrum/coccyx. IMPRESSION: 1. Large sacral decubitus ulcer extends into the left ischiorectal fossa, perineum and inferior aspec t of the left gluteal elmo muscle. Air and fluid is noted within the ulcer without drainable fluid collection identified. The ulcer extends along the inferior margin of the sacrum/coccyx, however the re is no definite CT evidence of acute osteomyelitis at this time. 2. No acute intrapelvic abnormality identified. 3. Mild colonic diverticulosis without acute diverticulitis. 4. Small fat filled periumbilical hernia. The above report was generated using voice recognition software. It may contain grammatical, syntax o r spelling errors. Electronically signed by: Dm Wilkins M.D. 07/12/2019 6:40 PM
[2019-07-12] MEDS: ERTAPENEM SODIUM 500 MG in SODIUM CHLORIDE 0.9% 50 ML IV SCH (18:52)
[2019-07-12] MEDS: DAPTOmycin 450 MG in SYRINGE 0 ML IV SCH (19:07)
[2019-07-12] MEDS: INSULIN ASPART 100 UNITS/ML 3 ML PEN SC SCH ×2 (19:07→21:15)
[2019-07-12] MEDS: INSULIN HUMAN NPH SC SCH (19:07)
[2019-07-12] MEDS: HEPARIN SOD 5,000 UNIT/0.5 ML VIAL SQ SCH (20:37)
[2019-07-12] MEDS: FLUTICASONE PROPIONATE NA SPR 16 GM BTL NAE SCH (20:42)
[2019-07-12] MEDS: PREGABALIN 150 MG CAP PO SCH (20:42)
[2019-07-12] MEDS: VITAMIN B COMPLEX TAB PO SCH (20:42)
[2019-07-13] MEDS: TRAMADOL HCL 50 MG TABLET PO PRN ×2 (03:35→16:51)
[2019-07-13 06:49] LABS: Basophils # (auto) 0.03 K/uL (0-0.2); Basophils % (auto) 0.2 %; Eosinophils # (auto) 0.16 K/uL (0-0.5); Eosinophils % (auto) 0.9 %; Hematocrit (blood only) 31.8 % (37-47); Hemoglobin 9.6 g/dL (12.0-16.0); Immature Granulocytes # (auto) 0.44 K/uL (0.00-0.02); Immature Granulocytes % (auto) 2.5 %; Lymphocytes # (auto) 2.63 K/uL (1.2-3.4); Mean Corpuscular Hemoglobin 28.7 pg (25-34); Mean Corpuscular Hgb Conc 30.2 g/dL (32-36); Mean Corpuscular Volume 95.2 fL (80-100); Mean Platelet Volume 9.3 fL (7.4-10.4); Monocytes # (auto) 1.48 K/uL (0.11-0.59); Monocytes % (auto) 8.5 %; Neutrophils # (auto) 12.76 K/uL (1.4-6.5); Neutrophils % (auto) 72.9 %; Platelet Count 311 K/uL (130-400); RDW Coefficient of Variation 16.6 % (11.5-14.5); Red Blood Count 3.34 M/uL (4.2-5.4)
[2019-07-13 06:58] LABS: INR 1.6 (0.9-1.1); Prothrombin Time 15.7 Seconds (9.0-12.0)
[2019-07-13 07:33] LABS: BUN Creatinine Ratio 8.5 (10-20); Calcium 9.5 mg/dl (8.5-10.1); Creatinine Clr Calc Pharmacy 12.8 ml/min; Est GFR (African American) 9.1; Est GFR (Non-African American) 7.9; Potassium 4.1 mmol/L (3.5-5.1)
--- NOTE | 2019-07-13 08:55 | Pharmacy Report ---
Pharmacy Glycemic Short Note 2 - Date of Service July 13, 2019 - Glycemic Short BSG Results (Last 24 hours): 07/12/19 07/12/19 07/12/19 15:32 16:46 20:35 Glucose 102 H POC Glucose 102 H 145 H 07/13/19 07/13/19 06:36 07:30 Glucose 94 POC Glucose 98 OUTPATIENT ANTIDIABETIC REGIMEN: * Novolin 70/30 30 units qAM, 36 units qPM ASSESSMENT: * Melita is a 64 yr old uncontrolled T2DM admitted with infected sacral wound * Complicated PMH including ESRD on HD MWF, diabetic neuropathy, diabetic gastroparesis, diabetic retinopathy, HTN, HLD, A. fib on Coumadin, h/o DVT, hyperparathyroidism secondary to end-stage renal disease, anemia of chronic disease * Patient was started on NPH + Novolog yesterday evening. NPH dose was reduced significantly compared to home dosing due to NPO status. * Will continue NPH dosed per scale until we have a better idea of inpatient insulin needs. NPH was held this morning. Despite being held, her lunch BSG remains at goal so I will further back off NPH dosing. I suspect dose will require adjustment tomorrow morning as diet advances. PLAN FOR INPATIENT GLYCEMIC CONTROL: * Hold outpatient oral diabetes medications * Basal insulin - decrease * NPH held this morning * Resume NPH SQ BID: * 5 units for BSG < 120 * 10 units for BSG 120-180 * 15 units for BSG > 180 * Bolus insulin * NovoLog per scale ACHS or Q6hrs while NPO * Goal Range: Low 120 mg/dL - High 160 mg/dL * Correction Factor: 25 mg/dL/unit * Nutritional / Prandial insulin per carb ratio of 1 unit per 8 grams CHO consumed thank you
[2019-07-13] MEDS: HEPARIN SOD 5,000 UNIT/0.5 ML VIAL SQ SCH ×2 (09:11→20:51)
[2019-07-13] MEDS: INSULIN ASPART 100 UNITS/ML 3 ML PEN SC SCH ×4 (09:15→20:48)
[2019-07-13] MEDS: INSULIN HUMAN NPH SC SCH ×2 (09:16→20:50)
[2019-07-13] MEDS ORDERED: SODIUM CHLORIDE 0.9% 1000ML 1,000 ML IV PRN (10:03)
[2019-07-13] MEDS ORDERED: EPOETIN ALFA 10,000 UNITS/ML VIAL IV ONE (10:03)
[2019-07-13] MEDS ORDERED: HEPARIN SOD (PORCINE) 1000 UNIT/ML 10 ML VIAL IV ONE (10:03)
--- NOTE | 2019-07-13 10:27 | Infectious Disease Consult ---
Date of Consultation July 13, 2019 Assessment & Plan (1) Sacral wound: Patient with nonhealing sacral decubitus ulcer, previous cultures positive for Serratia, Klebsiella, and Bacteroides. Agree with need for surgical debridement, will continue on present antibiotics pending further culture results. Will adjust once results available. Will be followed by infectious disease. (2) Cellulitis: History of Present Illness Reason for Consultation: Sacral wound Attending Physician: Sean Brito MD History of Present Illness 64-year-old female well-known to me from previous infectious disease follow-up, with long history of insulin-dependent diabetes mellitus, end-stage renal disease on dialysis, atrial fibrillation, diabetic neuropathy and retinopathy, status post recent right BKA for nonhealing left foot and ankle infection, who has been dealing with sacral decubitus ulcer since that time, treated at the wound care center. Has been on IV ertapenem for positive cultures for Klebsiella, Serratia, Bacteroides. However was seen at the wound care center with finding of worsening infection and was sent to the hospital for further management. Now awaiting surgical debridement. CT of the pelvis shows no obvious osteomyelitis. Currently being treated with daptomycin and ertapenem. Cultures are pending. Denies any significant fever. Allergies Allergy/AdvReac Type Severity Reaction Status Date / Time Bactrim Allergy Severe ANAPHYLAXIS Verified 06/11/16 08:40 sulfamethoxazole Allergy Severe Anaphylaxis Verified 06/27/19 13:24 trimethoprim Allergy Severe Anaphylaxis Verified 06/27/19 13:24 metformin AdvReac Intermediate Gastrointestinal Verified 06/27/19 13:24 Upset Home Medications Home Medications Medication Instructions Recorded Confirmed Type fluoxetine 20 mg capsule 20 mg PO QAM cap 04/08/18 07/12/19 History fluticasone propionate 50 2 sprays INTNAS QPM gm 04/08/18 07/12/19 History mcg/actuation nasal spray,suspension loperamide 2 mg capsule 4 mg PO DIRECTED PRN cap 04/08/18 07/12/19 History pantoprazole 40 mg tablet,delayed 40 mg PO QAM 04/08/18 07/12/19 History release pravastatin 20 mg tablet 20 mg PO QAM tab 04/08/18 07/12/19 History pregabalin 150 mg capsule 150 mg PO BID 04/08/18 07/12/19 History warfarin 5 mg tablet 2.5 mg PO WK 04/08/18 07/12/19 History Humulin 70/30 U-100 Insulin 30 unit SUBCUT QAM 05/19/19 07/12/19 History Humulin 70/30 U-100 Insulin 36 unit SUBCUT HS 05/19/19 07/12/19 History Nephro-Lexa 1 tab PO HS 05/19/19 07/12/19 History calcium acetate 667 mg PO TIDM 05/19/19 07/12/19 History ergocalciferol (vitamin D2) 50,000 unit PO WK 05/19/19 07/12/19 History ondansetron HCl 4 mg PO QID PRN 05/19/19 07/12/19 History warfarin 5 mg PO 6XWK 05/19/19 07/12/19 History B complex with C 20-folic acid 1 1 cap PO .COMPLEX 06/22/19 07/12/19 History mg capsule ertapenem 1 gram solution for 500 mg IV DAILY ea 06/29/19 07/12/19 History injection cyclosporine [Restasis] 1 drp OPHTHALMIC (EYE) DAILY 07/12/19 07/12/19 History Patient History Medical History Acquired claw toe of left foot (Acute) Acquired claw toe of right foot (Acute) Atrial fibrillation dx 2 years ago - on warfarin - follows w/ dr. Perez AV fistula LUE Charcot's joint of foot in type 2 diabetes mellitus (Chronic) Charcot's joint of left foot (Acute) Chronic anemia Congestive heart failure Follows w/ dr. Perez Depression Diabetes mellitus with diabetic polyneuropathy (Acute) Diabetes mellitus, type 2 IDDM Diabetic peripheral neuropathy (Acute) Dialysis patient (Acute) M, W, F Diverticulosis (Chronic) DVT (deep venous thrombosis) (Chronic) x 2. 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 Wound infection (Acute) ACTIVE INFECTION TO LEFT THUMB WOUND; ON ABX; [facility] Surgical History H/O carpal tunnel repair (Chronic) H/O hernia repair (Chronic) History of ankle surgery (Acute) History of bilateral knee replacement History of cataract surgery LEFT History of cervical spinal surgery ROM WNL History of cholecystectomy (Chronic) History of colonoscopy History of esophagogastroduodenoscopy (EGD) Hx of appendectomy (Chronic) S/P arteriovenous (AV) fistula creation Family History Other Breast cancer Diabetes Hypertension Stroke Social History Preferred Language: Uz[place] Communication Ability: Effective 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 Beliefs That Will Affect Care: None Current Living Situation: Spouse Other Information That Helps Us Care for You: No Feels Safe at Home: Yes Safety Concerns: Feels Safe At This Time Smoking Status: Never smoker Second Hand Exposure: No ; Hx Alcohol Use: No Hx Substance Use: No Review of Systems Review of Systems: All systems reviewed & are unremarkable except as noted in HPI & below Physical Exam Constitutional: WD/WN, vitals as above + obese and comfortable; no acute distress Eyes: PERRL, conjunctivae normal, anicteric sclerae ENMT: external ear and nose normal, oropharynx normal Neck: trachea midline, no thyromegaly neck nontender Respiratory: normal respiratory effort, lungs clear to auscultation normal percussion; does not use accessory muscles Cardiovascular: Rate/Rhythm: regular rate and regular rhythm Heart Sounds: normal S1 and normal S2; no gallop, no murmur and no cardiac rub Vessels: normal peripheral pulses; no JVD Gastrointestinal (Abdomen): normal bowel sounds, soft, nontender, no hepatosplenomegaly Musculoskeletal: no cyanosis or clubbing, extremities motor strength 5/5 Head/Neck/Chest: normocephalic, head atraumatic and neck supple Spine: thoracic spine normal to inspection and lumbar spine normal to inspection; no cervical spinal tenderness Skin: no rashes, warm and dry normal turgor and + wound (Large sacral decubitus ulcer with purulent material and some necrotic debris.) Right BKA with eschar Neurologic: patellar DTR's 2+ bilat, sensation intact no focal motor deficits Psychiatric: A+Ox3, euthymic affect Orientation: cooperative Lymphatic: no cervical or axillary lymphadenopathy no inguinal lymphadenopathy Results & Data Vital Signs (Past 12 Hours) Vital Signs Temp Pulse Pulse Resp BP Pulse Ox 07/13/19 07:19 36.8 C 65 16 118/47 L 94 07/13/19 03:24 36.7 C 72 18 114/67 93 07/13/19 01:21 72 07/12/19 22:48 36.5 C 68 20 109/46 L 95 Laboratory Results Short CBC 07/12/19 07/13/19 Range/Units 15:32 06:36 WBC 21.16 H 17.50 H (4.8-10.8) K/uL Hgb 10.9 L 9.6 L (12.0-16.0) g/dL Hct 35.7 L 31.8 L (37-47) % Plt Count 398 311 (130-400) K/uL BMP 07/12/19 07/13/19 15:32 06:36 Sodium 134 L 136 Potassium 3.6 4.1 Chloride 97 L 99 Carbon Dioxide 29 30 BUN 40 H 46 H Creatinine 4.32 H 5.36 H* D Glucose 102 H 94 Calcium 10.1 9.5 Liver Function 07/12/19 Range/Units 15:32 Total Bilirubin 0.4 (0.2-1) mg/dl AST 15 (15-37) U/L ALT 15 (12-78) U/L Alkaline Phosphatase 101 (45-117) U/L Albumin 2.4 L (3.4-5.0) gm/dl Diagnostic Findings Microbiology 07/12/19 Unknown Sacrum Gram Stain - Final CT pelvis w/IV con only HISTORY: 64 years-old Female sacral ulcer, r/o abscess/osteo COMPARISON: None available TECHNIQUE: Multiple axial CT images of the pelvis were obtained following the intravenous ministration of 90 mL Optiray 320 IV contrast. A dose lowering technique was used consistent with the principals of DISHA. FINDINGS: Mixed plaque of the abdominal aorta and femoral arteries. No aneurysm. Unremarkable IVC and iliac veins. There is no adenopathy identified. Unremarkable appearance of the uterus, urinary bladder and adnexa. No bowel obstruction or bowel wall thickening. Minimal colonic diverticulosis without acute diverticulitis. Appendix not visualized. Small fat filled periumbilical hernia, diastases 2.0 cm. Large sacral decubitus ulcer is noted measuring over 7 cm in length. Trace amount of fluid with debris/air is noted within the ulcer which extends into the left ischiorectal fossa and left perineal tissues as well as partially extending into the left gluteus elmo muscle inferiorly. No drainable fluid collection. Demineralized appearance of the bones. Severe multilevel facet arthrosis. Degenerative changes of the pelvis and spine. No bony erosion identified to suggest acute osteomyelitis at this time. The ulcer does however extend to the level of the inferior sacrum/coccyx. IMPRESSION: 1. Large sacral decubitus ulcer extends into the left ischiorectal fossa, perineum and inferior aspect of the left gluteal elmo muscle. Air and fluid is noted within the ulcer without drainable fluid collection identified. The ulcer extends along the inferior margin of the sacrum/coccyx, however there is no definite CT evidence of acute osteomyelitis at this time. 2. No acute intrapelvic abnormality identified. 3. Mild colonic diverticulosis without acute diverticulitis. 4. Small fat filled periumbilical hernia. The above report was generated using voice recognition software. It may contain grammatical, syntax or spelling errors. Electronically signed by: Dm Wilkins M.D. 07/12/2019 6:40 PM Dictated: 07/12/191829 Transcribed: 07/12/191829 PG Care Time/CCT Total # of Minutes Spent Total Time Spent with Patient: Total time spent is greater than 50% in coordination of care (as documented) at patient's floor/unit and/or counseling patient: (1) Cellulitis Laterality: right Site of cellulitis: extremity Site of cellulitis of extremity: lower extremity Qualified Code(s): L03.115 - Cellulitis of right lower limb
--- NOTE | 2019-07-13 10:37 | Hospitalist Progress Note ---
Date of Service July 13, 2019 Assessment & Plan (1) Sacral wound: Pt was sent from the wound clinic as a direct admission for worsening sacral wound ulcer. Buttock wound culture on 06/22/19 grew + Klebsiella, Serratia marcescens, bacteroides uniformis She has been getting IV Ertapenem on HD days CT abd/pelvis showed Large sacral decubitus ulcer extends into the left ischiorectal fossa, perineum and inferior aspect of the left gluteal elmo muscle. Air and fluid is noted within the ulcer without drainable fluid collection identified. No evidence of acute osteomyelitis on CT. WBC on admission 21K, trending down to 17K today Wound culture and Blood cultures pending ID on board and recommended to continue IV Ertapenem and Daptomycin Consult placed for Surgery Case discussed with Dr. Garcia that will evaluate for possible surgical debridement if need Continue daily wound care Monitor CBC (2) Below-knee amputation of right lower extremity: History of diabetic foot ulcer s/p right BKA 05/25/[address] Medina Incision site currently with [facility] Plan to see Dr. Medina on 07/14/2019 for follow up Ortho consulted Case discussed with Dr. Medina's PA (3) Diabetes mellitus, type 2: A1c 10.5 on 05/19/2019 Has been NPO for possible surgical procedure Pharmacy on board for glycemic management Continue Monitor BS (4) Atrial fibrillation: Coumadin on hold Rate controlled INR: 1.6 (5) ESRD (end stage renal disease): HD on MWF Last HD on 07/11/2019 case discussed with Nephrology Dr. Gomez that plan for HD today Continue nephro vitamins, Phoslo (6) Hypertension: BP stable Continue monitor BP (7) Chronic anemia: Hgb 9.6 today Hgb baseline ~9 Continue monitor CBC (8) Gastroparesis: Continue Zofran as needed (9) Depression: Continue Prozac (10) Neuropathy: Continue Lyrica DVT Prophylaxis On Heparin SQ for now since Coumadin on hold for possible surgicalprocedure CODE STATUS DNR/DNI Subjective Pt was seen and examined. Lying in bed with no distress. Pt said that she is not in pain She said that she is hungry and worried about her BS to drop She is NPO for now for possible any surgical debridement Denies any chest pain, palpitation, dizziness and SOB Physical Exam Physical Exam: General- No acute distress Head- atraumatic Eyes- PERRL, EOMI, ENT- oropharynx clear Neck- supple, no JVD Lungs- clear to auscultation Heart- regular rhythm; no murmur Abdomen- normal bowel sounds, soft, nontender Extremities- no Left calf tenderness, +BKA, stump with incision with steri strips in place with eschar and no discharge Neuro- alert, oriented x 3; PERRL, EOMI; no facial palsy; no dysarthria Skin- warm & dry, Sacrum pressure ulcer with dressing on Results & Data Vital Signs (Past 12 Hours) Vital Signs Temp Pulse Pulse Resp BP Pulse Ox 07/13/19 07:19 36.8 C 65 16 118/47 L 94 07/13/19 03:24 36.7 C 72 18 114/67 93 07/13/19 01:21 72 07/12/19 22:48 36.5 C 68 20 109/46 L 95 (1) Hypertension Hypertension type: unspecified Qualified Code(s): I10 - Essential (primary) hypertension
--- NOTE | 2019-07-13 11:15 | Surgery Consultation ---
Date of Consultation July 13, 2019 Assessment & Plan (1) Sacral wound: This is a 64y F with PMH significant for ESRD on HD M/W/F, DM2 on insulin, afib on coumadin, HTN, and recently s/p R BKA for diabetic wound infection who presents as a direct admit for wound clinic for worsening sacral wound. Patient's WBC 17.5 and she is afebrile. CT scan of pelvis revealed large sacral decubitus ulcer extending into the left ischiorectal fossa, perineum and inferior aspect of the left gluteal elmo muscle. Air and fluid is noted without drainable collection, and there is no definitive evidence of osteomyelitis. Patient cannot recall the last time she took her coumadin, but it is currently being held and INR today is 1.6. ID has been consulted for abx guidance and we appreciate wound care input throughout admission. We will not plan on any surgical procedures today, therefore okay to restart a diet for now. I will discuss this case with Dr. Garcia for potential surgical planning in the future if indicated. as above. the wound is adequately draining purulent fluid and there is no drainable collection on CT. She will likely need some terminal supervisor antibiotics but I will refer to ID for that. Recommend wound vac to continue. drainage should resolve after antibiotic course. currrently no /necrotic tissue to debride and no abcess to drain. please call if her status changes. History of Present Illness Attending Physician: Sean Brito MD History of Present Illness This is a 64y F with a PMH of DM2 on insulin, ESRD on HD M/W/F, afib on coumadi n, and diabetic right foot wound s/p R BKA in May who presents as a direct admit from the wound clinic yesterday 07/12/19 for worsening sacral wound. The patient reports she noticed her wound start to develop about 6 months ago, it started small and was sore. She tried to care for it herself by offloading the area, but did not seek outside opinions. She was then admitted in May with a diabetic foot wound, ultimately requiring a R BKA with Dr. Medina. Her admission in may is the first time she received outside care for her ulcer and upon discharge she was referred to the wound clinic who has since been following. She had a wound vac on the area for the past two weeks. Yesterday during her visit they noticed a pocket of pus and overall deterioration of the wound with concern it potentially needed surgical debridement, prompting her to be direct admitted under the medicine service. Work up here with a CT scan revealed a large sacral decubitus ulcer the extends into the L ischiorectal fossa, perineum and inferior aspect of the L gluteus elmo muscle, air and fluid is noted but no drainable collection identified and no evidence of acute osteomyelitis noticed. The patient notes soreness with the wound and only noted drainage when the wound vac was on. She endorses intermittent nausea, intermittent mix of diarrhea and constipation, and + sacral pain. Since her discharge in may she has been residing in a nursing facility and she says for transports they have been using a chelle lift, and she has not been using a wheelchair. She is unsure when she last took her coumadin, today INR is 1.6 and is being held. WBC 17.5 and patient afebrile. Allergies Allergy/AdvReac Type Severity Reaction Status Date / Time Bactrim Allergy Severe ANAPHYLAXIS Verified 06/11/16 08:40 sulfamethoxazole Allergy Severe Anaphylaxis Verified 06/27/19 13:24 trimethoprim Allergy Severe Anaphylaxis Verified 06/27/19 13:24 metformin AdvReac Intermediate Gastrointestinal Verified 06/27/19 13:24 Upset Home Medications Home Medications Medication Instructions Recorded Confirmed Type fluoxetine 20 mg capsule 20 mg PO QAM cap 04/08/18 07/12/19 History fluticasone propionate 50 2 sprays INTNAS QPM gm 04/08/18 07/12/19 History mcg/actuation nasal spray,suspension loperamide 2 mg capsule 4 mg PO DIRECTED PRN cap 04/08/18 07/12/19 History pantoprazole 40 mg tablet,delayed 40 mg PO QAM 04/08/18 07/12/19 History release pravastatin 20 mg tablet 20 mg PO QAM tab 04/08/18 07/12/19 History pregabalin 150 mg capsule 150 mg PO BID 04/08/18 07/12/19 History warfarin 5 mg tablet 2.5 mg PO WK 04/08/18 07/12/19 History Humulin 70/30 U-100 Insulin 30 unit SUBCUT QAM 05/19/19 07/12/19 History Humulin 70/30 U-100 Insulin 36 unit SUBCUT HS 05/19/19 07/12/19 History Nephro-Lexa 1 tab PO HS 05/19/19 07/12/19 History calcium acetate 667 mg PO TIDM 05/19/19 07/12/19 History ergocalciferol (vitamin D2) 50,000 unit PO WK 05/19/19 07/12/19 History ondansetron HCl 4 mg PO QID PRN 05/19/19 07/12/19 History warfarin 5 mg PO 6XWK 05/19/19 07/12/19 History B complex with C 20-folic acid 1 1 cap PO .COMPLEX 06/22/19 07/12/19 History mg capsule ertapenem 1 gram solution for 500 mg IV DAILY ea 06/29/19 07/12/19 History injection cyclosporine [Restasis] 1 drp OPHTHALMIC (EYE) DAILY 07/12/19 07/12/19 History Patient History Medical History Acquired claw toe of left foot (Acute) Acquired claw toe of right foot (Acute) Atrial fibrillation dx 2 years ago - on warfarin - follows w/ dr. Perez AV fistula LUE Charcot's joint of foot in type 2 diabetes mellitus (Chronic) Charcot's joint of left foot (Acute) Chronic anemia Congestive heart failure Follows w/ dr. Perez Depression Diabetes mellitus with diabetic polyneuropathy (Acute) Diabetes mellitus, type 2 IDDM Diabetic peripheral neuropathy (Acute) Dialysis patient (Acute) M, W, F Diverticulosis (Chronic) DVT (deep venous thrombosis) (Chronic) x 2. 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 Wound infection (Acute) ACTIVE INFECTION TO LEFT THUMB WOUND; ON ABX; [facility] Surgical History H/O carpal tunnel repair (Chronic) H/O hernia repair (Chronic) History of ankle surgery (Acute) History of bilateral knee replacement History of cataract surgery LEFT History of cervical spinal surgery ROM WNL History of cholecystectomy (Chronic) History of colonoscopy History of esophagogastroduodenoscopy (EGD) Hx of appendectomy (Chronic) S/P arteriovenous (AV) fistula creation Family History Other Breast cancer Diabetes Hypertension Stroke Social History Preferred Language: Gambian Communication Ability: Effective Data Entry Specialist Required: No Beliefs That Will Affect Care: None marital status: Current Living Situation: Spouse Other Information That Helps Us Care for You: No Feels Safe at Home: Yes Safety Concerns: Feels Safe At This Time Smoking Status: Never smoker Second Hand Exposure: No ; Hx Alcohol Use: No Hx Substance Use: No Review of Systems Constitutional: no fever and no chills Respiratory: no shortness of breath Cardiovascular: no chest pain Gastrointestinal: + nausea (intermittent on and off); no abdominal pain mix of intermittent diarrhea and constipation Genitourinary: no dysuria and no difficulty urinating Integumentary: + sore sacral wound Physical Exam Physical Exam: awake/alert Constitutional: well developed, well nourished and comfortable; no acute distress Respiratory: normal respiratory effort Skin: + ulcer + decubitus ulcers left & superior to buttock cleft, coccyx wound ~2x2cm, deep, some exudate around 12o'clock with some drainage, surrounding erythema, sore to palpation Results & Data Vital Signs (Past 12 Hours) Vital Signs Temp Pulse Pulse Resp BP Pulse Ox 07/13/19 07:19 36.8 C 65 16 118/47 L 94 07/13/19 03:24 36.7 C 72 18 114/67 93 07/13/19 01:21 72 07/12/19 22:48 36.5 C 68 20 109/[address] pelvis w/IV con only HISTORY: 64 years-old Female sacral ulcer, r/o abscess/osteo COMPARISON: None available TECHNIQUE: Multiple axial CT images of the pelvis were obtained following the intravenous ministration of 90 mL Optiray 320 IV contrast. A dose lowering technique was used consistent with the principals of DISHA. FINDINGS: Mixed plaque of the abdominal aorta and femoral arteries. No aneurysm. Unremarkable IVC and iliac veins. There is no adenopathy identified. Unremarkable appearance of the uterus, urinary bladder and adnexa. No bowel obstruction or bowel wall thickening. Minimal colonic diverticulosis without acute diverticulitis. Appendix not visualized. Small fat filled periumbilical hernia, diastases 2.0 cm. Large sacral decubitus ulcer is noted measuring over 7 cm in length. Trace amount of fluid with debris/air is noted within the ulcer which extends into the left ischiorectal fossa and left perineal tissues as well as partially extending into the left gluteus elmo muscle inferiorly. No drainable fluid collection. Demineralized appearance of the bones. Severe multilevel facet arthrosis. Degenerative changes of the pelvis and spine. No bony erosion identified to suggest acute osteomyelitis at this time. The ulcer does however extend to the level of the inferior sacrum/coccyx. IMPRESSION: 1. Large sacral decubitus ulcer extends into the left ischiorectal fossa, perineum and inferior aspect of the left gluteal elmo muscle. Air and fluid is noted within the ulcer without drainable fluid collection identified. The ulcer extends along the inferior margin of the sacrum/coccyx, however there is no definite CT evidence of acute osteomyelitis at this time. 2. No acute intrapelvic abnormality identified. 3. Mild colonic diverticulosis without acute diverticulitis. 4. Small fat filled periumbilical hernia. The above report was generated using voice recognition software. It may contain grammatical, syntax or spelling errors. Electronically signed by: Dm Wilkins M.D. 07/12/2019 6:40 PM PG Care Time/CCT Total # of Minutes Spent Total Time Spent with Patient: Total time spent is greater than 50% in coordination of care (as documented) at patient's floor/unit and/or counseling patient:
--- NOTE | 2019-07-13 17:09 | Nephrology Consultation ---
Date of Consultation July 13, 2019 Assessment & Plan (1) ESRD (end stage renal disease): Patient with ESRD on HD MWF. Last HD was Thursday. Electrolytes are stable. No volume overload. Will dialyze her today for 4hrs on a 2k bath and target UF 1 litre. 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 Antibiotics to be timed with dialysis (3) Chronic anemia: Hb of 9.6 today. Will give epogen 10,000 urints with HD. Monitor daily History of Present Illness Reason for Consultation: ESRD on HD Requesting Physician: Sean Brito MD Attending Physician: Sean Brito MD History of Present Illness Pt is 64 y/o F with PMH uncontrolled insulin dependent DM II, ESRD on HD MWF, diabetic neuropathy, diabetic gastroparesis, diabetic retinopathy, HTN, HLD, atrial fibrillation on Coumadin, and recent right BKA who was admitted on 07/12/19 with infected sacral wound. I am seeing her for dialysis support. Her last HD was Thursday. Pt c/o pain to buttocks region. Pt states that yesterday started with some nausea. No vomiting. Denies any known fever or chills. Pt has been following with wound clinic for sacral wound. Was seen at wound clinic and found to have worsening sacral wound with reported pocket of purulent discharge. 06/22/19 buttock wound culture + Klebsiella, Serratia marcescens, bacteroides uniformis. Pt currently on ertapenem on dialysis days. Since admission, she reports improvement. No nausea or vomiting. No SOB. She is NPO and wants to eat. Patient was seen during morning rounds. Allergies Allergy/AdvReac Type Severity Reaction Status Date / Time Bactrim Allergy Severe ANAPHYLAXIS Verified 06/11/16 08:40 sulfamethoxazole Allergy Severe Anaphylaxis Verified 06/27/19 13:24 trimethoprim Allergy Severe Anaphylaxis Verified 06/27/19 13:24 metformin AdvReac Intermediate Gastrointestinal Verified 06/27/19 13:24 Upset Home Medications Home Medications Medication Instructions Recorded Confirmed Type fluoxetine 20 mg capsule 20 mg PO QAM cap 04/08/18 07/12/19 History fluticasone propionate 50 2 sprays INTNAS QPM gm 04/08/18 07/12/19 History mcg/actuation nasal spray,suspension loperamide 2 mg capsule 4 mg PO DIRECTED PRN cap 04/08/18 07/12/19 History pantoprazole 40 mg tablet,delayed 40 mg PO QAM 04/08/18 07/12/19 History release pravastatin 20 mg tablet 20 mg PO QAM tab 04/08/18 07/12/19 History pregabalin 150 mg capsule 150 mg PO BID 04/08/18 07/12/19 History warfarin 5 mg tablet 2.5 mg PO WK 04/08/18 07/12/19 History Humulin 70/30 U-100 Insulin 30 unit SUBCUT QAM 05/19/19 07/12/19 History Humulin 70/30 U-100 Insulin 36 unit SUBCUT HS 05/19/19 07/12/19 History Nephro-Lexa 1 tab PO HS 05/19/19 07/12/19 History calcium acetate 667 mg PO TIDM 05/19/19 07/12/19 History ergocalciferol (vitamin D2) 50,000 unit PO WK 05/19/19 07/12/19 History ondansetron HCl 4 mg PO QID PRN 05/19/19 07/12/19 History warfarin 5 mg PO 6XWK 05/19/19 07/12/19 History B complex with C 20-folic acid 1 1 cap PO .COMPLEX 06/22/19 07/12/19 History mg capsule ertapenem 1 gram solution for 500 mg IV DAILY ea 06/29/19 07/12/19 History injection cyclosporine [Restasis] 1 drp OPHTHALMIC (EYE) DAILY 07/12/19 07/12/19 History Patient History Medical History Acquired claw toe of left foot (Acute) Acquired claw toe of right foot (Acute) Atrial fibrillation dx 2 years ago - on warfarin - follows w/ dr. Perez AV fistula LUE Charcot's joint of foot in type 2 diabetes mellitus (Chronic) Charcot's joint of left foot (Acute) Chronic anemia Congestive heart failure Follows w/ dr. Perez Depression Diabetes mellitus with diabetic polyneuropathy (Acute) Diabetes mellitus, type 2 IDDM Diabetic peripheral neuropathy (Acute) Dialysis patient (Acute) M, W, F Diverticulosis (Chronic) DVT (deep venous thrombosis) (Chronic) x 2. 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 Wound infection (Acute) ACTIVE INFECTION TO LEFT THUMB WOUND; ON ABX; [facility] Surgical History H/O carpal tunnel repair (Chronic) H/O hernia repair (Chronic) History of ankle surgery (Acute) History of bilateral knee replacement History of cataract surgery LEFT History of cervical spinal surgery ROM WNL History of cholecystectomy (Chronic) History of colonoscopy History of esophagogastroduodenoscopy (EGD) Hx of appendectomy (Chronic) S/P arteriovenous (AV) fistula creation Family History Other Breast cancer Diabetes Hypertension Stroke Social History Preferred Language: Sammarinese Communication Ability: Effective Esthetician/Spa Coordinator Required: No Beliefs That Will Affect Care: None marital status: Current Living Situation: Spouse Other Information That Helps Us Care for You: No Feels Safe at Home: Yes Safety Concerns: Feels Safe At This Time Smoking Status: Never smoker Second Hand Exposure: No ; Hx Alcohol Use: No Hx Substance Use: No Review of Systems Review of Systems: All systems reviewed & are unremarkable except as noted in HPI & below Physical Exam Physical Exam: General exam: Appears comfortable, no acute distress HEENT: Pupils are equal and reactive to light Neck: No JVD, neck is supple trachea is midline Respiratory system: Clear breath sounds bilaterally. Gastrointestinal: Abdomen is soft, non distended, non tender, bowel sounds are present CVS: Regular rate and rhythm. No murmurs, rubs or gallops Musculoskeletal: No joint or muscle tenderness Extremities: Non tender, right BKA Neuro: Oriented, no tremors, no focal neurological deficits Skin: No rashes Access: left UA AVF Results & Data Vital Signs (Past 12 Hours) Vital Signs Temp Pulse Pulse Pulse Resp BP BP 07/13/19 16:00 82 141/80 H 07/13/19 15:40 94 H 120/76 07/13/19 15:20 61 100/81 07/13/19 15:00 76 115/56 L 07/13/19 14:40 64 159/70 H 07/13/19 14:21 36.9 C 73 07/13/19 11:16 37 C 78 16 129/66 07/13/19 07:19 36.8 C 65 16 118/47 L Pulse Ox 07/13/19 16:00 07/13/19 15:40 07/13/19 15:20 07/13/19 15:00 07/13/19 14:40 07/13/19 14:21 07/13/19 11:16 94 07/13/19 07:19 94 Laboratory Results Laboratory Results - last 24 hr 07/12/19 07/13/19 07/13/19 20:35 06:36 06:36 WBC 17.50 H RBC 3.34 L Hgb 9.6 L Hct 31.8 L MCV 95.2 MCH 28.7 MCHC 30.2 L RDW Std Deviation 58.0 H RDW Coeff of Dean 16.6 H Plt Count 311 MPV 9.3 Immature Gran % (Auto) 2.5 Neut % (Auto) 72.9 Lymph % (Auto) 15.0 [place] % (Auto) 8.5 Eos % (Auto) 0.9 Baso % (Auto) 0.2 Immature Gran # (Auto) 0.44 H Neut # (Auto) 12.76 H Lymph # (Auto) 2.63 [place] # (Auto) 1.48 H Eos # (Auto) 0.16 Baso # (Auto) 0.03 ESR PT 15.7 H INR 1.6 H Sodium Potassium Chloride Carbon Dioxide Anion Gap BUN Creatinine Est Cr Clr Drug Dosing Est GFR ( Amer) Est GFR (Non-Af Amer) BUN/Creatinine Ratio Glucose POC Glucose 145 H Calcium 07/13/19 07/13/19 07/13/19 06:36 06:36 07:30 WBC RBC Hgb Hct MCV MCH MCHC RDW Std Deviation RDW Coeff of Dean Plt Count MPV Immature Gran % (Auto) Neut % (Auto) Lymph % (Auto) [place] % (Auto) Eos % (Auto) Baso % (Auto) Immature Gran # (Auto) Neut # (Auto) Lymph # (Auto) [place] # (Auto) Eos # (Auto) Baso # (Auto) ESR > 90 H PT INR Sodium 136 Potassium 4.1 Chloride 99 Carbon Dioxide 30 Anion Gap 7.0 BUN 46 H Creatinine 5.36 H* D Est Cr Clr Drug Dosing 12.8 Est GFR ( Amer) 9.1 Est GFR (Non-Af Amer) 7.9 BUN/Creatinine Ratio 8.5 L Glucose 94 POC Glucose 98 Calcium 9.5 07/13/19 07/13/19 11:54 16:32 WBC RBC Hgb Hct MCV MCH MCHC RDW Std Deviation RDW Coeff of Dean Plt Count MPV Immature Gran % (Auto) Neut % (Auto) Lymph % (Auto) [place] % (Auto) Eos % (Auto) Baso % (Auto) Immature Gran # (Auto) Neut # (Auto) Lymph # (Auto) [place] # (Auto) Eos # (Auto) Baso # (Auto) ESR PT INR Sodium Potassium Chloride Carbon Dioxide Anion Gap BUN Creatinine Est Cr Clr Drug Dosing Est GFR ( Amer) Est GFR (Non-Af Amer) BUN/Creatinine Ratio Glucose POC Glucose 121 H 145 H Calcium
[2019-07-13] MEDS: PREGABALIN 150 MG CAP PO SCH ×2 (19:27→20:50)
[2019-07-13] MEDS: CALCIUM ACETATE 667 MG CAP PO SCH ×2 (19:28→19:40)
[2019-07-13] MEDS: NEPHROCAPS PO SCH (19:29)
[2019-07-13] MEDS: PRAVASTATIN SOD 20 MG TAB PO SCH (19:29)
[2019-07-13] MEDS: FLUOXETINE HCL 20 MG CAP PO SCH (19:40)
[2019-07-13] MEDS: PANTOprazole 40 MG TAB PO SCH (19:41)
[2019-07-13] MEDS ORDERED: INSULIN HUMAN NPH SC ONE (20:15)
[2019-07-13] MEDS: PROMETHAZINE HCL 12.5 MG in SODIUM CHLORIDE 0.9% 50 ML IV PRN (20:38)
--- NOTE | 2019-07-13 20:41 | Wound Consultation ---
Date of Consultation July 13, 2019 Assessment & Plan (1) Stage III pressure ulcer of left buttock: Patient is seen while on dialysis. No debridement was performed. The wound was probed and and tunnel appears to open into a deeper cavity. I am unable to visualize this. We will discuss with [employer] rep to see if there is any way to wound VAC this. We will dress wound with Aquacel Ag in the meantime. Thank you for limited participate in the care of this patient. Please not hesitate to call with any questions. History of Present Illness Reason for Consultation: pressure ulcer buttock Attending Physician: Sean Brito MD History of Present Illness This is a 64-year-old female who was admitted from the wound clinic with deterioration of her sacral pressure ulcer. Patient has a history of right BKA, secondary hyperparathyroidism, uncontrolled diabetes, end-stage renal disease on dialysis, dyslipidemia, hypertension, congestive heart failure, diabetic neuropathy, atrial fibrillation and GERD. In the office a new pus filled pocket was found. This was despite patient being on ertapenem using a wound VAC. Infectious disease and general surgery are following the patient. Allergies Allergy/AdvReac Type Severity Reaction Status Date / Time Bactrim Allergy Severe ANAPHYLAXIS Verified 06/11/16 08:40 sulfamethoxazole Allergy Severe Anaphylaxis Verified 06/27/19 13:24 trimethoprim Allergy Severe Anaphylaxis Verified 06/27/19 13:24 metformin AdvReac Intermediate Gastrointestinal Verified 06/27/19 13:24 Upset Home Medications Home Medications Medication Instructions Recorded Confirmed Type fluoxetine 20 mg capsule 20 mg PO QAM cap 04/08/18 07/12/19 History fluticasone propionate 50 2 sprays INTNAS QPM gm 04/08/18 07/12/19 History mcg/actuation nasal spray,suspension loperamide 2 mg capsule 4 mg PO DIRECTED PRN cap 04/08/18 07/12/19 History pantoprazole 40 mg tablet,delayed 40 mg PO QAM 04/08/18 07/12/19 History release pravastatin 20 mg tablet 20 mg PO QAM tab 04/08/18 07/12/19 History pregabalin 150 mg capsule 150 mg PO BID 04/08/18 07/12/19 History warfarin 5 mg tablet 2.5 mg PO WK 04/08/18 07/12/19 History Humulin 70/30 U-100 Insulin 30 unit SUBCUT QAM 05/19/19 07/12/19 History Humulin 70/30 U-100 Insulin 36 unit SUBCUT HS 05/19/19 07/12/19 History Nephro-Lexa 1 tab PO HS 05/19/19 07/12/19 History calcium acetate 667 mg PO TIDM 05/19/19 07/12/19 History ergocalciferol (vitamin D2) 50,000 unit PO WK 05/19/19 07/12/19 History ondansetron HCl 4 mg PO QID PRN 05/19/19 07/12/19 History warfarin 5 mg PO 6XWK 05/19/19 07/12/19 History B complex with C 20-folic acid 1 1 cap PO .COMPLEX 06/22/19 07/12/19 History mg capsule ertapenem 1 gram solution for 500 mg IV DAILY ea 06/29/19 07/12/19 History injection cyclosporine [Restasis] 1 drp OPHTHALMIC (EYE) DAILY 07/12/19 07/12/19 History Patient History Medical History Acquired claw toe of left foot (Acute) Acquired claw toe of right foot (Acute) Atrial fibrillation dx 2 years ago - on warfarin - follows w/ dr. Perez AV fistula LUE Charcot's joint of foot in type 2 diabetes mellitus (Chronic) Charcot's joint of left foot (Acute) Chronic anemia Congestive heart failure Follows w/ dr. Perez Depression Diabetes mellitus with diabetic polyneuropathy (Acute) Diabetes mellitus, type 2 IDDM Diabetic peripheral neuropathy (Acute) Dialysis patient (Acute) M, W, F Diverticulosis (Chronic) DVT (deep venous thrombosis) (Chronic) x 2. 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 Wound infection (Acute) ACTIVE INFECTION TO LEFT THUMB WOUND; ON ABX; [facility] Surgical History H/O carpal tunnel repair (Chronic) H/O hernia repair (Chronic) History of ankle surgery (Acute) History of bilateral knee replacement History of cataract surgery LEFT History of cervical spinal surgery ROM WNL History of cholecystectomy (Chronic) History of colonoscopy History of esophagogastroduodenoscopy (EGD) Hx of appendectomy (Chronic) S/P arteriovenous (AV) fistula creation Family History Other Breast cancer Diabetes Hypertension Stroke Social History Preferred Language: [place]er Communication Ability: Effective 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 There is a tunnel at 11:00 that probes approximately 1 cm opening into the larger blind pouch. Wound is covered with fibrin and slough. Periwound is erythematous. There is large amount of purulent drainage and foul odor. Left buttock wound measuring 4 x 1.8 x 0.2 cm and is continuous with other wound. Wound is covered with fibrin and slough. Periwound is intact and erythematous. There is moderate drainage and no foul odors. Neurologic: awake; not confused Psychiatric: A+Ox3, euthymic affect Results & Data Vital Signs (Past 12 Hours) Vital Signs Temp Pulse Pulse Pulse Resp BP BP 07/13/19 19:46 36.8 C 80 18 129/81 07/13/19 19:30 36.9 C 78 141/42 H 07/13/19 18:20 82 111/50 L 07/13/19 18:00 93 H 155/80 H 07/13/19 17:40 71 142/47 H 07/13/19 17:20 76 115/85 07/13/19 17:00 75 117/69 07/13/19 16:40 72 137/51 L 07/13/19 16:20 80 121/63 07/13/19 16:00 82 141/80 H 07/13/19 15:40 94 H 120/76 07/13/19 15:20 61 100/81 07/13/19 15:00 76 115/56 L 07/13/19 14:40 64 159/70 H 07/13/19 14:21 36.9 C 73 07/13/19 11:16 37 C 78 16 129/66 Pulse Ox 07/13/19 19:46 94 07/13/19 19:30 07/13/19 18:20 07/13/19 18:00 07/13/19 17:40 07/13/19 17:20 07/13/19 17:00 07/13/19 16:40 07/13/19 16:20 07/13/19 16:00 07/13/19 15:40 07/13/19 15:20 07/13/19 15:00 07/13/19 14:40 07/13/19 14:21 07/13/19 11:16 94 Diagnostic Findings Microbiology 07/12/19 Unknown Sacrum Gram Stain - Final CT pelvis w/IV con only HISTORY: 64 years-old Female sacral ulcer, r/o abscess/osteo COMPARISON: None available TECHNIQUE: Multiple axial CT images of the pelvis were obtained following the intravenous ministration of 90 mL Optiray 320 IV contrast. A dose lowering technique was used consistent with the principals of ALARA. FINDINGS: Mixed plaque of the abdominal aorta and femoral arteries. No aneurysm. Unremarkable IVC and iliac veins. There is no adenopathy identified. Unremarkable appearance of the uterus, urinary bladder and adnexa. No bowel obstruction or bowel wall thickening. Minimal colonic diverticulosis without acute diverticulitis. Appendix not visualized. Small fat filled periumbilical hernia, diastases 2.0 cm. Large sacral decubitus ulcer is noted measuring over 7 cm in length. Trace amount of fluid with debris/air is noted within the ulcer which extends into the left ischiorectal fossa and left perineal tissues as well as partially extending into the left gluteus elmo muscle inferiorly. No drainable fluid collection. Demineralized appearance of the bones. Severe multilevel facet arthrosis. Degenerative changes of the pelvis and spine. No bony erosion identified to suggest acute osteomyelitis at this time. The ulcer does however extend to the level of the inferior sacrum/coccyx. IMPRESSION: 1. Large sacral decubitus ulcer extends into the left ischiorectal fossa, perineum and inferior aspect of the left gluteal elmo muscle. Air and fluid is noted within the ulcer without drainable fluid collection identified. The ulcer extends along the inferior margin of the sacrum/coccyx, however there is no definite CT evidence of acute osteomyelitis at this time. 2. No acute intrapelvic abnormality identified. 3. Mild colonic diverticulosis without acute diverticulitis. 4. Small fat filled periumbilical hernia. The above report was generated using voice recognition software. It may contain grammatical, syntax or spelling errors. Electronically signed by: Dm Wilkins M.D. 07/12/2019 6:40 PM Dictated: 07/12/191829 Transcribed: 07/12/191829 PG Care Time/CCT Total # of Minutes Spent Total Time Spent with Patient: Total time spent is greater than 50% in coordination of care (as documented) at patient's floor/unit and/or counseling patient:
[2019-07-13] MEDS: FLUTICASONE PROPIONATE NA SPR 16 GM BTL NAE SCH (20:50)
[2019-07-13] MEDS: VITAMIN B COMPLEX TAB PO SCH (20:51)
[2019-07-13] MEDS: ERTAPENEM SODIUM 500 MG in SODIUM CHLORIDE 0.9% 50 ML IV SCH (21:03)
[2019-07-14] MEDS: TRAMADOL HCL 50 MG TABLET PO PRN ×2 (01:25→08:06)
[2019-07-14] MEDS: ACETAMINOPHEN 325 MG TAB PO PRN (05:58)
[2019-07-14] MEDS: PROMETHAZINE HCL 12.5 MG in SODIUM CHLORIDE 0.9% 50 ML IV PRN (06:23)
[2019-07-14 06:50] LABS: Hematocrit (blood only) 34.2 % (37-47); Hemoglobin 10.3 g/dL (12.0-16.0); Mean Corpuscular Hemoglobin 28.5 pg (25-34); Mean Corpuscular Hgb Conc 30.1 g/dL (32-36); Mean Corpuscular Volume 94.5 fL (80-100); Mean Platelet Volume 9.6 fL (7.4-10.4); Platelet Count 317 K/uL (130-400); RDW Coefficient of Variation 16.9 % (11.5-14.5); RDW Standard Deviation 58.3 fL (36.4-46.3); Red Blood Count 3.62 M/uL (4.2-5.4)
[2019-07-14 07:25] LABS: BUN Creatinine Ratio 6.5 (10-20); Calcium 9.2 mg/dl (8.5-10.1); Creatinine Clr Calc Pharmacy 17.8 ml/min; Est GFR (African American) 13.6; Est GFR (Non-African American) 11.7; Potassium 3.8 mmol/L (3.5-5.1)
--- NOTE | 2019-07-14 07:53 | Progress Note ---
DATE: 07/14/2019 CHIEF COMPLAINT: Seven weeks out from a right below knee amputation complicated by some wound necrosis. HISTORY OF PRESENT ILLNESS: A 64-year-old female recently admitted for a sacral decubitus ulcer with infection. She is now about 7 weeks out from right below knee amputation for chronic lower extremity infection. She does not have any pain. She has been slow to heal this wound that has developed an eschar. She has been managed for decubitus ulcer at wound clinic and being readmitted for an infection of this. She has had a surgical consultation. No complaints to her right leg. She has no pain. She ____ distant doing routine wound care. OBJECTIVE: VITAL SIGNS: Temperature is 37.0 this morning. Vital signs are stable. EXTREMITIES: Examination of the right leg reveals the dressing to be in place. I removed the dressing and she has got pretty skin eschar to the stump of her wound. It is soft and supple. There is no surrounding cellulitis. There are no signs of pus. ASSESSMENT: A 64-year-old female diabetic, 7 weeks out from a right below knee amputation with some wound necrosis. It looks stable. Clearly some of these tissues were and she has got an eschar. There are no active signs of infection in her stump. PLAN: At this point, treatment is conservative. We are just going to continue wound care and see how this heals in. If she develops infection, we may have to proceed with an above-knee amputation. We will continue to follow this along and just leave this eschar heal hopefully and peel off like a scab. She should have dressing changes once a day. Just a dry dressing changes fine. She does not necessarily need antibiotics for this problem. Any orthopedic questions can be directed to me at [phone]. I do not think her right leg is the source of any infection at this time.
[2019-07-14] MEDS: FLUOXETINE HCL 20 MG CAP PO SCH (08:06)
[2019-07-14] MEDS: CALCIUM ACETATE 667 MG CAP PO SCH ×3 (08:06→19:57)
[2019-07-14] MEDS: PREGABALIN 150 MG CAP PO SCH ×2 (08:06→21:16)
[2019-07-14] MEDS: HEPARIN SOD 5,000 UNIT/0.5 ML VIAL SQ SCH ×2 (08:07→21:13)
[2019-07-14] MEDS: PRAVASTATIN SOD 20 MG TAB PO SCH (08:07)
[2019-07-14] MEDS: PANTOprazole 40 MG TAB PO SCH (08:07)
[2019-07-14] MEDS: INSULIN ASPART 100 UNITS/ML 3 ML PEN SC SCH ×4 (08:11→21:48)
[2019-07-14] MEDS: INSULIN HUMAN NPH SC SCH ×2 (08:12→21:11)
[2019-07-14 10:14] LABS: INR 1.3 (0.9-1.1); Prothrombin Time 12.9 Seconds (9.0-12.0)
--- NOTE | 2019-07-14 10:50 | Infectious Disease Progress Nt ---
Date of Service July 14, 2019 Assessment & Plan (1) Sacral wound: Patient with nonhealing sacral decubitus ulcer, previous cultures positive for Serratia, Klebsiella, and Bacteroides. Cultures so far only growing coagulase-negative staph. Will continue on present antibiotics pending final culture results. Length of IV antibiotics will be determined by clinical response and culture results. Will follow. (2) Cellulitis: Subjective Patient seen in follow-up for nonhealing sacral decubitus ulcer. Wound care consultation noted. Orthopedic follow-up also noted. Remains afebrile, white count normal. Offers no new specific complaints today. Pain reasonably well controlled. Cultures so far growing only coagulase-negative staph. Review of Systems Review of Systems: All systems reviewed & are unremarkable except as noted in HPI & below Physical Exam Constitutional: WD/WN, vitals as above + obese and comfortable; no acute distress Eyes: PERRL, conjunctivae normal, anicteric sclerae ENMT: external ear and nose normal, oropharynx normal Neck: trachea midline, no thyromegaly neck nontender Respiratory: normal respiratory effort, lungs clear to auscultation normal percussion; does not use accessory muscles Cardiovascular: Rate/Rhythm: regular rate and regular rhythm Heart Sounds: normal S1 and normal S2; no gallop, no murmur and no cardiac rub Vessels: normal peripheral pulses; no JVD Gastrointestinal (Abdomen): normal bowel sounds, soft, nontender, no hepatosplenomegaly Musculoskeletal: no cyanosis or clubbing, extremities motor strength 5/5 Head/Neck/Chest: normocephalic, head atraumatic and neck supple Spine: thoracic spine normal to inspection and lumbar spine normal to inspection; no cervical spinal tenderness Skin: no rashes, warm and dry normal turgor and + wound (Large sacral decubitus ulcer with purulent material and some necrotic debris.) Neurologic: patellar DTR's 2+ bilat, sensation intact no focal motor deficits Psychiatric: A+Ox3, euthymic affect Orientation: cooperative Lymphatic: no cervical or axillary lymphadenopathy no inguinal lymphadenopathy Results & Data Vital Signs (Past 12 Hours) Vital Signs Temp Pulse Pulse Resp BP Pulse Ox 07/14/19 07:27 37 C 84 16 121/70 91 07/14/19 07:16 88 07/14/19 03:00 37 C 79 20 123/70 91 07/14/19 02:35 79 07/13/19 23:00 37.6 C H 70 20 123/71 91 Laboratory Results Short CBC 07/14/19 Range/Units 06:35 WBC 19.90 H (4.8-10.8) K/uL Hgb 10.3 L (12.0-16.0) g/dL Hct 34.2 L (37-47) % Plt Count 317 (130-400) K/uL BMP 07/14/19 06:35 Sodium 132 L Potassium 3.8 Chloride 96 L Carbon Dioxide 28 BUN 25 H Creatinine 3.86 H D Glucose 149 H Calcium 9.2 Diagnostic Findings Microbiology 07/12/19 Unknown Sacrum Gram Stain - Final 07/12/19 Unknown Sacrum Wound Culture - Preliminary Coag negative Staphylococcus 07/12/19 15:42 Blood Aerobic Blood Culture - Preliminary No growth in Aerobic bottle after 24 hours. 07/12/19 15:42 Blood Anaerobic Blood Culture - Preliminary No growth in Anaerobic bottle after 24 hours. 07/12/19 15:32 Blood Aerobic Blood Culture - Preliminary No growth in Aerobic bottle after 24 hours. 07/12/19 15:32 Blood Anaerobic Blood Culture - Preliminary No growth in Anaerobic bottle after 24 hours. PG Care Time/CCT Total # of Minutes Spent Total Time Spent with Patient: Total time spent is greater than 50% in coordination of care (as documented) at patient's floor/unit and/or counseling patient: (1) Cellulitis Laterality: right Site of cellulitis: extremity Site of cellulitis of extremity: lower extremity Qualified Code(s): L03.115 - Cellulitis of right lower limb
--- NOTE | 2019-07-14 14:01 | Surgery Progress Note ---
Date of Service July 14, 2019 Assessment & Plan (1) Sacral wound: d/w Dr. Vasquez from wound clinic. she has failed out-pt antibiotics per him he would like me to enlarge the draining wound opening so he can place an irrigating wound vac I think this is reasonable. discussed risks/options with pt. questions answered. she is agreeable. will proceed with I & D and debridement of wound as necessary this afternoon. Subjective no new complaints per pt. Physical Exam Physical Exam: unchanged from yesterday Results & Data Vital Signs (Past 12 Hours) Vital Signs Temp Pulse Pulse Resp BP Pulse Ox 07/14/19 11:56 36.9 C 85 18 119/68 98 07/14/19 07:27 37 C 84 16 121/70 91 07/14/19 07:16 88 07/14/19 03:00 37 C 79 20 123/70 91 07/14/19 02:35 79 PG Care Time/CCT Total # of Minutes Spent Total Time Spent with Patient: Total time spent is greater than 50% in coordination of care (as documented) at patient's floor/unit and/or counseling patient:
--- NOTE | 2019-07-14 15:21 | History & Physical Bridge Note ---
Date of Service July 14, 2019 History & Physical Bridge Note I have examined the patient, reviewed the History & Physical and in the interval since the performance of the History & Physical I have noted the following changes of clinical significance: no changes noted
--- NOTE | 2019-07-14 15:40 | Pharmacy Report ---
Pharmacy Glycemic Short Note 2 - Date of Service July 14, 2019 - Glycemic Short BSG Results (Last 24 hours): 07/13/19 07/14/19 07/14/19 16:32 06:35 07:41 Glucose 149 H POC Glucose 145 H 168 H 07/14/19 07/14/19 07/14/19 11:14 11:49 15:16 Glucose POC Glucose 222 H 222 H 172 H OUTPATIENT ANTIDIABETIC REGIMEN: * Novolin 70/30 30 units qAM, 36 units qPM ASSESSMENT: * Melita is a 64 yr old uncontrolled T2DM admitted with infected sacral wound * Complicated PMH including ESRD on HD MWF, diabetic neuropathy, diabetic gastroparesis, diabetic retinopathy, HTN, HLD, A. fib on Coumadin, h/o DVT, hyperparathyroidism secondary to end-stage renal disease, anemia of chronic disease * Patient was started on NPH + Novolog yesterday evening. NPH dose was reduced significantly compared to home dosing due to NPO status. * Will continue NPH dosed per scale until we have a better idea of inpatient insulin needs. NPH was held this morning. Despite being held, her lunch BSG remains at goal so I will further back off NPH dosing. I suspect dose will require adjustment tomorrow morning as diet advances. 07/14: * Patient received only 11 units of insulin yesterday, of which 5 were basal insulin * Fasting BSG this AM 149 mg/dL - will continue with scale for NPH * Changed back to NPO status for I&D today, will have scale for NPH tonight PLAN FOR INPATIENT GLYCEMIC CONTROL: * Hold outpatient oral diabetes medications * Basal insulin - * NPH held this morning * Resume NPH SQ BID: * 5 units for BSG < 140 * 10 units for BSG 140-180 * 15 units for BSG > 180 * Bolus insulin * NovoLog per scale ACHS or Q6hrs while NPO * Goal Range: Low 120 mg/dL - High 160 mg/dL * Correction Factor: 20 mg/dL/unit * Nutritional / Prandial insulin per carb ratio of 1 unit per 6 grams CHO consumed thank you
--- NOTE | 2019-07-14 15:50 | Nephrology Progress Note ---
Date of Service July 14, 2019 Assessment & Plan (1) ESRD (end stage renal disease): Patient with ESRD on HD MWF. Last HD was Thursday. Electrolytes are stable. No volume overload. She tolerated dialysis well yesterday. Next HD thursday for 4 hours to get UF of 2 L. 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 Antibiotics to be timed with dialysis (3) Chronic anemia: Recent Hb of 9.6. Will continue Epogen 10,000 urints with HD. Monitor daily Subjective She feels better today, denies any shortness of breath or pain. No vomiting or diarrhea. She is n.p.o. going for debridement of the sacral wound. Review of Systems Review of Systems: All systems reviewed & are unremarkable except as noted in HPI & below Physical Exam Physical Exam: General exam: Appears comfortable, no acute distress HEENT: Pupils are equal and reactive to light Neck: No JVD, neck is supple trachea is midline Respiratory system: Clear breath sounds bilaterally. Gastrointestinal: Abdomen is soft, non distended, non tender, bowel sounds are present CVS: Regular rate and rhythm. No murmurs, rubs or gallops Musculoskeletal: No joint or muscle tenderness Extremities: Non tender, no edema, peripheral pulses are present. Right BKA Neuro: Oriented, no tremors, no focal neurological deficits Skin: No rashes, has a sacral wound Results & Data Vital Signs (Past 12 Hours) Vital Signs Temp Pulse Pulse Pulse Resp BP Pulse Ox 07/14/19 14:53 36.7 C 77 77 20 137/64 93 07/14/19 11:56 36.9 C 85 18 119/68 98 07/14/19 07:27 37 C 84 16 121/70 91 07/14/19 07:16 88 Laboratory Results Laboratory Results - last 24 hr 07/13/19 07/14/19 07/14/19 16:32 01:15 06:35 WBC 19.90 H RBC 3.62 L Hgb 10.3 L Hct 34.2 L MCV 94.5 MCH 28.5 MCHC 30.1 L RDW Std Deviation 58.3 H RDW Coeff of Dean 16.9 H Plt Count 317 MPV 9.6 PT INR Sodium Potassium Chloride Carbon Dioxide Anion Gap BUN Creatinine Est Cr Clr Drug Dosing Est GFR ( Amer) Est GFR (Non-Af Amer) BUN/Creatinine Ratio Glucose POC Glucose 145 H Calcium Stl C. diff Tox B Gene Negative Cdiff Gene 07/14/19 07/14/19 07/14/19 06:35 07:41 09:47 WBC RBC Hgb Hct MCV MCH MCHC RDW Std Deviation RDW Coeff of Dean Plt Count MPV PT 12.9 H INR 1.3 H Sodium 132 L Potassium 3.8 Chloride 96 L Carbon Dioxide 28 Anion Gap 8.0 BUN 25 H Creatinine 3.86 H D Est Cr Clr Drug Dosing 17.8 Est GFR ( Amer) 13.6 Est GFR (Non-Af Amer) 11.7 BUN/Creatinine Ratio 6.5 L Glucose 149 H POC Glucose 168 H Calcium 9.2 Stl C. diff Tox B Gene 07/14/19 07/14/19 07/14/19 11:14 11:49 15:16 WBC RBC Hgb Hct MCV MCH MCHC RDW Std Deviation RDW Coeff of Dean Plt Count MPV PT INR Sodium Potassium Chloride Carbon Dioxide Anion Gap BUN Creatinine Est Cr Clr Drug Dosing Est GFR ( Amer) Est GFR (Non-Af Amer) BUN/Creatinine Ratio Glucose POC Glucose 222 H 222 H 172 H Calcium Stl C. diff Tox B Gene
[2019-07-14] MEDS ORDERED: ROCURONIUM BROMIDE 10 MG/ML 5 ML VIAL ONE (16:57)
[2019-07-14] MEDS ORDERED: LIDOCAINE HCL 2% 2 ML VIAL/AMP(20MG/ML) INFIL ONE (16:57)
[2019-07-14] MEDS ORDERED: PROPOFOL IV EMULSION 10 MG/ML 20 ML VIAL IV ONE (16:57)
[2019-07-14] MEDS ORDERED: ONDANSETRON INJ 2 MG/ML 2 ML VIAL ONE (16:57)
[2019-07-14] MEDS ORDERED: MIDAZOLAM HCL 1 MG/ML 2ML VIAL ONE (16:57)
[2019-07-14] MEDS ORDERED: fentaNYL citrate 100 MCG/2 ML VIAL ONE (16:58)
--- NOTE | 2019-07-14 16:58 | Anesthesiology Consultation ---
Date of Service July 14, 2019 Assessment & Plan Chart Review Chart Review: Acceptable Risk for Surgery Consults Requested none History Surgery Operation Date: 07/14/19 11:45 Proposed Procedures p Incision and Drainage with Debridemeent Sacral Wound - Gómez Garcia, Height/Weight Height: 5 ft 3 in Weight: 110.5 kg Allergies Allergy/AdvReac Type Severity Reaction Status Date / Time Bactrim Allergy Severe ANAPHYLAXIS Verified 06/11/16 08:40 sulfamethoxazole Allergy Severe Anaphylaxis Verified 06/27/19 13:24 trimethoprim Allergy Severe Anaphylaxis Verified 06/27/19 13:24 metformin AdvReac Intermediate Gastrointestinal Verified 06/27/19 13:24 Upset Medications Home Medications Medication Instructions Recorded Confirmed Last Taken fluoxetine 20 mg capsule 20 mg PO QAM cap 04/08/18 07/12/19 07/12/19 06:00 fluticasone propionate 50 2 sprays INTNAS QPM gm 04/08/18 07/12/19 07/12/19 06:00 mcg/actuation nasal spray,suspension loperamide 2 mg capsule 4 mg PO DIRECTED PRN cap 04/08/18 07/12/19 12/28/18 pantoprazole 40 mg tablet,delayed 40 mg PO QAM 04/08/18 07/12/19 07/12/19 06:00 release pravastatin 20 mg tablet 20 mg PO QAM tab 04/08/18 07/12/19 07/12/19 06:00 pregabalin 150 mg capsule 150 mg PO BID 04/08/18 07/12/19 07/12/19 06:00 warfarin 5 mg tablet 2.5 mg PO WK 04/08/18 07/12/19 07/10/19 17:00 Humulin 70/30 U-100 Insulin 30 unit SUBCUT QAM 05/19/19 07/12/19 05/19/19 Humulin 70/30 U-100 Insulin 36 unit SUBCUT HS 05/19/19 07/12/19 05/18/19 Nephro-Lexa 1 tab PO HS 05/19/19 07/12/19 07/11/19 20:00 calcium acetate 667 mg PO TIDM 05/19/19 07/12/19 07/12/19 06:00 ergocalciferol (vitamin D2) 50,000 unit PO WK 05/19/19 07/12/19 07/10/19 ondansetron HCl 4 mg PO QID PRN 05/19/19 07/12/19 07/12/19 warfarin 5 mg PO [id number] 05/19/19 07/12/19 07/11/19 17:00 B complex with C 20-folic acid 1 1 cap PO .COMPLEX 06/22/19 07/12/19 07/12/19 06:00 mg capsule ertapenem 1 gram solution for 500 mg IV DAILY ea 06/29/19 07/12/19 07/11/19 injection cyclosporine [Restasis] 1 drp OPHTHALMIC (EYE) DAILY 07/12/19 07/12/19 07/12/19 06:00 Active Medications Generic Name Dose Route Start Last Admin Trade Name Freq PRN Reason Stop Dose Admin Acetaminophen 650 mg 07/12/19 14:55 07/14/19 05:58 Tylenol PO 08/11/19 14:54 650 mg Q4H PRN Administration Pain or Fever Calcium Acetate 667 mg 07/13/19 08:00 07/14/19 11:44 Phoslo PO 08/12/19 07:59 Not Given TIDM RAMYA Fluoxetine HCl 20 mg 07/13/19 09:00 07/14/19 08:06 Prozac PO 08/12/19 08:59 20 mg QAM RAMYA Administration Fluticasone Propionate 2 sprays 07/12/19 21:00 07/13/19 20:50 Flonase KEVIN 08/11/19 20:59 2 sprays QPM RAMYA Administration Heparin Sodium (Porcine) 5,000 units 07/12/19 21:00 07/14/19 08:07 Heparin Sodium (Porcine) SQ 08/11/19 20:59 5,000 units Q12 RAMYA Administration Ertapenem 500 mg/ Sodium 55 mls @ 110 mls/hr 07/12/19 18:00 07/13/19 21:43 Chloride IV 07/22/19 17:59 Infused Q24H RAMYA Infusion Protocol Daptomycin 450 mg/ Syringe 9 mls @ 4.5 mls/min 07/12/19 19:00 07/12/19 19:07 IV 07/22/19 18:59 4.5 mls/min Q48H RAMYA Administration Protocol Promethazine HCl 12.5 mg/ 50.5 mls @ 202 mls/hr 07/13/19 19:45 07/14/19 07:17 Sodium Chloride IV 08/12/19 19:44 Infused Q6H PRN Infusion Nausea And Vomiting Insulin Aspart 0 units 07/12/19 17:45 07/14/19 12:39 Novolog Flexpen SC 08/11/19 17:44 4 units ACHS RAMYA Administration Insulin Human NPH 0 units 07/12/19 17:00 07/14/19 08:12 Novolin N Nph SC 08/11/19 16:59 10 units BIDM RAMYA Administration Protocol Ioversol 90 ml 07/12/19 18:16 07/12/19 18:17 Optiray 320 100ml IV 07/16/19 18:15 90 ml ONCE PRN Administration Interaction Checking Miscellaneous 1 ea 07/13/19 00:00 07/14/19 08:10 Order Awaiting Action N/A 08/12/19 00:00 Not Given QS RAMYA Pantoprazole Sodium 40 mg 07/13/19 09:00 07/14/19 08:07 Protonix PO 08/12/19 08:59 40 mg QAM RAMYA Administration Pravastatin Sodium 20 mg 07/13/19 09:00 07/14/19 08:07 Pravachol PO 08/12/19 08:59 20 mg QAM RAMYA Administration Pregabalin 150 mg 07/12/19 21:00 07/14/19 08:06 Lyrica PO 08/11/19 20:59 150 mg BID RAMYA Administration Tramadol HCl 50 mg 07/13/19 01:03 07/14/19 08:06 Ultram PO 08/12/19 01:02 50 mg Q6H PRN Administration Pain Vitamin B Complex 1 tab 07/12/19 21:00 07/13/19 20:51 Vitamin B Complex PO 08/11/19 20:59 1 tab HS RAMYA Administration Vitamin B Complex/Folic Acid 1 cap 07/13/19 09:00 07/13/19 19:29 Nephrocaps PO 08/12/19 08:59 1 cap [id number]@[id number] RAMYA Administration NPO Date Last Intake of Fluids: 07/14/19 Time Last Intake of Fluids: 07:00 Date Last Intake of Solids: 07/14/19 Time Last Intake of Solids: 07:00 Past Medical History Medical History Acquired claw toe of left foot (Acute) Acquired claw toe of right foot (Acute) Atrial fibrillation dx 2 years ago - on warfarin - follows w/ dr. Perez AV fistula LUE Charcot's joint of foot in type 2 diabetes mellitus (Chronic) Charcot's joint of left foot (Acute) Chronic anemia Congestive heart failure Follows w/ dr. Perez Depression Diabetes mellitus with diabetic polyneuropathy (Acute) Diabetes mellitus, type 2 IDDM Diabetic peripheral neuropathy (Acute) Dialysis patient (Acute) M, W, F Diverticulosis (Chronic) DVT (deep venous thrombosis) (Chronic) x 2. 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 Wound infection (Acute) ACTIVE INFECTION TO LEFT THUMB WOUND; ON ABX; [facility] Past Family History Family History Other Breast cancer Diabetes Hypertension Stroke Past Surgical History Surgical History H/O carpal tunnel repair (Chronic) H/O hernia repair (Chronic) History of ankle surgery (Acute) History of bilateral knee replacement History of cataract surgery LEFT History of cervical spinal surgery ROM WNL History of cholecystectomy (Chronic) History of colonoscopy History of esophagogastroduodenoscopy (EGD) Hx of appendectomy (Chronic) S/P arteriovenous (AV) fistula creation Social History Smoking Status: Never smoker Hx Alcohol Use: No Hx Substance Use: No substance use type: does not use Physical Exam Vital Signs Last Vital Signs Temp 36.7 C 07/14/19 14:53 Pulse 77 07/14/19 14:53 Resp 20 07/14/19 14:53 BP 137/64 07/14/19 14:53 Pulse Ox 93 07/14/19 14:53 Testing Laboratory Results 07/14/19 06:35 07/14/19 06:35 PT 12.9 Seconds (9.0-12.0) H 07/14/19 09:47 INR 1.3 (0.9-1.1) H 07/14/19 09:47 APTT 44.7 Seconds (21.0-31.0) H 07/12/19 15:32 07/12/19 15:42 Aerobic Blood Culture - Preliminary Blood No growth in Aerobic bottle after 48 hours. Anaerobic Blood Culture - Preliminary No growth in Anaerobic bottle after 48 hours. 07/12/19 15:32 Aerobic Blood Culture - Preliminary Blood No growth in Aerobic bottle after 48 hours. Anaerobic Blood Culture - Preliminary No growth in Anaerobic bottle after 48 hours. 07/12/19 Unknown Gram Stain - Final Sacrum Wound Culture - Preliminary Coag negative Staphylococcus Streptococcus species 07/14/19 07/14/19 07/14/19 15:16 11:49 11:14 POC Glucose 172 H 222 H 222 H 07/14/19 07:41 POC Glucose 168 H
[2019-07-14] MEDS ORDERED: ePHEDrine sulfate 50 MG/ML AMP IV PRN (17:00)
[2019-07-14] MEDS ORDERED: fentaNYL citrate 100 MCG/2 ML VIAL IV PRN (17:00)
[2019-07-14] MEDS ORDERED: PROMETHAZINE HCL 12.5 MG in SODIUM CHLORIDE 0.9% 50 ML IV PRN (17:00)
[2019-07-14] MEDS ORDERED: ATROPINE SULFATE 0.1 MG/ML 10ML SYR IV PRN (17:00)
[2019-07-14] MEDS ORDERED: METOCLOPRAMIDE HCL INJ 5 MG/ML 2 ML VIAL IV PRN (17:00)
[2019-07-14] MEDS ORDERED: HYDROmorphone INJ 2 MG/ML SYR/VIAL IV PRN (17:00)
[2019-07-14] MEDS ORDERED: BUPIVACAINE/EPINEPHRINE 0.5% MPF 1:200,000 10 ML VIAL ONE (17:11)
[2019-07-14] MEDS ORDERED: BACITRACIN INJ 50,000 UNIT VIAL ONE (17:47)
[2019-07-14] MEDS ORDERED: NEOSTIGMINE METHYLSULFATE 5 MG/5 ML SYR ONE (17:48)
--- NOTE | 2019-07-14 18:12 | Operative Report ---
PG Post Operative Report Pre & Post Diagnosis Operation Date: 07/14/19 11:45 Pre-Op Diagnosis: INFECTED SACRAL WOUND Post-Op Diagnosis: INFECTED SACRAL WOUND I identified the patient and participated in the time-out.: Yes Procedure Operation Date: 07/14/19 11:45 Actual Procedures p Incision and Drainage of Soft Tissue Abcess with Ecisional Debridement Sacral Wound to Bone - Gómez Garcia DO Surgeon Gómez Garcia DO Bank Examiner betty Gibson Estimated Blood Loss 15 Findings Consistent with Post-Op Diagnosis Specimens wound fluid for culture Description of Procedure After informed consent was obtained the patient was taken to the operating room placed in supine position. After successful intubation the patient was rolled into a prone position. The entire lower back and upper thigh regions were all sterilely prepped and draped with a Betadine solution. We began by examining the wound. It was a very large wound with several inches of tunneling superiorly up the back as well as distally towards the ischio rectal fossa and actually rectum itself. I began by opening the abscess cavity just superior to the open wound. We then then de-roofed this entire tunnel using cautery. This exposed a large amount of necrotic tissue as well as purulent fluid. We did take a sample of fluid and sent for culture and Gram stain. We used primarily cautery to the bride as much of the necrotic tissue as we could. This went the entire way down to the sacrum itself. Next I opened the abscess cavity distal towards ischiorectal fossa. Again we opened up this blind-ending tunnel as well using cautery. This created an extremely large wound and we debrided all the necrotic tissue. Once this was done we thoroughly irrigated all of the wound bed using bacitracin impregnated fluid. There was adequate hemostasis at the end of the procedure. We packed the entire wound with 2 inch iodoform packing sterile gauze ABD pads and tape. The patient was then rolled back into a supine position extubated and transferred recovery in stable condition. My physician recycling assistant was present to the entire case. He helped position and prepped the patient as well as retract throughout my dissection as well as help with dressing placement. I attest to the content of the Intraoperative Record and any orders documented therein. Any exceptions are noted below.
--- NOTE | 2019-07-14 18:17 | Hospitalist Progress Note ---
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 Buttock wound culture on 06/22/19 grew + Klebsiella, Serratia marcescens, bacteroides uniformis She has been getting IV Ertapenem on HD days CT abd/pelvis showed Large sacral decubitus ulcer extends into the left ischiorectal fossa, perineum and inferior aspect of the left gluteal elmo m uscle. Air and fluid is noted within the ulcer without drainable fluid collection identified. No evidence of acute osteomyelitis on CT. WBC on admission 21K, trending down to 17K today Wound culture grew coag negative staph and strep species Blood cultures no growth so far ID on board and recommended to continue IV Ertapenem and Daptomycin Surgery on board S/P Incision and Drainage of Soft Tissue Abcess with Excisional Debridement Sacral Wound to Bone by Dr. Garcia Continue daily wound care Monitor CBC (2) Below-knee amputation of right lower extremity: History of diabetic foot ulcer s/p right BKA 05/25/[address] Medina [facility] Plan to see Dr. Medina on 07/14/2019 for follow up Ortho on board recommended conservative management (3) Diabetes mellitus, type 2: A1c 10.5 on 05/19/2019 Has been NPO for possible surgical procedure Pharmacy on board for glycemic management Continue Monitor BS (4) Atrial fibrillation: Coumadin on hold Rate controlled INR: 1.3 today Will resume coumadin after surgical debridement (5) ESRD (end stage renal disease): HD on MWF Last HD on 07/11/2019 case discussed with Nephrology Dr. Gomez that plan for HD today Continue nephro vitamins, Phoslo (6) Hypertension: BP stable Continue monitor BP (7) Chronic anemia: Hgb 10.3 today Hgb baseline ~9 Continue monitor CBC Stable (8) Gastroparesis: Continue Zofran as needed (9) Depression: Continue Prozac (10) Neuropathy: Continue Lyrica DVT Prophylaxis On Heparin SQ for now since Coumadin on hold for possible surgicalprocedure CODE STATUS DNR/DNI Subjective Pt was seen and examined. Lying in bed with no distress Pt said that she feels tired Denies any chest pain, palpitation, dizziness and SOB Physical Exam Physical Exam: General- No acute distress Head- atraumatic Eyes- PERRL, EOMI, ENT- oropharynx clear Neck- supple, no JVD Lungs- clear to auscultation Heart- regular rhythm; no murmur Abdomen- normal bowel sounds, soft, nontender Extremities- no Left calf tenderness, +BKA, stump with incision with steri strips in place with eschar and no discharge Neuro- alert, oriented x 3; PERRL, EOMI; no facial palsy; no dysarthria Skin- warm & dry, Sacrum pressure ulcer with dressing on Results & Data Vital Signs (Past 12 Hours) Vital Signs Temp Pulse Pulse Pulse Resp BP Pulse Ox 07/14/19 14:53 36.7 C 77 77 20 137/64 93 07/14/19 11:56 36.9 C 85 18 119/68 98 07/14/19 07:27 37 C 84 16 121/70 91 07/14/19 07:16 88 (1) Hypertension Hypertension type: unspecified Qualified Code(s): I10 - Essential (primary) hypertension
[2019-07-14] MEDS ORDERED: GLYCOPYRROLATE 0.2 MG/ML VIAL ONE (18:22)
[2019-07-14] MEDS ORDERED: WARFARIN SOD 5 MG TAB PO ONE (18:55)
--- NOTE | 2019-07-14 19:01 | Anesthesiology Progress Note ---
Date of Service July 14, 2019 Anesthesia Post Procedure Vital Signs Vital Signs: Temp Pulse Pulse Pulse Pulse Resp BP 07/14/19 18:50 99 H 21 166/92 H 07/14/19 18:40 100 H 20 196/52 H 07/14/19 18:30 104 H 27 H 190/70 H 07/14/19 18:20 107 H 17 152/99 H 07/14/19 18:13 37.1 C 104 H 30 H 155/87 H 07/14/19 14:53 36.7 C 77 77 20 137/64 07/14/19 11:56 36.9 C 85 18 119/68 07/14/19 07:27 37 C 84 16 121/70 07/14/19 07:16 88 07/14/19 03:00 37 C 79 20 123/70 07/14/19 02:35 79 07/13/19 23:00 37.6 C H 70 20 123/71 07/13/19 19:46 36.8 C 80 18 129/81 07/13/19 19:30 36.9 C 78 141/42 H Pulse Ox 07/14/19 18:50 100 07/14/19 18:40 100 07/14/19 18:30 99 07/14/19 18:20 100 07/14/19 18:13 95 07/14/19 14:53 93 07/14/19 11:56 98 07/14/19 07:27 91 07/14/19 07:16 07/14/19 03:00 91 07/14/19 02:35 07/13/19 23:00 91 07/13/19 19:46 94 07/13/19 19:30 Pain Intensity Sacrum: Pain Intensity: 7 Transfer of Care Handoff Completed per policy Notes Mental Status: alert / awake / arousable and participated in evaluation Patient Amnestic to Procedure: Yes Nausea / Vomiting: adequately controlled Pain: adequately controlled Airway Patency, RR, SpO2: stable & adequate BP & HR: stable & adequate Hydration State: stable & adequate Anesthetic Complications: no major complications apparent
[2019-07-14] MEDS: DAPTOmycin 450 MG in SYRINGE 0 ML IV SCH (19:55)
[2019-07-14] MEDS: ERTAPENEM SODIUM 500 MG in SODIUM CHLORIDE 0.9% 50 ML IV SCH (19:55)
[2019-07-14] MEDS: FLUTICASONE PROPIONATE NA SPR 16 GM BTL NAE SCH (21:12)
[2019-07-14] MEDS: VITAMIN B COMPLEX TAB PO SCH (21:14)
[2019-07-14] MEDS: HYDROmorphone INJ 1 MG/ML SYRINGE IV PRN (23:29)
[2019-07-15] MEDS: PREGABALIN 150 MG CAP PO SCH ×2 (07:46→21:40)
[2019-07-15] MEDS: PANTOprazole 40 MG TAB PO SCH (07:46)
[2019-07-15] MEDS: PRAVASTATIN SOD 20 MG TAB PO SCH (07:46)
[2019-07-15] MEDS: HEPARIN SOD 5,000 UNIT/0.5 ML VIAL SQ SCH ×2 (07:47→21:04)
[2019-07-15] MEDS: NEPHROCAPS PO SCH (07:47)
[2019-07-15] MEDS: FLUOXETINE HCL 20 MG CAP PO SCH (07:47)
[2019-07-15] MEDS: HYDROmorphone INJ 1 MG/ML SYRINGE IV PRN (07:48)
[2019-07-15] MEDS: CALCIUM ACETATE 667 MG CAP PO SCH ×3 (07:48→17:44)
[2019-07-15 07:51] LABS: Hematocrit (blood only) 29.1 % (37-47); Hemoglobin 8.7 g/dL (12.0-16.0); Mean Corpuscular Hemoglobin 28.4 pg (25-34); Mean Corpuscular Hgb Conc 29.9 g/dL (32-36); Mean Corpuscular Volume 95.1 fL (80-100); Mean Platelet Volume 9.6 fL (7.4-10.4); Platelet Count 311 K/uL (130-400); RDW Standard Deviation 58.9 fL (36.4-46.3); Red Blood Count 3.06 M/uL (4.2-5.4); White Blood Count 21.17 K/uL (4.8-10.8)
[2019-07-15] MEDS: INSULIN HUMAN NPH SC SCH ×2 (07:55→17:43)
[2019-07-15] MEDS: INSULIN ASPART 100 UNITS/ML 3 ML PEN SC SCH ×4 (07:57→21:05)
[2019-07-15 08:11] LABS: INR 1.2 (0.9-1.1); Prothrombin Time 12.2 Seconds (9.0-12.0)
--- NOTE | 2019-07-15 08:21 | Pharmacy Report ---
Pharmacy Glycemic Short Note 2 - Date of Service July 15, 2019 - Glycemic Short BSG Results (Last 24 hours): 07/14/19 07/14/19 07/14/19 11:14 11:49 15:16 POC Glucose 222 H 222 H 172 H 07/14/19 07/14/19 07/14/19 18:22 19:26 21:00 POC Glucose 159 H 148 H 201 H OUTPATIENT ANTIDIABETIC REGIMEN: * Novolin 70/30 30 units qAM, 36 units qPM ASSESSMENT: * Melita is a 64 yr old uncontrolled T2DM admitted with infected sacral wound * Complicated PMH including ESRD on HD MWF, diabetic neuropathy, diabetic gastroparesis, diabetic retinopathy, HTN, HLD, A. fib on Coumadin, h/o DVT, hyperparathyroidism secondary to end-stage renal disease, anemia of chronic disease * Patient was started on NPH + Novolog yesterday evening. NPH dose was reduced significantly compared to home dosing due to NPO status. * Will continue NPH dosed per scale until we have a better idea of inpatient insulin needs. NPH was held this morning. Despite being held, her lunch BSG remains at goal so I will further back off NPH dosing. I suspect dose will require adjustment tomorrow morning as diet advances. 07/15: * Patient received total of 44 units of insulin yesterday, of which 25 were basal insulin * Patient in OR yesterday for I&D - changed from diet to npo, then diet resumed again * Continues on diet this morning - fasting BSG 158 mg/dL / will continue with scale for NPH this morning - per nephrology notes patient to get dialysis today. Therefore, anticipate BSGs to trend down ---> dialysis got rescheduled for 07/16 * Continue same CF/CR for this morning * Diet is improving more today - will likely need to further tighten insulin parameters tomorrow. Previous admissions show patient requires much more insulin when on diet 07/14: * Patient received only 11 units of insulin yesterday, of which 5 were basal insulin * Fasting BSG this AM 149 mg/dL - will continue with scale for NPH * Changed back to NPO status for I&D today, will have scale for NPH tonight PLAN FOR INPATIENT GLYCEMIC CONTROL: * Hold outpatient oral diabetes medications * Basal insulin - increase slightly as appetite improves * NPH held this morning * Resume NPH SQ BID: * 10 units for BSG < 160 * 15 units for BSG 160-220 * 20 units for BSG > 220 * Bolus insulin * NovoLog per scale ACHS or Q6hrs while NPO * Goal Range: Low 120 mg/dL - High 160 mg/dL * Correction Factor: 20 mg/dL/unit * Nutritional / Prandial insulin per carb ratio of 1 unit per 6 grams CHO consumed thank you
--- NOTE | 2019-07-15 08:27 | Anesthesiology Progress Note ---
Date of Service July 15, 2019 Anesthesia Post Procedure Vital Signs Vital Signs: Temp Pulse Pulse Pulse Pulse Resp BP 07/15/19 07:35 82 07/15/19 07:16 37.1 C 81 16 112/41 L 07/15/19 03:44 36.9 C 80 20 128/66 07/15/19 00:05 89 07/14/19 23:37 37.5 C 87 20 114/69 07/14/19 20:26 94 H 07/14/19 19:07 37.6 C H 97 H 20 166/55 H 07/14/19 18:50 99 H 21 166/92 H 07/14/19 18:40 100 H 20 196/52 H 07/14/19 18:30 104 H 27 H 190/70 H 07/14/19 18:20 107 H 17 152/99 H 07/14/19 18:13 37.1 C 104 H 30 H 155/87 H 07/14/19 14:53 36.7 C 77 77 20 137/64 07/14/19 11:56 36.9 C 85 18 119/68 Pulse Ox 07/15/19 07:35 07/15/19 07:16 100 07/15/19 03:44 96 07/15/19 00:05 07/14/19 23:37 91 07/14/19 20:26 07/14/19 19:07 100 07/14/19 18:50 100 07/14/19 18:40 100 07/14/19 18:30 99 07/14/19 18:20 100 07/14/19 18:13 95 07/14/19 14:53 93 07/14/19 11:56 98 Pain Intensity Sacrum: Pain Intensity: 7 Notes Mental Status: alert / awake / arousable and participated in evaluation Patient Amnestic to Procedure: Yes Nausea / Vomiting: adequately controlled Pain: adequately controlled Airway Patency, RR, SpO2: stable & adequate BP & HR: stable & adequate Hydration State: stable & adequate Anesthetic Complications: no major complications apparent and Pt Satisfied with anesthetic care
[2019-07-15 08:32] LABS: Calcium 9.5 mg/dl (8.5-10.1); Potassium 4.1 mmol/L (3.5-5.1)
[2019-07-15] MEDS ORDERED: HEPARIN SOD (PORCINE) 1000 UNIT/ML 10 ML VIAL IV ONE (08:38)
[2019-07-15] MEDS ORDERED: SODIUM CHLORIDE 0.9% 1000ML 1,000 ML IV PRN (08:38)
[2019-07-15 08:45] LABS: Creatinine Clr Calc Pharmacy 11.7 ml/min; Est GFR (African American) 8.1
[2019-07-15] MEDS ORDERED: EPOETIN ALFA 10,000 UNITS/ML VIAL IV SCH (09:00)
[2019-07-15] MEDS ORDERED: Nursing to Pharmacy Communication ONE (09:42)
--- NOTE | 2019-07-15 09:52 | Nephrology Progress Note ---
Date of Service July 15, 2019 Assessment & Plan (1) ESRD (end stage renal disease): Patient with ESRD on HD MWF. Last HD was Thursday. Electrolytes are stable. No volume overload. No dialysis today due to staffing issues. We will dialyze her tomorrow morning for 4 hours to get UF 2 L. 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 Antibiotics to be timed with dialysis (3) Chronic anemia: Hb of 8.7 today. Will continue Epogen 10,000 urints with HD. Monitor daily Subjective She had wound debridement yesterday. She is complaining of pain and somnolence from the pain medication. No shortness of breath. Review of Systems Review of Systems: All systems reviewed & are unremarkable except as noted in HPI & below Physical Exam Physical Exam: General exam: Appears comfortable, no acute distress HEENT: Pupils are equal and reactive to light Neck: No JVD, neck is supple trachea is midline Respiratory system: Clear breath sounds bilaterally. Gastrointestinal: Abdomen is soft, non distended, non tender, bowel sounds are present CVS: Regular rate and rhythm. No murmurs, rubs or gallops Musculoskeletal: No joint or muscle tenderness Extremities: Non tender, no edema, peripheral pulses are present. Right BKA Neuro: Oriented, no tremors, no focal neurological deficits Skin: No rashes, sacral wound Access: Left upper arm AV fistula with good bruit Results & Data Vital Signs (Past 12 Hours) Vital Signs Temp Pulse Pulse Resp BP Pulse Ox 07/15/19 07:35 82 07/15/19 07:16 37.1 C 81 16 112/41 L 100 07/15/19 03:44 36.9 C 80 20 128/66 96 07/15/19 00:05 89 07/14/19 23:37 37.5 C 87 20 114/69 91 Laboratory Results Laboratory Results - last 24 hr 07/14/19 07/14/19 07/14/19 09:47 11:14 11:49 WBC RBC Hgb Hct MCV MCH MCHC RDW Std Deviation RDW Coeff of Dean Plt Count MPV PT 12.9 H INR 1.3 H Sodium Potassium Chloride Carbon Dioxide Anion Gap BUN Creatinine Est Cr Clr Drug Dosing Est GFR ( Amer) Est GFR (Non-Af Amer) BUN/Creatinine Ratio Glucose POC Glucose 222 H 222 H Calcium 07/14/19 07/14/19 07/14/19 15:16 18:22 19:26 WBC RBC Hgb Hct MCV MCH MCHC RDW Std Deviation RDW Coeff of Dean Plt Count MPV PT INR Sodium Potassium Chloride Carbon Dioxide Anion Gap BUN Creatinine Est Cr Clr Drug Dosing Est GFR ( Amer) Est GFR (Non-Af Amer) BUN/Creatinine Ratio Glucose POC Glucose 172 H 159 H 148 H Calcium 07/14/19 07/15/19 07/15/19 21:00 07:24 07:24 WBC 21.17 H RBC 3.06 L Hgb 8.7 L Hct 29.1 L MCV 95.1 MCH 28.4 MCHC 29.9 L RDW Std Deviation 58.9 H RDW Coeff of Dean 17.0 H Plt Count 311 MPV 9.6 PT INR Sodium 132 L Potassium 4.1 Chloride 96 L Carbon Dioxide 27 Anion Gap 9.0 BUN 36 H Creatinine 5.91 H* D Est Cr Clr Drug Dosing 11.7 Est GFR ( Amer) 8.1 Est GFR (Non-Af Amer) 7.0 BUN/Creatinine Ratio 6.0 L Glucose 146 H POC Glucose 201 H Calcium 9.5 07/15/19 07:24 WBC RBC Hgb Hct MCV MCH MCHC RDW Std Deviation RDW Coeff of Dean Plt Count MPV PT 12.2 H INR 1.2 H Sodium Potassium Chloride Carbon Dioxide Anion Gap BUN Creatinine Est Cr Clr Drug Dosing Est GFR ( Amer) Est GFR (Non-Af Amer) BUN/Creatinine Ratio Glucose POC Glucose Calcium
--- NOTE | 2019-07-15 11:35 | Hospitalist Progress Note ---
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 Buttock wound culture on 06/22/19 grew + Klebsiella, Serratia marcescens, bacteroides uniformis She has been getting IV Ertapenem on HD days CT abd/pelvis showed Large sacral decubitus ulcer extends into the left ischiorectal fossa, perineum and inferior aspect of the left gluteal elmo m uscle. Air and fluid is noted within the ulcer without drainable fluid collection identified. No evidence of acute osteomyelitis on CT. WBC on admission 21K, trending down to 17K, then increased to 21k today S/P day 1 Incision and Drainage of Soft Tissue Abcess with Excisional Debridement Sacral Wound to Bone by Dr. Garcia Wound culture grew coag negative staph and strep species Blood cultures no growth so far ID on board and recommended to continue IV Ertapenem and Daptomycin Surgery on board Continue daily wound care Will discuss with wound care provider about wound vac Monitor CBC (2) Below-knee amputation of right lower extremity: History of diabetic foot ulcer s/p right BKA 05/25/[address] Medina Incision site currently with eschar Plan to see Dr. Medina on 07/14/2019 for follow up Ortho on board recommended conservative management (3) Diabetes mellitus, type 2: A1c 10.5 on 05/19/2019 Has been NPO for possible surgical procedure Pharmacy on board for glycemic management Continue Monitor BS (4) Atrial fibrillation: Coumadin on hold Rate controlled INR: 1.2 today Will resume coumadin after surgical debridement (5) ESRD (end stage renal disease): HD on MWF Last HD on 07/11/2019 case discussed with Nephrology Dr. Gomez that plan for HD tomorrow morning Continue nephro vitamins, Phoslo (6) Hypertension: BP stable Continue monitor BP (7) Chronic anemia: Hgb dropped to 8.7 today Hgb baseline ~9 Continue monitor CBC Stable (8) Gastroparesis: Continue Zofran as needed (9) Depression: Continue Prozac (10) Neuropathy: Continue Lyrica DVT Prophylaxis On Heparin SQ for now since Coumadin on hold for possible surgicalprocedure CODE STATUS DNR/DNI Subjective Pt was seen and examined Lying in bed with no distress Pt said that she feels tired She will get HD done tomorrow, instead today Denies any chest pain, palpitation, dizziness and SOB Physical Exam Physical Exam: General- No acute distress Head- atraumatic Eyes- PERRL, EOMI, ENT- oropharynx clear Neck- supple, no JVD Lungs- clear to auscultation Heart- regular rhythm; no murmur Abdomen- normal bowel sounds, soft, nontender Extremities- no Left calf tenderness, +BKA, stump with incision with steri strips in place with eschar and no discharge Neuro- alert, oriented x 3; PERRL, EOMI; no facial palsy; no dysarthria Skin- warm & dry, Sacrum pressure ulcer with dressing on Results & Data Vital Signs (Past 12 Hours) Vital Signs Temp Pulse Pulse Resp BP Pulse Ox 07/15/19 07:35 82 07/15/19 07:16 37.1 C 81 16 112/41 L 100 07/15/19 03:44 36.9 C 80 20 128/66 96 07/15/19 00:05 89 07/14/19 23:37 37.5 C 87 20 114/69 91 (1) Hypertension Hypertension type: unspecified Qualified Code(s): I10 - Essential (primary) hypertension
--- NOTE | 2019-07-15 14:17 | Infectious Disease Progress Nt ---
Date of Service July 15, 2019 Assessment & Plan (1) Sacral wound: Patient with nonhealing sacral decubitus ulcer, previous cultures positive for Serratia, Klebsiella, and Bacteroides, now status post surgical debridement. Pending operative cultures, patient should continue on daptomycin and ertapenem. Likely will require 6 weeks of IV antibiotics given extension to sacrum. As I will be leaving hospital after today, Dr. Conde will provide further ID follow-up. (2) Cellulitis: Subjective Patient seen in follow-up for nonhealing sacral decubitus. Status post surgical debridement yesterday with decubitus down to sacrum. Lying in bed with no distress Pt said that she feels tired She will get HD done tomorrow, instead today Denies any chest pain, palpitation, dizziness and SOB Review of Systems Review of Systems: All systems reviewed & are unremarkable except as noted in HPI & below Physical Exam Constitutional: WD/WN, vitals as above + obese and comfortable; no acute distress Eyes: PERRL, conjunctivae normal, anicteric sclerae ENMT: external ear and nose normal, oropharynx normal Neck: trachea midline, no thyromegaly neck nontender Respiratory: normal respiratory effort, lungs clear to auscultation normal percussion; does not use accessory muscles Cardiovascular: Rate/Rhythm: regular rate and regular rhythm Heart Sounds: normal S1 and normal S2; no gallop, no murmur and no cardiac rub Vessels: normal peripheral pulses; no JVD Gastrointestinal (Abdomen): normal bowel sounds, soft, nontender, no hepatosplenomegaly Musculoskeletal: no cyanosis or clubbing, extremities motor strength 5/5 Head/Neck/Chest: normocephalic, head atraumatic and neck supple Spine: t horacic spine normal to inspection and lumbar spine normal to inspection; no cervical spinal tenderness Skin: no rashes, warm and dry normal turgor and + wound (Surgical dressing in place sacrum) Neurologic: patellar DTR's 2+ bilat, sensation intact no focal motor deficits Psychiatric: A+Ox3, euthymic affect Orientation: cooperative Lymphatic: no cervical or axillary lymphadenopathy no inguinal lymphadenopathy Results & Data Vital Signs (Past 12 Hours) Vital Signs Temp Pulse Pulse Resp BP Pulse Ox 07/15/19 11:00 37.2 C 86 18 115/64 93 07/15/19 07:35 82 07/15/19 07:16 37.1 C 81 16 112/41 L 100 07/15/19 03:44 36.9 C 80 20 128/66 96 Laboratory Results Short CBC 07/15/19 Range/Units 07:24 WBC 21.17 H (4.8-10.8) K/uL Hgb 8.7 L (12.0-16.0) g/dL Hct 29.1 L (37-47) % Plt Count 311 (130-400) K/uL BMP 07/15/19 07:24 Sodium 132 L Potassium 4.1 Chloride 96 L Carbon Dioxide 27 BUN 36 H Creatinine 5.91 H* D Glucose 146 H Calcium 9.5 Diagnostic Findings Microbiology 07/14/19 17:30 Sacrum Decubitus Gram Stain - Final 07/12/19 15:42 Blood Aerobic Blood Culture - Preliminary No growth in Aerobic bottle after 48 hours. 07/12/19 15:42 Blood Anaerobic Blood Culture - Preliminary No growth in Anaerobic bottle after 48 hours. 07/12/19 15:32 Blood Aerobic Blood Culture - Preliminary No growth in Aerobic bottle after 48 hours. 07/12/19 15:32 Blood Anaerobic Blood Culture - Preliminary No growth in Anaerobic bottle after 48 hours. 07/12/19 Unknown Sacrum Gram Stain - Final 07/12/19 Unknown Sacrum Wound Culture - Preliminary Coag negative Staphylococcus Streptococcus species PG Care Time/CCT Total # of Minutes Spent Total Time Spent with Patient: Total time spent is greater than 50% in coordination of care (as documented) at patient's floor/unit and/or counseling patient: (1) Cellulitis Laterality: right Site of cellulitis: extremity Site of cellulitis of extremity: lower extremity Qualified Code(s): L03.115 - Cellulitis of right lower limb
[2019-07-15] MEDS: HYDROmorphone INJ 0.5 MG/0.5 ML SYR IV PRN ×3 (14:31→23:43)
[2019-07-15] MEDS: WARFARIN SOD 5 MG TAB PO SCH (15:49)
[2019-07-15] MEDS: ERTAPENEM SODIUM 500 MG in SODIUM CHLORIDE 0.9% 50 ML IV SCH (17:43)
[2019-07-15] MEDS: TRAMADOL HCL 50 MG TABLET PO PRN (18:41)
[2019-07-15] MEDS: FLUTICASONE PROPIONATE NA SPR 16 GM BTL NAE SCH (21:04)
[2019-07-15] MEDS: VITAMIN B COMPLEX TAB PO SCH (21:05)
[2019-07-16] MEDS: HYDROmorphone INJ 0.5 MG/0.5 ML SYR IV PRN ×5 (01:51→20:20)
[2019-07-16] MEDS: INSULIN ASPART 100 UNITS/ML 3 ML PEN SC SCH ×4 (08:13→20:18)
[2019-07-16 08:19] LABS: INR 1.3 (0.9-1.1); Prothrombin Time 12.8 Seconds (9.0-12.0)
[2019-07-16] MEDS: INSULIN HUMAN NPH SC SCH ×2 (08:20→17:03)
[2019-07-16] MEDS ORDERED: HEPARIN SOD (PORCINE) 1000 UNIT/ML 10 ML VIAL IV ONE (08:37)
[2019-07-16] MEDS ORDERED: EPOETIN ALFA 10,000 UNITS/ML VIAL IV ONE (08:37)
[2019-07-16] MEDS ORDERED: SODIUM CHLORIDE 0.9% 1000ML 1,000 ML IV PRN (08:37)
[2019-07-16] MEDS ORDERED: EPOETIN ALFA 10,000 UNITS/ML VIAL IV SCH (09:00)
[2019-07-16 10:03] LABS: Hematocrit (blood only) 29.2 % (37-47); Hemoglobin 8.9 g/dL (12.0-16.0); Mean Corpuscular Hgb Conc 30.5 g/dL (32-36); Mean Corpuscular Volume 95.1 fL (80-100); Mean Platelet Volume 9.8 fL (7.4-10.4); Platelet Count 313 K/uL (130-400); RDW Coefficient of Variation 17.1 % (11.5-14.5); RDW Standard Deviation 59.1 fL (36.4-46.3); Red Blood Count 3.07 M/uL (4.2-5.4); White Blood Count 17.51 K/uL (4.8-10.8)
--- NOTE | 2019-07-16 10:30 | Nephrology Progress Note ---
Date of Service July 16, 2019 Assessment & Plan (1) ESRD (end stage renal disease): Patient with ESRD on HD MWF. Last HD was Thursday. Electrolytes are stable. No volume overload. She is tolerating dialysis well today for 4 hours and target UF of 2 L. Blood pressure is stable. Next dialysis will be on Thursday. 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 Antibiotics to be timed with dialysis (3) Chronic anemia: Hb of 8.7. Will continue Epogen 10,000 urints with HD. Monitor daily Subjective Patient was seen and examined while on dialysis. She feels well denies any shortness of breath or dizziness. She is complaining of pain in the sacral area. No vomiting or diarrhea. Patient is stable Review of Systems Review of Systems: All systems reviewed & are unremarkable except as noted in HPI & below Physical Exam Physical Exam: General exam: Appears comfortable, no acute distress HEENT: Pupils are equal and reactive to light Neck: No JVD, neck is supple trachea is midline Respiratory system: Clear breath sounds bilaterally. Gastrointestinal: Abdomen is soft, non distended, non tender, bowel sounds are present CVS: Regular rate and rhythm. No murmurs, rubs or gallops Musculoskeletal: No joint or muscle tenderness Extremities: Non tender, no edema, peripheral pulses are present. Right BKA Neuro: Oriented, no tremors, no focal neurological deficits Skin: No rashes Access: Left upper arm AV fistula with good bruit Results & Data Vital Signs (Past 12 Hours) Vital Signs Temp Pulse Pulse Pulse Resp BP BP 07/16/19 09:40 82 136/54 L 07/16/19 09:20 84 139/47 L 07/16/19 09:00 85 123/30 L 07/16/19 08:47 37.1 C 88 07/16/19 08:40 82 130/56 L 07/16/19 08:20 80 124/48 L 07/16/19 08:00 86 129/46 L 07/16/19 07:00 36.8 C 85 20 129/66 07/16/19 03:00 37.2 C 78 20 119/49 L 07/15/19 23:00 37 C 76 20 128/65 Pulse Ox 07/16/19 09:40 07/16/19 09:20 07/16/19 09:00 12/07/19 08:47 07/16/19 08:40 07/16/19 08:20 07/16/19 08:00 07/16/19 07:00 96 07/16/19 03:00 100 07/15/19 23:00 100 Laboratory Results Laboratory Results - last 24 hr 07/15/19 07/15/19 07/15/19 07:20 11:50 16:32 WBC RBC Hgb Hct MCV MCH MCHC RDW Std Deviation RDW Coeff of Dean Plt Count MPV PT INR Sodium Potassium Chloride Carbon Dioxide Anion Gap BUN Creatinine Est Cr Clr Drug Dosing Est GFR ( Amer) Est GFR (Non-Af Amer) BUN/Creatinine Ratio Glucose POC Glucose 158 H 190 H 159 H Calcium 07/15/19 07/16/19 07/16/19 20:25 07:32 07:32 WBC 17.51 H RBC 3.07 L Hgb 8.9 L Hct 29.2 L MCV 95.1 MCH 29.0 MCHC 30.5 L RDW Std Deviation 59.1 H RDW Coeff of Dean 17.1 H Plt Count 313 MPV 9.8 PT 12.8 H INR 1.3 H Sodium Potassium Chloride Carbon Dioxide Anion Gap BUN Creatinine Est Cr Clr Drug Dosing Est GFR ( Amer) Est GFR (Non-Af Amer) BUN/Creatinine Ratio Glucose POC Glucose 199 H Calcium 07/16/19 07/16/19 07:32 07:39 WBC RBC Hgb Hct MCV MCH MCHC RDW Std Deviation RDW Coeff of Dean Plt Count MPV PT INR Sodium Pending Potassium Pending Chloride Pending Carbon Dioxide Pending Anion Gap Pending BUN Pending Creatinine Pending Est Cr Clr Drug Dosing Pending Est GFR ( Amer) Pending Est GFR (Non-Af Amer) Pending BUN/Creatinine Ratio Pending Glucose Pending POC Glucose 189 H Calcium Pending
--- NOTE | 2019-07-16 10:34 | Surgery Progress Note ---
Date of Service July 16, 2019 Assessment & Plan (1) Sacral wound: s/p sacral wound debridement now with wound vac. Continue wound care - no new recommendations. Present on Admission?: Yes Subjective On dialysis currently Physical Exam Skin: wound vac in place, serosanguinous drainage Psychiatric: A+Ox3, euthymic affect Results & Data Vital Signs (Past 12 Hours) Vital Signs Temp Pulse Pulse Pulse Resp BP BP 07/16/19 09:40 82 136/54 L 07/16/19 09:20 84 139/47 L 07/16/19 09:00 85 123/30 L 07/16/19 08:47 37.1 C 88 07/16/19 08:40 82 130/56 L 07/16/19 08:20 80 124/48 L 07/16/19 08:00 86 129/46 L 07/16/19 07:00 36.8 C 85 20 129/66 07/16/19 03:00 37.2 C 78 20 119/49 L 07/15/19 23:00 37 C 76 20 128/65 Pulse Ox 07/16/19 09:40 07/16/19 09:20 07/16/19 09:00 07/16/19 08:47 07/16/19 08:40 07/16/19 08:20 07/16/19 08:00 07/16/19 07:00 96 07/16/19 03:00 100 07/15/19 23:00 100
[2019-07-16 10:37] LABS: BUN Creatinine Ratio 5.6 (10-20); Calcium 9.6 mg/dl (8.5-10.1); Creatinine Clr Calc Pharmacy 8.7 ml/min; Est GFR (African American) 5.7; Est GFR (Non-African American) 4.9; Potassium 4.1 mmol/L (3.5-5.1)
[2019-07-16] MEDS: FLUOXETINE HCL 20 MG CAP PO SCH (12:10)
[2019-07-16] MEDS: PRAVASTATIN SOD 20 MG TAB PO SCH (12:10)
[2019-07-16] MEDS: CALCIUM ACETATE 667 MG CAP PO SCH ×3 (12:10→17:01)
[2019-07-16] MEDS: PANTOprazole 40 MG TAB PO SCH (12:11)
[2019-07-16] MEDS: HEPARIN SOD 5,000 UNIT/0.5 ML VIAL SQ SCH ×2 (12:12→20:18)
[2019-07-16] MEDS: PREGABALIN 150 MG CAP PO SCH ×2 (12:27→20:23)
[2019-07-16] MEDS: PROMETHAZINE HCL 12.5 MG in SODIUM CHLORIDE 0.9% 50 ML IV PRN (12:53)
--- NOTE | 2019-07-16 14:19 | Pharmacy Report ---
Pharmacy Glycemic Short Note 2 - Date of Service July 16, 2019 - Glycemic Short BSG Results (Last 24 hours): 07/15/19 07/15/19 07/16/19 16:32 20:25 07:32 Glucose 180 H POC Glucose 159 H 199 H 07/16/19 07/16/19 07:39 11:35 Glucose POC Glucose 189 H 178 H OUTPATIENT ANTIDIABETIC REGIMEN: * Novolin 70/30 30 units qAM, 36 units qPM ASSESSMENT: * Melita is a 64 yr old uncontrolled T2DM admitted with infected sacral wound * Complicated PMH including ESRD on HD MWF, diabetic neuropathy, diabetic gastroparesis, diabetic retinopathy, HTN, HLD, A. fib on Coumadin, h/o DVT, hyperparathyroidism secondary to end-stage renal disease, anemia of chronic disease * Patient was started on NPH + Novolog yesterday evening. NPH dose was reduced significantly compared to home dosing due to NPO status. * Will continue NPH dosed per scale until we have a better idea of inpatient insulin needs. NPH was held this morning. Despite being held, her lunch BSG remains at goal so I will further back off NPH dosing. I suspect dose will require adjustment tomorrow morning as diet advances. 07/16: * Patient received total of 50 units of insulin yesterday, of which 20 were basal insulin, fasting blood sugar 189mg/dl - will increase NPH doses * No change in Novolog parameters at this time, since increasing NPH * HD today * ADA & AACE recommend a goal blood sugar range 140-180 mg/dl for the majority of critically ill & non-critically ill patients. However, more stringent targets may be selected in individual cases. Will utilize more stringent goal of 120-160mg/dl based on patient age & comorbidities. Additionally, tighter glycemic control is warranted to facilitate wound/infection healing. 07/15: * Patient received total of 44 units of insulin yesterday, of which 25 were basal insulin * Patient in OR yesterday for I&D - changed from diet to npo, then diet resumed again * Continues on diet this morning - fasting BSG 158 mg/dL / will continue with scale for NPH this morning - per nephrology notes patient to get dialysis today. Therefore, anticipate BSGs to trend down ---> dialysis got rescheduled for 07/16 * Continue same CF/CR for this morning * Diet is improving more today - will likely need to further tighten insulin parameters tomorrow. Previous admissions show patient requires much more insulin when on diet 07/14: * Patient received only 11 units of insulin yesterday, of which 5 were basal insulin * Fasting BSG this AM 149 mg/dL - will continue with scale for NPH * Changed back to NPO status for I&D today, will have scale for NPH tonight PLAN FOR INPATIENT GLYCEMIC CONTROL: * Basal insulin -INCREASE * Resume NPH SQ BID with meals: * 15 units for BSG < 160 * 20 units for BSG 160-220 * 25 units for BSG > 220 * Bolus insulin * NovoLog per scale ACHS or Q6hrs while NPO * Goal Range: Low 120 mg/dL - High 160 mg/dL * Correction Factor: 20 mg/dL/unit * Nutritional / Prandial insulin per carb ratio of 1 unit per 6 grams CHO consumed Thank you.
[2019-07-16] MEDS: WARFARIN SOD 5 MG TAB PO SCH (15:47)
--- NOTE | 2019-07-16 15:53 | Hospitalist Progress Note ---
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 Buttock wound culture on 06/22/19 grew + Klebsiella, Serratia marcescens, bacteroides uniformis She has been getting IV Ertapenem on HD days CT abd/pelvis showed Large sacral decubitus ulcer extends into the left ischiorectal fossa, perineum and inferior aspect of the left gluteal elmo m uscle. Air and fluid is noted within the ulcer without drainable fluid collection identified. No evidence of acute osteomyelitis on CT. WBC on admission 21K, trending down to 17K, then increased to 21k, then 17k today S/P day 2 Incision and Drainage of Soft Tissue Abcess with Excisional Debridement Sacral Wound to Bone by Dr. Garcia Wound culture grew coag negative staph and strep species Blood cultures no growth so far ID on board and recommended to continue IV Ertapenem and Daptomycin Pt will need about 6 weeks IV course of abx Continue daily wound care Wound vac management as per surgery/wound care provider Monitor CBC (2) Below-knee amputation of right lower extremity: History of diabetic foot ulcer s/p right BKA 05/25/[address] Medina Incision site currently with eschar Plan to see Dr. Medina on 07/14/2019 for follow up Ortho on board recommended conservative management (3) Diabetes mellitus, type 2: A1c 10.5 on 05/19/2019 Has been NPO for possible surgical procedure Pharmacy on board for glycemic management Continue Monitor BS (4) Atrial fibrillation: Coumadin on hold Rate controlled INR: 1.3 today Continue coumadin (5) ESRD (end stage renal disease): HD on MWF Had HD today since she did not have any HD yesterday case discussed with Nephrology Dr. Gomez that plan for HD tomorrow morning Continue nephro vitamins, Phoslo (6) Hypertension: BP stable Continue monitor BP (7) Chronic anemia: Hgb dropped to 8.9 today Hgb baseline ~9 Continue monitor CBC Stable (8) Gastroparesis: Continue Zofran as needed (9) Depression: Continue Prozac (10) Neuropathy: Continue Lyrica DVT Prophylaxis On Heparin SQ for now since Coumadin on hold for possible surgicalprocedure CODE STATUS DNR/DNI Subjective Pt was seen and examined Lying in bed with no distress Pt said that she feels ok Denies any chest pain, palpitation, dizziness and SOB Physical Exam Physical Exam: General- No acute distress Head- atraumatic Eyes- PERRL, EOMI, ENT- oropharynx clear Neck- supple, no JVD Lungs- clear to auscultation Heart- regular rhythm; no murmur Abdomen- normal bowel sounds, soft, nontender Extremities- no Left calf tenderness, +BKA, stump with incision with steri strips in place with eschar and no discharge Neuro- alert, oriented x 3; PERRL, EOMI; no facial palsy; no dysarthria Skin- warm & dry, Sacrum pressure ulcer with dressing on Results & Data Vital Signs (Past 12 Hours) Vital Signs Temp Pulse Pulse Pulse Resp BP BP 07/16/19 14:00 37.8 C H 107 H 20 118/57 L 07/16/19 11:50 38.3 C H 91 H 18 142/66 H 07/16/19 11:37 37.1 C 89 137/49 L 07/16/19 11:20 80 116/49 L 07/16/19 11:08 86 101/65 07/16/19 11:00 86 86/61 L 07/16/19 10:40 82 91/42 L 07/16/19 10:20 81 127/46 L 07/16/19 10:00 81 129/42 L 07/16/19 09:40 82 136/54 L 07/16/19 09:20 84 139/47 L 07/16/19 09:00 85 123/30 L 07/16/19 08:47 37.1 C 88 07/16/19 08:40 82 130/56 L 07/16/19 08:20 80 124/48 L 07/16/19 08:00 86 129/46 L 07/16/19 07:00 36.8 C 85 20 129/66 Pulse Ox 07/16/19 14:00 95 07/16/19 11:50 97 07/16/19 11:37 07/16/19 11:20 07/16/19 11:08 07/16/19 11:00 07/16/19 10:40 07/16/19 10:20 07/16/19 10:00 07/16/19 09:40 07/16/19 09:20 07/16/19 09:00 07/16/19 08:47 07/16/19 08:40 07/16/19 08:20 07/16/19 08:00 07/16/19 07:00 96 (1) Hypertension Hypertension type: unspecified Qualified Code(s): I10 - Essential (primary) hypertension
[2019-07-16] MEDS: ERTAPENEM SODIUM 500 MG in SODIUM CHLORIDE 0.9% 50 ML IV SCH (17:00)
[2019-07-16] MEDS: DAPTOmycin 450 MG in SYRINGE 0 ML IV SCH (20:17)
[2019-07-16] MEDS: FLUTICASONE PROPIONATE NA SPR 16 GM BTL NAE SCH (20:18)
[2019-07-16] MEDS: VITAMIN B COMPLEX TAB PO SCH (20:20)
[2019-07-17] MEDS: HYDROmorphone INJ 0.5 MG/0.5 ML SYR IV PRN ×3 (00:12→07:44)
[2019-07-17 07:28] LABS: INR 1.3 (0.9-1.1); Prothrombin Time 13.4 Seconds (9.0-12.0)
[2019-07-17] MEDS: PANTOprazole 40 MG TAB PO SCH (07:39)
[2019-07-17] MEDS: CALCIUM ACETATE 667 MG CAP PO SCH ×3 (07:39→16:27)
[2019-07-17] MEDS: PRAVASTATIN SOD 20 MG TAB PO SCH (07:39)
[2019-07-17] MEDS: FLUOXETINE HCL 20 MG CAP PO SCH (07:39)
[2019-07-17] MEDS: PREGABALIN 150 MG CAP PO SCH ×2 (07:44→20:36)
[2019-07-17] MEDS: INSULIN ASPART 100 UNITS/ML 3 ML PEN SC SCH ×4 (07:52→20:37)
[2019-07-17] MEDS: INSULIN HUMAN NPH SC SCH ×2 (07:52→17:20)
[2019-07-17] MEDS: HEPARIN SOD 5,000 UNIT/0.5 ML VIAL SQ SCH ×2 (07:52→20:36)
--- NOTE | 2019-07-17 08:33 | Pharmacy Report ---
Pharmacy Glycemic Short Note 2 - Date of Service July 17, 2019 - Glycemic Short BSG Results (Last 24 hours): 07/16/19 07/16/19 07/16/19 07:32 11:35 16:39 Glucose 180 H POC Glucose 178 H 198 H 07/16/19 07/17/19 20:08 07:50 Glucose POC Glucose 147 H 213 H OUTPATIENT ANTIDIABETIC REGIMEN: * Novolin 70/30 30 units qAM, 36 units qPM ASSESSMENT: * Melita is a 64 yr old uncontrolled T2DM admitted with infected sacral wound * Complicated PMH including ESRD on HD MWF, diabetic neuropathy, diabetic gastroparesis, diabetic retinopathy, HTN, HLD, A. fib on Coumadin, h/o DVT, hyperparathyroidism secondary to end-stage renal disease, anemia of chronic disease 07/17: * Patient received total of 56 units of insulin yesterday, of which 40 were basal insulin, fasting blood sugar 213mg/dl, despite increases in NPH doses yesterday (doubled from 20 to 40 units). Will wait to adjust NPH further and just tighten CR at this time. * Tighten goal range slightly to aid in better glycemic control. * Adjust NPH scale so patient does get 20 units of NPH for BSG 140 and above. 07/16: * Patient received total of 50 units of insulin yesterday, of which 20 were basal insulin, fasting blood sugar 189mg/dl - will increase NPH doses * No change in Novolog parameters at this time, since increasing NPH * HD today * ADA & AACE recommend a goal blood sugar range 140-180 mg/dl for the majority of critically ill & non-critically ill patients. However, more stringent targets may be selected in individual cases. Will utilize more stringent goal of 120-160mg/dl based on patient age & comorbidities. Additionally, tighter glycemic control is warranted to facilitate wound/infection healing. 07/15: * Patient received total of 44 units of insulin yesterday, of which 25 were basal insulin * Patient in OR yesterday for I&D - changed from diet to npo, then diet resumed again * Continues on diet this morning - fasting BSG 158 mg/dL / will continue with scale for NPH this morning - per nephrology notes patient to get dialysis today. Therefore, anticipate BSGs to trend down ---> dialysis got rescheduled for 07/16 * Continue same CF/CR for this morning * Diet is improving more today - will likely need to further tighten insulin parameters tomorrow. Previous admissions show patient requires much more insulin when on diet 07/14: * Patient received only 11 units of insulin yesterday, of which 5 were basal insulin * Fasting BSG this AM 149 mg/dL - will continue with scale for NPH * Changed back to NPO status for I&D today, will have scale for NPH tonight PLAN FOR INPATIENT GLYCEMIC CONTROL: * Basal insulin * Resume NPH SQ BID with meals: * 15 units for BSG < 140 * 20 units for BSG 140-220 * 25 units for BSG > 220 * Bolus insulin * NovoLog per scale ACHS or Q6hrs while NPO * CHANGE: Goal Range: Low 120 mg/dL - High 150 mg/dL * Correction Factor: 20 mg/dL/unit * TIGHTEN: Nutritional / Prandial insulin per carb ratio of 1 unit per 5 grams CHO consumed Thank you.
--- NOTE | 2019-07-17 09:40 | Nephrology Progress Note ---
Date of Service July 17, 2019 Assessment & Plan (1) ESRD (end stage renal disease): Patient with ESRD on HD MWF. Last HD was Thursday. Electrolytes are stable. No volume overload. She tolerated HD well yesterday. Blood pressure is stable. Next dialysis will be on Thursday. 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 Antibiotics to be timed with dialysis. Okay to put in midline catheter for chronic antibiotics. Avoid PICC line. (3) Chronic anemia: Recent Hb of 8.7. Will continue Epogen 10,000 urints with HD. Monitor daily Subjective She is complaining of sore throat, cough and nasal congestion. No shortness of breath. She tolerated dialysis well yesterday. Review of Systems Review of Systems: All systems reviewed & are unremarkable except as noted in HPI & below Physical Exam Physical Exam: General exam: Appears comfortable, no acute distress HEENT: Pupils are equal and reactive to light Neck: No JVD, neck is supple trachea is midline Respiratory system: Clear breath sounds bilaterally. Gastrointestinal: Abdomen is soft, non distended, non tender, bowel sounds are present CVS: Regular rate and rhythm. No murmurs, rubs or gallops Musculoskeletal: No joint or muscle tenderness Extremities: Non tender, no edema, peripheral pulses are present. Right BKA Neuro: Oriented, no tremors, no focal neurological deficits Skin: No rashes, sacral ulcers Results & Data Vital Signs (Past 12 Hours) Vital Signs Temp Pulse Pulse Pulse Pulse Resp BP 07/17/19 07:00 36.8 C 76 20 142/63 H 07/17/19 02:37 36.9 C 81 17 150/72 H 07/16/19 23:50 80 07/16/19 22:46 37.2 C 81 20 111/38 L Pulse Ox 07/17/19 07:00 100 07/17/19 02:37 100 07/16/19 23:50 07/16/19 22:46 100 Laboratory Results Laboratory Results - last 24 hr 07/16/19 07/16/19 07/16/19 07:32 07:32 11:35 WBC 17.51 H RBC 3.07 L Hgb 8.9 L Hct 29.2 L MCV 95.1 MCH 29.0 MCHC 30.5 L RDW Std Deviation 59.1 H RDW Coeff of Dean 17.1 H Plt Count 313 MPV 9.8 PT INR Sodium 132 L Potassium 4.1 Chloride 94 L Carbon Dioxide 27 Anion Gap 11.0 BUN 44 H Creatinine 7.91 H* D Est Cr Clr Drug Dosing 8.7 Est GFR ( Amer) 5.7 Est GFR (Non-Af Amer) 4.9 BUN/Creatinine Ratio 5.6 L Glucose 180 H POC Glucose 178 H Calcium 9.6 07/16/19 07/16/19 07/17/19 16:39 20:08 06:44 WBC RBC Hgb Hct MCV MCH MCHC RDW Std Deviation RDW Coeff of Dean Plt Count MPV PT 13.4 H INR 1.3 H Sodium Potassium Chloride Carbon Dioxide Anion Gap BUN Creatinine Est Cr Clr Drug Dosing Est GFR ( Amer) Est GFR (Non-Af Amer) BUN/Creatinine Ratio Glucose POC Glucose 198 H 147 H Calcium 07/17/19 07:50 WBC RBC Hgb Hct MCV MCH MCHC RDW Std Deviation RDW Coeff of Dean Plt Count MPV PT INR Sodium Potassium Chloride Carbon Dioxide Anion Gap BUN Creatinine Est Cr Clr Drug Dosing Est GFR ( Amer) Est GFR (Non-Af Amer) BUN/Creatinine Ratio Glucose POC Glucose 213 H Calcium
--- NOTE | 2019-07-17 10:23 | Surgery Progress Note ---
Date of Service July 17, 2019 Assessment & Plan (1) Sacral wound: s/p sacral wound debridement now with wound vac. Continue wound care - no new recommendations. Subjective Lying in bed. No complaints of sacral pain. Wound vac in place. Physical Exam Skin: wound vac in place with cloudy serosanguinous drainage Psychiatric: A+Ox3, euthymic affect Results & Data Vital Signs (Past 12 Hours) Vital Signs Temp Pulse Pulse Pulse Pulse Resp BP 07/17/19 07:00 36.8 C 76 20 142/63 H 07/17/19 02:37 36.9 C 81 17 150/72 H 07/16/19 23:50 80 07/16/19 22:46 37.2 C 81 20 111/38 L Pulse Ox 07/17/19 07:00 100 07/17/19 02:37 100 07/16/19 23:50 07/16/19 22:46 100
[2019-07-17] MEDS ORDERED: MICONAZOLE NITRATE POWDER 43 GM EXT PRN (11:00)
[2019-07-17] MEDS: WARFARIN SOD 5 MG TAB PO SCH (16:31)
[2019-07-17] MEDS: ERTAPENEM SODIUM 500 MG in SODIUM CHLORIDE 0.9% 50 ML IV SCH (17:24)
--- NOTE | 2019-07-17 17:34 | Hospitalist Progress Note ---
Date of Service July 17, 2019 Assessment & Plan (1) Sacral wound: Stage III pressure ulcer of left buttock Pt was sent from the wound clinic as a direct admission for worsening sacral wound ulcer. Buttock wound culture on 06/22/19 grew + Klebsiella, Serratia marcescens, bacteroides uniformis She has been getting IV Ertapenem on HD days CT abd/pelvis showed Large sacral decubitus ulcer extends into the left ischiorectal fossa, perineum and inferior aspect of the left gluteal elmo m uscle. Air and fluid is noted within the ulcer without drainable fluid collection identified. No evidence of acute osteomyelitis on CT. WBC on admission 21K, trending down to 17K, then increased to 21k, then 17k today S/P day 2 Incision and Drainage of Soft Tissue Abcess with Excisional Debridement Sacral Wound to Bone by Dr. Garcia Wound culture grew coag negative staph and strep species Blood cultures no growth so far ID on board and recommended to continue IV Ertapenem and Daptomycin OK from shearer screen measurer and trimmer to place a Midline, will place IV access tomorrow Pt will need about 6 weeks IV course of abx Continue daily wound care Wound vac management as per surgery/wound care provider Monitor CBC (2) Below-knee amputation of right lower extremity: History of diabetic foot ulcer s/p right BKA 05/25/[address] Medina Incision site currently with eschar Plan to see Dr. Medina on 07/14/2019 for follow up Ortho on board recommended conservative management (3) Diabetes mellitus, type 2: A1c 10.5 on 05/19/2019 Has been NPO for possible surgical procedure Pharmacy on board for glycemic management Continue Monitor BS (4) Atrial fibrillation: Coumadin on hold Rate controlled INR: 1.3 today Continue coumadin (5) ESRD (end stage renal disease): HD on MWF Had HD today since she did not have any HD yesterday case discussed with Nephrology Dr. Gomez that plan for HD tomorrow morning Continue nephro vitamins, Phoslo (6) Hypertension: BP stable Continue monitor BP (7) Chronic anemia: Hgb dropped to 8.9 today Hgb baseline ~9 Continue monitor CBC Stable (8) Gastroparesis: Continue Zofran as needed (9) Depression: Continue Prozac (10) Neuropathy: Continue Lyrica DVT Prophylaxis On Heparin SQ for now since Coumadin on hold for possible surgicalprocedure CODE STATUS DNR/DNI Subjective Pt was seen and examined Lying in bed with no distress Pt said that she feels ok Denies any chest pain, palpitation, dizziness and SOB Physical Exam Physical Exam: General- No acute distress Head- atraumatic Eyes- PERRL, EOMI, ENT- oropharynx clear Neck- supple, no JVD Lungs- clear to auscultation Heart- regular rhythm; no murmur Abdomen- normal bowel sounds, soft, nontender Extremities- no Left calf tenderness, +BKA, stump with incision with steri strips in place with eschar and no discharge Neuro- alert, oriented x 3; PERRL, EOMI; no facial palsy; no dysarthria Skin- warm & dry, Sacrum pressure ulcer with dressing on Results & Data Vital Signs (Past 12 Hours) Vital Signs Temp Pulse Resp BP Pulse Ox 07/17/19 15:00 36.5 C 78 20 139/75 98 07/17/19 12:00 36.8 C 85 18 146/51 H 07/17/19 07:00 36.8 C 76 20 142/63 H 100 (1) Hypertension Hypertension type: unspecified Qualified Code(s): I10 - Essential (primary) hypertension
[2019-07-17] MEDS: FLUTICASONE PROPIONATE NA SPR 16 GM BTL NAE SCH (20:36)
[2019-07-17] MEDS: VITAMIN B COMPLEX TAB PO SCH (20:37)
[2019-07-17] MEDS: TRAMADOL HCL 50 MG TABLET PO PRN (20:42)
[2019-07-18] MEDS ORDERED: HEPARIN SOD (PORCINE) 1000 UNIT/ML 10 ML VIAL IV ONE (07:51)
[2019-07-18] MEDS ORDERED: SODIUM CHLORIDE 0.9% 1000ML 1,000 ML IV PRN (07:51)
[2019-07-18 07:59] LABS: Hematocrit (blood only) 26.4 % (37-47); Mean Corpuscular Hemoglobin 28.1 pg (25-34); Mean Corpuscular Hgb Conc 30.3 g/dL (32-36); Mean Corpuscular Volume 92.6 fL (80-100); Mean Platelet Volume 9.6 fL (7.4-10.4); Platelet Count 282 K/uL (130-400); RDW Standard Deviation 58.2 fL (36.4-46.3); Red Blood Count 2.85 M/uL (4.2-5.4); White Blood Count 12.97 K/uL (4.8-10.8)
[2019-07-18 08:08] LABS: INR 1.7 (0.9-1.1); Prothrombin Time 16.7 Seconds (9.0-12.0)
[2019-07-18] MEDS ORDERED: EPOETIN ALFA 10,000 UNITS/ML VIAL IV STA (08:17)
[2019-07-18] MEDS: INSULIN ASPART 100 UNITS/ML 3 ML PEN SC SCH ×4 (08:28→21:06)
[2019-07-18] MEDS: INSULIN HUMAN NPH SC SCH ×2 (08:29→18:06)
[2019-07-18 08:40] LABS: Calcium 9.9 mg/dl (8.5-10.1); Creatinine Clr Calc Pharmacy 8.6 ml/min; Est GFR (African American) 5.6; Est GFR (Non-African American) 4.8; Potassium 4.3 mmol/L (3.5-5.1)
[2019-07-18] MEDS: HYDROmorphone INJ 0.5 MG/0.5 ML SYR IV PRN (08:44)
[2019-07-18] MEDS: PROMETHAZINE HCL 12.5 MG in SODIUM CHLORIDE 0.9% 50 ML IV PRN (08:44)
[2019-07-18] MEDS ORDERED: EPOETIN ALFA 16,000 UNITS in SYRINGE 0 ML IV SCH (09:00)
--- NOTE | 2019-07-18 10:58 | Infectious Disease Progress Nt ---
Date of Service July 18, 2019 Assessment & Plan (1) Sacral wound: Patient with nonhealing sacral decubitus ulcer, previous cultures positive for Serratia, Klebsiella, and Bacteroides, now status post surgical debridement. Pending operative cultures, patient should continue on ertapenem. Likely will require 6 weeks of IV antibiotics given extension to sacrum. spoke with primary, will plan to follow in wound center. will need weekly cbc, cmp, esr. (2) Cellulitis: Subjective pt remains on IV abx, tolerating well. previuos culture grew ESBL K. pneumo, Serritia and bacteroids, current culture with director of distribution only. s/p debridement. afebrile. Results & Data Vital Signs (Past 12 Hours) Vital Signs Temp Pulse Pulse Pulse Resp BP BP 07/18/19 10:00 85 124/61 07/18/19 09:40 83 130/66 07/18/19 09:21 37.3 C 89 07/18/19 07:22 37.3 C 90 16 162/71 H 07/18/19 04:00 37 C 82 20 148/55 H 07/17/19 23:24 83 Pulse Ox 07/18/19 10:00 07/18/19 09:40 07/18/19 09:21 07/18/19 07:22 96 07/18/19 04:00 99 07/17/19 23:24 Laboratory Results Microbiology 07/12/19 15:42 Blood Aerobic Blood Culture - Final No growth in Aerobic bottle after 5 days. 07/12/19 15:42 Blood Anaerobic Blood Culture - Final No growth in Anaerobic bottle after 5 days. 07/12/19 15:32 Blood Aerobic Blood Culture - Final No growth in Aerobic bottle after 5 days. 07/12/19 15:32 Blood Anaerobic Blood Culture - Final No growth in Anaerobic bottle after 5 days. 07/14/19 17:30 Sacrum Decubitus Gram Stain - Final 07/14/19 17:30 Sacrum Decubitus Aerobic and Anaerobic Culture - Preliminary Enterococcus faecalis [place] albicans 07/12/19 Unknown Sacrum Gram Stain - Final 07/12/19 Unknown Sacrum Wound Culture - Final Coag negative Staphylococcus Enterococcus faecalis PG Care Time/CCT Total # of Minutes Spent Total Time Spent with Patient: Total time spent is greater than 50% in coordination of care (as documented) at patient's floor/unit and/or counseling patient: (1) Cellulitis Laterality: right Site of cellulitis: extremity Site of cellulitis of extremity: lower extremity Qualified Code(s): L03.115 - Cellulitis of right lower limb
--- NOTE | 2019-07-18 11:22 | Nephrology Progress Note ---
Date of Service July 18, 2019 Assessment & Plan (1) ESRD (end stage renal disease): ESRD on HD MWF. Last HD was Thursday. Electrolytes are stable except for mild vol OL and mildly low Na. Blood pressure on hgher side and will go for 3 L UF today; next HD for 07/20 tentatively. 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 Antibiotics to be timed with dialysis. Okay to put in midline catheter for chronic antibiotics. Avoid PICC line. (3) Chronic anemia: Recent Hb of 8.7. Will increase Epogen to 16,000 urints with HD. Monitor daily Subjective seen on rounds 0815> no sob but soem N and uncontrolled pain this am. very tired Review of Systems Review of Systems: All systems reviewed & are unremarkable except as noted in HPI & below Physical Exam Constitutional: well developed, well nourished and + lethargic; no acute distress on 1L 02nc Eyes: EOM intact bilaterally ENMT: Ears: no external ear abnormality Nose: no external nose abnormality Mouth: + dry oral mucous membranes Neck: no nuchal rigidity Respiratory: normal respiratory effort Auscultation: lungs clear to auscultation bilaterally and + diminished lung sounds Cardiovascular: RRR, no murmur, no edema Gastrointestinal (Abdomen): Inspection/Auscultation: normal bowel sounds Percussion/Palpation: abdomen soft; abdomen nontender Musculoskeletal: Extremities: strength 5/5 throughout L foot in boot; sores on L hand(AVF arm) Skin: no rashes, warm and dry Neurologic: carballo, fluent but today very limjited speech, no tremor Psychiatric: Orientation: oriented x 3 Affect: + depressed affect Results & Data Vital Signs (Past 12 Hours) Vital Signs Temp Pulse Pulse Pulse Resp BP BP 07/18/19 11:00 62 99/40 L 07/18/19 10:40 62 112/59 L 07/18/19 10:20 89 124/65 07/18/19 10:00 85 124/61 07/18/19 09:40 83 130/66 07/18/19 09:21 37.3 C 89 07/18/19 07:22 37.3 C 90 16 162/71 H 07/18/19 04:00 37 C 82 20 148/55 H 07/17/19 23:24 83 Pulse Ox 07/18/19 11:00 07/18/19 10:40 07/18/19 10:20 07/18/19 10:00 07/18/19 09:40 07/18/19 09:21 07/18/19 07:22 96 07/18/19 04:00 99 07/17/19 23:24 Laboratory Results 07/18/19 07:45 07/18/19 07:45
[2019-07-18] MEDS: HEPARIN SOD (PORCINE) 1000 UNIT/ML 10 ML VIAL IV SCH (11:27)
[2019-07-18] MEDS: HEPARIN SOD 5,000 UNIT/0.5 ML VIAL SQ SCH ×2 (11:37→21:06)
[2019-07-18] MEDS: CALCIUM ACETATE 667 MG CAP PO SCH ×3 (13:51→18:07)
[2019-07-18] MEDS: NEPHROCAPS PO SCH (13:51)
[2019-07-18] MEDS: PANTOprazole 40 MG TAB PO SCH (13:51)
[2019-07-18] MEDS: PRAVASTATIN SOD 20 MG TAB PO SCH (13:51)
[2019-07-18] MEDS: FLUOXETINE HCL 20 MG CAP PO SCH (13:52)
[2019-07-18] MEDS: PREGABALIN 150 MG CAP PO SCH ×2 (13:56→21:06)
--- NOTE | 2019-07-18 16:29 | Hospitalist Progress Note ---
Date of Service July 18, 2019 Assessment & Plan (1) Sacral wound: Stage III pressure ulcer of left buttock Pt was sent from the wound clinic as a direct admission for worsening sacral wound ulcer. Buttock wound culture on 06/22/19 grew + Klebsiella, Serratia marcescens, bacteroides uniformis She has been getting IV Ertapenem on HD days CT abd/pelvis showed Large sacral decubitus ulcer extends into the left ischiorectal fossa, perineum and inferior aspect of the left gluteal elmo m uscle. Air and fluid is noted within the ulcer without drainable fluid collection identified. No evidence of acute osteomyelitis on CT. WBC on admission 21K, trending down to 17K, then increased to 21k, then 17k today S/P day 3 Incision and Drainage of Soft Tissue Abcess with Excisional Debridement Sacral Wound to Bone by Dr. Garcia Wound culture grew coag negative staph and strep species Blood cultures no growth so far ID on board case discussed ID recommended IV Ertapenem for 6 weeks IV daptomycin discontinued Will need weekly cbc, cmp, esr. OK from equipment detailer to place a Midline Consent signed for Midline Continue daily wound care Wound vac management as per surgery/wound care provider Follow up with the wound care clinic (2) Below-knee amputation of right lower extremity: History of diabetic foot ulcer s/p right BKA 05/25/[address] Medina [facility] Plan to see Dr. Medina on 07/14/2019 for follow up Ortho on board recommended conservative management (3) Diabetes mellitus, type 2: A1c 10.5 on 05/19/2019 Has been NPO for possible surgical procedure Pharmacy on board for glycemic management Continue Monitor BS (4) Atrial fibrillation: Coumadin on hold Rate controlled INR: 1.7 today Continue coumadin (5) ESRD (end stage renal disease): HD on MWF Had HD today case discussed with Nephrology Dr. Gomez that plan for HD tomorrow morning Continue nephro vitamins, Phoslo (6) Hypertension: BP stable Continue monitor BP (7) Chronic anemia: Hgb dropped to 8.0 today Hgb baseline ~9 Continue monitor CBC (8) Gastroparesis: Continue Zofran as needed (9) Depression: Continue Prozac (10) Neuropathy: Continue Lyrica DVT Prophylaxis On Heparin SQ for now since Coumadin on hold for possible surgicalprocedure CODE STATUS DNR/DNI Disposition Discharge to SNF tomorrow Subjective Pt was seen and examined Lying in bed with no distress Pt said that she feels ok Denies any chest pain, palpitation and SOB Physical Exam Physical Exam: General- No acute distress Head- atraumatic Eyes- PERRL, EOMI, ENT- oropharynx clear Neck- supple, no JVD Lungs- clear to auscultation Heart- regular rhythm; no murmur Abdomen- normal bowel sounds, soft, nontender Extremities- no Left calf tenderness, +BKA, stump with incision with steri strips in place with eschar and no discharge Neuro- alert, oriented x 3; PERRL, EOMI; no facial palsy; no dysarthria Skin- warm & dry, Sacrum pressure ulcer with dressing on Results & Data Vital Signs (Past 12 Hours) Vital Signs Temp Pulse Pulse Pulse Resp BP BP 07/18/19 15:57 93 H 07/18/19 14:59 37.0 C 92 H 20 131/70 07/18/19 13:30 37.3 C 88 123/67 07/18/19 13:20 71 118/60 07/18/19 13:00 80 125/55 L 07/18/19 12:40 89 139/64 07/18/19 12:20 69 142/41 H 07/18/19 12:00 83 123/82 07/18/19 11:40 90 94/43 L 07/18/19 11:20 87 109/62 07/18/19 11:00 62 99/40 L 07/18/19 10:40 62 112/59 L 07/18/19 10:20 89 124/65 07/18/19 10:00 85 124/61 07/18/19 09:40 83 130/66 07/18/19 09:21 37.3 C 89 07/18/19 07:22 37.3 C 90 16 162/71 H Pulse Ox 07/18/19 15:57 07/18/19 14:59 95 07/18/19 13:30 07/18/19 13:20 07/18/19 13:00 07/18/19 12:40 07/18/19 12:20 07/18/19 12:00 07/18/19 11:40 07/18/19 11:20 07/18/19 11:00 07/18/19 10:40 07/18/19 10:20 07/18/19 10:00 07/18/19 09:40 07/18/19 09:21 07/18/19 07:22 96 (1) Hypertension Hypertension type: unspecified Qualified Code(s): I10 - Essential (primary) hypertension
[2019-07-18] MEDS: TRAMADOL HCL 50 MG TABLET PO PRN (18:13)
[2019-07-18] MEDS: WARFARIN SOD 5 MG TAB PO SCH (18:21)
[2019-07-18] MEDS: ERTAPENEM SODIUM 500 MG in SODIUM CHLORIDE 0.9% 50 ML IV SCH (19:31)
[2019-07-18] MEDS: FLUTICASONE PROPIONATE NA SPR 16 GM BTL NAE SCH (21:06)
[2019-07-18] MEDS: VITAMIN B COMPLEX TAB PO SCH (21:09)
[2019-07-18] MEDS: ACETAMINOPHEN 325 MG TAB PO PRN (23:40)
[2019-07-19] MEDS ORDERED: POLYETHYLENE (MIRALAX) 17 GM PACK PO STA (06:15)
[2019-07-19] MEDS ORDERED: ALBUT/IPRATROP 3MG/0.5MG NEB 3 ML VIAL NEB STA (06:23)
[2019-07-19] MEDS: DOCUSATE SODIUM/SENNA 50/8.6MG TAB PO SCH (06:43)
[2019-07-19 07:00] LABS: Basophils # (auto) 0.06 K/uL (0-0.2); Basophils % (auto) 0.5 %; Eosinophils % (auto) 2.4 %; Hematocrit (blood only) 23.9 % (37-47); Hemoglobin 7.2 g/dL (12.0-16.0); Immature Granulocytes # (auto) 0.18 K/uL (0.00-0.02); Immature Granulocytes % (auto) 1.5 %; Lymphocytes # (auto) 1.84 K/uL (1.2-3.4); Lymphocytes % (auto) 14.9 %; Mean Corpuscular Hemoglobin 28.2 pg (25-34); Mean Corpuscular Hgb Conc 30.1 g/dL (32-36); Mean Corpuscular Volume 93.7 fL (80-100); Mean Platelet Volume 9.6 fL (7.4-10.4); Monocytes # (auto) 1.26 K/uL (0.11-0.59); Monocytes % (auto) 10.2 %; Neutrophils # (auto) 8.71 K/uL (1.4-6.5); Neutrophils % (auto) 70.5 %; Platelet Count 319 K/uL (130-400); RDW Coefficient of Variation 16.9 % (11.5-14.5); RDW Standard Deviation 58.3 fL (36.4-46.3); Red Blood Count 2.55 M/uL (4.2-5.4); White Blood Count 12.35 K/uL (4.8-10.8)
[2019-07-19 07:03] LABS: Base Excess ABG 6.1 mEq/L (-9-1.8); HCO3 ABG 31 mmol/L (19-24); PCO2 ABG 44 mmHg (35-46); PO2 ABG 96 mm/Hg (80-95); pH ABG 7.46 (7.35-7.45)
[2019-07-19 07:04] LABS: Allen Test Pos (Pos)
--- NOTE | 2019-07-19 07:11 | Communication Note ---
Date of Service: July 19, 2019 Patient complaining of achy lower abdominal discomfort as per RN. No BM for 5 days. AP Abdominal pain, constipation Rule out bleed, hx anticoagulation Bowel regimen CT abdomen pelvis Hold Coumadin, heparin subcu for now until CT results known Will relay to AM provider.
[2019-07-19 07:20] LABS: Partial Thromboplastin Ratio 1.9; Prothrombin Time 19.5 Seconds (9.0-12.0)
[2019-07-19 07:21] LABS: Partial Thromboplastin Time 50.5 Seconds (21.0-31.0)
--- NOTE | 2019-07-19 07:21 | XRay Report ---
XR chest 1V portable HISTORY: Hypoxia. COMPARISON: Chest 05/30/2019. FINDINGS: Low lung volumes with mild elevation of the right hemidiaphragm, unchanged. The heart remai ns mildly enlarged. Cervical spinal fusion hardware is noted. No pleural effusions. No pneumothorax. Focal patchy right midlung zone airspace opacity. This may represent a pneumonia. There is mild centr al pulmonary vascular congestion without overt edema. IMPRESSION: 1. Focal right midlung zone airspace opacity. This favors a pneumonia. Recommend one month chest x-ra y follow-up to ensure resolution. 2. Cardiomegaly with mild central pulmonary vascular congestion. Electronically signed by: Jeremiah Andrade M.D. 07/19/2019 7:19 AM
[2019-07-19 07:26] LABS: Basophilic Stippling 1+; Hypochromasia Present
[2019-07-19 07:49] LABS: Albumin Globulin Ratio 0.4 (0.9-2); Albumin Level 1.8 gm/dl (3.4-5.0); BUN Creatinine Ratio 5.2 (10-20); Bilirubin,Total 0.4 mg/dl (0.2-1); Calcium 9.5 mg/dl (8.5-10.1); Creatinine Clr Calc Pharmacy 14.5 ml/min; Est GFR (African American) 10.2; Est GFR (Non-African American) 8.8; Globulin 4.7 gm/dl (2.5-4.0); Potassium 3.7 mmol/L (3.5-5.1); Total Protein 6.5 gm/dl (6.4-8.2)
--- NOTE | 2019-07-19 08:55 | CT Scan Report ---
CT abd pelvis wo con CLINICAL HISTORY: 64 years-old Female presenting with generalized abdominal pain. TECHNIQUE: Multidetector CT of the abdomen and pelvis was performed without the use of intravenous co ntrast. IV contrast: None. One or more dose lowering techniques were used consistent with the princip les of ALARA (as low as reasonably achievable), including automatic exposure control, mA or kV adjust ment to individual patient size, and/or use of iterative reconstruction. COMPARISON: 07/12/2019. CT DOSE (mGy.cm): The estimated cumulative dose is 1843.56 mGy.cm. FINDINGS: Systems Librarian topogram: Cholecystectomy clips. Lung bases: Normal heart size. Coronary artery, aortic valve, and mitral annular calcification. No pe ricardial or pleural effusion. Scattered dependent consolidation most likely atelectasis or scarring. There is also focal subpleural 11 mm nodule in the left lower lobe (series 3 image 81). Liver: Normal morphology. Density consistent with hepatic steatosis. Extensive hepatic arterial calci fication. Biliary: No gross biliary ductal dilatation allowing for noncontrast technique. Gallbladder surgicall y absent. Pancreas: Mild parenchymal atrophy. Spleen: Normal noncontrast appearance. Adrenal glands: Normal noncontrast appearance. Kidneys and ureters: Normal noncontrast appearance. No nephrolithiasis. No hydronephrosis. Normal ure ters. Prominent renovascular calcification. Bladder: Normal noncontrast appearance. Pelvic organs: Normal noncontrast appearance. Bowel: Normal noncontrast appearance. No bowel obstruction. Peritoneal cavity: No free fluid or intraperitoneal gas. Lymph nodes: No gross lymphadenopathy allowing for noncontrast technique. Vasculature: Atherosclerosis of the normal caliber abdominal aorta. Abdominal wall: Small fat-containing umbilical hernia. Redemonstration of the ulceration with gas and fluid within the ulceration primarily affecting the left aspect of the medial gluteal cleft and trac ovidio to the level of the coccyx and into the left ischiorectal fossa. There is also a tract, which co urses superiorly and terminates as a blind ending gas containing collection below the left levator an i (series 3 image 504). This is unchanged from prior. There is no significant fluid component. Overal l the degree of inflammatory change and size of the primary pocket within the left aspect of the medi al gluteal cleft has decreased in size (series 3 image 462). Musculoskeletal: Osteopenia suspected. Degenerative changes of the spine. IMPRESSION: 1. Significant interval decrease in size of the gas containing pockets along the left aspect of the medial gluteal cleft associated with the ulceration at the level of the coccyx. The ulceration and as sociated tracts again extend to the left ischiorectal fossa in a similar distribution though with les s associated inflammatory change. No discrete drainable abscess. 2. Allowing for noncontrast technique, no acute intra-abdominal pathology. 3. Extensive atherosclerosis. 4. Solid peripheral 11 mm left lower lobe pulmonary nodule. Follow-up per Fleischner Society 2017 re commendations below. Summary of Fleischner Society 2017 Recommendations (H Carl, et al. Guidelines for management of i ncidental pulmonary nodules detected on CT images: From the Fleischner Society 2017. Radiology 2017; 284: 228-243.) SOLID NODULES Single nodule; size < 6 mm * Low risk patients: No routine follow-up * High risk patients: Optional CT at 12 months Single nodule; size 6-8 mm * Low risk patients: CT at 6-12 months, then consider CT at 18-24 months * High risk patients: CT at 6-12 months, then at 18-24 months Single nodule; size > 8 mm * Either low or high risk patients: Considered CT at 3 months, PET/CT, or tissue sampling Multiple nodules; size < 6 mm * Low risk patients: No routine follow up * High risk patients: Optional CT at 12 months Multiple nodules; size 6-8 mm * Low risk patients: CT at 3-6 months, then consider CT at 18-24 months * High risk patients: CT at 3-6 months, then at 18-24 months Multiple nodules; size > 8 mm * Low risk patients: CT at 3-6 months, then consider at 18-24 months * High risk patients: CT at 3-6 months, then at 18-24 months SUBSOLID NODULES Single ground-glass nodule * Nodule size < 6 mm: No routine follow-up * Nodule size > or = 6 mm: CT at 6-12 months to confirm persistence, then CT every 2 years until 5 y ears Single part-solid nodule * Nodule size < 6 mm: No routine follow-up * Nodules size > or = 6 mm: CT at 3-6 months to confirm persistence. If unchanged and solid componen t remains < 6 mm, annual CT should be performed for 5 years Multiple nodules * Nodule size < 6 mm: CT at 3-6 months. If stable, consider CT at 2 and 4 years. * Nodules size > or = 6 mm: CT at 3-6 months. Subsequent management based on the most suspicious nod ule(s) NOTE: 1) These guidelines apply to incidental nodules. These guidelines do NOT apply to patients younger th an 35 years, immunocompromised patients, or patients with cancer. 2) Risk categories: * Low risk patients: Minimal or absent history of smoking and/or other known risk factors * High risk patients: History of smoking, exposure to other carcinogens, emphysema, fibrosis, upper lobe location, family history of lung cancer, etc. 3) If a nodule up to 8 mm is partly solid or is ground glass, further follow-up is required after 24 months to exclude possible slow growing adenocarcinoma. Electronically signed by: Norris Curtis M.D. 07/19/2019 8:54 AM
[2019-07-19] MEDS: INSULIN HUMAN NPH SC SCH ×2 (09:15→18:25)
[2019-07-19] MEDS: INSULIN ASPART 100 UNITS/ML 3 ML PEN SC SCH ×4 (09:15→21:16)
[2019-07-19] MEDS: CALCIUM ACETATE 667 MG CAP PO SCH ×3 (09:16→18:27)
[2019-07-19] MEDS: PRAVASTATIN SOD 20 MG TAB PO SCH (09:19)
[2019-07-19] MEDS: PREGABALIN 150 MG CAP PO SCH ×2 (09:19→21:04)
[2019-07-19] MEDS: PANTOprazole 40 MG TAB PO SCH (09:19)
[2019-07-19] MEDS: FLUOXETINE HCL 20 MG CAP PO SCH (09:21)
[2019-07-19] MEDS ORDERED: SODIUM CHLORIDE 0.9% 1000ML 1,000 ML IV PRN (13:13)
[2019-07-19] MEDS ORDERED: SODIUM CHLORIDE 0.9% 250 ML IV PRN (13:33)
--- NOTE | 2019-07-19 13:54 | Pharmacy Report ---
Glycemic Control Progress Note - Date of Service July 19, 2019 - Scope Glycemic Pharmacist consulted for glycemic control to write orders per [facility] inpatient glycemic control protocol. - Objective Accuchecks BSG(last 24 hours):: 07/18/19 07/18/19 07/19/19 17:34 20:00 06:28 Glucose POC Glucose 102 H 131 H 107 H 07/19/19 07/19/19 07/19/19 06:50 07:25 11:59 Glucose 102 H POC Glucose 121 H 130 H - Recent Pertinent Medications The patient is currently receiving: * Basal insulin: NPH 15-25 units twice daily with meals * Correctional Insulin: Novolog Correction per scale ACHS Goal Range: Low 120 mg/dL - High 150 mg/dL Correction Factor: 15 mg/dL/unit * Prandial insulin: Per carb ratio of 1 unit per 5 grams CHO consumed - Outpatient Anti-Diabetic Meds Novolin 70/30 30 units in AM and 36 units in PM - Assessment & Plan ASSESSMENT: * See progress note from 07/13/19 for more background info, in short: * Pt receiving SQ basal bolus insulin regimen for hyperglycemia secondary to baseline DM (outpatient regimen on hold) and infection (currently on Invanz) * Patient is currently receiving an average of 38 units of insulin per day * 35 units of basal insulin * 3 units of prandial/correctional insulin * BSGs ranging 92 - 183 mg/dl over the past 24hrs * Changes needed to insulin regimen: * AM Fasting BSG = 107 mg/dl. This is below goal range for patient based on inpatient targets and co-morbidities. Therefore Basal insulin will be reduced. * Post-prandial BSGs did trend downwards yesterday so loosen CF and CR. * Total daily dose = 40-60 units. High insulin required when patient is able to eat more. PLAN FOR INPATIENT GLYCEMIC CONTROL: * Decreasing NPH to 10-20 units SQ BIDM * 10 units if blood sugar under 140 mg/dL * 15 units if blood sugar 140-180 mg/dL * 20 units if blood sugar greater than 180 mg/dL * LOOSENING correction factor to 20 mg/dl/unit * LOOSENING carb ratio to 1 unit per 7 grams CHO consumed * Continuing goal range of Low 120 mg/dL - High 150 mg/dL RECOMMENDATIONS FOR DISCHARGE: * Patient is a dialysis patient therefore HbA1C is not reflective of true glycemic control. * Recommend close follow-up with provider and monitoring of BSG logs to make appropriate adjustments. * Please note that the plan above was derived based on current level of insulin resistance and hospital stress. These recommendations are appropriate for inpatient admission only. Plan of care upon discharge will need to be reassessed to avoid potential outpatient hypo/hyperglycemia. Thank you.
[2019-07-19 13:59] LABS: Iron 28 mcg/dl (35-150); Transferrin 114 mg/dl (200-360); Transferrin Percent Saturation 17 % (15-50)
[2019-07-19] MEDS ORDERED: EPOETIN ALFA 10,000 UNITS/ML VIAL IV SCH (14:00)
--- NOTE | 2019-07-19 15:27 | Hospitalist Progress Note ---
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 Buttock wound culture on 06/22/19 grew + Klebsiella, Serratia marcescens, bacteroides uniformis She has been getting IV Ertapenem on HD days CT abd/pelvis showed Large sacral decubitus ulcer extends into the left ischiorectal fossa, perineum and inferior aspect of the left gluteal elmo muscle. Air and fluid is noted within the ulcer without drainable fluid collection identified. No evidence of acute osteomyelitis on CT. WBC on admission 21K, trending down to 17K, then increased to 21k, then 17k today S/P day 4 Incision and Drainage of Soft Tissue Abcess with Excisional Debridement Sacral Wound to Bone by Dr. Garcia Wound culture grew coag negative staph and strep species Blood cultures no growth so far ID on board case discussed ID recommended IV Ertapenem for 6 weeks IV daptomycin discontinued Will need weekly cbc, cmp, esr. 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 Medina [facility] Plan to see Dr. Medina on 07/14/2019 for follow up Ortho on board recommended conservative management (3) Diabetes mellitus, type 2: A1c 10.5 on 05/19/2019 Has been NPO for possible surgical procedure Pharmacy on board for glycemic management Continue Monitor BS (4) Atrial fibrillation: Coumadin on hold Rate controlled INR: 12 today Will hold coumadin for today since hgb dropped to 7.2 (5) ESRD (end stage renal disease): HD on MWF case discussed with Nephrology Dr. Tim that plans for short course HD today CXR showed cardiomegaly with mild central pulmonary vascular congestion. Continue nephro vitamins, Phoslo (6) Hypertension: BP stable Continue monitor BP (7) Chronic anemia: Hgb dropped to 7.2 today Hgb baseline ~9 case discussed with Nephro that recommended to transfuse 1 unit PRBC during HD today Unfortunately transfusion was started before HD today Advised the nurse to run the transfusion slowly Continue monitor CBC (8) Gastroparesis: Continue Zofran as needed (9) Depression: Continue Prozac (10) Neuropathy: Continue Lyrica Left Lung Nodule CT showed solid peripheral 11 mm left lower lobe pulmonary nodule. Will need to outpatient CT chest for follow up Abnormal CXR Focal right midlung zone airspace opacity. If becomes febrile or desat, will add doxy On Ertapenem for the wound DVT Prophylaxis INR 2 Heparin subq discontinued CODE STATUS DNR/DNI Disposition Discharge to SNF once medically stable Subjective Pt was seen and examined Lying in bed with no distress She feels a little bit lethargy and weak today She did not eat much today Last night she was complaint of abdominal pain her hgb dropped to 7.2 today Spoke to Nephrology and pt plan to HD for 2 hrs today Plan to transfuse during HD Denies any chest pain, palpitation, dizziness and fever Physical Exam Physical Exam: General- No acute distress Head- atraumatic Eyes- PERRL, EOMI, ENT- oropharynx clear Neck- supple, no JVD Lungs- mild coarse BS Heart- regular rhythm; no murmur Abdomen- normal bowel sounds, soft, nontender Extremities- no Left calf tenderness, +BKA, stump with incision with steri strips in place with eschar and no discharge Neuro- alert, oriented x 3; PERRL, EOMI; no facial palsy; no dysarthria Skin- warm & dry, Sacrum pressure ulcer with dressing on Results & Data Vital Signs (Past 12 Hours) Vital Signs Temp Pulse Pulse Resp BP BP Pulse Ox 07/19/19 14:18 37.0 C 80 18 142/60 H 98 07/19/19 11:00 36.7 C 82 20 132/66 100 07/19/19 07:00 36.4 C L 81 20 134/70 100 07/19/19 06:36 80 16 96 07/19/19 03:31 85 07/19/19 03:28 37.3 C 84 16 135/63 96 (1) Hypertension Hypertension type: unspecified Qualified Code(s): I10 - Essential (primary) hypertension
--- NOTE | 2019-07-19 17:51 | Nephrology Progress Note ---
Date of Service July 19, 2019 Assessment & Plan (1) ESRD (end stage renal disease): ESRD on HD MWF. Last HD was 07/18; d/t increased 02 needs and anemia will run for short tx today. Electrolytes are stable except for mild vol OL and mildly low Na: 3K bath; 1L UF. 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 Antibiotics to be timed with dialysis. Okay to put in midline catheter for chronic antibiotics. Avoid PICC line. (3) Chronic anemia: todayHb of 7.2. ordered iron studies-needs iron load and no bacteremia > will start today; for another 37776 units epo with HD. Monitor daily; run hep alma free Subjective c/o uncontrolled pain > had desat yesterday after dilaudid and for now only tylenol available for pain control. no sob; eating some; denies edema, n/v, issues passing stool, cough got CT this am d/t concern for low ant abd pain >> no acute process Review of Systems Review of Systems: All systems reviewed & are unremarkable except as noted in HPI & below Physical Exam Constitutional: well developed and well nourished; no acute distress on 2L NC eating supper Eyes: EOM intact bilaterally ENMT: Ears: no external ear abnormality Nose: no external nose abnormality Mouth: + dry oral mucous membranes Neck: no nuchal rigidity Respiratory: normal respiratory effort Auscultation: lungs clear to auscultation bilaterally and + diminished lung sounds Cardiovascular: RRR, no murmur, no edema Gastrointestinal (Abdomen): Inspection/Auscultation: normal bowel sounds Percussion/Palpation: abdomen soft; abdomen nontender Musculoskeletal: Extremities: strength 5/5 throughout ss/p R BKA Skin: no rashes, warm and dry wound not examined but image reviewed Psychiatric: Orientation: oriented to person, oriented to place and + guarded Affect: + flat affect and + blunted affect Judgement: + limited judgement Results & Data Vital Signs (Past 12 Hours) Vital Signs Temp Pulse Pulse Resp BP BP Pulse Ox 07/19/19 14:18 37.0 C 80 18 142/60 H 98 07/19/19 11:00 36.7 C 82 20 132/66 100 07/19/19 07:00 36.4 C L 81 20 134/70 100 07/19/19 06:36 80 16 96 Laboratory Results 07/19/19 06:50 07/19/19 06:[address] abd/pelvis 1. Significant interval decrease in size of the gas containing pockets along the left aspect of the medial gluteal cleft associated with the ulceration at the level of the coccyx. The ulceration and associated tracts again extend to th e left ischiorectal fossa in a similar distribution though with less associated inflammatory change. No discrete drainable abscess. 2. Allowing for noncontrast technique, no acute intra-abdominal pathology. 3. Extensive atherosclerosis. 4. Solid peripheral 11 mm left lower lobe pulmonary nodule. Follow-up per Fleischner Society 2017 recommendations below.
[2019-07-19] MEDS ORDERED: IRON SUCROSE 100 MG in SYRINGE 0 ML IV SCH (18:00)
[2019-07-19] MEDS: TRAMADOL HCL 50 MG TABLET PO PRN (18:28)
[2019-07-19] MEDS ORDERED: Nursing to Pharmacy Communication ONE (18:57)
[2019-07-19] MEDS: FLUTICASONE PROPIONATE NA SPR 16 GM BTL NAE SCH (21:01)
[2019-07-19] MEDS: ERTAPENEM SODIUM 500 MG in SODIUM CHLORIDE 0.9% 50 ML IV SCH (21:02)
[2019-07-19] MEDS: ACETAMINOPHEN 325 MG TAB PO PRN (21:05)
[2019-07-19] MEDS: VITAMIN B COMPLEX TAB PO SCH (22:41)
[2019-07-20] MEDS ORDERED: POTASSIUM CHLORIDE 20 MEQ TABCR PO STA (00:03)
[2019-07-20] MEDS ORDERED: MAGNESIUM SULFATE / D5W 1 GM/100 ML BAG IV ONE (00:03)
[2019-07-20] MEDS: TRAMADOL HCL 50 MG TABLET PO PRN ×2 (00:36→06:39)
[2019-07-20] MEDS ORDERED: SODIUM CHLORIDE 0.9% 1000ML 1,000 ML IV PRN (08:06)
[2019-07-20] MEDS ORDERED: HEPARIN SOD (PORCINE) 1000 UNIT/ML 10 ML VIAL IV ONE (08:06)
[2019-07-20] MEDS: INSULIN ASPART 100 UNITS/ML 3 ML PEN SC SCH ×4 (08:14→21:10)
[2019-07-20] MEDS: INSULIN HUMAN NPH SC SCH ×2 (08:15→16:59)
[2019-07-20] MEDS: DOCUSATE SODIUM/SENNA 50/8.6MG TAB PO SCH (08:16)
[2019-07-20] MEDS: CALCIUM ACETATE 667 MG CAP PO SCH ×3 (08:16→16:59)
[2019-07-20 08:19] LABS: Hematocrit (blood only) 29.6 % (37-47); Hemoglobin 8.8 g/dL (12.0-16.0); Mean Corpuscular Hemoglobin 28.2 pg (25-34); Mean Corpuscular Hgb Conc 29.7 g/dL (32-36); Mean Corpuscular Volume 94.9 fL (80-100); Mean Platelet Volume 9.7 fL (7.4-10.4); Platelet Count 331 K/uL (130-400); RDW Coefficient of Variation 17.1 % (11.5-14.5); RDW Standard Deviation 59.3 fL (36.4-46.3); Red Blood Count 3.12 M/uL (4.2-5.4); White Blood Count 13.94 K/uL (4.8-10.8)
[2019-07-20] MEDS: PREGABALIN 150 MG CAP PO SCH ×2 (08:20→21:13)
[2019-07-20] MEDS ORDERED: IRON SUCROSE 100 MG in SYRINGE 0 ML IV ONE (08:30)
[2019-07-20] MEDS ORDERED: EPOETIN ALFA 20,000 UNITS/ML VIAL IV SCH (08:30)
[2019-07-20 08:35] LABS: INR 2.3 (0.9-1.1); Prothrombin Time 22.6 Seconds (9.0-12.0)
[2019-07-20 09:02] LABS: BUN Creatinine Ratio 5.7 (10-20); Creatinine Clr Calc Pharmacy 15.6 ml/min; Est GFR (African American) 11.3; Est GFR (Non-African American) 9.7
[2019-07-20] MEDS: NEPHROCAPS PO SCH (09:02)
[2019-07-20] MEDS: FLUOXETINE HCL 20 MG CAP PO SCH (09:02)
[2019-07-20] MEDS: PANTOprazole 40 MG TAB PO SCH (09:02)
[2019-07-20] MEDS: PRAVASTATIN SOD 20 MG TAB PO SCH (09:02)
--- NOTE | 2019-07-20 09:33 | Hospitalist Progress Note ---
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 Buttock wound culture on 06/22/19 grew + Klebsiella, Serratia marcescens, bacteroides uniformis She has been getting IV Ertapenem on HD days CT abd/pelvis showed Large sacral decubitus ulcer extends into the left ischiorectal fossa, perineum and inferior aspect of the left gluteal elmo muscle. Air and fluid is noted within the ulcer without drainable fluid collection identified. No evidence of acute osteomyelitis on CT. WBC on admission 21K, trending down S/P day 4 Incision and Drainage of Soft Tissue Abcess with Excisional Debridement Sacral Wound to Bone by Dr. Garcia Wound culture grew coag negative staph and strep species Blood cultures no growth so far ID on board ID recommended IV Ertapenem for 6 weeks IV daptomycin discontinued Will need weekly cbc, cmp, esr. 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 Medina [facility] Plan to see Dr. Medina on 07/14/2019 for follow up Ortho on board recommended conservative management (3) Diabetes mellitus, type 2: A1c 10.5 on 05/19/2019 Has been NPO for possible surgical procedure Pharmacy on board for glycemic management Continue Monitor BS (4) Atrial fibrillation: Coumadin on hold Rate controlled Hold Coumadin sec to h/h (5) ESRD (end stage renal disease): HD on MWF CXR showed cardiomegaly with mild central pulmonary vascular congestion. Continue nephro vitamins, Phoslo (6) Hypertension: BP stable Continue monitor BP (7) Chronic anemia: Hgb dropped to 7.2 Hgb baseline ~9 s/p 1 unit yesterday (8) Gastroparesis: Continue Zofran as needed (9) Depression: Continue Prozac (10) Neuropathy: Continue Lyrica Left Lung Nodule CT showed solid peripheral 11 mm left lower lobe pulmonary nodule. Will need to outpatient CT chest for follow up Abnormal CXR Focal right midlung zone airspace opacity. If becomes febrile or desat, will add doxy On Ertapenem for the wound DVT Prophylaxis INR 2 Heparin subq discontinued CODE STATUS DNR/DNI Disposition Discharge to SNF once medically stable labs checked ROS-No Headache, No Visual Changes, No Nausea, No Vomiting, No Fever, No Chills, No Neck Pain or Stiffness, No Chest Pain, No Palpitations, No SOB, No KIDD, No Cough, No Sputum, No Wheezing, No Abdominal Pain, No Diarrhea, No Hematemesis, No Hemoptysis, No Unexpected Weight Loss, No Flank pain, No Melena, No Hematochezia, No Frequency, No Urgency, No Burning, No Hematuria, No Rashes, No Diaphoresis. Appetite is Normal, sore buttock Physical Exam Gen-AAO x 3, NAD, Afebrile, obese, wound vac in place Head-NCAT, EOMI, PERRLA, Anicteric Sclera, No Posterior Pharyngeal Erythema Neck-Supple, No JVD, No Thyromegaly, No Masses, No LAD, No Bruits Lungs-Clear to Auscultation Bilaterally, No Rales, No Rhonchi, No Wheezing, No Crepitus Chest-No S4, +S1, +S2, No S3, No Murmurs, No Rubs, No Gallops, No Ectopy Abdomen-Soft, Bowel Sounds Present, Non Tender, Non Distended, No Hepatomegaly, No Splenomegaly, No Palpable Masses, No Rebound, No Rigidity, No Guarding Musculoskeletal-Full Range of Motion Bilaterally, No CVAT Extremities-No Cyanosis, No Clubbing, No Edema Nuero-Cranial Nerves II-XII grossly intact, Motor WNL, DTRs WNL, Strength WNL, Non Focal Psych-Normal Mood Results & Data Vital Signs (Past 12 Hours) Vital Signs Temp Pulse Pulse Resp BP Pulse Ox 07/20/19 07:42 36.8 C 76 16 145/74 H 98 07/20/19 05:04 36.8 C 79 18 120/66 96 07/19/19 23:29 36.8 C 81 20 132/62 94 07/19/19 22:27 79 (1) Hypertension Hypertension type: unspecified Qualified Code(s): I10 - Essential (primary) hypertension
[2019-07-20] MEDS: HEPARIN SOD (PORCINE) 1000 UNIT/ML 10 ML VIAL IV SCH ×2 (09:58→10:28)
--- NOTE | 2019-07-20 18:17 | Dialysis Progress Note ---
Date of Service July 20, 2019 Assessment & Plan (1) ESRD (end stage renal disease): ESRD on HD MWF. Last HD was 07/19 short tx d/t anemia; had routine tx well tolerated w/ 2.5L UF today. Electrolytes are stable except for mild vol OL and mildly low Na: 3K bath. 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 Antibiotics to be timed with dialysis. Okay to put in midline catheter for chronic antibiotics. Avoid PICC line. (3) Chronic anemia: todayHb up to 8.8 after 1 unit pRBC yesterday; getting iron load and no bacteremia > will cont today; for another 85073 units epo with HD. Monitor daily; run w/ miniheparin today Subjective seen on dialysis at 1015; states no sob, no worsening edema; + ongoing uncontrolle dpain, occasional N an dpoor po; asks, "why am i tired all the time?" Review of Systems Review of Systems: All systems reviewed & are unremarkable except as noted in HPI & below Physical Exam Constitutional: well developed and well nourished; no acute distress (on 2LNC) Eyes: EOM intact bilaterally ENMT: Ears: no external ear abnormality Nose: no external nose abnormality Mouth: + dry oral mucous membranes Neck: no nuchal rigidity Respiratory: normal respiratory effort Auscultation: lungs clear to auscultation bilaterally and + diminished lung sounds Cardiovascular: RRR, no murmur, no edema Gastrointestinal (Abdomen): Inspection/Auscultation: normal bowel sounds P ercussion/Palpation: abdomen soft; abdomen nontender Musculoskeletal: Extremities: strength 5/5 throughout R BKA; vac in place Skin: no rashes, warm and dry Neurologic: carballo, fluent though limited speech Psychiatric: Orientation: oriented to person, oriented to place and + guarded Affect: + flat affect and + blunted affect Judgement: + limited judgement Results & Data Vital Signs (Past 12 Hours) Vital Signs Temp Pulse Pulse Pulse Resp BP BP 07/20/19 16:00 92 H 07/20/19 14:59 36.9 C 92 H 22 07/20/19 14:05 37.1 C 59 L 118/65 07/20/19 13:21 55 L 98/50 L 07/20/19 13:00 40 L 65/37 L 07/20/19 12:40 51 L 110/55 L 07/20/19 12:20 47 L 120/55 L 07/20/19 12:00 86 96/48 L 07/20/19 11:40 87 133/42 L 07/20/19 11:20 70 133/40 L 07/20/19 11:00 84 133/31 L 07/20/19 10:40 81 142/76 H 07/20/19 10:20 86 141/62 H 07/20/19 10:00 70 136/44 L 07/20/19 09:15 36.8 C 88 07/20/19 09:00 81 07/20/19 07:42 36.8 C 76 16 BP Pulse Ox 07/20/19 16:00 07/20/19 14:59 115/65 96 07/20/19 14:05 07/20/19 13:21 07/20/19 13:00 07/20/19 12:40 07/20/19 12:20 07/20/19 12:00 07/20/19 11:40 07/20/19 11:20 07/20/19 11:00 07/20/19 10:40 07/20/19 10:20 07/20/19 10:00 07/20/19 09:15 07/20/19 09:00 07/20/19 07:42 145/74 H 98 Laboratory Results 07/20/19 07:54 07/20/19 07:54
[2019-07-20] MEDS: FLUTICASONE PROPIONATE NA SPR 16 GM BTL NAE SCH (21:07)
[2019-07-20] MEDS: ERTAPENEM SODIUM 500 MG in SODIUM CHLORIDE 0.9% 50 ML IV SCH (21:07)
[2019-07-20] MEDS: VITAMIN B COMPLEX TAB PO SCH (21:09)
[2019-07-21 05:59] LABS: Hemoglobin 9.3 g/dL (12.0-16.0); Mean Corpuscular Hemoglobin 28.3 pg (25-34); Mean Corpuscular Volume 94.2 fL (80-100); Mean Platelet Volume 10.2 fL (7.4-10.4); Platelet Count 322 K/uL (130-400); RDW Coefficient of Variation 17.2 % (11.5-14.5); RDW Standard Deviation 59.2 fL (36.4-46.3); Red Blood Count 3.29 M/uL (4.2-5.4); White Blood Count 11.11 K/uL (4.8-10.8)
[2019-07-21 06:14] LABS: INR 2.1 (0.9-1.1); Prothrombin Time 20.8 Seconds (9.0-12.0)
[2019-07-21 06:34] LABS: Albumin Level 1.9 gm/dl (3.4-5.0); Calcium 9.9 mg/dl (8.5-10.1); Creatinine Clr Calc Pharmacy 19.1 ml/min; Est GFR (African American) 14.3; Est GFR (Non-African American) 12.4; Potassium 3.9 mmol/L (3.5-5.1)
[2019-07-21 06:37] LABS: Albumin Globulin Ratio 0.4 (0.9-2); Bilirubin,Total 0.4 mg/dl (0.2-1); Globulin 4.7 gm/dl (2.5-4.0); Total Protein 6.6 gm/dl (6.4-8.2)
--- NOTE | 2019-07-21 08:40 | Discharge Summary ---
Date of Service July 21, 2019 Admission HPI Per Admitting Provider Pt is 64 y/o F with PMH uncontrolled insulin dependent DM II, ESRD on HD MWF, diabetic neuropathy, diabetic gastroparesis, diabetic retinopathy, HTN, HLD, atrial fibrillation on Coumadin, history of DVT, hyperparathyroidism secondary to end-stage renal disease, anemia of chronic disease presented to hospital as direct admission from wound clinic for worsening sacral wound. Pt c/o pain to buttocks region. Pt states that yesterday started with some nausea. No vomiting. Denies any known fever or chills. Pt has been following with wound clinic for sacral wound. Was seen at wound clinic today and found to have worsening sacral wound with reported pocket of purulent discharge. 06/22/19 buttock wound culture + Klebsiella, Serratia marcescens, bacteroides uniformis. Pt currently on ertapenem on dialysis days. Recent admission 05/19/19-06/02/19 for right diabetic foot infection s/p right BKA. Patient reports has had slow wound healing of right leg stump. Denies any noted discharge or bleeding from area. Reports has follow-up with orthopedics- Dr. Medina on 07/14/2019. Today had 2 soft BM's. Patient reports left foot with several pressure points however denies any open areas at this time. Reports had HD yesterday. Does not make any urine. Denies diaphoresis, melena, hematochezia, KINCAID, dizziness, syncope, vision changes, neck pain, CP, SOB, orthopnea, palpitations, cough, sore throat, choking, otalgia, rhinorrhea, abdominal pain, paresthesias, weakness, extremity edema, rashes or other skin problems. Admission Exam Per Admitting Provider General: no acute distress, obese Head: normocephalic, atraumatic Eyes: PERRL, EOM's intact, conjunctiva non-injected, anicteric ENT: normal inspection external ears, nose, mucous membranes moist Neck: supple, trachea midline Lungs: clear, no respiratory distress, no wheezing/rhonchi/rales CV: irregularly irregular, rate 82, no murmur, no pretibial edema Abd: normal BS, protuberant, soft, non-tender Ext: no cyanosis, no calf tenderness to left leg; RLE: +BKA, stump with incision with steri strips in place with eschar, no active discharge no significant surrounding erythema left foot: +non open pressure wound to medial aspect 1st metatarsal head and mid foot, and lateral aspect 5th metatarsal head and calcaneus L arm +fistula with palpable thrill Neuro: A&O x 3, no focal deficits noted, normal affect Skin: warm, dry; Sacrum with erythema, left buttock with pressure ulcer, distal gluteal cleft with deep ulcer Principal Diagnosis (1) Sacral wound: (2) Below-knee amputation of right lower extremity: (3) Diabetes mellitus, type 2: (4) Atrial fibrillation: (5) ESRD (end stage renal disease): (6) Hypertension: (7) Chronic anemia: (8) Gastroparesis: (9) Depression: (10) Neuropathy: Discharge Exam General- No acute distress Head- atraumatic Eyes- PERRL, EOMI, ENT- oropharynx clear Neck- supple, no JVD Lungs- clear to auscultation Heart- regular rhythm; no murmur Abdomen- normal bowel sounds, soft, nontender Extremities- no Left calf tenderness, +BKA, stump with incision with steri strips in place with eschar and no discharge Neuro- alert, oriented x 3; PERRL, EOMI; no facial palsy; no dysarthria Skin- warm & dry, Sacrum pressure ulcer with dressing on Discharge Data Allergies Allergy/AdvReac Type Severity Reaction Status Date / Time Bactrim Allergy Severe ANAPHYLAXIS Verified 06/11/16 08:40 sulfamethoxazole Allergy Severe Anaphylaxis Verified 06/27/19 13:24 trimethoprim Allergy Severe Anaphylaxis Verified 06/27/19 13:24 metformin AdvReac Intermediate Gastrointestinal Verified 06/27/19 13:24 Upset Consultations 07/12/19 14:57 Consult Case Management - Discharge Planning Routine 07/12/19 16:19 Consult Infectious Diseases Routine Consult Nephrology Routine Consult Wound Care Provider Routine 07/12/19 17:48 Consult Orthopedic Surgery Routine 07/13/19 09:18 Consult General Surgery Routine Current Diagnoses Anemia, unspecified (07/12/19) Type 2 diabetes mellitus without complications (07/12/19) Major depressive disorder, single episode, unspecified (07/12/19) Polyneuropathy, unspecified (07/12/19) Essential (primary) hypertension (07/12/19) Unspecified atrial fibrillation (07/12/19) Gastroparesis (07/12/19) Cellulitis of right lower limb (07/12/19) Cellulitis, unspecified (07/12/19) Pressure ulcer of left buttock, stage 3 (07/12/19) End stage renal disease (07/12/19) Unspecified open wound of lower back and pelvis without penetration into retroperitoneum, initial encounter (07/12/19) Complete traumatic amputation at level between knee and ankle, right lower leg, initial encounter (07/12/19) Allergies Bactrim Allergy (Severe, Verified 06/11/16 08:40) ANAPHYLAXIS sulfamethoxazole Allergy (Severe, Verified 06/27/19 13:24) Anaphylaxis trimethoprim Allergy (Severe, Verified 06/27/19 13:24) Anaphylaxis metformin Adverse Reaction (Intermediate, Verified 06/27/19 13:24) Gastrointestinal Upset Height/Weight/Isolation Height 5 ft 3 in Weight 115 kg Isolation Type Contact Precautions Chemistry 07/20/19 07/21/19 07:54 05:22 Sodium 135 L 137 Potassium 4.0 3.9 Chloride 97 L 98 Carbon Dioxide 31 30 Anion Gap 7.0 9.0 BUN 26 H 26 H Creatinine 4.50 H D 3.69 H D Glucose 145 H 102 H Microbiology 07/14/19 17:30 Sacrum Decubitus Gram Stain - Final 07/14/19 17:30 Sacrum Decubitus Aerobic and Anaerobic Culture - Final Enterococcus faecalis [place] albicans Procedures Performed Operation Date: 07/14/19 11:45 Actual Procedures p Incision and Drainage of Soft Tissue Abcess with Ecisional Debridement Sacral Wound to Bone - Gómez Garcia, Ordered Studies 07/12/19 17:30 CT pelvis w/IV con only Urgent 07/19/19 06:34 CT abd pelvis wo con Urgent Hospital Course (1) Sacral wound: Stage III pressure ulcer of left buttock Pt was sent from the wound clinic as a direct admission for worsening sacral wound ulcer. Buttock wound culture on 06/22/19 grew + Klebsiella, Serratia marcescens, bacteroides uniformis She has been getting IV Ertapenem on HD days CT abd/pelvis showed Large sacral decubitus ulcer extends into the left ischiorectal fossa, perineum and inferior aspect of the left gluteal elmo muscle. Air and fluid is noted within the ulcer without drainable fluid collection identified. No evidence of acute osteomyelitis on CT. WBC on admission 21K, trending down S/P Incision and Drainage of Soft Tissue Abcess with Excisional Debridement Sacral Wound to Bone by Dr. Garcia Wound culture grew coag negative staph and strep species Blood cultures no growth so far ID on board ID recommended IV Ertapenem for 6 weeks IV daptomycin discontinued Will need weekly cbc, cmp, esr. 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 Medina Ortho on board recommended conservative management (3) Diabetes mellitus, type 2: A1c 10.5 on 05/19/2019 (4) Atrial fibrillation: Coumadin (5) ESRD (end stage renal disease): HD on MWF CXR showed cardiomegaly with mild central pulmonary vascular congestion. Continue nephro vitamins, Phoslo (6) Hypertension: BP stable Continue monitor BP (7) Chronic anemia: Hgb dropped to 7.2 Hgb baseline ~9 s/p 1 unit during stay (8) Gastroparesis: Continue Zofran as needed (9) Depression: Continue Prozac (10) Neuropathy: Continue Lyrica Left Lung Nodule CT showed solid peripheral 11 mm left lower lobe pulmonary nodule. Will need to outpatient CT chest for follow up Abnormal CXR Focal right midlung zone airspace opacity. On Ertapenem for the wound DVT Prophylaxis per SNF CODE STATUS DNR/DNI Disposition Discharge to SNF today Total Time Total Time Spent Total Time Spent (In Minutes): 60 mins Total Time Includes: Examination of the Patient, Discharge Planning, Medication Reconciliation and Communication With Other Providers Discharge Plan Discharge Items Patient Disposition: Transfer Custodial Fac Reason For Visit: INFECTED SACRAL WOUND Discharge Diagnosis: (1) Sacral wound: (2) Below-knee amputation of right lower extremity: (3) Diabetes mellitus, type 2: (4) Atrial fibrillation: (5) ESRD (end stage renal disease): (6) Hypertension: (7) Chronic anemia: (8) Gastroparesis: (9) Depression: (10) Neuropathy: Condition on Discharge: Good Activity: Resume your previous activity Lifting: None Bathing: No limitations Exercise/Sports: None Driving/Machine Use: none Weightbearing: Left weightbearing Non-emergency contact: Primary Care Provider and Specialist Call non-emergency contact if: you have any medication questions Follow-up/Referrals: Francoise Conde DO [Physician] - (Call for instructions) Issa Dixon MD [Primary Care Provider] - Fabiana Gomez MD [Physician] - (Call for instructions) Ok Vasquez DO [Physician] - (Call for instructions, first opening) Diet: Carb Consistent or DM2 and Heart Healthy Addtl Attending Provider Instructions: Aggressive wound care, Wound Vac change q48h, Dialysis MWF weekly cbc, cmp, esr. Send result to ID Dr Conde Ertepenem 500 mg IV on HD days until 08/23/[address] to outpatient CT chest for follow up-nodule Pending Studies at Discharge: No Stand-Alone Forms: My [facility] Skilled Items Patient informed of condition?: Yes DNR: Yes Discharge Level of Care: Skilled Communicable Disease: Yes Discharge Prognosis: Improving Lines: Mid-Line Urinary Catheter: No Medications and DC Order Prescriptions: New (DME) Ertapenem Consult Active [Consult] bottle See Rx Instructions .ROUTE .MEDSUPPLY Qty: 1 RF: 0 Continued fluoxetine 20 mg capsule 20 mg PO QAM RF: 0 fluticasone propionate 50 mcg/actuation spray,suspension 2 sprays INTNAS QPM RF: 0 loperamide 2 mg capsule 4 mg PO DIRECTED PRN (Reason: Diarrhea) RF: 0 pantoprazole [Protonix] 40 mg tablet,delayed release (DR/EC) 40 mg PO QAM RF: 0 pregabalin [Lyrica] 150 mg capsule 150 mg PO BID RF: 0 warfarin [Coumadin] 5 mg tablet 2.5 mg PO WK RF: 0 pravastatin [Pravachol] 20 mg tablet 20 mg PO QAM RF: 0 B complex with C 20-folic acid 1 mg capsule 1 cap PO .COMPLEX RF: 0 Restasis 0.05 % Dropperette 1 drp OPHTHALMIC (EYE) DAILY RF: 0 Humulin 70/30 U-100 Insulin 100 unit/mL (70-30) suspension 30 unit subcut QAM RF: 0 Humulin 70/30 U-100 Insulin 100 unit/mL (70-30) suspension 36 unit subcut HS RF: 0 warfarin 5 mg tablet 5 mg PO [id number] RF: 0 calcium acetate 667 mg capsule 667 mg PO TIDM RF: 0 ondansetron HCl 4 mg Tablet 4 mg PO QID PRN (Reason: Nausea) RF: 0 Nephro-Lexa 0.8 mg Tablet 1 tab PO HS RF: 0 ergocalciferol (vitamin D2) 50,000 unit Capsule 50,000 unit PO WK RF: 0 ertapenem 1 gram recon soln 500 mg IV DAILY Qty: 35 RF: 0 Discharge Orders: Discharge Order (Routine); Ordered 07/21/19 Ordered By: Dave Hill Admission Data Admit Date/Time: 07/12/19 14:22 Attending Provider: Dave Hill Admit Provider: Trent Tomas Primary Care Provider: Issa Dixon Other Providers: Trent Tomas ; Francoise Conde ; Fabiana Gomez ; Ok Vasquez ; Blake Medina ; Gómez Garcia
[2019-07-21] MEDS: FLUOXETINE HCL 20 MG CAP PO SCH (08:41)
[2019-07-21] MEDS: DOCUSATE SODIUM/SENNA 50/8.6MG TAB PO SCH (08:41)
[2019-07-21] MEDS: CALCIUM ACETATE 667 MG CAP PO SCH ×2 (08:42→13:23)
[2019-07-21] MEDS: PANTOprazole 40 MG TAB PO SCH (08:42)
[2019-07-21] MEDS: PRAVASTATIN SOD 20 MG TAB PO SCH (08:43)
[2019-07-21] MEDS: INSULIN ASPART 100 UNITS/ML 3 ML PEN SC SCH ×2 (08:47→13:21)
[2019-07-21] MEDS: INSULIN HUMAN NPH SC SCH (08:47)
[2019-07-21] MEDS: TRAMADOL HCL 50 MG TABLET PO PRN (09:08)
[2019-07-21] MEDS: PREGABALIN 150 MG CAP PO SCH (09:08)
== END 2019-07-21 16:35 | DRG 579 ==
LOC: 2W 14:22 → SUATTDRO 14:22